=== PATIENT | female | born 1985 | race Caucasian/White ===

== ENCOUNTER → 2016-09-18 | Outpatient (CLI) | payer OTHER ==
[~2016-09-18] MED LIST: DOCU100C37 PO; FAMO20TA3 PO; FAMO20TA5; HYDR-3730 PO; HYDR-3812 PO; IBUP-1773 PO; LEVO13CA2 PO; PREN1TAB71 PO; ZOFRAN
--- OUTSIDE RECORDS SUMMARY | 2016-09-18 09:36 | XMS REPORT | Continuity of Care Document ---
Author Author [facility] Organization [facility] Address Unknown Phone Unavailable Care Team Providers Care Stage Hand Name Role Phone EVELINE MANZO MD PCP Insurance Providers Payer Name Policy Number Subscriber Name Relationship [employer] Benefits [id number] Reece Jauregui 16 Self / Same As Patient Advance Directives Directive Response Recorded Date/Time Advance Directives No 01/25/16 8:30am Health Care Power of School Speech Language Pathologist No 01/25/16 8:30am Organ Donor No 01/25/16 8:30am Resuscitation Status Full Code 01/25/16 8:30am Problems Active Problems Medical Problem Onset Date Status Abdominal pain Unknown Acute Acute cholecystitis Unknown Acute Biliary obstruction Unknown Acute Nausea and vomiting Unknown Acute Post-dates Unknown Acute Unknown Acute Urinary tract infection Unknown Acute Medications Current Home Medications Medication Dose Units Route Directions Days/Qty Instructions Start Date Levothyroxine Sodium 13 Mcg 13 Mcg Oral Daily 06/10/15 Hydrocodone/Acetaminophen 1 Each 1-2 Each Oral Every 6 Hours 35 Past Home Medications Medication Directions Ordered Status Famotidine 20 Mg Tablet, 06/10/15 Discontinued [Zofran] , 06/10/15 Discontinued Vit/Iron Fumarate/Fa 1 Each Tablet, 1 Each Oral Daily 08/29/15 Discontinued Famotidine Tablet, 20 Mg Oral Twice A Day as needed for Heartburn 08/29/15 Discontinued Hydrocodone/Acetaminophen 1 Each Tablet, 1-2 Tab Oral Every 4HRS as needed for Pain 08/30/15 Discontinued Ibuprofen 600 Mg Tablet, 600 Mg Oral Every 6 Hours as needed for Pain Discontinued Docusate Sodium 100 Mg Capsule, 100 Mg Oral Twice A Day 08/30/15 Discontinued Hydrocodone/Acetaminophen 1 Each Tablet, 1-2 Each Oral Every 6 Hours Discontinued Social History Social History Problem Response Recorded Date/Time Alcohol Use Denies Use 01/25/2016 8:30am Recreational Drug Use No 01/25/2016 8:30am Recent Foreign Travel No 01/25/2016 8:30am Recent Infectious Disease Exposure No 01/25/2016 8:30am Hospitalization with Isolation Denies 01/25/2016 1:57pm Sexually Transmitted Disease No 01/25/2016 8:30am HIV/AIDS No 01/25/2016 8:30am Smoking Status Never a Smoker 01/25/2016 8:30am Query Response Start Date Stop Date Smoking Status Never a Smoker Hospital Discharge Instructions Patient Instructions Physician Instructions New, Converted, or Re-Newed RX: RX on Chart Follow Up Appt in 2 weeks Activity as tolerated No driving for 24 hours No driving while on pain medications keep dressing on one week, abdominal binder on at all times except to shower. Incentive Spirometry use every 2 hours while awake Regular Diet Symptoms to Report: Fever over 101 degree F, Nausea/Vomiting Infection Signs and Symptoms to report: Increased redness, Foul odor of wound, Increased drainage Bathing instructions: May shower Operative Area Clean/Dry; Keep incision clean/dry If any problems/questions: Contact your physician or go to Emergency Room Plan of Care Discharge Date 01/25/16 1:32pm Instructions/Education Provided ANESTHESIA INSTRUCTIONS POSTOP Umbilical Hernia (DC) Prescriptions See Medication Section Functional Status No functional status results. Allergies, Adverse Reactions, Alerts No known allergies. Immunizations Name Given Type Date of Influenza Vaccine 07/31/15 Historical Tetanus Booster (TDap) Unknown Historical Vital Signs Acute Vital Signs Vital Response Date/Time Temperature (Fahrenheit) 99.2 degrees F (97.6 - 99.5) 01/25/2016 1:20pm Temperature (Calculated Celsius) 37.41871 degrees C (36.4 - 37.5) 01/25/2016 1:20pm Temperature Source Temporal 01/25/2016 1:20pm Pulse Rate (adult) 76 bpm (60 - 90) 01/25/2016 1:20pm Respiratory Rate 16 bpm (12 - 24) 01/25/2016 1:20pm O2 Sat by Pulse Oximetry 96 % (88 - 100) 01/25/2016 1:20pm Blood Pressure 116/76 mm Hg 01/25/2016 1:20pm Pain Pain Intensity 4 01/25/2016 1:20pm Height (Feet) 5 feet 01/25/2016 8:30am Height (Inches) 0.00 inches 01/25/2016 8:30am Height (Calculated Centimeters) 152.385588 cm 01/25/2016 8:30am Weight (Pounds) 192 pounds 01/25/2016 8:30am Weight (Ounces) 0.0 oz 01/25/2016 8:30am Weight (Calculated Grams) 75224.736 gm 01/25/2016 8:30am Weight (Calculated Kilograms) 87.169099 kilograms 01/25/2016 8:30am Calculated BMI 37.5 01/25/2016 8:30am Results Pending Laboratory Results Test Name Collection Date/Time Pending Microbiology Results Procedure Source Collection Date/Time Procedures Procedure Status Date Provider(s) Repair of umbilical hernia in adult Completed 01/25/16 MEL AIKEN MD Encounters Encounter Location Arrival/Admit Date Discharge/Depart Date Attending Provider Departed [facility] 01/25/16 7:27am 1:32pm MEL AIKEN MD Departed Clinic [facility] 01/19/16 8:54am 01/19/16 9: 44am MEL AIKEN MD
--- NOTE | 2016-09-18 10:10 | Diagnostic Imaging Report ---
Clinical indication: Patient fell in April landing on her bottom. Patient has had low back pain since then. Pain has been getting worse. Exams: 1: X-ray of the lumbar spine, 3 views. 2: X-ray of the sacrum and coccyx, 3 views. Comparison: X-ray of the lumbar spine dated 11/09/2010. Findings: X-ray of the sacrum and coccyx: X-ray of the sacrum and coccyx shows no evidence of interval acute fracture or dislocation. Is stable kyphotic configuration of the sacrococcygeal region with no evidence of cortical disruption or callus formation. The sacroiliac joints, sacrum and visualized portion of the pelvis and both hips are unremarkable. X-ray of the lumbar spine: Lumbar spine has normal alignment with no acute fracture or dislocation. There is slight progression of minimal anterior spurring at the L3-L4 level anteriorly. There is no significant loss of intervertebral disc height or vertebral body height. There is no other significant degenerative changes. Surgical clips are seen overlying the right upper quadrant which could be related to cholecystectomy changes. Impression: 1: X-ray of the sacrum, coccyx, and lumbar spine shows no evidence of acute fracture or dislocation. 2: There is slight progression of minimal degenerative spurring anteriorly at the L3-L4 level. Dictated by: Dictated on workstation # [id number]
--- NOTE | 2016-09-18 10:24 | Diagnostic Imaging Report ---
CLINICAL INDICATION: Patient fell in April landing on her bottom. Patient has had low back pain since then. Pain has been getting worse. EXAMS: 1. X-ray of the lumbar spine, 3 views. 2. X-ray of the sacrum and coccyx, 3 views. COMPARISON: X-ray of the lumbar spine dated 11/09/2010. FINDINGS: X-RAY OF THE SACRUM AND COCCYX: X-ray of the sacrum and coccyx shows no evidence of interval acute fracture or dislocation. There is stable kyphotic configuration of the sacrococcygeal region with no evidence of cortical disruption or callus formation. The sacroiliac joints, sacrum, and visualized portions of the pelvis and both hips are unremarkable. X-RAY OF THE LUMBAR SPINE: The lumbar spine has normal alignment with no acute fracture or dislocation. There is slight progression of minimal anterior spurring at the L3-L4 level anteriorly. There is no significant loss of intervertebral disc height or vertebral body height. There is no other significant degenerative change. Surgical clips are seen overlying the right upper quadrant which could be related to cholecystectomy changes. IMPRESSION: 1. X-ray of the sacrum, coccyx, and lumbar spine shows no evidence of acute fracture or dislocation. 2. There is slight progression of minimal degenerative spurring anteriorly at the L3-L4 level. Dictated by: Dictated on workstation # [id number]
== END ==
LOC: RAD 09:32
PROVIDERS: ATTEND Nurse Practitioner Family
DX: S39.92XA Unspecified injury of lower back, initial encounter (principal); M54.5 Low back pain; W19.XXXA Unspecified fall, initial encounter; Y99.8 Other external cause status
CPT/HCPCS: 72100; 72220

== ENCOUNTER 2017-05-17 17:42 | Day surgery (SDC) | payer OTHER ==
[~2017-05-17] VITALS: Ht 152.4 cm; Wt 101.6 kg
[2017-05-17] MEDS ORDERED: fentaNYL INJECTION 100 MCG/2 ML AMP IVP STA (17:45)
[2017-05-17] MEDS ORDERED: DIAZEPAM INJ 10 MG/2 ML (VALIUM) SYR IV ONE ×3 (17:45→19:00)
--- NOTE | 2017-05-17 17:56 | ED Fall/Injury ---
General Stated Complaint: FALL Source: patient Exam Limitations: other (PT IS COMPLETELY HYSTERIAL--YELLING, CRYING, HYPERVENTILATING) History of Present Illness Time seen by provider: 17:42 Initial Comments PT ARRIVES VIA POV FROM HOME FELL OFF 3RD STEP OF A LADDER, LANDING ON RIGHT SHOULDER /ARM C/O SEVERE PAIN IN RIGHT SHOULDER ALSO C/O PAIN IN LEFT FOOT AND ANKLE DID NOT HIT HEAD AND NO LOSS OF CONSCIOUSNESS NO NECK OR BACK PAIN NO CHEST PAIN NO HIP OR KNEE PAIN NO PARESTHESIAS OR MOTOR DEFICITS NO PRIOR INJURY TO THIS SHOULDER OR FOOT/ANKLE PT IS RIGHT HANDED PCP: DR MANZO RERECORDING MIXER: DR. PA Allergies and Home Medications Allergies Coded Allergies: No Known Drug Allergies (Unverified , 01/19/16) Home Medications Hydrocodone/Acetaminophen 1 Each Tablet, 1-2 EACH PO Q6H, #35 Prescribed by: MEL AIKEN on 01/25/16 1113 Levothyroxine Sodium 13 Mcg Capsule, 13 MCG PO DAILY, (Reported) Constitutional: no symptoms reported Eyes: No Symptoms Reported Ears, Nose, Mouth, Throat: no symptoms reported Respiratory: no symptoms reported Cardiovascular: no symptoms reported Gastrointestinal: no symptoms reported Genitourinary: no symptoms reported Musculoskeletal: see HPI Skin: no symptoms reported Psychiatric/Neurological: Anxiety Past Uidprkh-Cbuqmi-Ekpxyu Hx Patient Social History Alcohol Use: Denies Use Recreational Drug Use: No Smoking Status: Never a Smoker Immunizations Up To Date Tetanus Booster (TDap): Unknown Date of Influenza Vaccine: Jul 31, 2015 Surgeries History of Surgeries: Yes (BILATERAL CARPAL TUNNEL; BILATERAL TRIGGER FINGER SURGERY; REMOVAL OF CYST RIGHT THUMB; HERNIA REPAIR WITH REVISION; X 1 ) Surgeries: Section, Orthopedic Respiratory History of Respiratory Disorde: No Cardiovascular History of Cardiac Disorders: No Neurological History of Neurological Disord: No Reproductive System : No Hx Reproductive Disorders: No Sexually Transmitted Disease: No HIV/AIDS: No Female Reproductive Disorders: Denies Genitourinary History of Genitourinary Disor: No Gastrointestinal History of Gastrointestinal Di: Yes Gastrointestinal Disorders: Abdominal Hernia, Gastroesophageal Reflux, Gall Bladder Disease Musculoskeletal History of Musculoskeletal Dis: Yes (MULTIPLE ORTHO PROCEDURES) Endocrine History of Endocrine Disorders: Yes Endocrine Disorders: Hypothyroidsim HEENT History of HEENT Disorders: No Loss of Vision: Denies Hearing Impairment: Denies Cancer History of Cancer: No Psychosocial History of Psychiatric Problem: No Integumentary History of Skin or Integumenta: No Blood Transfusions Adverse Reaction to a Blood Tr: No (N/A) Family Medical History Significant Family History: No Pertinent Family Hx Family Medial History: Blood clots G8 SISTER Diabetes mellitus 19 FATHER 19 MOTHER Uncle Physical Exam Vital Signs Vital Sign - Last 12Hours 05/17/17 17:54 Pulse 100 Resp 22 B/P (MAP) 150/95 O2 Delivery Room Air Capillary Refill : General Appearance: obese, other (HYSTERICAL, YELLING/CRYING/HYPERVENTILATING/ WAILING LOUDLY) HEENT: PERRL/EOMI, normal ENT inspection Neck: non-tender, full range of motion, supple, normal inspection Cardiovascular: normal peripheral pulses, regular rate, rhythm, no murmur Respiratory: chest non-tender, normal breath sounds, no respiratory distress, no accessory muscle use Peripheral Pulses: 3+ Dorsalis Pedis (R), 3+ Left Dors-Pedis (L), 3+ Radial Pulses (R), 3+ Radial Pulses (L) Gastrointestinal: normal bowel sounds, non tender, soft Back: normal inspection, no CVA tenderness, no vertebral tenderness Extremities: no pedal edema, normal capillary refill, other (TENDERNESS TO RIGHT SHOULDER, HOLDING RIGHT UPPER ARM CLOSE TO BODY WITH LEFT HAND. DISTAL MOTOR/SENSORY/VASCULAR INTACT. NO TENDERNESS DISTAL TO MID HUMERUS. NO SCAPULAR TENDERNESS. ) Neurologic/Psychiatric: filler blender II-XII nml as tested, no motor/sensory deficits, alert, oriented x 3 Skin: normal color, warm/dry Loli Coma Score Best Eye Response: (4) Open Spontaneously Best Verbal Response: (5) Oriented Best Motor Response: (6) Obeys Commands Loli Total: 15 Progress/Results/Core Measures Results/Orders My Orders Orders - ABDULAZIZ ALFRED DO Saline Lock/Iv-Start (05/17/17 17:45) Chest 1 View, Ap/Pa Only (05/17/17 17:45) Shoulder, Right, 3 Views (05/17/17 17:45) Humerus, Right, 2 Views (05/17/17 17:45) Ankle, Left, 3 Views (05/17/17 17:45) Pelvis (05/17/17 17:45) Fentanyl Injection (Sublimaze Injection (05/17/17 17:45) Diazepam Injection (Valium Injection) (05/17/17 17:45) Diazepam Injection (Valium Injection) (05/17/17 18:15) Fentanyl Injection (Sublimaze Injection (05/17/17 18:15) Foot, Left, 3 Views (05/17/17 ) Morphine Injection (Morphine Injection (05/17/17 18:46) Morphine Injection (Morphine Injection (05/17/17 19:00) Diazepam Injection (Valium Injection) (05/17/17 19:00) Medications Given in ED Current Medications Medications Dose Ordered Sig/Maxx Route Start Time Stop Time Status Last Admin Dose Admin Diazepam 5 mg ONCE ONCE IV 05/17/17 17:45 05/17/17 17:47 DC 05/17/17 17:51 5 MG Diazepam 5 mg ONCE ONCE IV 05/17/17 18:15 05/17/17 18:16 DC 05/17/17 18:11 5 MG Diazepam 5 mg ONCE ONCE IV 05/17/17 19:00 05/17/17 19:01 DC 05/17/17 19:05 5 MG Fentanyl Citrate 50 mcg ONCE ONCE IVP 05/17/17 18:15 05/17/17 18:16 DC 05/17/17 18:12 50 MCG Morphine Sulfate 10 mg ONCE ONCE IVP 05/17/17 19:00 05/17/17 19:01 DC 05/17/17 19:05 10 MG Vital Signs/I&O Vital Sign - Last 12Hours 05/17/17 17:54 Pulse 100 Resp 22 B/P (MAP) 150/95 O2 Delivery Room Air Progress Note : Progress Note NO RELIEF OF PAIN WITH VALIUM 15 MG + MORPHINE 20 MG AND PT IS STILL COMPLETELY HYSTERICAL/YELLING/MOANING LOUDLY/HYPERVENTILATING. Diagnostic Imaging Comments XRAYS RIGHT SHOULDER AND HUMERUS--FRACTURE / DISLOCATION OF PROXIMAL HUMERUS CXR--NO ACUTE PROCESS IN CHEST XRAYS LEFT FOOT AND ANKLE--NO ACUTE PROCESS ALL PER RADIOLOGIST REPORTS AT 8 Reviewed: Reviewed by Me Departure Communication (Admissions) Progress Notes 1844--SPOKE WITH DR. TURNER, ORTHO SYSTEMS PROGRAMMER ANALYST. WILL BE IN TO SEE PT. 1854--DR. TURNER HERE, CARE TURNED OVER TO HIM. WILL BE TAKING PT TO OR TONIGHT Impression Impression: Primary Impression: Closed fracture dislocation of right shoulder Additional Impression: LEFT FOOT AND ANKLE SPRAIN Disposition: ADMITTED INPATIENT (TO SURGERY) Condition: Stable Admissions Decision to Admit Reason: Admit from ER (Trauma) (TO SURGERY) Decision to Admit/Date: May 17, 2017 Time/Decision to Admit Time: 18:45 Departure-Patient Inst. Referrals: EVELINE MANZO MD (PCP/Family) Primary Care Physician ABDULAZIZ ALFRED DO May 17, 2017 17:56
[2017-05-17] MEDS ORDERED: fentaNYL INJECTION 100 MCG/2 ML AMP IVP ONE (18:15)
[2017-05-17] MEDS ORDERED: morphine INJ 10 MG/ML 1ML (SYR OR VIAL) ONE ×2 (18:46→21:20)
--- NOTE | 2017-05-17 18:57 | Diagnostic Imaging Report ---
INDICATION: Fall. COMPARISON: None. EXAMINATION: Single view of the pelvis was obtained. FINDINGS: No fracture or dislocation. Articular surfaces are normal. IMPRESSION: Negative pelvis. Dictated by: Dictated on workstation # [id number]
--- NOTE | 2017-05-17 18:58 | Diagnostic Imaging Report ---
INDICATION: Fall, chest pain. COMPARISON: None. EXAMINATION: Single view of the chest was obtained. FINDINGS: Clear lungs, bilaterally. The heart size is normal. There is no pneumothorax. There is a fracture dislocation of the right shoulder. IMPRESSION: 1. No acute cardiopulmonary findings. 2. Fracture dislocation right shoulder. Dictated by: Dictated on workstation # [id number]
--- NOTE | 2017-05-17 18:59 | Diagnostic Imaging Report ---
INDICATION: Right arm pain, trauma. COMPARISON: None. EXAMINATION: Three views of the right humerus were obtained. FINDINGS: Displaced fracture of likely the bicipital tuberosity with dislocation of the humeral head, inferiorly and slightly anteriorly. The remainder of the humerus and visualized elbow are normal. IMPRESSION: Fracture dislocation right shoulder. Dictated by: Dictated on workstation # [id number]
[2017-05-17] MEDS ORDERED: morphine INJ 10 MG/ML 1ML (SYR OR VIAL) IVP ONE (19:00)
--- NOTE | 2017-05-17 19:00 | Diagnostic Imaging Report ---
INDICATION: Fall, right shoulder pain. COMPARISON: None. FINDINGS: 3 views of right shoulder demonstrate fracture of the bicipital tuberosity with dislocation of the humeral head inferiorly and slightly anteriorly. The visualized scapula and clavicle are intact. IMPRESSION: Fracture or dislocation right shoulder. Dictated by: Dictated on workstation # [id number]
--- NOTE | 2017-05-17 19:02 | Diagnostic Imaging Report ---
INDICATION: Fall, trauma. COMPARISON: None. EXAMINATION: Three views of the left foot were obtained. FINDINGS: No acute fracture or dislocation. There is a normal variant os cuboides. There is no foreign body. IMPRESSION: No fracture or dislocation. Dictated by: Dictated on workstation # [id number]
--- NOTE | 2017-05-17 19:03 | Diagnostic Imaging Report ---
INDICATION: Left ankle pain, trauma. COMPARISON: None. FINDINGS: 3 views of left ankle demonstrate no fracture or dislocation. Articular surfaces are normal. There is no foreign body. IMPRESSION: Negative left ankle. Dictated by: Dictated on workstation # [id number]
--- NOTE | 2017-05-17 19:34 | ED Upper Extremity ---
General Chief Complaint: Trauma-Non Activation Stated Complaint: FALL from third step of the latter ht shoulder injury. secondary complaint of left foot pain with reportedly a normal x-ray. Nursing Triage Note: SEE TRAUMA NOTE Nursing Sepsis Screen: No Definite Risk Source: patient, family History of Present Illness Time seen by provider: 19:32 Initial Comments patient has received about 20 mg of IV diazepam and 10 milligrams of morphine she is awake and alert and well-oriented to events talkative. She easily comes down once we discussed the care of her shoulder. Denies numbness or tingling in the hand. Denies neck or head injury. Injury occurred just prior to arrival. Onset: just prior to arrival Pain/Injury Location: right shoulder Method of Injury: fell Modifying Factors: Improves With Movement, Improves With Pain Medication Allergies and Home Medications Allergies Coded Allergies: No Known Drug Allergies (Unverified , 01/19/16) Home Medications Hydrocodone/Acetaminophen 1 Each Tablet, 1-2 EACH PO Q6H, #35 Prescribed by: MEL AIKEN on 01/25/16 1113 Levothyroxine Sodium 13 Mcg Capsule, 13 MCG PO DAILY, (Reported) Constitutional: no symptoms reported Respiratory: no symptoms reported Cardiovascular: no symptoms reported Past Pikozin-Gfgkng-Zhpzuk Hx Patient Social History Alcohol Use: Denies Use Recreational Drug Use: No Smoking Status: Never a Smoker Recent Foreign Travel: No Contact w/Someone Who Travel: No Recent Infectious Disease Expo: No Recent Hopitalizations: Yes (galbladder) Physical Abuse: No Sexual Abuse: No Immunizations Up To Date Tetanus Booster (TDap): Unknown Date of Influenza Vaccine: Jul 31, 2015 Surgeries History of Surgeries: Yes (BILATERAL CARPAL TUNNEL; BILATERAL TRIGGER FINGER SURGERY; REMOVAL OF CYST RIGHT THUMB; HERNIA REPAIR WITH REVISION; X 1 ) Surgeries: Section, Gallbladder, Orthopedic Respiratory History of Respiratory Disorde: No Cardiovascular History of Cardiac Disorders: No Neurological History of Neurological Disord: No Reproductive System : No Hx Reproductive Disorders: No Sexually Transmitted Disease: No HIV/AIDS: No Female Reproductive Disorders: Denies Genitourinary History of Genitourinary Disor: No Gastrointestinal History of Gastrointestinal Di: Yes Gastrointestinal Disorders: Abdominal Hernia, Gastroesophageal Reflux, Gall Bladder Disease Musculoskeletal History of Musculoskeletal Dis: Yes (MULTIPLE ORTHO PROCEDURES) Musculoskeletal Disorders: Gout (History of injury to this shoulder and history of broken left arm and right arm in childhood) Endocrine History of Endocrine Disorders: Yes Endocrine Disorders: Hypothyroidsim HEENT History of HEENT Disorders: No Loss of Vision: Denies Hearing Impairment: Denies Cancer History of Cancer: No Psychosocial History of Psychiatric Problem: No Suicide Risk Score: 0 Integumentary History of Skin or Integumenta: No Blood Transfusions History of Blood Disorders: No Adverse Reaction to a Blood Tr: No (N/A) Family Medical History Significant Family History: No Pertinent Family Hx Family Medial History: Blood clots G8 SISTER Diabetes mellitus 19 FATHER 19 MOTHER Uncle Physical Exam Vital Signs Vital Sign - Last 12Hours 05/17/17 17:54 Pulse 100 Resp 22 B/P (MAP) 150/95 O2 Delivery Room Air Capillary Refill : Less Than 3 Seconds General Appearance: WD/WN (J), moderate distress (a changes), obese HEENT: normal ENT inspection Neck: full range of motion, supple (this is concerned that this girl has a nasal fracture. He is to give Dr. Ant child going thank you) Cardiovascular: normal peripheral pulses, regular rate, rhythm Shoulder: asymmetry (1), deformity, limited ROM, pain, soft tissue tenderness, swelling Elbow/Forearm: normal inspection, non-tender Wrist: Yes normal inspection, Yes non-tender, Yes normal ROM Hand: normal inspection, non-tender, Right (this little girl is nothere is a nasal bones) Neurologic/Psychiatric: other (Radial ulnar and median sensory intact) Skin: normal color Progress/Results/Core Measures Results/Orders Medications Given in ED Current Medications Medications Dose Ordered Sig/Maxx Route Start Time Stop Time Status Last Admin Dose Admin Diazepam 5 mg ONCE ONCE IV 05/17/17 17:45 05/17/17 17:47 DC 05/17/17 17:51 5 MG Diazepam 5 mg ONCE ONCE IV 05/17/17 18:15 05/17/17 18:16 DC 05/17/17 18:11 5 MG Diazepam 5 mg ONCE ONCE IV 05/17/17 19:00 05/17/17 19:01 DC 05/17/17 19:05 5 MG Fentanyl Citrate 50 mcg ONCE ONCE IVP 05/17/17 18:15 05/17/17 18:16 DC 05/17/17 18:12 50 MCG Morphine Sulfate 10 mg ONCE ONCE IVP 05/17/17 19:00 05/17/17 19:01 DC 05/17/17 19:05 10 MG Vital Signs/I&O Vital Sign - Last 12Hours 05/17/17 17:54 Pulse 100 Resp 22 B/P (MAP) 150/95 O2 Delivery Room Air Blood Pressure Mean: 113 Diagnostic Imaging Comments right proximal humerus fracture dislocation, greater tuberosity Reviewed: Reviewed by Me Departure Impression Impression: Primary Impression: Closed fracture dislocation of right shoulder Additional Impression: LEFT FOOT AND ANKLE SPRAIN Disposition: ADMITTED INPATIENT (To OR) Condition: Stable Admissions Decision to Admit Reason: Admit from ER (Trauma) (TO SURGERY) Decision to Admit/Date: May 17, 2017 Time/Decision to Admit Time: 18:45 Transfer Transfer Progress Notes comprehensive discussion of risks benefits alternatives and treatment options was held with the patient, her , and her mother. Recommend closed reduction under anesthesia, possible open reduction if necessary. Discussed that if open reduction is necessary that internal fixation may be appropriatebut not necessarily Discussed that she may need staged intervention. The goal today is to reduce the proximal humerus and may need additional surgery at a later time. Because of the challenges of pain control with substantially high doses of benzodiazepines and plus morphine discussed with the emergency physician that she is not comfortable pursuing sedation in this circumstance and I agree with her assessment that the use of an anesthesiologist is appropriate. Departure-Patient Inst. Referrals: VEELINE MANZO MD (PCP/Family) Primary Care Physician ORTHO 4 STATES JEMIMA TURNER MD May 17, 2017 19:34
[2017-05-17 20:20] LABS: BASOPHILS % (AUTO) 0 % (0-10); EOSINOPHILS % (AUTO) 0 % (0-10); LYMPHOCYTES # (AUTO) 0.9 X 10^3 (1.0-4.0); LYMPHOCYTES % (AUTO) 7 % (12-44); MEAN CORPUSCULAR HEMOGLOBIN 28 PG (25-34); MEAN CORPUSCULAR HGB CONC 34 G/DL (32-36); MEAN CORPUSCULAR VOLUME 82 FL (80-99); MONOCYTES # (AUTO) 0.4 X 10^3 (0.0-1.0); MONOCYTES % (AUTO) 3 % (0-12); NEUTROPHILS # (AUTO) 11.2 X 10^3 (1.8-7.8); NEUTROPHILS % (AUTO) 90 % (42-75); PLATELET COUNT 267 10^3/uL (130-400); RED BLOOD COUNT 4.97 10^6/uL (4.35-5.85); RED CELL DISTRIBUTION WIDTH 13.4 % (10.0-14.5); WHITE BLOOD COUNT 12.5 10^3/uL (4.3-11.0)
[2017-05-17 20:39] LABS: ALANINE AMINOTRANSFERASE 40 U/L (0-55); ALBUMIN 3.9 GM/DL (3.2-4.5); ANION GAP 10 MMOL/L (5-14); ASPARTATE AMINO TRANSFERASE 70 U/L (5-34); BILIRUBIN,TOTAL 0.6 MG/DL (0.1-1.0); BLOOD UREA NITROGEN 21 MG/DL (7-18); BUN/CREATININE RATIO 26; CALCIUM 9.1 MG/DL (8.5-10.1); CARBON DIOXIDE 20 MMOL/L (21-32); CHLORIDE 107 MMOL/L (98-107); CREATININE SERUM 0.81 MG/DL (0.60-1.30); GFR ESTIMATED > 60; GLUCOSE 159 MG/DL (70-105); POTASSIUM 4.1 MMOL/L (3.6-5.0); SODIUM 137 MMOL/L (135-145)
[2017-05-17 21:00] VITALS: BP 130/86
[2017-05-17] MEDS ORDERED: NS IV 1000 ML 1,000 ML ONE (21:19)
[2017-05-17] MEDS ORDERED: ONDANSETRON 4 MG/2 ML (SDV) Z0FRAN ONE ×2 (21:20→22:35)
[2017-05-17] MEDS ORDERED: ONDANSETRON 4 MG/2 ML (SDV) Z0FRAN IVP PRN (22:00)
[2017-05-17] MEDS ORDERED: morphine INJ 10 MG/ML 1ML (SYR OR VIAL) IV PRN (22:00)
[2017-05-17] MEDS: NS IV 1000 ML 1,000 ML IV SCH (22:25)
[2017-05-17 22:34] VITALS: BP_SYST 130; BP_SYST 170; BP_DIAS 87
[2017-05-17] MEDS ORDERED: LACTATED RINGERS 1,000 ML IV ONE (22:35)
[2017-05-17] MEDS ORDERED: proPOfol 200 MG/20 ML (DIPRIVAN) VIAL IV ONE (22:35)
[2017-05-17] MEDS ORDERED: LIDOCAINE JELLY 2% (XYLOCAINE) 5 ML TUBE ONE (22:35)
[2017-05-17] MEDS ORDERED: fentaNYL INJECTION 100 MCG/2 ML AMP ONE (22:35)
[2017-05-17] MEDS ORDERED: ROCURONIUM 50 MG/5 ML (ZEMURON) VIAL IV ONE (22:35)
[2017-05-17] MEDS ORDERED: LIDOCAINE PF 2% 5 ML (XYLOCAINE) VIAL ONE ×2 (22:35→23:31)
[2017-05-17] MEDS ORDERED: MEPERIDINE (DEMEROL) INJ 50 MG/ML ONE (23:24)
[2017-05-17] MEDS ORDERED: SEVOFLURANE (ULTANE) 15 ML INHAL SOLN ONE ×2 (23:31→23:44)
--- NOTE | 2017-05-18 00:04 | Operative Report ---
Operative Report Date of Procedure/Surgery May 17, 2017 Surgeon (s) JEMIMA TURNER MD Edger Operator (s): Nery Post-Operative Diagnosis Right Proximal Humerus fracture dislocation Procedure Performed Closed reduction under general anesthesia Description of Procedure Anesthesia Type: Per Anesthesia Estimated blood loss (mL): 0 Specimen(s) collected/removed none Description of the Procedure timeout performed with patient awake, verified correct right side and I signed the site. Underwent General anesthesia after new IV started right shoulder was manipulated. elevated into full elevation and reduction performed and arm ry into neutral position. Flouro showed reduction but unable to obtain an axillary view. Placed into sling and awakened and taken to ICU for recovery. Will obtain post-op xrays before d/c Findings of the Procedure reduced Greater tuberosity and glenohumeral relation/alignment Allergies and Home Medications Allergies Coded Allergies: No Known Drug Allergies (Unverified , 01/19/16) Home Medications Hydrocodone/Acetaminophen 1 Each Tablet, 1-2 EACH PO Q6H, #35 Prescribed by: MEL AIKEN on 01/25/16 1113 Levothyroxine Sodium 13 Mcg Capsule, 13 MCG PO DAILY, (Reported) JEMIMA TURNER MD May 18, 2017 00:04
[2017-05-18] MEDS: MEPERIDINE (DEMEROL) INJ 50 MG/ML IVP PRN ×2 (00:10→00:20)
[2017-05-18] MEDS ORDERED: ONDANSETRON 4 MG/2 ML (SDV) Z0FRAN IVP PRN (00:15)
[2017-05-18] MEDS ORDERED: morphine INJ 10 MG/ML 1ML (SYR OR VIAL) IVP PRN (00:15)
[2017-05-18 00:55] VITALS: BP 114/75
[2017-05-18 01:00] VITALS: BP 114/75
[2017-05-18] MEDS: diphenhydrAMINE 25 MG TAB (BENADRYL) PO PRN ×3 (01:25→09:05)
[2017-05-18] MEDS: HYDROmorphone (DILAUDID) 2 MG/ML VIAL IVP PRN ×2 (01:26→04:11)
[2017-05-18 04:00] VITALS: BP 124/66
[2017-05-18 08:00] VITALS: BP 125/67
--- NOTE | 2017-05-18 08:29 | Diagnostic Imaging Report ---
INDICATION: Fluoroscopy utilized for closed reduction of the fracture dislocation of the humerus. FINDINGS: Intraoperative film show dislocation of the humeral head with respect to the glenoid with fracture of the humeral tuberosity. Post reduction film shows realignment of the humeral head with the glenoid fossa. The humeral tuberosity fracture is in good position as well. AC joint is in good alignment. IMPRESSION: Satisfactory appearing post reduction of dislocated fractured humerus as described. Dictated by: Dictated on workstation # [id number]
--- NOTE | 2017-05-18 08:36 | Anesthesia-General Post-Op ---
General Patient Condition Mental Status/LOC: Same as Preop Cardiovascular: Satisfactory Nausea/Vomiting: Absent Respiratory: Satisfactory Pain: Controlled Complications: Absent Post Op Complications Complications None Follow Up Care/Instructions Patient Instructions None needed. Anesthesia/Patient Condition Patient Condition Patient is doing well, no complaints, stable vital signs, no apparent adverse anesthesia problems. No complications reported per nursing. HERNANDEZ SPIVEY CRNA May 18, 2017 08:36
[2017-05-18] MEDS: NS IV 1000 ML 1,000 ML IV SCH (08:59)
--- NOTE | 2017-05-18 09:37 | Diagnostic Imaging Report ---
INDICATION: Post reduction. FINDINGS: The fracture dislocation of the humeral head is now in good alignment with the glenoid. The humeral tuberosity fracture is realigned with the humeral head. IMPRESSION: Satisfactory post reduction film right shoulder. Dictated by: Dictated on workstation # [id number]
--- NOTE | 2017-05-18 10:06 | Progress Note-Standard ---
Standard Progress Note Progress Notes/Assess & Plan Date Seen by Provider: May 18, 2017 Time Seen by Provider: 10:05 Progress/Assessment & Plan patient is status post a right proximal humerus fracture dislocation, closed reduction. She reports diffuse and resolving paresthesias in the right hand. Motor appears intact. She is comfortable. I reviewed radiographs and postop film. Plan discharge continue use of sling she can take her arm out of sling for dressing and should follow-up in 7-10 days with radiographs at or so for states. PEERJEMIMA MD May 18, 2017 10:06
--- NOTE | 2017-05-18 10:12 | Discharge Inst-Simple/Standard ---
Discharge Inst-Standard Discharge Medications New, Converted or Re-Newed RX: RX on Chart (left radial fracture is left distal radius fracture left superior which really weightbearing as tolerated her wrist is school is similar this years ago as is. All her is as next , our compartment is she is on dialysis as he is probably() Patient Instructions/Follow Up Plan of Care/Instructions/FU: may remove the sling once or twice a day for dressing Activity as Tolerated: No Discharge Diet: No Restrictions Return to The Hospital For: worsening or progressive pain or numbness or tingling in the hands fits not improving Other Inst to Patient call orthopedic for states on Friday to schedule follow-up in the next 7-10 days. JEMIMA TURNER MD May 18, 2017 10:11
[2017-05-18] MEDS ORDERED: HYDR-757 PO (10:20)
== END 2017-05-18 11:50 | disposition home or self-care (01) ==
LOC: ER 17:42 → EDUNIT# 17:42 → SDC 19:40 → 4TH 19:40 → UNDOADMOB 21:05 → 4TH 21:05 → SDC 05-18 11:50 → UNDODISOB 05-18 11:50
PROVIDERS: ATTEND Orthopaedic Surgery
DX: S42.291A Other displaced fracture of upper end of right humerus, initial encounter for closed fracture (principal); S93.692A Other sprain of left foot, initial encounter; S93.402A Sprain of unspecified ligament of left ankle, initial encounter; K21.9 Gastro-esophageal reflux disease without esophagitis; E03.9 Hypothyroidism, unspecified; W11.XXXA Fall on and from ladder, initial encounter
CPT/HCPCS: 36415; 71010; 72170; 73020; 73030; 73060; 73610; 73630; 80053; 84703; 85025; 87081; 94760; 96374; 96375; 96376

== ENCOUNTER → 2017-08-04 | Outpatient (CLI) | payer OTHER ==
[~2017-08-04] VITALS: Ht 152.4 cm; Wt 101.6 kg
[~2017-08-04] MED LIST changes: +HYDR-757 PO; +NS IV 1000 ML 1,000 ML IV SCH; +PROMETHAZINE INJ 25 MG/ML (PHENERGAN) AMP IV ONE; +PROMETHAZINE INJ 25 MG/ML (PHENERGAN) AMP ONE
[2017-08-04 10:00] VITALS: BP 120/89
[2017-08-04 10:40] LABS: MEAN PLATELET VOLUME 9.1 FL (7.4-10.4); RED BLOOD COUNT 5.49 10^6/uL (4.35-5.85); RED CELL DISTRIBUTION WIDTH 13.5 % (10.0-14.5); WHITE BLOOD COUNT 5.3 10^3/uL (4.3-11.0)
[2017-08-04 10:55] LABS: ALANINE AMINOTRANSFERASE 19 U/L (0-55); ALBUMIN 3.9 GM/DL (3.2-4.5); ANION GAP 8 MMOL/L (5-14); ASPARTATE AMINO TRANSFERASE 21 U/L (5-34); BILIRUBIN,TOTAL 0.6 MG/DL (0.1-1.0); BLOOD UREA NITROGEN 22 MG/DL (7-18); BUN/CREATININE RATIO 27; CALCIUM 8.5 MG/DL (8.5-10.1); CARBON DIOXIDE 19 MMOL/L (21-32); CHLORIDE 109 MMOL/L (98-107); CREATININE SERUM 0.81 MG/DL (0.60-1.30); GFR ESTIMATED > 60; GLUCOSE 99 MG/DL (70-105); POTASSIUM 3.6 MMOL/L (3.6-5.0); SODIUM 136 MMOL/L (135-145); TOTAL PROTEIN 7.4 GM/DL (6.4-8.2)
== END ==
LOC: SDC 09:47
PROVIDERS: ATTEND Nurse Practitioner Family
DX: E86.0 Dehydration (principal); R19.7 Diarrhea, unspecified; R11.2 Nausea with vomiting, unspecified
CPT/HCPCS: 36415; 80053; 84703; 85027; 96360; 96375

== ENCOUNTER → 2018-05-14 | Outpatient (CLI) | payer OTHER ==
[~2018-05-14] MED LIST changes: +ACHD5005 PO; -HYDR-3812 PO; +HYDR-4226 PO; -HYDR-757 PO; -NS IV 1000 ML 1,000 ML IV SCH; -PROMETHAZINE INJ 25 MG/ML (PHENERGAN) AMP IV ONE; -PROMETHAZINE INJ 25 MG/ML (PHENERGAN) AMP ONE
--- NOTE | 2018-05-14 17:24 | Diagnostic Imaging Report ---
INDICATION: Evaluation of . TECHNIQUE: Multiple real-time grayscale images were obtained over the gravid uterus. COMPARISON: None. FINDINGS: There is lawrence intrauterine fetus in variable presentation. Amniotic fluid level is within normal limits. The placenta is anterior without evidence of previa. cardiac activity is present with rate of 155 beats per minute. Cervical length is 5.8 cm. No definite anomalies identified, however images of the spinal cord, umbilical cord insertion, and four-chamber heart views are limited due to positioning. biometry indicates gestational age of 20 weeks and 5 days. IMPRESSION: Unremarkable obstetrical ultrasound with estimated gestational age of 20 weeks and 5 days. Sonographic EDC is 09/28/2018. Additional followup study later in the second trimester would be useful for completion of the anatomic survey. Biometrical measurements are as follows: Biparietal 5.07 cm, age 21 weeks 3 days. Head circumference 18.77 cm, age 21 weeks 1 days. Abdominal circumference 14.99 cm, age 20 weeks 2 days. Femur length 3.19 cm, age 20 weeks 0 days. Sonographic estimate age: 20 weeks 5 days. Sonographic estimated date of delivery: 07/27/2019. Estimated Weight: 341 gm (+/- 50 gm). LMP percentile: 34%. heart rate: 155 beats per minute. number: 1 of 1. Dictated by: Dictated on workstation # [id number]
== END ==
LOC: RAD 15:46
PROVIDERS: ATTEND Obstetrics & Gynecology
DX: Z34.02 Encounter for supervision of normal first pregnancy, second trimester (principal); Z3A.20 20 weeks gestation of pregnancy
CPT/HCPCS: 76805

== ENCOUNTER → 2018-07-01 | Outpatient (CLI) | payer OTHER ==
--- NOTE | 2018-07-01 10:52 | Diagnostic Imaging Report ---
PROCEDURE: US Abdomen, limited. TECHNIQUE: Multiple realtime grayscale images were obtained over the abdomen in various projections. INDICATION: Abdominal pain and hernia. Patient is also 27 weeks . Comparison is made with abdominal ultrasound from 05/05/2018. Midline abdominal wall defect measures slightly greater on today's study at 4.6 cm transverse compared with 3.6 cm on prior exam. The cine sequences do show heterogeneous tissue extending through the abdominal wall defect into the subcutaneous tissues. No definite peristalsing tissue is seen to suggest hollow viscus herniation. Contents most likely represents omental fat. The possibility of decompressed bowel extending through the defect cannot be entirely exclude however. IMPRESSION: Increase in size of midline ventral hernia defect when compared with exam from 05/05/2018. There is tissue extending through the abdominal wall defect during Valsalva, as described. Majority of tissues likely omental fat. The possibility of decompressed bowel cannot be entirely excluded. Dictated by: Dictated on workstation # [id number]
== END ==
LOC: RAD 09:43
PROVIDERS: ATTEND Nurse Practitioner Family
DX: O26.892 Other specified pregnancy related conditions, second trimester (principal); K43.9 Ventral hernia without obstruction or gangrene; Z3A.27 27 weeks gestation of pregnancy
CPT/HCPCS: 76705

== ENCOUNTER 2018-09-02 10:32 | Outpatient (CLI) | payer OTHER ==
[2018-09-02 12:01] VITALS: BP 127/85
[2018-09-02] MEDS ORDERED: MELA1TAB24 SL (12:18)
[2018-09-02] MEDS ORDERED: OMEP40CA36 PO (12:18)
[2018-09-02] MEDS ORDERED: PREN1TAB79 PO (12:18)
[2018-09-02] MEDS ORDERED: DOXY25TA56 PO (12:18)
[2018-09-02 12:30] VITALS: BP 127/85
--- NOTE | 2018-09-02 12:46 | Diagnostic Imaging Report ---
INDICATION: Decreased movement. There is a single live fetus in cephalic presentation. heart rate was recorded at 143 beats per minute. Placenta is anterior. Amniotic fluid index is 7.4 cm. Overall biophysical profile score is normal at 8 out 8. IMPRESSION: Biophysical profile score 8 out of 8. Dictated by: Dictated on workstation # [id number]
== END 2018-09-02 12:30 | disposition home or self-care (01) ==
LOC: WSo 10:32 → LDRP 10:45 → WSo 12:30
PROVIDERS: ATTEND Obstetrics & Gynecology
DX: O36.8130 Decreased fetal movements, third trimester, not applicable or unspecified (principal); Z3A.36 36 weeks gestation of pregnancy
CPT/HCPCS: 59025; 76819

== ENCOUNTER 2018-09-07 10:51 | Inpatient (IN) | payer OTHER ==
[~2018-09-07] VITALS: Ht 152.4 cm; Wt 105.7 kg
[2018-09-07] VITALS (10 sets, daily range): BP systolic 120–146; BP diastolic 61–84
--- NOTE | 2018-09-07 10:45 | NUR ---
REECE BAPTISTE presented to unit via AMBULATION from DR PA'S OFFICE, accompanied by STAFF, with c/o OLIGOHYDRAMNIOS; PREVIOUS SECTION. REECE BAPTISTE weighed, gowned, voided, and to bed. EFHM and TOCO applied, VS taken. REECE BAPTISTE oriented to bed controls, call light, TV, heat, and A/C controls.
[~2018-09-07 10:51] MED LIST changes: +DOXY25TA56 PO; +MELA1TAB24 SL; +OMEP40CA36 PO; +PREN1TAB79 PO
[2018-09-07] MEDS ORDERED: LACTATED RINGERS 1,000 ML IV PRN (12:56)
[2018-09-07] MEDS ORDERED: LIDOCAINE 1% INJ 20 ML 20 ML VIAL ONE (12:59)
[2018-09-07] MEDS ORDERED: METOCLOPRAMIDE INJ 10 MG/2 ML (REGLAN) IV ONE ×3 (13:00→15:30)
[2018-09-07] MEDS ORDERED: LIDOCAINE 1% INJ 20 ML 20 ML VIAL INJ ONE (13:00)
[2018-09-07] MEDS ORDERED: CATHETER FLUSH 10 ML SYR IV PRN (13:00)
[2018-09-07] MEDS ORDERED: CITRIC ACID/SOB CIT (BICITRA) 30 ML UDC PO ONE ×3 (13:00→15:30)
[2018-09-07] MEDS ORDERED: FAMOTIDINE 20MG/2ML IV (PEPCID) IV ONE ×2 (13:00→15:30)
[2018-09-07] MEDS ORDERED: ceFAZolin 2 GM IV Premixed 50 ML IV ONE (13:00)
--- NOTE | 2018-09-07 13:14 | History & Physical-OB ---
OB - Chief Complaint & HPI Date/Time Date of Admission: Date of Admission: Sep 07, 2018 at 10:51 am Date seen by a Provider: Sep 07, 2018 Time Seen by a Provider: 10:30 Chief Complaint/History OB-Reason for Admission/Chief: Section Hx : 3 Hx Para: 1 Expected Date of Delivery: Sep 28, 2018 Gestational Age in Weeks: 37 Indication for : desires repeat Admission Nurse Assessment Rev: Yes History of Labs A pos Antibody neg RI RPR NR HBsAg NR HIV NR GC neg GBS neg Allergies and Home Medications Allergies Coded Allergies: No Known Drug Allergies (Unverified , 01/19/16) Home Medications Doxylamine Succinate 25 Mg Tablet, 25 MG PO HS, (Reported) Levothyroxine Sodium 13 Mcg Capsule, 13 MCG PO DAILY, (Reported) Melatonin 1 Mg Tab.subl, 1 MG SL HS, (Reported) Omeprazole 40 Mg Capsule.dr, 40 MG PO DAILY, (Reported) Vit W-Ca,Fe,FA(<1 mg) 1 Each Tablet, 1 EACH PO DAILY, (Reported) Patient Home Medication List Home Medication List Reviewed: Yes OB - History Hx of Present Care: Yes Ultrasounds: Abnormal US findings (Decreased movement today prompted a biophysical profile, there was no fluid pocket measurable that was greater than 2 cm, also no tone.) Obstetrical Complications: None Medical Complications: Other (BMI of 45 with ventral hernia) Delivery History Hx Blood Disorders: No Adverse Rxn to Tranfusion: No (N/A) Patient Past Medical History Hypothyroidism Morbid obesity Social History/Family History HIV/AIDS: No Sexually Transmitted Disease: No Immunizations Tetanus Booster (TDap): Unknown Date of Influenza Vaccine: Jul 31, 2015 OB - Admission Exam Physical Exam HEENT: NCAT Heart: Rhythm Normal Lungs: Clear Extremities: Normal Reflexes: Normal Heart Rate: 140's Decelerations: No Decelerations Short Term Variability: Present Media Producer Variability: Minimal (3-5) Contractions on Admission: >10 Minutes Apart Intensity: Mild OB - Assessment/Plan/Diagnosis Assessment Assessment: section Admission Dx 33 yo @ 37 weeks Oligohydramnios BMI 45 Family Hx of Ovarian Ca GBS neg Admission Status: Inpatient Order (span 2 midnights) Reason for Inpatient Admission: Repeat C/S Plan Plan: Section (w/ RRS) DANNY PA DO Sep 07, 2018 1:14 pm
[2018-09-07] MEDS: LACTATED RINGERS 1,000 ML IV PRN ×2 (13:28→16:21)
[2018-09-07 13:42] LABS: BASOPHILS % (AUTO) 0 % (0-10); EOSINOPHILS # (AUTO) 0.2 10^3/uL (0.0-0.3); EOSINOPHILS % (AUTO) 2 % (0-10); HEMATOCRIT 34 % (35-52); HEMOGLOBIN 11.4 G/DL (11.5-16.0); LYMPHOCYTES % (AUTO) 13 % (12-44); MEAN CORPUSCULAR HEMOGLOBIN 28 PG (25-34); MEAN CORPUSCULAR HGB CONC 34 G/DL (32-36); MEAN CORPUSCULAR VOLUME 84 FL (80-99); MEAN PLATELET VOLUME 9.9 FL (7.4-10.4); MONOCYTES # (AUTO) 0.3 X 10^3 (0.0-1.0); MONOCYTES % (AUTO) 4 % (0-12); NEUTROPHILS # (AUTO) 5.9 X 10^3 (1.8-7.8); NEUTROPHILS % (AUTO) 81 % (42-75); PLATELET COUNT 215 10^3/uL (130-400); RED BLOOD COUNT 4.07 10^6/uL (4.35-5.85); RED CELL DISTRIBUTION WIDTH 14.1 % (10.0-14.5); WHITE BLOOD COUNT 7.4 10^3/uL (4.3-11.0)
[2018-09-07] MEDS ORDERED: OXYTOCIN/NORMAL SALINE 1,000 ML IV ONE (15:21)
[2018-09-07] MEDS ORDERED: fentaNYL INJECTION 100 MCG/2 ML AMP ONE (15:21)
[2018-09-07] MEDS ORDERED: DEXAMETHASONE 10 MG/ML (DECADRON) 1 ML VIAL ONE (15:22)
[2018-09-07] MEDS ORDERED: KETOROLAC 30 MG/ML VIAL ONE (15:22)
[2018-09-07] MEDS ORDERED: LACTATED RINGERS 1,000 ML IV SCH ×2 (15:22)
[2018-09-07] MEDS ORDERED: ONDANSETRON 4 MG/2 ML (SDV) Z0FRAN ONE (15:22)
[2018-09-07] MEDS ORDERED: OXYTOCIN/NORMAL SALINE 500 ML IV SCH (15:48)
[2018-09-07] MEDS ORDERED: OXYC1TAB87 PO (15:53)
[2018-09-07] MEDS ORDERED: DOCU100C37 PO (15:53)
[2018-09-07] MEDS ORDERED: IBUP-844 PO (15:53)
--- NOTE | 2018-09-07 15:54 | Discharge Inst-Women's Service ---
Discharge Inst-Women's Serv Depart Medication/Instructions New, Converted or Re-Newed RX: RX on Chart Consults/Follow Up Additional Follow Up: Yes Orders/Referrals Dr. Rojas/Mei Hameed in 7-[address] Rojas in 6 weeks Activity Activity: Activity as Tolerated Driving Instructions: No Driving for 1 Week NO SMOKING: NO SMOKING Nothing Inside Vagina: No Douching, No Mcpherson, No Tampons Diet Discharge Diet: No Restrictions Symptoms to Report to : Bleeding Excessive, Pain Increased, Fever Over 101 Degrees F, Vaginal Bleeding Increase, Questions/Concerns For Any Problems or Questions: Contact Your Physician Skin/Wound Care Infection Signs and Symptoms: Increased Redness, Foul Odor of Wound, Increased Drainage, Skin Itchy or Has a Rash, Increased Swelling, Temperature Above 101 F Operative Area Clean and Dry: Keep Incision Clean/Dry Stitches/[place]/Dermabond: Dermabond, Care of Stitches Bathing Instructions: DANNY Alvares DO Sep 07, 2018 3:54 pm
[2018-09-07] MEDS ORDERED: HYDROmorphone 2 MG/ML VIAL (DILAUDID) IV PRN (16:00)
[2018-09-07] MEDS ORDERED: ONDANSETRON 4 MG/2 ML (SDV) Z0FRAN IVP PRN (16:00)
[2018-09-07] MEDS ORDERED: MEASLES,MUMPS,RUBELLA 1 EA INJ SC SCH (16:00)
[2018-09-07] MEDS ORDERED: TETANUS,DIPTH,PERTUSS P/F (BOOSTRIX) 0.5 ML VIAL IM SCH (16:00)
[2018-09-07] MEDS ORDERED: LACTATED RINGERS 1,000 ML IV ONE (16:34)
[2018-09-07] MEDS ORDERED: PHENYLEPHRINE 100 MCG/ML 10 ML (ANESTHESIA) SYR ONE (16:34)
[2018-09-07] MEDS: KETOROLAC 30 MG/ML VIAL IVP SCH (17:00)
[2018-09-07] MEDS: DOCUSATE SODIUM 100 MG (COLACE) CAP PO SCH (20:23)
[2018-09-07] MEDS: oxyCODONE/APAP 5/325MG (PERCOCET 5) TABLET PO PRN (20:24)
--- NOTE | 2018-09-07 21:00 | NUR ---
Pt assisted to bathroom. positive void. pericare completed. pt assisted back to bed.
[2018-09-07] MEDS ORDERED: CATHETER FLUSH 10 ML SYR IV SCH (22:00)
[2018-09-08] MEDS: KETOROLAC 30 MG/ML VIAL IVP SCH ×3 (00:26→10:00)
[2018-09-08 02:00] VITALS: BP 125/80
[2018-09-08] MEDS: oxyCODONE/APAP 5/325MG (PERCOCET 5) TABLET PO PRN ×4 (03:00→21:17)
--- NOTE | 2018-09-08 05:00 | OPERATIVE REPORT ---
DATE OF SERVICE: PREOPERATIVE DIAGNOSES: 1. A 33-year-old G3, P1 at 37 weeks gestation. 2. Oligohydramnios. 3. Morbid obesity. 4. Family history of ovarian cancer. POSTOPERATIVE DIAGNOSES: 1. A 33-year-old G3, P1 at 37 weeks gestation. 2. Oligohydramnios. 3. Morbid obesity. 4. Family history of ovarian cancer. PROCEDURE: Repeat low transverse section with bilateral risk reducing salpingectomy. SURGEON: Deangelo Rojas DO. AIRCRAFT ORDNANCE TECHNICIAN: Dr. Madai Du ANESTHESIA: Spinal. ESTIMATED BLOOD LOSS: 600 mL. FLUIDS: 1300 mL lactated Ringer's solution. URINE: 25 mL clear at the end of the procedure. FINDINGS: A live female weighing 7 pounds 6 ounces, Apgars of 8 and 9. Grossly normal appearing uterus, bilateral fallopian tubes and ovaries. INDICATION FOR PROCEDURE: A 33-year-old female was the patient who came in to the office today for routine visit, was found to have decreased movement on biophysical exam, there was of note no pocket greater than 2 cm. Due to oligohydramnios and 37 weeks, discussed with the patient proceeding with delivery. Risks of the procedure were discussed with the patient in detail as well as risk of 37-week delivery. All of her questions were answered, consent was obtained in the preoperative area and the patient was taken to the operating room. OPERATIVE REPORT IN DETAIL: Once in the operating room, spinal anesthesia was found to be adequate. She was placed in the supine position with leftward tilt, prepped and draped in normal sterile fashion. A timeout was performed. Anesthesia was tested. A Pfannenstiel skin incision was made through the previously existing scar using a knife and carried down to underlying fascia using Bovie cautery. The fascial incision was extended laterally using Bovie cautery. The superior aspect of fascial incision was then grasped with Marck clamps, tented up and dissected off the underlying rectus muscles. The inferior aspect of the fascial incision was then grasped with Marck clamps, tented upward and dissected off the underlying rectus muscles. Rectus muscles were dissected down the midline using sharp dissection with Metzenbaum scissors, which exposed the peritoneum, which I entered bluntly and extended using blunt traction. An Ruben ring retractor was placed within the peritoneal incision, which offered excellent lateral sidewall retraction. I proceeded with making a low transverse incision through the vesicouterine peritoneum and bluntly dissected off the lower uterine segment, creating a bladder flap. I then proceeded with my myotomy until membranes were visualized, at which point I extended the uterine incision laterally and superiorly using bandage scissors. Amniotomy was performed using Allis clamp, clear fluid was noted. The uterine incision extended laterally and superiorly using bandage scissors. The was found in the vertex presentation. With gentle fundal pressure, the infant's head was delivered through the incision where the nares and oropharynx were bulb suctioned. Nuchal cord was reduced x1. Anterior and posterior shoulder was delivered. was then brought out to the operative field where the cord was doubly clamped and cut and infant was handed off to the awaiting Dr. Du who was there for delivery. Cord blood was collected. Three-vessel cord and placenta was delivered spontaneously thereafter. IV Pitocin was initiated to facilitate uterine contraction. Uterine fundus became firmer with bimanual massage. The uterus was then exteriorized and cleared of all endometrial clots and debris. I then closed the uterine incision using 0 Vicryl suture in running locked fashion. Second layer of imbricating 0 Monocryl was placed. Excellent hemostasis was noted after doing this. I then took my attention to the fallopian tubes where I performed the following dissection bilaterally using the LigaSure device. I saw her at the proximal isthmic portion of the fallopian tube, bipolar cauterized and transected this fallopian tube using the LigaSure. I then took this dissection down the mesosalpinx amputating the fallopian tube from its blood supply. I then placed the uterus back within the pelvis and once again I evaluate all my planes of dissection, which seemed to be hemostatic. I copiously irrigated the pelvis using normal saline. Once again, no active bleeding is noted from any of my dissection planes. I placed Interceed antiadhesive over my low transverse incision. I proceeded with closing the rectus muscles using 3-0 Vicryl suture in interrupted fashion. The fascia was reapproximated using 0 Vicryl suture in running fashion. The subcutaneous tissue was reapproximated using 3-0 plain in interrupted subcutaneous stitch and the skin was reapproximated using 4-0 Monocryl in a running subcuticular. Dermabond was applied to incision. Sterile dressings with adhesive white tape. The patient tolerated the procedure well and was taken to the recovery area in stable condition. Lap and sponge count was correct at the end of the procedure. Instrument count was correct as well. Two grams of Ancef were given preoperatively for infection prophylaxis. Job ID: [id number] DocumentID: [id number] Dictated Date: 09/07/2018 17:05:59 Marketing Editor Date: 09/08/2018 05:00:23 Dictated By: DO RICKEY MURPHY
[2018-09-08 05:35] LABS: BASOPHILS % (AUTO) 0 % (0-10); EOSINOPHILS % (AUTO) 0 % (0-10); HEMATOCRIT 34 % (35-52); HEMOGLOBIN 11.1 G/DL (11.5-16.0); LYMPHOCYTES # (AUTO) 0.9 X 10^3 (1.0-4.0); LYMPHOCYTES % (AUTO) 10 % (12-44); MEAN CORPUSCULAR HEMOGLOBIN 28 PG (25-34); MEAN CORPUSCULAR HGB CONC 33 G/DL (32-36); MEAN CORPUSCULAR VOLUME 85 FL (80-99); MEAN PLATELET VOLUME 9.8 FL (7.4-10.4); MONOCYTES # (AUTO) 0.5 X 10^3 (0.0-1.0); MONOCYTES % (AUTO) 5 % (0-12); NEUTROPHILS # (AUTO) 7.8 X 10^3 (1.8-7.8); NEUTROPHILS % (AUTO) 84 % (42-75); PLATELET COUNT 201 10^3/uL (130-400); RED BLOOD COUNT 3.95 10^6/uL (4.35-5.85); RED CELL DISTRIBUTION WIDTH 13.8 % (10.0-14.5); WHITE BLOOD COUNT 9.3 10^3/uL (4.3-11.0)
--- NOTE | 2018-09-08 05:44 | NUR ---
IV DC'D, ABD DSRG REMOVED. PT TOLERATED WELL.
[2018-09-08 06:00] VITALS: BP 116/73
[2018-09-08 08:40] VITALS: BP 114/63
[2018-09-08] MEDS: DOCUSATE SODIUM 100 MG (COLACE) CAP PO SCH ×2 (08:42→21:17)
--- NOTE | 2018-09-08 09:22 | Postpartum Progress Note ---
Note Note Day # 1 Subjective: Patient is without complaints. Ambulating, voiding. Tolerating a regular diet without nausea or vomiting. Normal lochia. Pain is well controlled with oral pain medications. Objective: Vital Sign - Last 24 Hours 09/07/18 09/07/18 09/07/18 09/07/18 11:11 11:50 12:20 13:15 Temp 97.8 Pulse 103 94 95 92 Resp 20 20 20 20 B/P (MAP) 134/84 (101) 120/71 (87) 125/65 (85) 129/69 (89) Pulse Ox 99 O2 Delivery Room Air Room Air Room Air Room Air 09/07/18 09/07/18 09/07/18 09/07/18 13:50 14:20 14:45 15:20 Pulse 92 93 94 99 Resp 20 20 20 20 B/P (MAP) 123/62 (82) 128/63 (84) 146/78 (100) 126/61 (82) O2 Delivery Room Air Room Air Room Air Room Air 09/07/18 09/07/18 09/07/18 09/08/18 18:14 21:40 22:15 02:00 Temp 98.2 98.8 97.9 Pulse 92 83 75 Resp 20 20 20 B/P (MAP) 121/76 (91) 127/80 (96) 125/80 (95) Pulse Ox 99 99 99 O2 Delivery Room Air Room Air Room Air Room Air 09/08/18 09/08/18 06:00 08:40 Temp 97.5 98.3 Pulse 116 81 Resp 20 20 B/P (MAP) 116/73 (87) 114/63 (80) Pulse Ox 99 O2 Delivery Room Air Room Air Intake and Output 09/07/18 09/07/18 09/08/18 15:00 23:00 07:00 Intake Total 1050 ml 300 ml Output Total 775 ml 600 ml Balance 275 ml -300 ml Physical Exam: General - Alert and oriented, no apparent distress Abdomen - Soft, appropriately tender to palpation, non-distended, fundus firm at umbilicus Extremities - no edema, negative Rosalva's bilaterally Incision- c/d/i Assessment: POD 1 RLTCS w/ RRS AMA BMI 45 Plan: Routine care. Encourage breast feeding. Encourage ambulation. Ferrous sulfate supplementation. Plan for discharge tomorrow Vitals - Labs Vital Signs - I&O Vital Signs Date Time Temp Pulse Resp B/P (MAP) Pulse Ox O2 Delivery O2 Flow Rate FiO2 09/08/18 08:40 98.3 81 20 114/63 (80) Room Air 09/08/18 06:00 97.5 116 20 116/73 (87) 99 Room Air 09/08/18 02:00 97.9 75 20 125/80 (95) 99 Room Air 09/07/18 22:15 98.8 83 20 127/80 (96) 99 Room Air 09/07/18 21:40 Room Air 09/07/18 18:14 98.2 92 20 121/76 (91) 99 Room Air 09/07/18 15:20 99 20 126/61 (82) Room Air 09/07/18 14:45 94 20 146/78 (100) Room Air 09/07/18 14:20 93 20 128/63 (84) Room Air 09/07/18 13:50 92 20 123/62 (82) Room Air 09/07/18 13:15 92 20 129/69 (89) Room Air 09/07/18 12:20 95 20 125/65 (85) Room Air 09/07/18 11:50 94 20 120/71 (87) Room Air 09/07/18 11:11 97.8 103 20 134/84 (101) 99 Room Air I & O 09/08/18 07:00 Intake Total 1350 ml Output Total 1375 ml Balance -25 ml Labs Laboratory Tests 09/07/18 13:30: White Blood Count 7.4, Red Blood Count 4.07L, Hemoglobin 11.4L, Hematocrit 34L, Mean Corpuscular Volume 84, Mean Corpuscular Hemoglobin 28, Mean Corpuscular Hemoglobin Concent 34, Red Cell Distribution Width 14.1, Platelet Count 215, Mean Platelet Volume 9.9, Neutrophils (%) (Auto) 81H, Lymphocytes (%) (Auto) 13 , Monocytes (%) (Auto) 4, Eosinophils (%) (Auto) 2, Basophils (%) (Auto) 0, Neutrophils # (Auto) 5.9, Lymphocytes # (Auto) 1.0, Monocytes # (Auto) 0.3, Eosinophils # (Auto) 0.2, Basophils # (Auto) 0.0 09/08/18 05:25: White Blood Count 9.3, Red Blood Count 3.95L, Hemoglobin 11.1L, Hematocrit 34L, Mean Corpuscular Volume 85, Mean Corpuscular Hemoglobin 28, Mean Corpuscular Hemoglobin Concent 33, Red Cell Distribution Width 13.8, Platelet Count 201, Mean Platelet Volume 9.8, Neutrophils (%) (Auto) 84H, Lymphocytes (%) (Auto) 10L , Monocytes (%) (Auto) 5, Eosinophils (%) (Auto) 0, Basophils (%) (Auto) 0, Neutrophils # (Auto) 7.8, Lymphocytes # (Auto) 0.9L, Monocytes # (Auto) 0.5, Eosinophils # (Auto) 0.0, Basophils # (Auto) 0.0 DANNY PA DO Sep 08, 2018 09:22
--- NOTE | 2018-09-08 10:15 | Anesthesia-Regional Post-Op ---
Regional Patient Condition Mental Status: Alert, Oriented x3 Circulation: Same as Pre-Op Headache: Absent Sensation: Full Recovery Motor Block: Absent Post Op Complications Complications None Follow Up Care/Instructions Patient Instructions None needed. Anesthesia/Patient Condition Patient is doing well, no complaints, stable vital signs, no apparent adverse anesthesia problems. No complications reported per nursing. HERNANDEZ SPIVEY CRNA Sep 08, 2018 10:15
[2018-09-08] MEDS ORDERED: IBUPROFEN 600 MG (MOTRIN) TAB PO ONE (11:55)
[2018-09-08 17:45] VITALS: BP 118/67
[2018-09-08] MEDS: IBUPROFEN 600 MG (MOTRIN) TAB PO SCH (17:45)
[2018-09-09 00:11] VITALS: BP 95/62
[2018-09-09] MEDS: IBUPROFEN 600 MG (MOTRIN) TAB PO SCH ×2 (00:11→05:45)
[2018-09-09 05:45] VITALS: BP 124/79
[2018-09-09 08:00] VITALS: BP 127/81
[2018-09-09] MEDS: DOCUSATE SODIUM 100 MG (COLACE) CAP PO SCH (08:00)
[2018-09-09] MEDS: oxyCODONE/APAP 5/325MG (PERCOCET 5) TABLET PO PRN (08:00)
--- NOTE | 2018-09-09 08:38 | Postpartum Progress Note ---
Note Note Day # 2 Subjective: Patient is without complaints. Ambulating, voiding. Tolerating a regular diet without nausea or vomiting. Normal lochia. Pain is well controlled with oral pain medications. Objective: Physical Exam: General - Alert and oriented, no apparent distress Abdomen - Soft, appropriately tender to palpation, non-distended, fundus firm at umbilicus Extremities - no edema, negative Rosalva's bilaterally Incision- c/d/i Assessment: POD 2 RLTCS w/ RRS AMA BMI 45 Plan: Routine care. Encourage breast feeding. Encourage ambulation. Ferrous sulfate supplementation. Plan for discharge today Vitals - Labs Vital Signs - I&O Vital Signs Date Time Temp Pulse Resp B/P (MAP) Pulse Ox O2 Delivery O2 Flow Rate FiO2 09/09/18 05:45 98.4 85 18 124/79 (94) 98 Room Air 09/09/18 00:11 98.4 78 18 95/62 (73) 98 Room Air 09/08/18 17:45 97.6 87 18 118/67 (84) 99 Room Air 09/08/18 08:40 98.3 81 20 114/63 (80) Room Air I & O 09/09/18 07:00 Intake Total 1500 ml Output Total 1650 ml Balance -150 ml Labs Microbiology 09/07/18 MRSA Screen - Final, Complete MRSA not isolated DANNY PA DO Sep 09, 2018 08:37
--- NOTE | 2018-09-09 10:25 | NUR ---
REECE BAPTISTE demonstrates understanding of discharge instructions and accurately returns instructions upon questioning. Copy of Post-Discharge Instructions and Medication Discharge Instructions given to patient. REECE BAPTISTE is/is not able to manage continuing needs after discharge. Patients belongings returned to patient. Skin dry and intact; no breakdown noted. Patient discharged from 3307-1 on 09-09-18 at 1025. REECE BAPTISTE left floor via ambulation, accompanied by staff.
--- NOTE | 2018-09-10 15:27 | Physician Query-Final Dx ---
JEM TAYLOR 09/10/18 1527: Final Diagnosis Give Final Diagnosis Please give Final Diagnosis DANNY PA DO 09/10/18 1529: Final Diagnosis Give Final Diagnosis POD 2 RLTCS JEM TAYLOR Sep 10, 2018 15:27 DANNY PA DO Sep 10, 2018 15:29
== END 2018-09-09 10:25 | disposition home or self-care (01) | DRG 785 ==
LOC: LDRP 10:51
PROVIDERS: ADMIT Obstetrics & Gynecology; ATTEND Obstetrics & Gynecology
PROC: 0UT70ZZ Resection of Bilateral Fallopian Tubes, Open Approach (ICD-10-PCS; 2018-09-07)
PROC: 10D00Z1 Extraction of Products of Conception, Low, Open Approach (ICD-10-PCS; principal; 2018-09-07 15:52)
DX: O41.03X0 Oligohydramnios, third trimester, not applicable or unspecified (principal); O69.81X0 Labor and delivery complicated by cord around neck, without compression, not applicable or unspecified; O34.211 Maternal care for low transverse scar from previous cesarean delivery; O99.283 Endocrine, nutritional and metabolic diseases complicating pregnancy, third trimester; E03.9 Hypothyroidism, unspecified; O99.213 Obesity complicating pregnancy, third trimester; E66.01 Morbid (severe) obesity due to excess calories; Z80.41 Family history of malignant neoplasm of ovary; Z3A.37 37 weeks gestation of pregnancy; Z37.0 Single live birth
CPT/HCPCS: 36415; 85025; 86850; 86900; 86901; 87081; 94664

== ENCOUNTER 2019-01-25 06:44 | Outpatient (CLI) | payer OTHER ==
[~2019-01-25] VITALS: Ht 152.4 cm; Wt 102.1 kg
[~2019-01-25 06:44] MED LIST changes: +IBUP-844 PO; +OXYC1TAB87 PO
[2019-01-25] MEDS ORDERED: AMIT10TA6 PO (09:48)
[2019-01-25] MEDS ORDERED: ALPR0.254 PO (09:48)
== END 2019-01-25 09:56 | disposition home or self-care (01) ==
LOC: PREOP 06:44
PROVIDERS: ATTEND Surgery
DX: Z01.818 Encounter for other preprocedural examination (principal)

== ENCOUNTER 2019-01-28 05:55 | Day surgery (SDC) | payer OTHER ==
[2019-01-28] VITALS (13 sets, daily range): BP systolic 110–134; BP diastolic 68–97
[~2019-01-28] VITALS: Ht 152.4 cm; Wt 102.1 kg
[~2019-01-28 05:55] MED LIST changes: +ALPR0.254 PO; +AMIT10TA6 PO
--- OUTSIDE RECORDS SUMMARY | 2019-01-28 06:01 | XMS REPORT | CCD ---
Author Author Em Ortiz MD, [facility] Address [facility] [place] [address] Phone Care Team Providers Care Fisher Eel Name Role Phone PP Unavailable CCM Unavailable Summary Purpose Interface Exchange Insurance Providers Payer name Policy type / Coverage type Covered democrat ID Effective Begin Date Effective End Date [email or web address] [id number] Unknown Family history Brother Diagnosis Age At Onset Denies: *Denies any medical problems Unknown Mother Diagnosis Age At Onset Diabetes mellitus Type 2 Unknown Father Diagnosis Age At Onset Denies: *Denies any medical problems Unknown Sister Diagnosis Age At Onset Denies: *Denies any medical problems Unknown Social History Social History Element Codes Description Effective Dates Number of children Unknown 2 01/19/2019 Employment Unknown Currently employed stay at [place] [employer] [place] 01/19/2019 Marital status Unknown 09/26/[address]: 899419830 Nonsmoker 09/26/[address]: 149434925 Never drinks alcohol 09/26/2011 Has the patient ever used illegal drugs? 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 ICD-10: G47.01 Active 01/19/2019 Unknown Other hemorrhoids ICD-9: 455.8 ICD-10: K64.8 Active 12/21/2018 Unknown Epigastric pain ICD-9: 789.06 ICD-10: R10.13 Active 07/01/2018 Unknown Ventral hernia without obstruction or gangrene ICD-9: 553.20 ICD-10: K43.9 Active 07/01/2018 Unknown Generalized abdominal pain ICD-9: 789.07 ICD-10: R10.84 Active 04/30/2018 Unknown Slow transit constipation ICD-9: 564.01 ICD-10: K59.01 Active 04/30/2018 Unknown Acute recurrent maxillary sinusitis ICD-9: 461.0 ICD-10: J01.01 Active 02/13/2018 Unknown Cough ICD-9: 786.2 ICD-10: R05 Active 02/13/2018 Unknown Amenorrhea, unspecified ICD-9: 626.0 ICD-10: N91.2 Active 09/11/2017 Unknown Dehydration ICD-9: 276.51 ICD-10: E86.0 Active 08/04/2017 Unknown Diarrhea, unspecified ICD- 9: 787.91 ICD-10: R19.7 Active 08/04/2017 Unknown Nausea ICD-9: 787.02 ICD-10: R11.0 Active 08/04/2017 Unknown Low back pain ICD-9: 724.2 ICD-10: M54.5 Active 09/17/2016 Unknown Other specified hypothyroidism ICD-9: 244.8 ICD-10: E03.8 Active 06/18/2016 Unknown VACCIN FOR INFLUENZA ICD- 9: V04.81 ICD-10: Z23 Active 06/18/2016 Unknown Hypothyroidism, unspecified ICD-9: 244.9 ICD-10: E03.9 Active 06/16/2016 Unknown Encounter for general adult medical examination without abnormal findings ICD-9: V70.0 ICD-10: Z00.00 Active 03/26/2016 Unknown Missed periods ICD-9: 626.4 Active 12/12/2014 Unknown ROUTINE GYNE EXAM ICD-9: V72.31 Active 10/26/2014 Unknown CONTRACEPTIVE MANGMT ICD- 9: V25.9 Active 01/18/2013 Unknown Contraceptive surveillance, unspecified ICD-9: V25.40 Active 10/19/2012 Unknown Varicose veins of both lower extremities with pain ICD-9: 454.8 Active 08/10/2012 Unknown Abdominal pain ICD-9: 789.00 Active 03/16/2012 Unknown Breast tenderness in female ICD-9: 611.71 Active 03/16/2012 Unknown Morbid obesity ICD-9: 278.01 Active 09/26/2011 Unknown HEADACHE ICD-9: 784.0 Active 08/22/2011 Unknown ACUTE SINUSITIS ICD-9: 461.9 Active 06/20/2011 Unknown Adult hypothyroidism ICD- 9: 244.9 Active 06/20/2011 Unknown Environmental allergies ICD-9: 477.9 Active 06/20/2011 Unknown Problems Condition Codes Effective Dates Condition Status Insomnia due to medical condition ICD-9: 327.01 ICD-10: G47.01 01/19/2019 Active Other hemorrhoids ICD-9: 455.8 ICD-10: K64.8 12/21/2018 Active Epigastric pain ICD-9: 789.06 ICD-10: R10.13 07/01/2018 Active Ventral hernia without obstruction or gangrene ICD-9: 553.20 ICD-10: K43.9 07/01/2018 Active Generalized abdominal pain ICD-9: 789.07 ICD-10: R10.84 04/30/2018 Active Slow transit constipation ICD-9: 564.01 ICD-10: K59.01 04/30/2018 Active Acute recurrent maxillary sinusitis ICD-9: 461.0 ICD-10: J01.01 02/13/2018 Active Cough ICD-9: 786.2 ICD-10: R05 02/13/2018 Active Amenorrhea, unspecified ICD-9: 626.0 ICD-10: N91.2 09/11/2017 Active Dehydration ICD-9: 276.51 ICD-10: E86.0 08/04/2017 Active Diarrhea, unspecified ICD- 9: 787.91 ICD-10: R19.7 08/04/2017 Active Nausea ICD-9: 787.02 ICD-10: R11.0 08/04/2017 Active Low back pain ICD-9: 724.2 ICD-10: M54.5 09/17/2016 Active Other specified hypothyroidism ICD-9: 244.8 ICD-10: E03.8 06/18/2016 Active VACCIN FOR INFLUENZA ICD- 9: V04.81 ICD-10: Z23 06/18/2016 Active Hypothyroidism, unspecified ICD-9: 244.9 ICD-10: E03.9 06/16/2016 Active Encounter for general adult medical examination without abnormal findings ICD-9: V70.0 ICD-10: Z00.00 03/26/2016 Active Missed periods ICD-9: 626.4 12/12/2014 Active ROUTINE GYNE EXAM ICD-9: V72.31 10/26/2014 Active CONTRACEPTIVE MANGMT ICD- 9: V25.9 01/18/2013 Active Contraceptive surveillance, unspecified ICD-9: V25.40 10/19/2012 Active Varicose veins of both lower extremities with pain ICD-9: 454.8 08/10/2012 Active Abdominal pain ICD-9: 789.00 03/16/2012 Active Breast tenderness in female ICD-9: 611.71 03/16/2012 Active Morbid obesity ICD-9: 278.01 09/26/2011 Active HEADACHE ICD-9: 784.0 08/22/2011 Active ACUTE SINUSITIS ICD-9: 461.9 06/20/2011 Active Adult hypothyroidism ICD- 9: 244.9 06/20/2011 Active Environmental allergies ICD-9: 477.9 06/20/2011 Active Medications Medication Codes Instructions Start Date Stop Date Status Fill Instructions amitriptyline 10 mg tablet RxNorm: 768205 2 Tablet(s) PO QHS 01/21/2019 No Stop Date Active amitriptyline 10 mg tablet RxNorm: 994013 1 Tablet(s) PO QHS 01/19/2019 01/20/2019 Inactive amoxicillin 500 mg tablet RxNorm: 019161 1 Tablet(s) PO TID 02/13/2018 02/22/2018 Inactive Alicia-D 24 Hour 180 mg-240 mg tablet,extended release RxNorm: 082571 1 Tablet(s) PO daily as needed 12/16/2017 01/18/2019 Inactive promethazine 25 mg tablet RxNorm: 998496 1 Tablet(s) PO Q6 PRN 08/04/2017 02/12/2018 Inactive promethazine 25 mg tablet RxNorm: 684409 1 Tablet(s) PO Q6 PRN 08/04/2017 08/03/2017 Inactive Valtrex 1 gram tablet RxNorm: 220406 1 Tablet(s) PO daily 05/21/2017 02/12/2018 Inactive Tirosint 13 mcg capsule RxNorm: 839830 TAKE 1 CAPSULE BY MOUTH DAILY 03/10/2017 01/18/2019 Inactive Valtrex 1 gram tablet RxNorm: 861473 1 TABLET(S) PO DAILY 03/05/2017 03/28/2017 Inactive Alicia-D 24 Hour 180 mg-240 mg tablet,extended release RxNorm: 530117 1 Tablet(s) PO daily as needed 07/09/2016 12/15/2017 Inactive Tirosint 13 mcg capsule RxNorm: 485572 Capsule(s) 1 CAPSULE(S) PO DAILY 07/08/2016 01/03/2017 Inactive Tirosint 13 mcg capsule RxNorm: 667317 Capsule(s) 1 CAPSULE(S) PO DAILY 06/26/2016 07/07/2016 Inactive daw1 scopolamine 1.5 mg transdermal patch (1 mg over 3 days) RxNorm: 970173 1 Patch TD Q72H 06/19/2016 02/12/2018 Inactive Tirosint 25 mcg capsule RxNorm: 407682 1 Capsule(s) PO daily 06/19/2016 06/18/2016 Inactive Tirosint 25 mcg capsule RxNorm: 001271 1 Capsule(s) PO daily 06/19/2016 06/25/2016 Inactive meclizine 25 mg tablet RxNorm: 314861 1 Tablet(s) PO TID as needed 06/19/2016 06/25/2016 Inactive Valtrex 1 gram tablet RxNorm: 062031 1 TABLET(S) PO DAILY 06/11/2016 07/04/2016 Inactive Tirosint 13 mcg capsule RxNorm: 873125 1 CAPSULE(S) PO DAILY 03/25/2016 06/19/2016 Inactive daw1 Valtrex 1 gram tablet RxNorm: 837504 1 TABLET(S) PO DAILY 02/23/2015 03/18/2015 Inactive Tirosint 13 mcg capsule RxNorm: 500530 1 Capsule(s) PO daily 02/06/2015 02/05/2015 Inactive Tirosint 13 mcg capsule RxNorm: 455055 1 Capsule(s) PO daily 02/06/2015 03/24/2016 Inactive daw1 Zithromax Z-Emmanuel 250 mg tablet RxNorm: 920123 Tablet(s) PO UD 04/05/2014 10/25/2014 Inactive [SAVINGS FOR UNINSURED PATIENTS -- BIN:[id number], PCN: [id number], Group: [id number], ID# [id number], Process claim through [employer], for questions: . THIS IS NOT INSURANCE.] Valtrex 1 g tablet RxNorm: 996493 Tablet(s) PO TAKE 1 TABLET BY MOUTH DAILY 12/30/2013 05/20/2017 Inactive Synthroid 75 mcg tablet RxNorm: 776892 Tablet(s) PO TAKE 1 TABLET BY MOUTH DAILY 12/30/2013 10/25/2014 Inactive Valtrex 1 gram tablet RxNorm: 795870 1 Tablet(s) PO daily 12/29/2013 01/09/2014 Inactive medroxyprogesterone 150 mg/mL intramuscular syringe RxNorm: 7508620 Milliliter(s) IM 10/22/2013 10/22/2013 Inactive Depo-Provera 150 mg/mL intramuscular suspension RxNorm: 0161283 Milliliter(s) IM bring to clinic for admin. 10/20/2013 10/25/2014 Inactive Valtrex 1 g tablet RxNorm: 093193 1 Tablet(s) PO daily 09/03/2013 09/14/2013 Inactive medroxyprogesterone 150 mg/mL intramuscular syringe RxNorm: 0070312 Milliliter(s) IM 07/21/2013 07/21/2013 Inactive Depo-Provera 150 mg/mL intramuscular suspension RxNorm: 8635684 Milliliter(s) IM bring to clinic for admin. 07/20/2013 10/19/2013 Inactive Synthroid 75 mcg tablet RxNorm: 316452 1 Tablet(s) PO daily 06/23/2013 12/19/2013 Inactive Synthroid 75 mcg tablet RxNorm: 405177 1 Tablet(s) PO daily 05/31/2013 06/22/2013 Inactive Synthroid 75 mcg tablet RxNorm: 831555 1 Tablet(s) PO daily 05/31/2013 05/30/2013 Inactive Depo-Provera 150 mg/mL IM Syringe RxNorm: 4493376 Milliliter(s) IM 04/21/2013 04/21/2013 Inactive Depo-Provera 150 mg/mL intramuscular suspension RxNorm: 2429392 Milliliter(s) IM bring to clinic for admin. 04/12/2013 07/19/2013 Inactive Depo-Provera 150 mg/mL IM Syringe RxNorm: 5053013 Milliliter(s) IM 01/18/2013 01/18/2013 Inactive phentermine 37.5 mg disintegrating tablet RxNorm: 1581419 1 Tablet(s) PO daily 01/08/2013 02/06/2013 Inactive medroxyprogesterone 150 mg/mL IM Susp RxNorm: 5065316 Milliliter(s) IM 10/19/2012 10/19/2012 Inactive Nasonex 50 mcg/actuation Independence RxNorm: 148644 1 Independence NASAL BID 1 spray each nare bid 10/19/2012 02/12/2018 Inactive phentermine 37.5 mg disintegrating tablet RxNorm: 6343106 1 Tablet(s) PO daily 10/19/2012 11/17/2012 Inactive Depo-Provera 150 mg/mL IM Susp RxNorm: 6945607 IM bring to clinic for admin. 10/16/2012 04/11/2013 Inactive Synthroid 50 mcg tablet RxNorm: 016829 1 Tablet(s) PO daily 09/07/2012 05/30/2013 Inactive Synthroid 50 mcg tablet RxNorm: 301309 1 Tablet(s) PO daily 09/07/2012 05/30/2013 Inactive Valtrex 1 g tablet RxNorm: 918267 1 Tablet(s) PO daily 2012 08/31/2012 Inactive Valtrex 1 g tablet RxNorm: 984290 1 Tablet(s) PO daily 2012 08/19/2012 Inactive phentermine 37.5 mg Tab RxNorm: 712649 1 Tablet(s) PO daily 03/02/2012 10/19/2012 Inactive phentermine 37.5 mg Tab RxNorm: 784130 1 Tablet(s) PO daily 01/24/2012 02/22/2012 Inactive phentermine 37.5 mg Tab RxNorm: 386129 1 Tablet(s) PO daily 12/23/2011 01/21/2012 Inactive Nasonex 50 mcg/actuation Independence RxNorm: 662093 1 Independence NASAL BID 1 spray each nare bid 12/19/2011 10/18/2012 Inactive Nasonex 50 mcg/actuation Independence RxNorm: 256576 1 Independence NASAL BID 1 spray each nare bid 12/19/2011 12/18/2011 Inactive Synthroid 50 mcg Tab RxNorm: 723186 Tablet(s) PO 12/10/2011 05/31/2013 Inactive TAKE ONE TABLET BY MOUTH DAILY;Patient requests 90 day supply Omnaris 50 mcg Nasal Independence RxNorm: 372204 2 Independence NASAL daily 2 sprays per nostril daily 12/09/2011 12/18/2011 Inactive Synthroid 50 mcg tablet RxNorm: 702359 1 Tablet(s) PO daily 12/09/2011 09/06/2012 Inactive Synthroid 50 mcg Tab RxNorm: 794150 1 Tablet(s) PO daily 12/09/2011 12/09/2011 Inactive phentermine 37.5 mg Tab RxNorm: 315602 1 Tablet(s) PO daily 11/21/2011 12/20/2011 Inactive Claritin-D 24 Hour 10 mg-240 mg Tab RxNorm: 6927942 1 Tablet(s) PO PRN 09/26/2011 02/12/2018 Inactive Valtrex 1 g Tab RxNorm: 957798 1 Tablet(s) PO daily 08/28/2011 08/30/2011 Inactive Valtrex 1 g Tab RxNorm: 734584 1 Tablet(s) PO daily one daily x 3 days, may continue x 2 more days if the cold sore is not resolved 08/28/2011 09/26/2011 Inactive Kenalog 40 mg/mL Susp for Injection RxNorm: 0233833 1.5 Milliliter(s) Inj 08/23/2011 08/23/2011 Inactive Levaquin 500 mg Tab RxNorm: 549272 1 Tablet(s) PO daily 08/22/2011 09/26/2011 Inactive Synthroid 50 mcg Tab RxNorm: 422470 1 Tablet(s) PO daily 08/07/2011 08/06/2011 Inactive Synthroid 50 mcg tablet RxNorm: 387005 1 Tablet(s) PO daily 08/07/2011 09/07/2012 Inactive Omnaris 50 mcg Nasal Independence RxNorm: 165654 2 Independence NASAL daily 2 sprays per nostril daily 06/20/2011 12/08/2011 Inactive Rocephin 500 mg Solution for Injection RxNorm: 2257158 1 Milliliter(s) Inj 06/20/2011 09/26/2011 Inactive Kenalog 40 mg/mL Susp for Injection RxNorm: 2271189 1 Milliliter(s) Inj 06/20/2011 09/26/2011 Inactive cefdinir 300 mg Cap RxNorm: 506190 1 Capsule(s) PO BID 06/20/2011 09/26/2011 Inactive melatonin 10 mg tablet RxNorm: 4977690 1 Tablet(s) PO daily No Start Date Active Xanax 0.25 mg tablet RxNorm: 807739 1 Tablet(s) PO QHS No Start Date Active Unisom Sleepgels 50 mg capsule RxNorm: 3575671 1 Capsule(s) PO QHS No Start Date Active Omnaris 50 mcg Nasal Independence RxNorm: 789940 2 Independence NASAL daily 2 sprays per nostril daily No Start Date 06/19/2011 Inactive + Iron oral RxNorm: oral No Start Date 01/18/2019 Inactive Fish Oil 1,000 mg Cap RxNorm: 1 Capsule(s) PO daily No Start Date 02/12/2018 Inactive Depo-Provera 150 mg/mL intramuscular syringe RxNorm: 0147433 1 Milliliter(s) IM q 3 month No Start Date 10/25/2014 Inactive Alicia-D 24 Hour 180 mg-240 mg tablet,extended release RxNorm: 458945 1 Tablet(s) PO daily as needed No Start Date 07/08/2016 Inactive Vitamin B-6 oral RxNorm: 344287 oral No Start Date 04/29/2018 Inactive Claritin-D 24 Hour 10 mg-240 mg Tab RxNorm: 2274008 1 Tablet(s) PO daily No Start Date 09/25/2011 Inactive Synthroid 25 mcg Tab RxNorm: 005532 1 Tablet(s) PO daily No Start Date 09/26/2011 Inactive Zithromax Z-Emmanuel 250 mg tablet RxNorm: 342595 Tablet(s) PO UD No Start Date 04/04/2014 Inactive Depo-Provera 150 mg/mL IM Susp RxNorm: 8000581 IM No Start Date 10/15/2012 Inactive Medication Administered Medication Codes Instructions Start Date Status medroxyprogesterone 150 mg/mL intramuscular syringe RxNorm: 9891023 Milliliter 10/22/2013 No longer Active medroxyprogesterone 150 mg/mL intramuscular syringe RxNorm: 5955758 Milliliter 07/21/2013 No longer Active Depo-Provera 150 mg/mL IM Syringe RxNorm: 4389470 Milliliter 04/21/2013 No longer Active Depo-Provera 150 mg/mL IM Syringe RxNorm: 2116165 Milliliter 01/18/2013 No longer Active medroxyprogesterone 150 mg/mL IM Susp RxNorm: 3422742 Milliliter 10/19/2012 No longer Active Kenalog 40 mg/mL Susp for Injection RxNorm: 2285147 1.5Milliliter 08/23/2011 No longer Active Immunizations Vaccine Codes Date Status Influenza CVX: 141 06/19/2016 completed Influenza CVX: 141 06/26/2011 completed Assessments Condition Codes Effective Dates Insomnia due to medical condition ICD-10: G47.01 ICD-9: 327.01 01/19/2019 Other hemorrhoids ICD-10: K64.8 ICD-9: 455.8 12/21/2018 Epigastric pain ICD-10: R10.13 ICD-9: 789.06 07/01/2018 Ventral hernia without obstruction or gangrene ICD-10: K43.9 ICD-9: 553.20 07/01/2018 Slow transit constipation ICD-10: K59.01 ICD-9: 564.01 04/30/2018 Generalized abdominal pain ICD-10: R10.84 ICD-9: 789.07 04/30/2018 Cough ICD-10: R05 ICD-9: 786.2 02/13/2018 Acute recurrent maxillary sinusitis ICD-10: J01.01 ICD-9: 461.0 02/13/2018 Amenorrhea, unspecified ICD-10: N91.2 ICD-9: 626.0 09/11/2017 Nausea ICD-10: R11.0 ICD-9: 787.02 08/04/2017 Diarrhea, unspecified ICD-10: R19.7 ICD-9: 787.91 08/04/2017 Dehydration ICD-10: E86.0 ICD-9: 276.51 08/04/2017 Low back pain ICD-10: M54.5 ICD-9: 724.2 09/18/2016 Other specified hypothyroidism ICD-10: E03.8 ICD-9: 244.8 06/19/2016 VACCIN FOR INFLUENZA ICD-10: Z23 ICD-9: V04.81 06/19/2016 Hypothyroidism, unspecified ICD-10: E03.9 ICD-9: 244.9 06/17/2016 Encounter for general adult medical examination without abnormal findings ICD-10: Z00.00 ICD-9: V70.0 03/27/2016 Missed periods ICD-9: 626.4 12/12/2014 ROUTINE GYNE EXAM ICD-9: V72.31 10/26/2014 CONTRACEPTIVE MANGMT ICD-9: V25.9 07/21/2013 MORBID OBESITY ICD-9: 278.01 01/07/2013 Contraceptive surveillance, unspecified ICD-9: V25.40 10/19/2012 Allergic rhinitis ICD-9: 477.9 10/19/2012 Varicose veins of both lower extremities with pain ICD-9: 454.8 08/10/2012 Abdominal pain ICD-9: 789.00 03/16/2012 Breast tenderness in female ICD-9: 611.71 03/16/2012 HEADACHE ICD-9: 784.0 08/22/2011 ACUTE SINUSITIS ICD-9: 461.9 08/22/2011 Reason For Visit Reason For Visit Effective Dates Notes insomnia 01/19/2019 hemorrhoids 12/21/2018 abdominal pain 07/01/2018 abdominal pain 04/30/2018 sinus pain 02/13/2018 diarrhea 08/04/2017 back pain 09/18/2016 vaccination against influenza 06/19/2016 hypothyroid 04/01/2016 fatigue 12/12/2014 well woman exam (18-39 years) 10/26/2014 well woman exam (18-39 years) 10/22/2013 medication follow up 10/19/2012 varicose veins 08/10/2012 pain 03/16/2012 pain and stabbing sensation in lt breast, pain and pressure in lower abd well woman exam (18-39 years) 09/26/2011 Would like to talk about phentermine headache 08/22/2011 sore throat 06/20/2011 Results Observation Observation Code Item Item Code [facility] Qual Positive 09/11/2017 Tsh Ord6 hTSH II 4.61 uIU/mL 06/17/2016 Free T4 Ptp178 FREE T4 0.77 ng/dL 06/17/2016 Comp Metabolic Eqb798 NA 135 mEq/L 03/28/2016 Comp Metabolic Zri665 K 3.9 mEq/L 03/28/2016 Comp Metabolic Wsx567 CL 107 mEq/L 03/28/2016 Comp Metabolic Zmm402 CO2 24.0 mEq/L 03/28/2016 Comp Metabolic Fef649 ANION GAP 8 03/28/2016 Comp Metabolic Tuy256 GLUCOSE 85 mg/dL 03/28/2016 Comp Metabolic Ivx435 Creat 0.7 mg/dL 03/28/2016 Comp Metabolic Rad207 eGFR 98 ml/min/1.73m2 03/28/2016 Comp Metabolic Cyr202 BUN 15 mg/dL 03/28/2016 Comp Metabolic Xud946 B/C Ratio 20.5 Ratio 03/28/2016 Comp Metabolic Jvv272 CALCIUM 8.7 mg/dL 03/28/2016 Comp Metabolic Rmv065 ALK PHOS 70 U/L 03/28/2016 Comp Metabolic Ezu181 AST(SGOT) 15 U/L 03/28/2016 Comp Metabolic Ypy649 ALT(SGPT) 15 U/L 03/28/2016 Comp Metabolic Yju132 BILI T 0.7 mg/dL 03/28/2016 Comp Metabolic Mqe843 ALBUMIN 3.9 g/dL 03/28/2016 Comp Metabolic Yxp240 TPRO 6.3 g/dL 03/28/2016 Comp Metabolic Bnn955 GLOB 2.4 g/dL 03/28/2016 Comp Metabolic Irq262 A/G Ratio 1.6 Ratio 03/28/2016 Comp Metabolic Wmc393 Osmo 270 mOsmo 03/28/2016 Lipid Ord30 CHOL 200 mg/dL 03/28/2016 Lipid Ord30 HDL 58.0 mg/dl 03/28/2016 Lipid Ord30 TRIG 108 mg/dL 03/28/2016 Lipid Ord30 LDL 120 mg/dL 03/28/2016 Lipid Ord30 C/HDL 3.4 Ratio 03/28/2016 Cbc With Differential Ord2 WBC 4.53 K/ul 03/28/2016 Cbc With Differential Ord2 RBC 4.74 M/ul 03/28/2016 Cbc With Differential Ord2 HGB 13.5 g/dl 03/28/2016 Cbc With Differential Ord2 HCT 39.7 % 03/28/2016 Cbc With Differential Ord2 Neut% 59.9 % 03/28/2016 Cbc With Differential Ord2 MCV 83.8 fl 03/28/2016 Cbc With Differential Ord2 Lymph% 30.9 % 03/28/2016 Cbc With Differential Ord2 MCH 28.5 pg 03/28/2016 Cbc With Differential Ord2 [place]% 6.6 % 03/28/2016 Cbc With Differential Ord2 MCHC 34.0 pg 03/28/2016 Cbc With Differential Ord2 Eos% 2.2 % 03/28/2016 Cbc With Differential Ord2 PLT 244 K/ul 03/28/2016 Cbc With Differential Ord2 Baso% 0.4 % 03/28/2016 Cbc With Differential Ord2 RDW 13.6 % 03/28/2016 Cbc With Differential Ord2 Neut ABS# 2.71 K/ul 03/28/2016 Cbc With Differential Ord2 Lymph ABS# 1.40 K/ul 03/28/2016 Cbc With Differential Ord2 [place] ABS# 0.3 K/ul 03/28/2016 Cbc With Differential Ord2 Eos ABS# 0.1 K/ul 03/28/2016 Cbc With Differential Ord2 Baso ABS# 0.0 K/ul 03/28/2016 Tsh Ord6 hTSH II 6.46 uIU/mL 03/28/2016 Free T4 Max934 FREE T4 0.74 ng/dL 03/28/2016 Review of Systems System Result Effective Dates Constitutional No recent illness 01/19/2019 Constitutional No chills 01/19/2019 Constitutional fatigue 01/19/2019 Constitutional No fever 01/19/2019 Constitutional insomnia 01/19/2019 Constitutional No malaise 01/19/2019 Eyes No vision change 01/19/2019 Ears/Nose/Throat/Neck No dental pain 01/19/2019 Ears/Nose/Throat/Neck No dizziness 01/19/2019 Ears/Nose/Throat/Neck No dysphagia 01/19/2019 Ears/Nose/Throat/Neck No headache 01/19/2019 Ears/Nose/Throat/Neck No hearing loss 01/19/2019 Ears/Nose/Throat/Neck No nasal allergies 01/19/2019 Ears/Nose/Throat/Neck No sore throat 01/19/2019 Ears/Nose/Throat/Neck No postnasal drip 01/19/2019 Ears/Nose/Throat/Neck No sinus congestion 01/19/2019 Cardiovascular No chest pain/pressure 01/19/2019 Cardiovascular No dyspnea 01/19/2019 Cardiovascular No edema 01/19/2019 Cardiovascular No exercise intolerance 01/19/2019 Cardiovascular No fatigue 01/19/2019 Cardiovascular No near-syncope/dizziness 01/19/2019 Respiratory No chest tightness 01/19/2019 Respiratory No cough 01/19/2019 Respiratory No dyspnea 01/19/2019 Respiratory No pedal edema 01/19/2019 Gastrointestinal No abdominal pain 01/19/2019 Gastrointestinal No constipation 01/19/2019 Gastrointestinal No diarrhea 01/19/2019 Gastrointestinal No gastroesophageal reflux 01/19/2019 Gastrointestinal No nausea 01/19/2019 Gastrointestinal No vomiting 01/19/2019 Genitourinary/Nephrology No dysuria 01/19/2019 Genitourinary/Nephrology No nocturia 01/19/2019 Genitourinary/Nephrology No urinary incontinence 01/19/2019 Musculoskeletal No stiffness 01/19/2019 Musculoskeletal No swelling 01/19/2019 Musculoskeletal No muscle weakness 01/19/2019 Musculoskeletal No myalgias 01/19/2019 Dermatologic No rash 01/19/2019 Dermatologic No sores 01/19/2019 Neurologic No dizziness 01/19/2019 Neurologic No headache 01/19/2019 Neurologic No neck pain 01/19/2019 Neurologic No syncope 01/19/2019 Psychiatric No anxiety 01/19/2019 Psychiatric No depression 01/19/2019 Constitutional No recent illness 12/21/2018 Constitutional No chills 12/21/2018 Constitutional No diaphoresis 12/21/2018 Constitutional No fever 12/21/2018 Eyes No eye erythema 12/21/2018 Ears/Nose/Throat/Neck No nasal discharge 12/21/2018 Cardiovascular No chest pain/pressure 12/21/2018 Respiratory No cough 12/21/2018 Gastrointestinal No abdominal pain 12/21/2018 Gastrointestinal No constipation 12/21/2018 Gastrointestinal No diarrhea 12/21/2018 Gastrointestinal No vomiting 12/21/2018 Gastrointestinal No nausea 12/21/2018 Gastrointestinal No melena 12/21/2018 Gastrointestinal No hematochezia 12/21/2018 Neurologic No alteration of consciousness 12/21/2018 Neurologic No mental status change 12/21/2018 Constitutional No recent illness 07/01/2018 Constitutional No chills 07/01/2018 Constitutional No diaphoresis 07/01/2018 Constitutional No fever 07/01/2018 Eyes No eye erythema 07/01/2018 Ears/Nose/Throat/Neck No nasal discharge 07/01/2018 Ears/Nose/Throat/Neck No nasal allergies 07/01/2018 Cardiovascular No chest pain/pressure 07/01/2018 Cardiovascular No dyspnea 07/01/2018 Respiratory No cough 07/01/2018 Gastrointestinal abdominal pain 07/01/2018 Gastrointestinal No constipation 07/01/2018 Gastrointestinal No diarrhea 07/01/2018 Gastrointestinal No vomiting 07/01/2018 Gastrointestinal No nausea 07/01/2018 Musculoskeletal No joint complaint 07/01/2018 Dermatologic No rash 07/01/2018 Neurologic No alteration of consciousness 07/01/2018 Neurologic No mental status change 07/01/2018 Constitutional No recent illness 04/30/2018 Constitutional No chills 04/30/2018 Constitutional No diaphoresis 04/30/2018 Constitutional No fever 04/30/2018 Eyes No eye discharge 04/30/2018 Eyes No eye erythema 04/30/2018 Ears/Nose/Throat/Neck No nasal allergies 04/30/2018 Ears/Nose/Throat/Neck No nasal discharge 04/30/2018 Cardiovascular No chest pain/pressure 04/30/2018 Cardiovascular No dyspnea 04/30/2018 Respiratory No chest congestion 04/30/2018 Respiratory No cough 04/30/2018 Respiratory No dyspnea 04/30/2018 Gastrointestinal abdominal pain 04/30/2018 Gastrointestinal constipation 04/30/2018 Gastrointestinal No diarrhea 04/30/2018 Gastrointestinal No nausea 04/30/2018 Gastrointestinal No vomiting 04/30/2018 Musculoskeletal No joint complaint 04/30/2018 Dermatologic No rash 04/30/2018 Neurologic No alteration of consciousness 04/30/2018 Neurologic No mental status change 04/30/2018 Genitourinary/Nephrology No dysuria 04/30/2018 Gastrointestinal gastroesophageal reflux 04/30/2018 Gastrointestinal gas and bloating 04/30/2018 Constitutional recent illness 02/13/2018 Constitutional No anorexia 02/13/2018 Constitutional No night sweats 02/13/2018 Constitutional No chills 02/13/2018 Constitutional No diaphoresis 02/13/2018 Constitutional fatigue 02/13/2018 Constitutional No fever 02/13/2018 Constitutional No insomnia 02/13/2018 Constitutional No malaise 02/13/2018 Constitutional No weight loss 02/13/2018 Constitutional No weight gain 02/13/2018 Eyes No eye discharge 02/13/2018 Eyes No eye erythema 02/13/2018 Ears/Nose/Throat/Neck headache 02/13/2018 Ears/Nose/Throat/Neck nasal allergies 02/13/2018 Ears/Nose/Throat/Neck nasal discharge 02/13/2018 Ears/Nose/Throat/Neck otalgia 02/13/2018 Ears/Nose/Throat/Neck sinus congestion 02/13/2018 Ears/Nose/Throat/Neck sore throat 02/13/2018 Cardiovascular No chest pain/pressure 02/13/2018 Respiratory productive sputum 02/13/2018 Respiratory cough 02/13/2018 Gastrointestinal No abdominal pain 02/13/2018 Genitourinary/Nephrology No dysuria 02/13/2018 Musculoskeletal No joint complaint 02/13/2018 Dermatologic No rash 02/13/2018 Dermatologic No sores 02/13/2018 Neurologic No alteration of consciousness 02/13/2018 Constitutional recent illness 08/04/2017 Constitutional anorexia 08/04/2017 Constitutional night sweats 08/04/2017 Constitutional chills 08/04/2017 Constitutional diaphoresis 08/04/2017 Constitutional fatigue 08/04/2017 Constitutional No fever 08/04/2017 Constitutional No insomnia 08/04/2017 Constitutional No malaise 08/04/2017 Constitutional No weight loss 08/04/2017 Constitutional No weight gain 08/04/2017 Eyes No eye discharge 08/04/2017 Eyes No eye erythema 08/04/2017 Ears/Nose/Throat/Neck No dizziness 08/04/2017 Ears/Nose/Throat/Neck No headache 08/04/2017 Cardiovascular No chest pain/pressure 08/04/2017 Cardiovascular No dyspnea 08/04/2017 Cardiovascular No edema 08/04/2017 Respiratory No cough 08/04/2017 Gastrointestinal abdominal pain 08/04/2017 Gastrointestinal No constipation 08/04/2017 Gastrointestinal diarrhea 08/04/2017 Gastrointestinal nausea 08/04/2017 Gastrointestinal vomiting 08/04/2017 Genitourinary/Nephrology No dysuria 08/04/2017 Musculoskeletal No joint complaint 08/04/2017 Neurologic No aphasia 08/04/2017 Dermatologic No rash 08/04/2017 Constitutional No recent illness 09/18/2016 Constitutional No chills 09/18/2016 Constitutional No fever 09/18/2016 Eyes No eye erythema 09/18/2016 Ears/Nose/Throat/Neck No nasal discharge 09/18/2016 Cardiovascular No chest pain/pressure 09/18/2016 Cardiovascular No dyspnea 09/18/2016 Respiratory No cough 09/18/2016 Respiratory No dyspnea 09/18/2016 Musculoskeletal joint complaint 09/18/2016 Neurologic No alteration of consciousness 09/18/2016 Neurologic No mental status change 09/18/2016 Constitutional No recent illness 06/19/2016 Constitutional No chills 06/19/2016 Constitutional No diaphoresis 06/19/2016 Constitutional No fever 06/19/2016 Eyes No eye discharge 06/19/2016 Eyes No eye erythema 06/19/2016 Ears/Nose/Throat/Neck No nasal allergies 06/19/2016 Ears/Nose/Throat/Neck No nasal discharge 06/19/2016 Cardiovascular No chest pain/pressure 06/19/2016 Cardiovascular No dyspnea 06/19/2016 Respiratory No chest congestion 06/19/2016 Respiratory No cough 06/19/2016 Gastrointestinal No abdominal pain 06/19/2016 Gastrointestinal No constipation 06/19/2016 Gastrointestinal No diarrhea 06/19/2016 Gastrointestinal No nausea 06/19/2016 Gastrointestinal No vomiting 06/19/2016 Musculoskeletal No joint complaint 06/19/2016 Dermatologic No rash 06/19/2016 Neurologic No alteration of consciousness 06/19/2016 Respiratory No dyspnea 06/19/2016 Neurologic No mental status change 06/19/2016 Constitutional No recent illness 04/01/2016 Constitutional No anorexia 04/01/2016 Constitutional No night sweats 04/01/2016 Constitutional No chills 04/01/2016 Constitutional No diaphoresis 04/01/2016 Constitutional fatigue 04/01/2016 Constitutional No fever 04/01/2016 Constitutional No insomnia 04/01/2016 Constitutional No malaise 04/01/2016 Eyes No eye discharge 04/01/2016 Eyes No eye erythema 04/01/2016 Ears/Nose/Throat/Neck No dizziness 04/01/2016 Ears/Nose/Throat/Neck No facial weakness 04/01/2016 Ears/Nose/Throat/Neck No nasal allergies 04/01/2016 Ears/Nose/Throat/Neck No nasal discharge 04/01/2016 Cardiovascular No chest pain/pressure 04/01/2016 Cardiovascular No dyspnea 04/01/2016 Cardiovascular No edema 04/01/2016 Respiratory No productive sputum 04/01/2016 Respiratory No chest congestion 04/01/2016 Respiratory No cough 04/01/2016 Gastrointestinal No abdominal pain 04/01/2016 Gastrointestinal No constipation 04/01/2016 Gastrointestinal No diarrhea 04/01/2016 Gastrointestinal No nausea 04/01/2016 Gastrointestinal No vomiting 04/01/2016 Genitourinary/Nephrology No dysuria 04/01/2016 Musculoskeletal No joint complaint 04/01/2016 Dermatologic No rash 04/01/2016 Dermatologic No sores 04/01/2016 Neurologic No alteration of consciousness 04/01/2016 Psychiatric No anxiety 04/01/2016 Psychiatric No depression 04/01/2016 Constitutional No recent illness 12/12/2014 Constitutional No chills 12/12/2014 Constitutional fatigue 12/12/2014 Constitutional No fever 12/12/2014 Constitutional No insomnia 12/12/2014 Constitutional No malaise 12/12/2014 Cardiovascular No chest pain/pressure 12/12/2014 Cardiovascular No edema 12/12/2014 Cardiovascular fatigue 12/12/2014 Respiratory No cough 12/12/2014 Respiratory No chest congestion 12/12/2014 Gastrointestinal No abdominal pain 12/12/2014 Gastrointestinal No nausea 12/12/2014 Genitourinary/Nephrology menstrual irregularity 12/12/2014 Constitutional No recent illness 10/26/2014 Constitutional No anorexia 10/26/2014 Constitutional No night sweats 10/26/2014 Constitutional No chills 10/26/2014 Constitutional No diaphoresis 10/26/2014 Constitutional No fatigue 10/26/2014 Constitutional No fever 10/26/2014 Constitutional No insomnia 10/26/2014 Constitutional No malaise 10/26/2014 Eyes No eye discharge 10/26/2014 Eyes No eye erythema 10/26/2014 Ears/Nose/Throat/Neck No dizziness 10/26/2014 Ears/Nose/Throat/Neck No facial weakness 10/26/2014 Ears/Nose/Throat/Neck No nasal allergies 10/26/2014 Ears/Nose/Throat/Neck No nasal discharge 10/26/2014 Cardiovascular No chest pain/pressure 10/26/2014 Cardiovascular No dyspnea 10/26/2014 Cardiovascular No edema 10/26/2014 Respiratory No productive sputum 10/26/2014 Respiratory No chest congestion 10/26/2014 Respiratory No cough 10/26/2014 Gastrointestinal No abdominal pain 10/26/2014 Gastrointestinal No constipation 10/26/2014 Gastrointestinal No diarrhea 10/26/2014 Gastrointestinal No nausea 10/26/2014 Gastrointestinal No vomiting 10/26/2014 Genitourinary/Nephrology No dysuria 10/26/2014 Musculoskeletal No joint complaint 10/26/2014 Dermatologic No rash 10/26/2014 Dermatologic No sores 10/26/2014 Neurologic No alteration of consciousness 10/26/2014 Psychiatric No anxiety 10/26/2014 Psychiatric No depression 10/26/2014 Constitutional No recent illness 10/22/2013 Constitutional No anorexia 10/22/2013 Constitutional No night sweats 10/22/2013 Constitutional No chills 10/22/2013 Constitutional No diaphoresis 10/22/2013 Constitutional No fatigue 10/22/2013 Constitutional No fever 10/22/2013 Constitutional No insomnia 10/22/2013 Constitutional No malaise 10/22/2013 Eyes No eye erythema 10/22/2013 Eyes No eye discharge 10/22/2013 Ears/Nose/Throat/Neck No dizziness 10/22/2013 Ears/Nose/Throat/Neck No facial weakness 10/22/2013 Ears/Nose/Throat/Neck No nasal allergies 10/22/2013 Ears/Nose/Throat/Neck No nasal discharge 10/22/2013 Cardiovascular No chest pain/pressure 10/22/2013 Cardiovascular No edema 10/22/2013 Cardiovascular No dyspnea 10/22/2013 Respiratory No productive sputum 10/22/2013 Respiratory No chest congestion 10/22/2013 Respiratory No cough 10/22/2013 Gastrointestinal No abdominal pain 10/22/2013 Gastrointestinal No constipation 10/22/2013 Gastrointestinal No diarrhea 10/22/2013 Gastrointestinal No vomiting 10/22/2013 Gastrointestinal No nausea 10/22/2013 Genitourinary/Nephrology No dysuria 10/22/2013 Musculoskeletal No joint complaint 10/22/2013 Dermatologic No rash 10/22/2013 Dermatologic No sores 10/22/2013 Neurologic No alteration of consciousness 10/22/2013 Constitutional No recent illness 10/19/2012 Constitutional No chills 10/19/2012 Constitutional No fatigue 10/19/2012 Constitutional No fever 10/19/2012 Constitutional No insomnia 10/19/2012 Constitutional No malaise 10/19/2012 Cardiovascular No chest pain/pressure 10/19/2012 Cardiovascular No dyspnea 10/19/2012 Cardiovascular No edema 10/19/2012 Cardiovascular No exercise intolerance 10/19/2012 Cardiovascular No fatigue 10/19/2012 Cardiovascular No near-syncope/dizziness 10/19/2012 Respiratory No chest tightness 10/19/2012 Respiratory No cigarette smoking 10/19/2012 Respiratory No cough 10/19/2012 Respiratory No dyspnea 10/19/2012 Respiratory No pedal edema 10/19/2012 Respiratory No snoring 10/19/2012 Respiratory No wheezing 10/19/2012 Gastrointestinal No hemorrhoids 10/19/2012 Gastrointestinal No abdominal pain 10/19/2012 Gastrointestinal No constipation 10/19/2012 Gastrointestinal No diarrhea 10/19/2012 Gastrointestinal No gastroesophageal reflux 10/19/2012 Gastrointestinal No melena 10/19/2012 Gastrointestinal No nausea 10/19/2012 Gastrointestinal No vomiting 10/19/2012 Neurologic No dizziness 10/19/2012 Neurologic No headache 10/19/2012 Neurologic No neck pain 10/19/2012 Neurologic No syncope 10/19/2012 Psychiatric No anxiety 10/19/2012 Psychiatric No depression 10/19/2012 Constitutional No recent illness 08/10/2012 Constitutional No chills 08/10/2012 Constitutional No fatigue 08/10/2012 Constitutional No fever 08/10/2012 Constitutional No insomnia 08/10/2012 Constitutional No malaise 08/10/2012 Cardiovascular No chest pain/pressure 08/10/2012 Cardiovascular No dyspnea 08/10/2012 Cardiovascular No edema 08/10/2012 Cardiovascular No exercise intolerance 08/10/2012 Cardiovascular No fatigue 08/10/2012 Cardiovascular No near-syncope/dizziness 08/10/2012 Respiratory No chest tightness 08/10/2012 Respiratory No cigarette smoking 08/10/2012 Respiratory No cough 08/10/2012 Respiratory No dyspnea 08/10/2012 Respiratory No pedal edema 08/10/2012 Respiratory No snoring 08/10/2012 Respiratory No wheezing 08/10/2012 Gastrointestinal No hemorrhoids 08/10/2012 Gastrointestinal No abdominal pain 08/10/2012 Gastrointestinal No constipation 08/10/2012 Gastrointestinal No diarrhea 08/10/2012 Gastrointestinal No gastroesophageal reflux 08/10/2012 Gastrointestinal No melena 08/10/2012 Gastrointestinal No nausea 08/10/2012 Gastrointestinal No vomiting 08/10/2012 Psychiatric No anxiety 08/10/2012 Psychiatric No depression 08/10/2012 Neurologic No dizziness 08/10/2012 Neurologic No headache 08/10/2012 Neurologic No neck pain 08/10/2012 Neurologic No syncope 08/10/2012 Constitutional No recent illness 03/16/2012 Constitutional No chills 03/16/2012 Constitutional No fatigue 03/16/2012 Constitutional No fever 03/16/2012 Constitutional No insomnia 03/16/2012 Cardiovascular No chest pain/pressure 03/16/2012 Cardiovascular No dyspnea 03/16/2012 Cardiovascular No edema 03/16/2012 Cardiovascular No exercise intolerance 03/16/2012 Cardiovascular No fatigue 03/16/2012 Respiratory No cough 03/16/2012 Respiratory No chest tightness 03/16/2012 Respiratory No chest congestion 03/16/2012 Gastrointestinal abdominal pain 03/16/2012 Gastrointestinal No constipation 03/16/2012 Gastrointestinal No diarrhea 03/16/2012 Gastrointestinal No dyspepsia 03/16/2012 Gastrointestinal gas and bloating 03/16/2012 Gastrointestinal No gastroesophageal reflux 03/16/2012 Gastrointestinal No melena 03/16/2012 Gastrointestinal nausea 03/16/2012 Genitourinary/Nephrology breast complaint 03/16/2012 Genitourinary/Nephrology No impotence 03/16/2012 Dermatologic No rash 03/16/2012 Dermatologic No sores 03/16/2012 Musculoskeletal No stiffness 03/16/2012 Musculoskeletal No arthralgia(s) 03/16/2012 Musculoskeletal No joint complaint 03/16/2012 Neurologic No dizziness 03/16/2012 Psychiatric No anxiety 03/16/2012 Psychiatric No depression 03/16/2012 Genitourinary/Nephrology No dysuria 03/16/2012 Genitourinary/Nephrology flank pain 03/16/2012 Genitourinary/Nephrology No genital lesion 03/16/2012 Genitourinary/Nephrology No hematuria 03/16/2012 Genitourinary/Nephrology menstrual irregularity 03/16/2012 Genitourinary/Nephrology No genital lesion 09/26/2011 Genitourinary/Nephrology No hematuria 09/26/2011 Genitourinary/Nephrology No menopausal symptoms 09/26/2011 Genitourinary/Nephrology No menstrual irregularity 09/26/2011 Genitourinary/Nephrology No Pap smear abnormality 09/26/2011 Genitourinary/Nephrology No pelvic pain 09/26/2011 Genitourinary/Nephrology No urinary incontinence 09/26/2011 Genitourinary/Nephrology No vaginal discharge 09/26/2011 Dermatologic No rash 09/26/2011 Constitutional No chills 09/26/2011 Constitutional No fever 09/26/2011 Constitutional No recent illness 09/26/2011 Eyes No eye discharge 09/26/2011 Eyes No eye erythema 09/26/2011 Ears/Nose/Throat/Neck No headache 09/26/2011 Ears/Nose/Throat/Neck No nasal discharge 09/26/2011 Ears/Nose/Throat/Neck No sore throat 09/26/2011 Psychiatric No anxiety 09/26/2011 Psychiatric No depression 09/26/2011 Cardiovascular No chest pain/pressure 09/26/2011 Cardiovascular No dyspnea 09/26/2011 Cardiovascular No fatigue 09/26/2011 Cardiovascular No syncope 09/26/2011 Respiratory No chest congestion 09/26/2011 Respiratory No chest tightness 09/26/2011 Respiratory No cough 09/26/2011 Respiratory No dyspnea 09/26/2011 Respiratory No dyspnea on exertion 09/26/2011 Gastrointestinal No abdominal pain 09/26/2011 Gastrointestinal No constipation 09/26/2011 Gastrointestinal No diarrhea 09/26/2011 Genitourinary/Nephrology No breast complaint 09/26/2011 Genitourinary/Nephrology No dysuria 09/26/2011 Constitutional No recent illness 08/22/2011 Constitutional No chills 08/22/2011 Constitutional No fatigue 08/22/2011 Constitutional No fever 08/22/2011 Eyes No eye discharge 08/22/2011 Eyes No eye erythema 08/22/2011 Ears/Nose/Throat/Neck No dizziness 08/22/2011 Ears/Nose/Throat/Neck headache 08/22/2011 Ears/Nose/Throat/Neck nasal discharge 08/22/2011 Ears/Nose/Throat/Neck No sore throat 08/22/2011 Ears/Nose/Throat/Neck sinus congestion 08/22/2011 Ears/Nose/Throat/Neck No otitis media 08/22/2011 Cardiovascular No chest pain/pressure 08/22/2011 Respiratory No productive sputum 08/22/2011 Respiratory No chest congestion 08/22/2011 Respiratory No chest tightness 08/22/2011 Respiratory No cough 08/22/2011 Respiratory No dyspnea 08/22/2011 Gastrointestinal No nausea 08/22/2011 Gastrointestinal No vomiting 08/22/2011 Gastrointestinal No abdominal pain 08/22/2011 Gastrointestinal No constipation 08/22/2011 Gastrointestinal No diarrhea 08/22/2011 Genitourinary/Nephrology No dysuria 08/22/2011 Dermatologic No rash 08/22/2011 Constitutional No recent illness 06/20/2011 Respiratory productive sputum 06/20/2011 Respiratory chest congestion 06/20/2011 Respiratory cough 06/20/2011 Respiratory No wheezing 06/20/2011 Respiratory No dyspnea 06/20/2011 Constitutional fever 06/20/2011 Constitutional No insomnia 06/20/2011 Ears/Nose/Throat/Neck facial pain 06/20/2011 Ears/Nose/Throat/Neck nasal discharge 06/20/2011 Ears/Nose/Throat/Neck sore throat 06/20/2011 Ears/Nose/Throat/Neck headache 06/20/2011 Gastrointestinal No nausea 06/20/2011 Gastrointestinal No vomiting 06/20/2011 Gastrointestinal No abdominal pain 06/20/2011 Gastrointestinal No constipation 06/20/2011 Gastrointestinal No diarrhea 06/20/2011 Physical Exam Exam Name System Name Item Name Status Result Effective Dates Notes Full Exam - General 1994 Constitutional general appearance Development: well developed 01/19/2019 None Full Exam - General 1994 Constitutional general appearance Development: appears stated age 0501/19/2019 None Full Exam - General 1994 Constitutional general appearance Hygiene/Attention to Grooming: good hygiene 01/19/2019 None Full Exam - General 1994 Eyes conjunctiva/eyelids Overall: conjunctiva clear 01/19/2019 None Full Exam - General 1994 Eyes conjunctiva/eyelids Overall: cornea clear 01/19/2019 None Full Exam - General 1994 Eyes conjunctiva/eyelids Overall: eyelids normal 01/19/2019 None Full Exam - General 1994 Eyes pupils and irises Overall: pupils equal, round, reactive to light and accomodation 01/19/2019 None Full Exam - General 1994 Ears/Nose/Throat otoscopic exam Overall: external auditory canals clear 01/19/2019 None Full Exam - General 1994 Ears/Nose/Throat otoscopic exam Overall: tympanic membranes clear 01/19/2019 None Full Exam - General 1994 Ears/Nose/Throat lips/teeth/gingiva Overall: benign lips 01/19/2019 None Full Exam - General 1994 Ears/Nose/Throat lips/teeth/gingiva Overall: normal dentition 01/19/2019 None Full Exam - General 1994 Ears/Nose/Throat oral cavity/pharynx/larynx Overall: oral mucosa clear 01/19/2019 None Full Exam - General 1994 Ears/Nose/Throat oral cavity/pharynx/larynx Overall: oropharyngeal mucosa clear 01/19/2019 None Full Exam - General 1994 Ears/Nose/Throat oral cavity/pharynx/larynx Overall: hypopharynx benign 01/19/2019 None Full Exam - General 1994 Ears/Nose/Throat oral cavity/pharynx/larynx Overall: no masses 01/19/2019 None Full Exam - General 1994 Respiratory auscultation Overall: breath sounds clear bilaterally 01/19/2019 None Full Exam - General 1994 Respiratory respiratory effort/rhythm Overall: no retractions 01/19/2019 None Full Exam - General 1994 Respiratory respiratory effort/rhythm Overall: normal rate 01/19/2019 None Full Exam - General 1994 Cardiovascular extremities Overall: no clubbing 01/19/2019 None Full Exam - General 1994 Cardiovascular auscultation of heart Overall: regular rate 01/19/2019 None Full Exam - General 1994 Cardiovascular auscultation of heart Overall: normal heart sounds 01/19/2019 None Full Exam - General 1994 Abdomen abdominal exam Overall: no tenderness 01/19/2019 None Full Exam - General 1994 Abdomen abdominal exam Overall: normal bowel sounds 01/19/2019 None Full Exam - General 1994 Lymphatic neck nodes Overall: anterior cervical chain benign 01/19/2019 None Full Exam - General 1994 Lymphatic neck nodes Overall: posterior cervical chain benign 01/19/2019 None Full Exam - General 1994 Musculoskeletal spine, ribs and pelvis Overall: spine benign 01/19/2019 None Full Exam - General 1994 Musculoskeletal spine, ribs and pelvis Overall: sacroiliac joint benign 01/19/2019 None Full Exam - General 1994 Musculoskeletal spine, ribs and pelvis Overall: good posture 01/19/2019 None Full Exam - General 1994 Musculoskeletal head and neck Overall: head atraumatic 01/19/2019 None Full Exam - General 1994 Musculoskeletal head and neck Overall: cervical spine benign 01/19/2019 None Full Exam - General 1994 Neurologic cranial nerves Overall: crainial nerves 2 - 12 grossly intact 01/19/2019 None Full Exam - General 1994 Psychiatric orientation/consciousness Overall: oriented to person, place and time 01/19/2019 None Full Exam - General 1994 Psychiatric mood and affect Overall: normal mood and affect 01/19/2019 None Full Exam - General 1994 Constitutional general appearance Overall: well developed 12/21/2018 None Full Exam - General 1994 Constitutional general appearance Overall: in no acute distress 12/21/2018 None Full Exam - General 1994 Constitutional general appearance Overall: well nourished 12/21/2018 None Full Exam - General 1994 Eyes conjunctiva/eyelids Overall: eyelids normal 12/21/2018 None Full Exam - General 1994 Eyes conjunctiva/eyelids Overall: cornea clear 12/21/2018 None Full Exam - General 1994 Eyes conjunctiva/eyelids Overall: conjunctiva clear 12/21/2018 None Full Exam - General 1994 Ears/Nose/Throat lips/teeth/gingiva Overall: benign lips 12/21/2018 None Full Exam - General 1994 Ears/Nose/Throat oral cavity/pharynx/larynx Overall: oral mucosa clear 12/21/2018 None Full Exam - General 1994 Respiratory respiratory effort/rhythm Overall: normal rate 12/21/2018 None Full Exam - General 1994 Respiratory respiratory effort/rhythm Overall: no retractions 12/21/2018 None Full Exam - General 1994 Abdomen rectal exam Inspection: hemorrhoid 12/21/2018 None Full Exam - General 1994 Musculoskeletal head and neck Overall: head atraumatic 12/21/2018 None Full Exam - General 1994 Musculoskeletal gait and station Overall: normal station 12/21/2018 None Full Exam - General 1994 Musculoskeletal gait and station Overall: normal gait 12/21/2018 None Full Exam - General 1994 Neurologic cranial nerves Overall: crainial nerves 2 - 12 grossly intact 12/21/2018 None Full Exam - General 1994 Psychiatric orientation/consciousness Overall: oriented to person, place and time 12/21/2018 None Full Exam - General 1994 Psychiatric mood and affect Overall: normal mood and affect 12/21/2018 None Full Exam - General 1994 Constitutional general appearance Overall: well developed 07/01/2018 None Full Exam - General 1994 Constitutional general appearance Overall: in no acute distress 07/01/2018 None Full Exam - General 1994 Constitutional general appearance Overall: well nourished 07/01/2018 None Full Exam - General 1994 Eyes conjunctiva/eyelids Overall: conjunctiva clear 07/01/2018 None Full Exam - General 1994 Eyes conjunctiva/eyelids Overall: cornea clear 07/01/2018 None Full Exam - General 1994 Eyes conjunctiva/eyelids Overall: eyelids normal 07/01/2018 None Full Exam - General 1994 Ears/Nose/Throat oral cavity/pharynx/larynx Overall: oral mucosa clear 07/01/2018 None Full Exam - General 1994 Ears/Nose/Throat lips/teeth/gingiva Overall: benign lips 07/01/2018 None Full Exam - General 1994 Respiratory respiratory effort/rhythm Overall: normal rate 07/01/2018 None Full Exam - General 1994 Respiratory respiratory effort/rhythm Overall: no retractions 07/01/2018 None Full Exam - General 1994 Respiratory auscultation Overall: breath sounds clear bilaterally 07/01/2018 None Full Exam - General 1994 Cardiovascular auscultation of heart Overall: regular rate 07/01/2018 None Full Exam - General 1994 Cardiovascular auscultation of heart Overall: normal heart sounds 07/01/2018 None Full Exam - General 1994 Abdomen abdominal exam Overall: normal bowel sounds 07/01/2018 None Full Exam - General 1994 Abdomen abdominal exam Epigastric: tender to palpation 07/01/2018 None Full Exam - General 1994 Abdomen abdominal exam Epigastric: dull pain 07/01/2018 None Full Exam - General 1994 Abdomen abdominal exam Epigastric: no guarding 07/01/2018 None Full Exam - General 1994 Abdomen abdominal exam Epigastric: no rebound tenderness 07/01/2018 None Full Exam - General 1994 Abdomen abdominal exam Epigastric: soft 07/01/2018 None Full Exam - General 1994 Musculoskeletal head and neck Overall: head atraumatic 07/01/2018 None Full Exam - General 1994 Musculoskeletal gait and station Overall: normal station 07/01/2018 None Full Exam - General 1994 Musculoskeletal gait and station Overall: normal gait 07/01/2018 None Full Exam - General 1994 Neurologic cranial nerves Overall: crainial nerves 2 - 12 grossly intact 07/01/2018 None Full Exam - General 1994 Psychiatric orientation/consciousness Overall: oriented to person, place and time 07/01/2018 None Full Exam - General 1994 Psychiatric mood and affect Overall: normal mood and affect 07/01/2018 None Full Exam - General 1994 Constitutional general appearance Overall: well developed 04/30/2018 None Full Exam - General 1994 Constitutional general appearance Overall: in no acute distress 04/30/2018 None Full Exam - General 1994 Constitutional general appearance Overall: well nourished 04/30/2018 None Full Exam - General 1994 Eyes conjunctiva/eyelids Overall: conjunctiva clear 04/30/2018 None Full Exam - General 1994 Eyes pupils and irises Overall: pupils equal, round, reactive to light and accomodation 04/30/2018 None Full Exam - General 1994 Ears/Nose/Throat lips/teeth/gingiva Overall: benign lips 04/30/2018 None Full Exam - General 1994 Ears/Nose/Throat oral cavity/pharynx/larynx Overall: oral mucosa clear 04/30/2018 None Full Exam - General 1994 Respiratory auscultation Overall: breath sounds clear bilaterally 04/30/2018 None Full Exam - General 1994 Respiratory respiratory effort/rhythm Overall: no retractions 04/30/2018 None Full Exam - General 1994 Respiratory respiratory effort/rhythm Overall: normal rate 04/30/2018 None Full Exam - General 1994 Cardiovascular extremities Overall: no clubbing 04/30/2018 None Full Exam - General 1994 Cardiovascular auscultation of heart Overall: regular rate 04/30/2018 None Full Exam - General 1994 Cardiovascular auscultation of heart Overall: normal heart sounds 04/30/2018 None Full Exam - General 1994 Musculoskeletal head and neck Overall: head atraumatic 04/30/2018 None Full Exam - General 1994 Neurologic cranial nerves Overall: crainial nerves 2 - 12 grossly intact 04/30/2018 None Full Exam - General 1994 Psychiatric orientation/consciousness Overall: oriented to person, place and time 04/30/2018 None Full Exam - General 1994 Psychiatric mood and affect Overall: normal mood and affect 04/30/2018 None Full Exam - General 1994 Psychiatric mood and affect Mood: happy 04/30/2018 None Full Exam - General 1994 Abdomen abdominal exam Contour: rounded 04/30/2018 uterus palpated at the level of the umbilicus -ttp at epigastric region Full Exam - General 1994 Abdomen abdominal exam Overall: normal bowel sounds 04/30/2018 None Full Exam - ENT Constitutional general appearance Overall: well nourished 02/13/2018 None Full Exam - ENT Constitutional general appearance Overall: well developed 02/13/2018 None Full Exam - ENT Constitutional general appearance Overall: in no acute distress 02/13/2018 None Full Exam - ENT Neurologic orientation Overall: oriented to person, place and time 02/13/2018 None Full Exam - ENT Integument inspection of skin Overall: no rash, lesions 02/13/2018 None Full Exam - ENT Lymphatic palpation of lymph nodes Overall: posterior cervical chain benign 02/13/2018 None Full Exam - ENT Lymphatic palpation of lymph nodes Overall: anterior cervical chain benign 02/13/2018 None Full Exam - ENT Cardiovascular auscultation of heart Overall: regular rate 02/13/2018 None Full Exam - ENT Cardiovascular auscultation of heart Overall: normal heart sounds 02/13/2018 None Full Exam - ENT Respiratory inspection Overall: no retractions 02/13/2018 None Full Exam - ENT Respiratory inspection Overall: normal rate 02/13/2018 None Full Exam - ENT Respiratory auscultation Overall: breath sounds clear bilaterally 02/13/2018 None Full Exam - ENT Face and Head palpation Right maxillary sinus: tender 02/13/2018 None Full Exam - ENT Face and Head palpation Left maxillary sinus: tender 02/13/2018 None Full Exam - ENT Ears/Nose/Throat otoscopic exam Overall: external auditory canals normal 02/13/2018 None Full Exam - ENT Ears/Nose/Throat otoscopic exam Overall: tympanic membranes normal 02/13/2018 None Full Exam - ENT Ears/Nose/Throat otoscopic exam Right tympanic membrane: erythematous 02/13/2018 mild Full Exam - ENT Ears/Nose/Throat oropharynx Overall: oral mucosa clear 02/13/2018 None Full Exam - General 1994 Constitutional general appearance Overall: well developed 08/04/2017 None Full Exam - General 1994 Constitutional general appearance Overall: well nourished 08/04/2017 None Full Exam - General 1994 Eyes pupils and irises Overall: pupils equal, round, reactive to light and accomodation 08/04/2017 None Full Exam - General 1994 Ears/Nose/Throat otoscopic exam Overall: external auditory canals clear 08/04/2017 None Full Exam - General 1994 Ears/Nose/Throat otoscopic exam Overall: tympanic membranes clear 08/04/2017 None Full Exam - General 1994 Respiratory auscultation Overall: breath sounds clear bilaterally 08/04/2017 None Full Exam - General 1994 Respiratory respiratory effort/rhythm Overall: no retractions 08/04/2017 None Full Exam - General 1994 Respiratory respiratory effort/rhythm Overall: normal rate 08/04/2017 None Full Exam - General 1994 Cardiovascular extremities Overall: no clubbing 08/04/2017 None Full Exam - General 1994 Cardiovascular auscultation of heart Overall: normal heart sounds 08/04/2017 None Full Exam - General 1994 Cardiovascular auscultation of heart Overall: no murmurs 08/04/2017 None Full Exam - General 1994 Musculoskeletal head and neck Overall: head atraumatic 08/04/2017 None Full Exam - General 1994 Musculoskeletal head and neck Overall: cervical spine benign 08/04/2017 None Full Exam - General 1994 Neurologic cranial nerves Overall: crainial nerves 2 - 12 grossly intact 08/04/2017 None Full Exam - General 1994 Psychiatric orientation/consciousness Overall: oriented to person, place and time 08/04/2017 None Full Exam - General 1994 Psychiatric mood and affect Overall: normal mood and affect 08/04/2017 None Full Exam - General 1994 Psychiatric mood and affect Mood: happy 08/04/2017 None Full Exam - General 1994 Constitutional general appearance Overall: in no acute distress 08/04/2017 None Full Exam - General 1994 Ears/Nose/Throat oral cavity/pharynx/larynx Oral mucosa: dry 08/04/2017 None Full Exam - General 1994 Cardiovascular auscultation of heart Rate: tachycardia 08/04/2017 None Full Exam - General 1994 Abdomen abdominal exam Contour: rounded 08/04/2017 None Full Exam - General 1994 Abdomen abdominal exam Bowel sounds: hyperactive 08/04/2017 None Full Exam - General 1994 Abdomen abdominal exam Overall: no tenderness 08/04/2017 None Full Exam - General 1994 Integument inspection of skin Overall: few scattered moles, no gross abnormalities 08/04/2017 None Full Exam - Orthopedics Constitutional general appearance Overall: well nourished 09/18/2016 None Full Exam - Orthopedics Constitutional general appearance Overall: well developed 09/18/2016 None Full Exam - Orthopedics Constitutional general appearance Overall: in no acute distress 09/18/2016 None Full Exam - Orthopedics Eyes conjunctiva/eyelids Overall: conjunctiva clear 09/18/2016 None Full Exam - Orthopedics Eyes conjunctiva/eyelids Overall: eyelids normal 09/18/2016 None Full Exam - Orthopedics Ears/Nose/Throat lips/teeth/gingiva Overall: benign lips 09/18/2016 None Full Exam - Orthopedics Ears/Nose/Throat oral cavity/pharynx/larynx Overall: oral mucosa clear 09/18/2016 None Full Exam - Orthopedics Respiratory respiratory effort/rhythm Overall: no retractions 09/18/2016 None Full Exam - Orthopedics Respiratory respiratory effort/rhythm Overall: normal rate 09/18/2016 None Full Exam - Orthopedics Psychiatric orientation/consciousness Overall: oriented to person, place and time 09/18/2016 None Full Exam - Orthopedics Psychiatric mood and affect Overall: normal mood and affect 09/18/2016 None Full Exam - Orthopedics Psychiatric appearance Overall: well-groomed, good eye contact 09/18/2016 None Full Exam - Orthopedics MS: spine/rib/pelvis insp & palp - S/R/P Lumbar spine palpation: tender facet joints 09/18/2016 None Full Exam - Orthopedics MS: spine/rib/pelvis insp & palp - S/R/P Sacroiliac palpation: right sacroiliac joint tenderness 09/18/2016 None Full Exam - General 1994 Constitutional general appearance Overall: well developed 06/19/2016 None Full Exam - General 1994 Constitutional general appearance Overall: in no acute distress 06/19/2016 None Full Exam - General 1994 Constitutional general appearance Overall: well nourished 06/19/2016 None Full Exam - General 1994 Eyes pupils and irises Overall: pupils equal, round, reactive to light and accomodation 06/19/2016 None Full Exam - General 1994 Respiratory auscultation Overall: breath sounds clear bilaterally 06/19/2016 None Full Exam - General 1994 Respiratory respiratory effort/rhythm Overall: no retractions 06/19/2016 None Full Exam - General 1994 Respiratory respiratory effort/rhythm Overall: normal rate 06/19/2016 None Full Exam - General 1994 Cardiovascular extremities Overall: no clubbing 06/19/2016 None Full Exam - General 1994 Cardiovascular auscultation of heart Overall: regular rate 06/19/2016 None Full Exam - General 1994 Cardiovascular auscultation of heart Overall: normal heart sounds 06/19/2016 None Full Exam - General 1994 Musculoskeletal head and neck Overall: head atraumatic 06/19/2016 None Full Exam - General 1994 Neurologic cranial nerves Overall: crainial nerves 2 - 12 grossly intact 06/19/2016 None Full Exam - General 1994 Psychiatric orientation/consciousness Overall: oriented to person, place and time 06/19/2016 None Full Exam - General 1994 Psychiatric mood and affect Overall: normal mood and affect 06/19/2016 None Full Exam - General 1994 Eyes conjunctiva/eyelids Overall: conjunctiva clear 06/19/2016 None Full Exam - General 1994 Ears/Nose/Throat oral cavity/pharynx/larynx Overall: oral mucosa clear 06/19/2016 None Full Exam - General 1994 Ears/Nose/Throat lips/teeth/gingiva Overall: benign lips 06/19/2016 None Full Exam - General 1994 Psychiatric mood and affect Mood: happy 06/19/2016 None Full Exam - General 1994 Constitutional general appearance Overall: well developed 04/01/2016 None Full Exam - General 1994 Constitutional general appearance Overall: in no acute distress 04/01/2016 None Full Exam - General 1994 Constitutional general appearance Overall: well nourished 04/01/2016 None Full Exam - General 1994 Eyes pupils and irises Overall: pupils equal, round, reactive to light and accomodation 04/01/2016 None Full Exam - General 1994 Ears/Nose/Throat otoscopic exam Overall: external auditory canals clear 04/01/2016 None Full Exam - General 1994 Ears/Nose/Throat otoscopic exam Overall: tympanic membranes clear 04/01/2016 None Full Exam - General 1994 Respiratory auscultation Overall: breath sounds clear bilaterally 04/01/2016 None Full Exam - General 1994 Respiratory respiratory effort/rhythm Overall: no retractions 04/01/2016 None Full Exam - General 1994 Respiratory respiratory effort/rhythm Overall: normal rate 04/01/2016 None Full Exam - General 1994 Cardiovascular extremities Overall: no clubbing 04/01/2016 None Full Exam - General 1994 Cardiovascular auscultation of heart Overall: regular rate 04/01/2016 None Full Exam - General 1994 Cardiovascular auscultation of heart Overall: normal heart sounds 04/01/2016 None Full Exam - General 1994 Cardiovascular auscultation of heart Overall: no murmurs 04/01/2016 None Full Exam - General 1994 Musculoskeletal head and neck Overall: head atraumatic 04/01/2016 None Full Exam - General 1994 Musculoskeletal head and neck Overall: cervical spine benign 04/01/2016 None Full Exam - General 1994 Neurologic cranial nerves Overall: crainial nerves 2 - 12 grossly intact 04/01/2016 None Full Exam - General 1994 Psychiatric orientation/consciousness Overall: oriented to person, place and time 04/01/2016 None Full Exam - General 1994 Psychiatric mood and affect Overall: normal mood and affect 04/01/2016 None Full Exam - General 1994 Psychiatric mood and affect Mood: happy 04/01/2016 None Full Exam - General 1994 Constitutional general appearance Overall: well nourished 12/12/2014 None Full Exam - General 1994 Constitutional general appearance Overall: well developed 12/12/2014 None Full Exam - General 1994 Constitutional general appearance Overall: in no acute distress 12/12/2014 None Full Exam - General 1994 Psychiatric orientation/consciousness Overall: oriented to person, place and time 12/12/2014 None Full Exam - General 1994 Respiratory respiratory effort/rhythm Overall: normal rate 12/12/2014 None Full Exam - General 1994 Respiratory respiratory effort/rhythm Overall: no retractions 12/12/2014 None Full Exam - General 1994 Respiratory auscultation Overall: breath sounds clear bilaterally 12/12/2014 None Full Exam - General 1994 Cardiovascular auscultation of heart Overall: regular rate 12/12/2014 None Full Exam - General 1994 Cardiovascular auscultation of heart Overall: normal heart sounds 12/12/2014 None Full Exam - General 1994 Cardiovascular auscultation of heart Overall: no murmurs 12/12/2014 None Full Exam - General 1994 Cardiovascular extremities Overall: no clubbing 12/12/2014 None Full Exam - Genitourinary/Female Constitutional general appearance Overall: well nourished 10/26/2014 None Full Exam - Genitourinary/Female Constitutional general appearance Overall: well developed 10/26/2014 None Full Exam - Genitourinary/Female Constitutional general appearance Overall: in no acute distress 10/26/2014 None Full Exam - Genitourinary/Female Constitutional general appearance Stature/Body Habitus: short stature 10/26/2014 None Full Exam - Genitourinary/Female Constitutional general appearance Nourishment: obese 10/26/2014 None Full Exam - Genitourinary/Female Eyes conjunctiva/eyelids Overall: conjunctiva clear 10/26/2014 None Full Exam - Genitourinary/Female Eyes pupils and irises Overall: pupils equal, round, reactive to light and accomodation 10/26/2014 None Full Exam - Genitourinary/Female Ears/Nose/Throat otoscopic exam Overall: external auditory canals clear 10/26/2014 None Full Exam - Genitourinary/Female Ears/Nose/Throat otoscopic exam Overall: tympanic membranes clear 10/26/2014 None Full Exam - Genitourinary/Female Ears/Nose/Throat oral cavity/pharynx/larynx Overall: oral mucosa clear 10/26/2014 None Full Exam - Genitourinary/Female Neck thyroid Overall: normal size 10/26/2014 None Full Exam - Genitourinary/Female Neck thyroid Overall: normal consistency 10/26/2014 None Full Exam - Genitourinary/Female Neck inspection of neck Overall: normal size 10/26/2014 None Full Exam - Genitourinary/Female Respiratory auscultation Overall: breath sounds clear bilaterally 10/26/2014 None Full Exam - Genitourinary/Female Respiratory respiratory effort/rhythm Overall: no retractions 10/26/2014 None Full Exam - Genitourinary/Female Respiratory respiratory effort/rhythm Overall: normal rate 10/26/2014 None Full Exam - Genitourinary/Female Cardiovascular auscultation of heart Overall: regular rate 10/26/2014 None Full Exam - Genitourinary/Female Cardiovascular auscultation of heart Overall: normal heart sounds 10/26/2014 None Full Exam - Genitourinary/Female Cardiovascular auscultation of heart Overall: no murmurs 10/26/2014 None Full Exam - Genitourinary/Female Chest/Breast breast inspection and palpation Overall: normal chest shape 10/26/2014 None Full Exam - Genitourinary/Female Abdomen abdominal exam Overall: non tender, non distended 10/26/2014 None Full Exam - Genitourinary/Female Abdomen abdominal exam Overall: normal bowel sounds 10/26/2014 None Full Exam - Genitourinary/Female Abdomen abdominal exam Overall: no mass lesions 10/26/2014 None Full Exam - Genitourinary/Female Genitourinary breast inspection & palpation Overall: breasts symmetric and without lesions 10/26/2014 None Full Exam - Genitourinary/Female Genitourinary breast inspection & palpation Overall: breasts non-tender, no mass lesions 10/26/2014 None Full Exam - Genitourinary/Female Genitourinary breast inspection & palpation Overall: no nipple discharge 10/26/2014 None Full Exam - Genitourinary/Female Genitourinary external genitalia Overall: normal hair distribution 10/26/2014 None Full Exam - Genitourinary/Female Genitourinary external genitalia Overall: no discharge 10/26/2014 None Full Exam - Genitourinary/Female Genitourinary external genitalia Overall: no lesions 10/26/2014 None Full Exam - Genitourinary/Female Genitourinary bladder Overall: no tenderness 10/26/2014 None Full Exam - Genitourinary/Female Genitourinary bladder Overall: no mass lesions 10/26/2014 None Full Exam - Genitourinary/Female Genitourinary vagina Overall: no discharge 10/26/2014 None Full Exam - Genitourinary/Female Genitourinary vagina Overall: no lesions 10/26/2014 None Full Exam - Genitourinary/Female Genitourinary vagina Overall: normal tone 10/26/2014 None Full Exam - Genitourinary/Female Genitourinary vagina Overall: normal pelvic support 10/26/2014 None Full Exam - Genitourinary/Female Genitourinary vagina Introitus: normal appearance 10/26/2014 None Full Exam - Genitourinary/Female Genitourinary cervix Inspection: normal os 10/26/2014 None Full Exam - Genitourinary/Female Genitourinary uterus Overall: normal size 10/26/2014 None Full Exam - Genitourinary/Female Genitourinary uterus Overall: normal mobility 10/26/2014 None Full Exam - Genitourinary/Female Genitourinary uterus Overall: non tender 10/26/2014 None Full Exam - Genitourinary/Female Genitourinary uterus Overall: no mass 10/26/2014 None Full Exam - Genitourinary/Female Lymphatic inspection and palpation of nodes Overall: anterior cervical chain benign 10/26/2014 None Full Exam - Genitourinary/Female Lymphatic inspection and palpation of nodes Overall: posterior cervical chain benign 10/26/2014 None Full Exam - Genitourinary/Female Musculoskeletal head and neck Overall: head atraumatic 10/26/2014 None Full Exam - Genitourinary/Female Integument inspection and palpation of skin Overall: no rash, lesions 10/26/2014 None Full Exam - Genitourinary/Female Integument inspection and palpation of skin Overall: no induration, no tenderness 10/26/2014 None Full Exam - Genitourinary/Female Neurologic mood and affect Overall: normal mood 10/26/2014 None Full Exam - Genitourinary/Female Neurologic mood and affect Overall: normal affect 10/26/2014 None Full Exam - Genitourinary/Female Psychiatric orientation/consciousness Overall: oriented to person, place and time 10/26/2014 None Full Exam - Genitourinary/Female Genitourinary urethra Overall: no masses 10/26/2014 None Full Exam - Genitourinary/Female Genitourinary urethra Overall: no tenderness 10/26/2014 None Full Exam - Genitourinary/Female Genitourinary adnexa/parametria Overall: no tenderness 10/26/2014 None Full Exam - Genitourinary/Female Genitourinary anus and perineum Overall: good sphincter tone, no masses, no lesions 10/26/2014 None Full Exam - Genitourinary/Female Constitutional general appearance Overall: well nourished 10/22/2013 None Full Exam - Genitourinary/Female Constitutional general appearance Overall: well developed 10/22/2013 None Full Exam - Genitourinary/Female Constitutional general appearance Overall: in no acute distress 10/22/2013 None Full Exam - Genitourinary/Female Constitutional general appearance Stature/Body Habitus: short stature 10/22/2013 None Full Exam - Genitourinary/Female Constitutional general appearance Nourishment: obese 10/22/2013 None Full Exam - Genitourinary/Female Eyes conjunctiva/eyelids Overall: conjunctiva clear 10/22/2013 None Full Exam - Genitourinary/Female Eyes pupils and irises Overall: pupils equal, round, reactive to light and accomodation 10/22/2013 None Full Exam - Genitourinary/Female Ears/Nose/Throat otoscopic exam Overall: external auditory canals clear 10/22/2013 None Full Exam - Genitourinary/Female Ears/Nose/Throat otoscopic exam Overall: tympanic membranes clear 10/22/2013 None Full Exam - Genitourinary/Female Ears/Nose/Throat oral cavity/pharynx/larynx Overall: oral mucosa clear 10/22/2013 None Full Exam - Genitourinary/Female Neck thyroid Overall: normal size 10/22/2013 None Full Exam - Genitourinary/Female Neck thyroid Overall: normal consistency 10/22/2013 None Full Exam - Genitourinary/Female Neck inspection of neck Overall: normal size 10/22/2013 None Full Exam - Genitourinary/Female Respiratory auscultation Overall: breath sounds clear bilaterally 10/22/2013 None Full Exam - Genitourinary/Female Respiratory respiratory effort/rhythm Overall: no retractions 10/22/2013 None Full Exam - Genitourinary/Female Respiratory respiratory effort/rhythm Overall: normal rate 10/22/2013 None Full Exam - Genitourinary/Female Cardiovascular auscultation of heart Overall: regular rate 10/22/2013 None Full Exam - Genitourinary/Female Cardiovascular auscultation of heart Overall: normal heart sounds 10/22/2013 None Full Exam - Genitourinary/Female Cardiovascular auscultation of heart Overall: no murmurs 10/22/2013 None Full Exam - Genitourinary/Female Chest/Breast breast inspection and palpation Overall: normal chest shape 10/22/2013 None Full Exam - Genitourinary/Female Abdomen abdominal exam Overall: non tender, non distended 10/22/2013 None Full Exam - Genitourinary/Female Abdomen abdominal exam Overall: normal bowel sounds 10/22/2013 None Full Exam - Genitourinary/Female Abdomen abdominal exam Overall: no mass lesions 10/22/2013 None Full Exam - Genitourinary/Female Genitourinary breast inspection & palpation Overall: breasts symmetric and without lesions 10/22/2013 None Full Exam - Genitourinary/Female Genitourinary breast inspection & palpation Overall: breasts non-tender, no mass lesions 10/22/2013 None Full Exam - Genitourinary/Female Genitourinary breast inspection & palpation Overall: no nipple discharge 10/22/2013 None Full Exam - Genitourinary/Female Genitourinary external genitalia Overall: normal hair distribution 10/22/2013 None Full Exam - Genitourinary/Female Genitourinary external genitalia Overall: no discharge 10/22/2013 None Full Exam - Genitourinary/Female Genitourinary external genitalia Overall: no lesions 10/22/2013 None Full Exam - Genitourinary/Female Genitourinary bladder Overall: no tenderness 10/22/2013 None Full Exam - Genitourinary/Female Genitourinary bladder Overall: no mass lesions 10/22/2013 None Full Exam - Genitourinary/Female Genitourinary vagina Overall: no discharge 10/22/2013 None Full Exam - Genitourinary/Female Genitourinary vagina Overall: no lesions 10/22/2013 None Full Exam - Genitourinary/Female Genitourinary vagina Overall: normal tone 10/22/2013 None Full Exam - Genitourinary/Female Genitourinary vagina Overall: normal pelvic support 10/22/2013 None Full Exam - Genitourinary/Female Genitourinary vagina Introitus: normal appearance 10/22/2013 None Full Exam - Genitourinary/Female Genitourinary cervix Inspection: normal os 10/22/2013 None Full Exam - Genitourinary/Female Genitourinary uterus Overall: normal size 10/22/2013 None Full Exam - Genitourinary/Female Genitourinary uterus Overall: normal mobility 10/22/2013 None Full Exam - Genitourinary/Female Genitourinary uterus Overall: non tender 10/22/2013 None Full Exam - Genitourinary/Female Genitourinary uterus Overall: no mass 10/22/2013 None Full Exam - Genitourinary/Female Lymphatic inspection and palpation of nodes Overall: anterior cervical chain benign 10/22/2013 None Full Exam - Genitourinary/Female Lymphatic inspection and palpation of nodes Overall: posterior cervical chain benign 10/22/2013 None Full Exam - Genitourinary/Female Musculoskeletal head and neck Overall: head atraumatic 10/22/2013 None Full Exam - Genitourinary/Female Integument inspection and palpation of skin Overall: no rash, lesions 10/22/2013 None Full Exam - Genitourinary/Female Integument inspection and palpation of skin Overall: no induration, no tenderness 10/22/2013 None Full Exam - Genitourinary/Female Neurologic mood and affect Overall: normal mood 10/22/2013 None Full Exam - Genitourinary/Female Neurologic mood and affect Overall: normal affect 10/22/2013 None Full Exam - Genitourinary/Female Psychiatric orientation/consciousness Overall: oriented to person, place and time 10/22/2013 None Full Exam - General 1995 Constitutional general appearance Overall: well developed 10/19/2012 None Full Exam - General 1995 Constitutional general appearance Overall: in no acute distress 10/19/2012 None Full Exam - General 1994 Constitutional general appearance Overall: well nourished 10/19/2012 None Full Exam - General 1994 Eyes pupils and irises Overall: pupils equal, round, reactive to light and accomodation 10/19/2012 None Full Exam - General 1994 Respiratory auscultation Overall: breath sounds clear bilaterally 10/19/2012 None Full Exam - General 1994 Respiratory respiratory effort/rhythm Overall: no retractions 10/19/2012 None Full Exam - General 1994 Respiratory respiratory effort/rhythm Overall: normal rate 10/19/2012 None Full Exam - General 1994 Cardiovascular extremities Overall: no clubbing 10/19/2012 None Full Exam - General 1994 Cardiovascular auscultation of heart Overall: regular rate 10/19/2012 None Full Exam - General 1994 Cardiovascular auscultation of heart Overall: normal heart sounds 10/19/2012 None Full Exam - General 1994 Cardiovascular auscultation of heart Overall: no murmurs 10/19/2012 None Full Exam - General 1994 Musculoskeletal head and neck Overall: head atraumatic 10/19/2012 None Full Exam - General 1994 Musculoskeletal head and neck Overall: cervical spine benign 10/19/2012 None Full Exam - General 1994 Integument inspection of skin Overall: no rash, lesions 10/19/2012 but large vericose veins f bilateral lower extremities at the poterior calves and around knees. Full Exam - General 1994 Neurologic cranial nerves Overall: crainial nerves 2 - 12 grossly intact 10/19/2012 None Full Exam - General 1994 Psychiatric orientation/consciousness Overall: oriented to person, place and time 10/19/2012 None Full Exam - General 1994 Psychiatric mood and affect Overall: normal mood and affect 10/19/2012 None Full Exam - General 1994 Psychiatric mood and affect Mood: happy 10/19/2012 None Full Exam - General 1994 Ears/Nose/Throat otoscopic exam Overall: external auditory canals clear 10/19/2012 None Full Exam - General 1995 Ears/Nose/Throat otoscopic exam Overall: tympanic membranes clear 10/19/2012 None Full Exam - General 1994 Ears/Nose/Throat internal nose Turbinates: erythema 10/19/2012 None Full Exam - General 1994 Ears/Nose/Throat internal nose Drainage: thick 10/19/2012 None Full Exam - General 1994 Constitutional general appearance Overall: well developed 08/10/2012 None Full Exam - General 1994 Constitutional general appearance Overall: in no acute distress 08/10/2012 None Full Exam - General 1994 Constitutional general appearance Overall: well nourished 08/10/2012 None Full Exam - General 1994 Eyes pupils and irises Overall: pupils equal, round, reactive to light and accomodation 08/10/2012 None Full Exam - General 1994 Respiratory auscultation Overall: breath sounds clear bilaterally 08/10/2012 None Full Exam - General 1994 Respiratory respiratory effort/rhythm Overall: no retractions 08/10/2012 None Full Exam - General 1994 Respiratory respiratory effort/rhythm Overall: normal rate 08/10/2012 None Full Exam - General 1994 Cardiovascular extremities Overall: no clubbing 08/10/2012 None Full Exam - General 1994 Cardiovascular auscultation of heart Overall: regular rate 08/10/2012 None Full Exam - General 1994 Cardiovascular auscultation of heart Overall: normal heart sounds 08/10/2012 None Full Exam - General 1994 Cardiovascular auscultation of heart Overall: no murmurs 08/10/2012 None Full Exam - General 1994 Musculoskeletal head and neck Overall: head atraumatic 08/10/2012 None Full Exam - General 1994 Musculoskeletal head and neck Overall: cervical spine benign 08/10/2012 None Full Exam - General 1994 Neurologic cranial nerves Overall: crainial nerves 2 - 12 grossly intact 08/10/2012 None Full Exam - General 1994 Psychiatric orientation/consciousness Overall: oriented to person, place and time 08/10/2012 None Full Exam - General 1994 Psychiatric mood and affect Overall: normal mood and affect 08/10/2012 None Full Exam - General 1994 Psychiatric mood and affect Mood: happy 08/10/2012 None Full Exam - General 1994 Integument inspection of skin Overall: no rash, lesions 08/10/2012 but large vericose veins f bilateral lower extremities at the poterior calves and around knees. Full Exam - General 1994 Eyes pupils and irises Overall: pupils equal, round, reactive to light and accomodation 03/16/2012 None Full Exam - General 1995 Constitutional general appearance Overall: well nourished 03/16/2012 None Full Exam - General 1995 Constitutional general appearance Overall: well developed 03/16/2012 None Full Exam - General 1994 Constitutional general appearance Overall: in no acute distress 03/16/2012 None Full Exam - General 1994 Respiratory auscultation Overall: breath sounds clear bilaterally 03/16/2012 None Full Exam - General 1994 Respiratory respiratory effort/rhythm Overall: normal rate 03/16/2012 None Full Exam - General 1994 Respiratory respiratory effort/rhythm Overall: no retractions 03/16/2012 None Full Exam - General 1994 Cardiovascular extremities Overall: no clubbing 03/16/2012 None Full Exam - General 1994 Cardiovascular auscultation of heart Overall: regular rate 03/16/2012 None Full Exam - General 1994 Cardiovascular auscultation of heart Overall: normal heart sounds 03/16/2012 None Full Exam - General 1994 Cardiovascular auscultation of heart Overall: no murmurs 03/16/2012 None Full Exam - General 1994 Abdomen abdominal exam Overall: normal bowel sounds 03/16/2012 None Full Exam - General 1994 Abdomen abdominal exam Lower quadrant: tender to palpation 03/16/2012 None Full Exam - General 1994 Chest/Breast breast and axillae palpation Overall: axillae non- tender 03/16/2012 None Full Exam - General 1994 Chest/Breast breast and axillae palpation Overall: no nipple discharge 03/16/2012 None Full Exam - General 1994 Chest/Breast breast and axillae palpation Upper inner quadrant: no mass 03/16/2012 None Full Exam - General 1994 Chest/Breast breast and axillae palpation Upper outer quadrant: no mass 03/16/2012 None Full Exam - General 1994 Chest/Breast breast and axillae palpation Lower inner quadrant: no mass 03/16/2012 None Full Exam - General 1994 Chest/Breast breast and axillae palpation Lower outer quadrant: mass present 03/16/2012 multiple scattered cysts Full Exam - General 1994 Musculoskeletal head and neck Overall: cervical spine benign 03/16/2012 None Full Exam - General 1994 Musculoskeletal head and neck Overall: head atraumatic 03/16/2012 None Full Exam - General 1994 Integument inspection of skin Overall: no rash, lesions 03/16/2012 None Full Exam - General 1994 Psychiatric orientation/consciousness Overall: oriented to person, place and time 03/16/2012 None Full Exam - General 1994 Psychiatric mood and affect Mood: happy 03/16/2012 None Full Exam - General 1994 Psychiatric mood and affect Overall: normal mood and affect 03/16/2012 None Full Exam - General 1994 Neurologic cranial nerves Overall: crainial nerves 2 - 12 grossly intact 03/16/2012 None Full Exam - Genitourinary/Female Integument inspection and palpation of skin Overall: no induration, no tenderness 09/26/2011 None Full Exam - Genitourinary/Female Neurologic mood and affect Overall: normal mood 09/26/2011 None Full Exam - Genitourinary/Female Neurologic mood and affect Overall: normal affect 09/26/2011 None Full Exam - Genitourinary/Female Psychiatric orientation/consciousness Overall: oriented to person, place and time 09/26/2011 None Full Exam - Genitourinary/Female Constitutional general appearance Stature/Body Habitus: short stature 09/26/2011 None Full Exam - Genitourinary/Female Constitutional general appearance Nourishment: obese 09/26/2011 None Full Exam - Genitourinary/Female Ears/Nose/Throat oral cavity/pharynx/larynx Overall: oral mucosa clear 09/26/2011 None Full Exam - Genitourinary/Female Neck thyroid Overall: normal size 09/26/2011 None Full Exam - Genitourinary/Female Neck thyroid Overall: normal consistency 09/26/2011 None Full Exam - Genitourinary/Female Neck inspection of neck Overall: normal size 09/26/2011 None Full Exam - Genitourinary/Female Respiratory auscultation Overall: breath sounds clear bilaterally 09/26/2011 None Full Exam - Genitourinary/Female Respiratory respiratory effort/rhythm Overall: no retractions 09/26/2011 None Full Exam - Genitourinary/Female Respiratory respiratory effort/rhythm Overall: normal rate 09/26/2011 None Full Exam - Genitourinary/Female Cardiovascular auscultation of heart Overall: regular rate 09/26/2011 None Full Exam - Genitourinary/Female Cardiovascular auscultation of heart Overall: normal heart sounds 09/26/2011 None Full Exam - Genitourinary/Female Cardiovascular auscultation of heart Overall: no murmurs 09/26/2011 None Full Exam - Genitourinary/Female Chest/Breast breast inspection and palpation Overall: normal chest shape 09/26/2011 None Full Exam - Genitourinary/Female Abdomen abdominal exam Overall: non tender, non distended 09/26/2011 None Full Exam - Genitourinary/Female Abdomen abdominal exam Overall: normal bowel sounds 09/26/2011 None Full Exam - Genitourinary/Female Constitutional general appearance Overall: well nourished 09/26/2011 None Full Exam - Genitourinary/Female Constitutional general appearance Overall: well developed 09/26/2011 None Full Exam - Genitourinary/Female Constitutional general appearance Overall: in no acute distress 09/26/2011 None Full Exam - Genitourinary/Female Eyes conjunctiva/eyelids Overall: conjunctiva clear 09/26/2011 None Full Exam - Genitourinary/Female Eyes pupils and irises Overall: pupils equal, round, reactive to light and accomodation 09/26/2011 None Full Exam - Genitourinary/Female Ears/Nose/Throat otoscopic exam Overall: external auditory canals clear 09/26/2011 None Full Exam - Genitourinary/Female Ears/Nose/Throat otoscopic exam Overall: tympanic membranes clear 09/26/2011 None Full Exam - Genitourinary/Female Genitourinary vagina Overall: no discharge 09/26/2011 None Full Exam - Genitourinary/Female Genitourinary vagina Overall: no lesions 09/26/2011 None Full Exam - Genitourinary/Female Genitourinary vagina Overall: normal tone 09/26/2011 None Full Exam - Genitourinary/Female Genitourinary vagina Overall: normal pelvic support 09/26/2011 None Full Exam - Genitourinary/Female Genitourinary vagina Introitus: normal appearance 09/26/2011 None Full Exam - Genitourinary/Female Genitourinary cervix Inspection: normal os 09/26/2011 None Full Exam - Genitourinary/Female Genitourinary uterus Overall: normal size 09/26/2011 None Full Exam - Genitourinary/Female Genitourinary uterus Overall: normal mobility 09/26/2011 None Full Exam - Genitourinary/Female Genitourinary uterus Overall: non tender 09/26/2011 None Full Exam - Genitourinary/Female Genitourinary uterus Overall: no mass 09/26/2011 None Full Exam - Genitourinary/Female Lymphatic inspection and palpation of nodes Overall: anterior cervical chain benign 09/26/2011 None Full Exam - Genitourinary/Female Lymphatic inspection and palpation of nodes Overall: posterior cervical chain benign 09/26/2011 None Full Exam - Genitourinary/Female Musculoskeletal head and neck Overall: head atraumatic 09/26/2011 None Full Exam - Genitourinary/Female Integument inspection and palpation of skin Overall: no rash, lesions 09/26/2011 None Full Exam - Genitourinary/Female Abdomen abdominal exam Overall: no mass lesions 09/26/2011 None Full Exam - Genitourinary/Female Genitourinary breast inspection & palpation Overall: breasts symmetric and without lesions 09/26/2011 None Full Exam - Genitourinary/Female Genitourinary breast inspection & palpation Overall: breasts non-tender, no mass lesions 09/26/2011 None Full Exam - Genitourinary/Female Genitourinary breast inspection & palpation Overall: no nipple discharge 09/26/2011 None Full Exam - Genitourinary/Female Genitourinary external genitalia Overall: normal hair distribution 09/26/2011 None Full Exam - Genitourinary/Female Genitourinary external genitalia Overall: no discharge 09/26/2011 None Full Exam - Genitourinary/Female Genitourinary external genitalia Overall: no lesions 09/26/2011 None Full Exam - Genitourinary/Female Genitourinary bladder Overall: no tenderness 09/26/2011 None Full Exam - Genitourinary/Female Genitourinary bladder Overall: no mass lesions 09/26/2011 None Full Exam - ENT Neurologic orientation Overall: oriented to person, place and time 08/22/2011 None Full Exam - ENT Ears/Nose/Throat oropharynx Oropharynx: a normal exam 08/22/2011 None Full Exam - ENT Ears/Nose/Throat otoscopic exam Overall: tympanic membranes normal 08/22/2011 None Full Exam - ENT Ears/Nose/Throat oropharynx Oral mucosa: a normal exam 08/22/2011 None Full Exam - ENT Face and Head inspection of face/head Overall: no scars, lesions, masses 08/22/2011 None Full Exam - ENT Face and Head palpation Left maxillary sinus: tender 08/22/2011 None Full Exam - ENT Face and Head palpation Right maxillary sinus: tender 08/22/2011 None Full Exam - ENT Face and Head palpation Left frontal sinus: tender 08/22/2011 None Full Exam - ENT Face and Head palpation Right frontal sinus: tender 08/22/2011 None Full Exam - ENT Respiratory auscultation Overall: breath sounds clear bilaterally 08/22/2011 None Full Exam - ENT Cardiovascular auscultation of heart Overall: regular rate 08/22/2011 None Full Exam - ENT Cardiovascular auscultation of heart Overall: normal heart sounds 08/22/2011 None Full Exam - ENT Cardiovascular auscultation of heart Overall: no murmurs 08/22/2011 None Full Exam - ENT Constitutional general appearance Overall: well nourished 08/22/2011 None Full Exam - ENT Constitutional general appearance Overall: well developed 08/22/2011 None Full Exam - ENT Ears/Nose/Throat otoscopic exam Overall: external auditory canals normal 08/22/2011 None Full Exam - ENT Lymphatic palpation of lymph nodes Overall: shotty lymphadenopathy 08/22/2011 None Full Exam - ENT Constitutional general appearance Overall: well nourished 06/20/2011 None Full Exam - ENT Constitutional general appearance Overall: well developed 06/20/2011 None Full Exam - ENT Ears/Nose/Throat otoscopic exam Overall: external auditory canals normal 06/20/2011 None Full Exam - ENT Ears/Nose/Throat otoscopic exam Overall: tympanic membranes normal 06/20/2011 None Full Exam - ENT Ears/Nose/Throat oropharynx Oral mucosa: a normal exam 06/20/2011 None Full Exam - ENT Ears/Nose/Throat oropharynx Oropharynx: erythema 06/20/2011 None Full Exam - ENT Face and Head inspection of face/head Overall: no scars, lesions, masses 06/20/2011 None Full Exam - ENT Face and Head palpation Left maxillary sinus: tender 06/20/2011 None Full Exam - ENT Face and Head palpation Right maxillary sinus: tender 06/20/2011 None Full Exam - ENT Face and Head palpation Left frontal sinus: tender 06/20/2011 None Full Exam - ENT Face and Head palpation Right frontal sinus: tender 06/20/2011 None Full Exam - ENT Respiratory auscultation Overall: breath sounds clear bilaterally 06/20/2011 None Full Exam - ENT Cardiovascular auscultation of heart Overall: regular rate 06/20/2011 None Full Exam - ENT Cardiovascular auscultation of heart Overall: normal heart sounds 06/20/2011 None Full Exam - ENT Cardiovascular auscultation of heart Overall: no murmurs 06/20/2011 None Full Exam - ENT Lymphatic palpation of lymph nodes Overall: shotty lymphadenopathy 06/20/2011 None Full Exam - ENT Neurologic orientation Overall: oriented to person, place and time 06/20/2011 None Procedures Procedure Codes Date IMMUNIZATION ADMIN CPT- 4: 03917 06/19/2016 IIV4 FLU VACC NO PRESERV ID Formatting Model/CDA Sections, Assigned to/Tawny Torres CT: [id number] CPT-4: 61264Blxgeen 06/19/2016 THER/PROPH/DIAG INJ SC/IM CPT-4: 78566 10/22/2013 THER/PROPH/DIAG INJ SC/IM CPT-4: 94716 07/21/2013 THER/PROPH/DIAG INJ SC/IM CPT-4: 01369 04/21/2013 THER/PROPH/DIAG INJ SC/IM CPT-4: 50690 01/18/2013 THER/PROPH/DIAG INJ SC/IM CPT-4: 90728 10/19/2012 PREV VISIT EST AGE 18-39 CPT-4: 31194 09/26/2011 THER/PROPH/DIAG INJ SC/IM CPT-4: 45601 08/22/2011 TRIAMCINOLONE ACET INJ NOS CPT-4: J3301 08/22/2011 TRIAMCINOLONE ACET INJ NOS CPT-4: J3301 06/20/2011 THER/PROPH/DIAG INJ SC/IM CPT-4: 72136 06/20/2011 ROCEPHIN, PER 250 MG CPT- 4: J0696 06/20/2011 Vital Signs Date Vital 01/19/2019 Blood Pressure 1: 128/82 Code: 8480-6 BMI: 43.9 Code: 03315-1 Heart Rate 1: 102 bpm Height: 5' SpO2: 96% Weight: 225 lbs 12/21/2018 Blood Pressure 1: 132/74 Code: 8480-6 BMI: 43.9 Code: 85128-2 Heart Rate 1: 85 bpm Height: 5' SpO2: 97% Weight: 225 lbs 07/01/2018 Blood Pressure 1: 134/68 Code: 8480-6 BMI: 44.5 Code: 51855-4 Heart Rate 1: 97 bpm Height: 5' SpO2: 98% Weight: 228 lbs 04/30/2018 Blood Pressure 1: 110/80 Code: 8480-6 BMI: 44.5 Code: 65849-3 Heart Rate 1: 91 bpm Height: 5' SpO2: 99% Weight: 228 lbs 02/13/2018 Blood Pressure 1: 118/84 Code: 8480-6 BMI: 43.9 Code: 60832-0 Heart Rate 1: 101 bpm Height: 5' SpO2: 98% Temperature: 36.8 (C) / 98.2 (F) Weight: 225 lbs 08/04/2017 Blood Pressure 1: 12276 Code: 8480-6 BMI: 41.8 Code: 16880-7 Heart Rate 1: 117 bpm Height: 5' SpO2: 96% Temperature: 36.6 (C) / 97.9 (F) Weight: 214 lbs 09/18/2016 Blood Pressure 1: 132/78 Code: 8480-6 BMI: 41.2 Code: 17093-0 Heart Rate 1: 94 bpm Height: 5' SpO2: 98% Weight: 211 lbs 06/19/2016 Blood Pressure 1: 132/86 Code: 8480-6 BMI: 39.1 Code: 78974-2 Heart Rate 1: 78 bpm Height: 5' SpO2: 99% Weight: 200 lbs 04/01/2016 Blood Pressure 1: 120/80 Code: 8480-6 BMI: 38.5 Code: 48417-6 Heart Rate 1: 86 bpm Height: 5' SpO2: 96% Weight: 197 lbs 12/12/2014 Blood Pressure 1: 110/82 Code: 8480-6 BMI: 47.8 Code: 09175-9 Heart Rate 1: 90 bpm Height: 5' Weight: 245 lbs 10/26/2014 Blood Pressure 1: 122/76 Code: 8480-6 BMI: 47.1 Code: 43787-3 Heart Rate 1: 96 bpm Height: 5' Weight: 241 lbs 10/22/2013 Blood Pressure 1: 152/88 Code: 8480-6 Heart Rate 1: 88 bpm Weight: 240 lbs 01/07/2013 Blood Pressure 1: 114/80 Code: 8480-6 Weight: 224 lbs 10/19/2012 Blood Pressure 1: 126/94 Code: 8480-6 BMI: 43.5 Code: 67412-0 Heart Rate 1: 104 bpm Height: 5' Respiratory Rate: 16 bpm Weight: 222 lbs 8 oz 08/10/2012 Blood Pressure 1: 112/84 Code: 8480-6 Heart Rate 1: 84 bpm Weight: 233 lbs 03/16/2012 Blood Pressure 1: 110/72 Code: 8480-6 BMI: 43.0 Code: 49014-4 Heart Rate 1: 88 bpm Height: 5' Respiratory Rate: 18 bpm Weight: 220 lbs 01/24/2012 Blood Pressure 1: 104/80 Code: 8480-6 BMI: 43.2 Code: 91380-4 Height: 5' Weight: 221 lbs 11/21/2011 BMI: 45.7 Code: 83015-7 Height: 5' Weight: 234 lbs 09/26/2011 Blood Pressure 1: 110/68 Code: 8480-6 BMI: 46.8 Code: 81295-3 Heart Rate 1: 90 bpm Height: 5' Respiratory Rate: 16 bpm Weight: 239 lbs 8 oz 08/22/2011 Blood Pressure 1: 128/89 Code: 8480-6 BMI: 46.1 Code: 80574-4 Heart Rate 1: 83 bpm Height: 5' Weight: 236 lbs 06/20/2011 Blood Pressure 1: 120/80 Code: 8480-6 BMI: 46.6 Code: 49846-7 Heart Rate 1: 88 bpm Height: 5' Respiratory Rate: 16 bpm Weight: 238 lbs 8 oz Functional Status No Functional Status data History of Present Illness Symptom Name Status Result Effective Date Notes Quality difficulty falling asleep 01/19/2019 None Onset and Resolution ongoing 01/19/2019 None Pertinent Findings Denies dizziness 01/19/2019 None Pertinent Findings Denies dyspnea 01/19/2019 None Quality chronic 01/19/2019 None Triggers no known associated factors 01/19/2019 None Quality bleeding 12/21/2018 None Quality intermittent 12/21/2018 None Quality itching 12/21/2018 None Quality pressure 12/21/2018 None Quality worsening 12/21/2018 None Onset and Resolution ongoing 12/21/2018 None Onset of Symptom 1 years ago 12/21/2018 None Pertinent Findings pain 12/21/2018 None abdominal pain Location in the periumbilical area 07/01/2018 None abdominal pain Quality aching 07/01/2018 None abdominal pain Quality constant 07/01/2018 None abdominal pain Quality worsening 07/01/2018 None abdominal pain Location diffusely 04/30/2018 None abdominal pain Quality acute 04/30/2018 None abdominal pain Quality intermittent 04/30/2018 None abdominal pain Onset and Resolution sudden in onset 04/30/2018 None abdominal pain Onset of Symptom 5 weeks ago 04/30/2018 None abdominal pain Limitation on Activities moderately limits activities 04/30/2018 None abdominal pain Frequency of Episodes increasing 04/30/2018 None abdominal pain Timing of Episodes in the afternoon 04/30/2018 None abdominal pain Triggers no known associated factors 04/30/2018 None sinus pain Location in the bilateral frontal sinuses 02/13/2018 None sinus pain Location in the bilateral maxillary sinuses 02/13/2018 None sinus pain Quality acute 02/13/2018 None sinus pain Quality pressure 02/13/2018 None sinus pain Quality pain 02/13/2018 None sinus pain Quality green 02/13/2018 None sinus pain Quality yellow 02/13/2018 None sinus pain Onset and Resolution sudden in onset 02/13/2018 None sinus pain Frequency of Episodes daily 02/13/2018 None sinus pain Onset of Symptom 5 days ago 02/13/2018 None sinus pain Triggers no known associated factors 02/13/2018 None sinus pain Pertinent Findings cough 02/13/2018 None sinus pain Pertinent Findings facial pain 02/13/2018 None sinus pain Pertinent Findings fever 02/13/2018 -99.1 the other day diarrhea Quality acute 08/04/2017 None diarrhea Onset and Resolution sudden in onset 08/04/2017 None diarrhea Onset of Symptom 3 days ago 08/04/2017 None diarrhea Pertinent Findings Denies dyspepsia 08/04/2017 None diarrhea Pertinent Findings fecal urgency 08/04/2017 None diarrhea Triggers no known associated factors 08/04/2017 None diarrhea Triggers stress 08/04/2017 None diarrhea Triggers meals 08/04/2017 None diarrhea Timing of Episodes no specific time 08/04/2017 None diarrhea Pertinent Findings Denies heartburn 08/04/2017 None diarrhea Pertinent Findings flatulence 08/04/2017 None diarrhea Pertinent Findings lightheadedness 08/04/2017 None diarrhea Pertinent Findings nausea 08/04/2017 None diarrhea Pertinent Findings bloating 08/04/2017 None diarrhea Pertinent Findings emesis 08/04/2017 None diarrhea Pertinent Findings cramping 08/04/2017 None diarrhea Pertinent Findings unable to tolerate liquids orally 08/04/2017 None diarrhea Pertinent Findings Denies irritability 08/04/2017 None diarrhea Limitation on Activities moderately limits activities 08/04/2017 None back pain Location lumbar-sacral spine 09/18/2016 None back pain Quality aching 09/18/2016 None back pain Quality sharp 09/18/2016 None back pain Quality constant 09/18/2016 None back pain Quality worsening 09/18/2016 None back pain Quality radiating 09/18/2016 None back pain Onset and Resolution sudden in onset 09/18/2016 None back pain Onset of Symptom 5 months ago 09/18/2016 None back pain Frequency of Episodes daily 09/18/2016 None back pain Radiating down the right leg 09/18/2016 None hypothyroid Quality improving 06/19/2016 None hypothyroid Onset and Resolution ongoing 06/19/2016 None hypothyroid Onset of Symptom during adulthood 06/19/2016 None hypothyroid Frequency of Episodes daily 06/19/2016 None hypothyroid Triggers no known associated factors 06/19/2016 None hypothyroid Alleviating Factors medication 06/19/2016 None hypothyroid Pertinent Findings Denies brittle nails 06/19/2016 None hypothyroid Pertinent Findings Denies coarse hair 06/19/2016 None hypothyroid Quality improving 04/01/2016 None hypothyroid Onset and Resolution ongoing 04/01/2016 None hypothyroid Frequency of Episodes daily 04/01/2016 None hypothyroid Pertinent Findings Denies brittle nails 04/01/2016 None hypothyroid Pertinent Findings Denies coarse hair 04/01/2016 None hypothyroid Onset of Symptom during adulthood 04/01/2016 None hypothyroid Triggers no known associated factors 04/01/2016 None hypothyroid Alleviating Factors medication 04/01/2016 None breast complaint Location diffusely 12/12/2014 possibly breast complaint Onset of Symptom 2 weeks ago 12/12/2014 None fatigue Onset and Resolution ongoing 12/12/2014 None fatigue Limitation on Activities does not limit activities 12/12/2014 None fatigue Triggers stress 12/12/2014 - pt also thinks that she may be and has been "freaking out" because she wants to be , but is concerned about "everything that can go wrong" with the . well woman exam (18-39 years) Sexual Activity experiences sexual satisfaction 10/26/2014 None well woman exam (18-39 years) Nutrition and Exercise overweight 10/26/2014 None well woman exam (18-39 years) Cardiovascular Risk Factors obesity 10/26/2014 None well woman exam (18-39 years) Health Guidance self-breast exam 10/26/2014 None well woman exam (18-39 years) Control none 10/26/2014 None well woman exam (18-39 years) Obstetrical History 0 total pregnancies 10/26/2014 None well woman exam (18-39 years) Menstrual History regular menses 10/26/2014 None well woman exam (18-39 years) Lifestyle no history of physical abuse 10/26/2014 None well woman exam (18-39 years) Lifestyle family supportive of relationship 10/26/2014 None well woman exam (18-39 years) Lifestyle satisfactory work experience 10/26/2014 None well woman exam (18-39 years) Lifestyle normal sleep patterns 10/26/2014 None well woman exam (18-39 years) Lifestyle normal amount of stress 10/26/2014 None well woman exam (18-39 years) Lifestyle satisfactory marriage/partner relationship 10/26/2014 None well woman exam (18-39 years) Control Depo-Provera 10/22/2013 None well woman exam (18-39 years) Pap Smear normal results 10/22/2013 well woman exam (18-39 years) Menstrual History irregular menses 10/22/2013 no periods- on depo provera well woman exam (18-39 years) Sexual Activity experiences sexual satisfaction 10/22/2013 None well woman exam (18-39 years) Cardiovascular Risk Factors obesity 10/22/2013 None well woman exam (18-39 years) Nutrition and Exercise overweight 10/22/2013 None well woman exam (18-39 years) Health Guidance self-breast exam 10/22/2013 None well woman exam (18-39 years) Reproductive System Development late thelarche 10/22/2013 None medication follow up Location oral intake 10/19/2012 None medication follow up Additional Comments medication use 10/19/2012 None medication follow up Additional Comments medication: phentermine 10/19/2012 None medication follow up Quality chronic 10/19/2012 None medication follow up Significant Past Medical History Other: morbid obesity, allergic rhinitis, hypothyroid 10/19/2012 None varicose veins Quality aching 08/10/2012 None varicose veins Quality intermittent 08/10/2012 None varicose veins Location on the right upper leg 08/10/2012 None varicose veins Location on the left upper leg 08/10/2012 None varicose veins Onset and Resolution ongoing 08/10/2012 None pain Onset and Resolution ongoing 03/16/2012 None pain Location-Major on the abdomen 03/16/2012 None pain Location-Trunk on the right upper chest 03/16/2012 on the breast, started about 1- 2 weeks ago pain Location-Trunk on the left upper chest 03/16/2012 on the breast, started about 1- 2 weeks ago pain Quality acute 03/16/2012 None pain Quality intermittent 03/16/2012 None pain Timing of Episodes no specific time 03/16/2012 None pain Frequency of Episodes daily 03/16/2012 None pain Limitation on Activities moderately limits activities 03/16/2012 lower abdominal discomfort is more persistent pain Severity moderate 03/16/2012 None pain Severity worsening 03/16/2012 None pain Prior Treatments previously untreated 03/16/2012 None pain Triggers no known triggers 03/16/2012 pressure, touch, intercourse pain Alleviating Factors avoidance of triggering factors 03/16/2012 None pain Pertinent Findings Denies dizziness 03/16/2012 None pain Pertinent Findings Denies muscle pain 03/16/2012 None pain Pertinent Findings nausea 03/16/2012 when lying on stomach or sides pain Pertinent Findings pain 03/16/2012 None pain Pertinent Findings tenderness 03/16/2012 None well woman exam (18-39 years) Cardiovascular Risk Factors family history of cardiovascular disease 09/26/2011 None well woman exam (18-39 years) Cardiovascular Risk Factors obesity 09/26/2011 None well woman exam (18-39 years) Health Guidance baseline mammogram 09/26/2011 None well woman exam (18-39 years) Health Guidance control options 09/26/2011 None well woman exam (18-39 years) Health Guidance depression symptoms 09/26/2011 None well woman exam (18-39 years) Health Guidance prevention 09/26/2011 None well woman exam (18-39 years) Health Guidance self-breast exam 09/26/2011 None well woman exam (18-39 years) Health Guidance STD precautions 09/26/2011 None well woman exam (18-39 years) Health Guidance tobacco, drugs and alcohol avoidance 09/26/2011 None well woman exam (18-39 years) Lifestyle dissatisfactory marriage/partner relationship 09/26/2011 None well woman exam (18-39 years) Lifestyle satisfactory marriage/partner relationship 09/26/2011 None well woman exam (18-39 years) Nutrition and Exercise minimal exercise 09/26/2011 None well woman exam (18-39 years) Nutrition and Exercise overweight 09/26/2011 None well woman exam (18-39 years) Sexual Activity is monogamous 09/26/2011 None well woman exam (18-39 years) Menstrual History amenorrhea 09/26/2011 since started on Mirena well woman exam (18-39 years) Sexual Activity experiences sexual satisfaction 09/26/2011 None weight gain/obesity Onset and Resolution ongoing 09/26/2011 None well woman exam (18-39 years) Control IUD 09/26/2011 Mirena, placed [id number] weight gain/obesity Location globally 09/26/2011 pt states that 8 years ago she weighed 135#. weight gain/obesity Weight Status is morbidly obese 09/26/2011 pt states the weight seems to add each year by 10-30 pounds despite exercisingnat the [facility] headache Location diffusely 08/22/2011 None headache Quality acute 08/22/2011 None headache Quality aching 08/22/2011 None headache Onset and Resolution ongoing 08/22/2011 None headache Onset of Symptom 2 weeks ago 08/22/2011 None headache Limitation on Activities does not limit activities 08/22/2011 None headache Frequency of Episodes unchanged 08/22/2011 None headache Significant Medical Conditions allergic rhinitis 08/22/2011 None headache Triggers exertion 08/22/2011 None sinus congestion Quality acute 08/22/2011 None sinus congestion Onset and Resolution ongoing 08/22/2011 None sinus congestion Onset of Symptom 2 weeks ago 08/22/2011 None sinus congestion Severity moderate 08/22/2011 None sinus congestion Frequency of Episodes increasing 08/22/2011 None sinus congestion Triggers allergens 08/22/2011 None sinus congestion Alleviating Factors medication 08/22/2011 None sore throat Onset of Symptom 3 weeks ago 06/20/2011 None cough Location in the lung 06/20/2011 None cough Quality productive 06/20/2011 None cough Quality hacking 06/20/2011 None cough Quality interrupts sleep 06/20/2011 None sore throat Quality burning 06/20/2011 None sore throat Quality scratchy 06/20/2011 None sore throat Quality throbbing 06/20/2011 None sore throat Limitation on Activities does not limit oral intake 06/20/2011 None cough Onset of Symptom 3 weeks ago 06/20/2011 None facial pain Location on both cheeks 06/20/2011 None facial pain Location on both brows 06/20/2011 None facial pain Quality throbbing 06/20/2011 None Advance Directives No Advance Directive data Encounters Encounter Performer Location Codes Date ([id number]) 10663 EST. PATIENT, LEVEL III Diagnosis: Insomnia due to medical condition[ICD10: G47.01] Mandy Novoa MD, [facility] CPT-4: 75584 01/19/2019 03004 EST. PATIENT, LEVEL III Diagnosis: Other hemorrhoids[ICD10: K64.8] Mirian Novoa MD, [facility] CPT-4: 00794 12/21/2018 47354 EST. PATIENT, LEVEL III Diagnosis: Ventral hernia without obstruction or gangrene[ICD10: K43.9] Diagnosis: Epigastric pain[ICD10: R10.13] Mirian Novoa MD, [facility] CPT-4: 10349 07/01/2018 ([id number]) 75800 EST. PATIENT, LEVEL III Diagnosis: Slow transit constipation[ICD10: K59.01] Diagnosis: Generalized abdominal pain[ICD10: R10.84] Em Novoa MD, [facility] CPT-4: 00509 04/30/2018 [id number]) 97568 EST. PATIENT, LEVEL III Diagnosis: Cough[ICD10: R05] Diagnosis: Acute recurrent maxillary sinusitis[ICD10: J01.01] Em Novoa MD, [facility] CPT-4: 10849 02/13/2018 01400) 30549 EST. PATIENT, LEVEL III Diagnosis: Dehydration[ICD10: E86.0] Diagnosis: Nausea[ICD10: R11.0] Diagnosis: Diarrhea, unspecified[ICD10: R19.7] Em Novoa MD, [facility] CPT-4: 78569 08/04/2017 00707 EST. PATIENT, LEVEL III Diagnosis: Low back pain[ICD10: M54.5] Mirian Novoa MD, [facility] CPT-4: 66067 09/18/2016 89688 EST. PATIENT, LEVEL IV Diagnosis: VACCIN FOR INFLUENZA[ICD10: Z23] Diagnosis: Other specified hypothyroidism[ICD10: E03.8] Mirian Novoa MD, [facility] CPT-4: 37745 06/19/2016 ([id number]) 61115 EST. PATIENT, LEVEL III Diagnosis: Hypothyroidism, unspecified[ICD10: E03.9] [facility] CPT-4: 77145 04/01/2016 ([id number]) 98911 EST. PATIENT, LEVEL III Diagnosis: Missed periods[ICD9: 626.4] [facility] CPT-4: 75025 12/12/2014 ([id number]) PREV VISIT EST AGE 18-39 Diagnosis: ROUTINE GYNE EXAM[ICD9: V72.31] [facility] CPT-4: 77180 10/26/2014 ([id number]) PREV VISIT EST AGE 18-39 Diagnosis: ROUTINE GYNE EXAM[ICD9: V72.31] Em Novoa MD, [facility] CPT-4: 03690 10/22/2013 ([id number]) Miscellaneous no charge Diagnosis: MORBID OBESITY[ICD9: 278.01] Em Novoa MD, [facility] CPT-4: 44579 01/07/2013 ([id number]) 44607 EST. PATIENT, LEVEL III Diagnosis: Allergic rhinitis[ICD9: 477.9] Diagnosis: Contraceptive surveillance, unspecified[ICD9: V25.40] Diagnosis: MORBID OBESITY[ICD9: 278.01] Mandy Novoa MD, [facility] CPT-4: 56955 10/19/2012 ([id number]) 78793 EST. PATIENT, LEVEL III Diagnosis: Varicose veins of both lower extremities with pain[ICD9: 454.8] Diagnosis: Obesities, morbid[ICD9: 278.01] Mandy Novoa MD, [facility] CPT-4: 73687 08/10/2012 ([id number]) 80170 EST. PATIENT, LEVEL IV Diagnosis: Abdominal pain[ICD9: 789.00] Diagnosis: Breast tenderness in female[ICD9: 611.71] [facility] CPT-4: 35024 03/16/2012 Miscellaneous no charge Diagnosis: MORBID OBESITY[ICD9: 278.01] Em Novoa MD, [facility] CPT-4: 50142 01/24/2012 Miscellaneous no charge Diagnosis: MORBID OBESITY[ICD9: 278.01] [facility] CPT-4: 74870 11/21/2011 53386 EST. PATIENT, LEVEL III Diagnosis: ACUTE SINUSITIS[ICD9: 461.9] Diagnosis: HEADACHE[ICD9: 784.0] Em Novoa MD, [facility] CPT-4: 44035 08/22/2011 18212 EST. PATIENT, LEVEL III Diagnosis: ACUTE SINUSITIS[ICD9: 461.9] Diagnosis: Environmental allergies[ICD9: 477.9] Em Novoa MD, [facility] CPT-4: 86860 06/20/2011 Plan of Care Planned Activity Notes Codes Status Date Visit Plan: Insomnia - Pt has been advised to increase the light in the house during the day, and start dimming the lights during the evening hours. Pt has been advised to cut out caffeine after 5pm. Daytime napping worsens night time insomnia. RX for amitriptyline rx sent to pharmacy 01/19/2019 Appointment: Mandy [facility]el[facility] (15 min) Moderate 01/19/2019 Patient Education: Patient Medication Summary Completed 01/19/2019 Visit Plan: Hemorrhoids - pt is to use suppositories as directed - pt is to increase fiber and fluid intake and notify clinic if symptoms do not improve, if they worsen, or with any changes, questions, or concerns. 12/21/2018 Appointment: Mirian Osei WPtel: [facility] (30 min) Complex 12/21/2018 Patient Education: Patient Medication Summary Completed 12/21/2018 Visit Plan: Abdominal hernia - will repeat US - pt is to consider referral to surgeon - pt is to go to the ER or notify clinic with any changes, questions, or concerns. 07/01/2018 Appointment: Mirian Osei WPtel: [phone] [phone] (15 min) Moderate 07/01/2018 Patient Education: Patient Medication Summary Completed 07/01/2018 Visit Plan: Constipation - uncontrolled - I have discussed with the patient the need for adequate fiber and water intake to facilitate soft, easily passed stools. The pt noted understanding of our conversation. I have given the patient a recipe for "power pudding" - equal parts, bran flakes, prune juice, and apple sauce. The pt is to call if symptoms not improved on this regimen. Abdominal pain-history of abdominal hernia with mesh placement -will evaluate with ultrasound 04/30/2018 Appointment: Em Ortiz WPtel: [phone] [phone] (15 min) Moderate 04/30/2018 Patient Education: Patient Medication Summary Completed 04/30/2018 Visit Plan: Sinusitis - Pt has acute infection - pain in face, maxillary region, Pt informed to use decongestant, RX given to patient, sinus rinses also recommended. Call if symptoms do not show improvement. 02/13/2018 Appointment: Em Ortiz WPtel: [phone] [phone] (15 min) Moderate 02/13/2018 Patient Education: Patient Medication Summary Completed 02/13/2018 Patient Education: Patient Medication Summary Completed 09/11/2017 Visit Plan: Yemxkdhfonajdav-ydvedypvyuf-rhuugoc sent for outpatient IVF and anti nausea medication-will also check labs - discussed need to stay away from milk products while acutely ill with diarrhea and nausea and emesis as it may worsen the symptoms. Liquids initially until the nausea improves, then recommend to advance to bland diet for 1 day, then advance as tolerated. Call if symptoms not improved. 08/04/2017 Appointment: Em Ortiz WPtel: [phone] [phone] (15 min) Moderate 08/04/2017 Patient Education: Patient Medication Summary Completed 08/04/2017 Patient Education: Obesity Completed 08/04/2017 Appointment: Mandy [facility]el[facility] [phone] [facility] [place] (15 min) Moderate 12/31/2016 Visit Plan: Low back pain- the patient was instructed in appropriate posture, need for weight loss to alleviate abdominal obesity that is worsening the patient's back pain.. The pt is to use prn antiinflammatories to manage acute pain. The patient is to call the office if the pain is worsening or does not improve. 09/18/2016 Appointment: Mirian Ose[facility]el[facility] [phone] [facility] [place] (30 min) Complex 09/18/2016 Patient Education: Patient Medication Summary Completed 09/18/2016 Patient Education: Obesity Completed 09/18/2016 Visit Plan: Hypothyroidism - pt with chronic hypothyroidism, continue with current medication, will monitor pt to signs or symptoms of lack of adequate supplementation. Pt is to continue with current dose of medication unless directed otherwise. Check labs at regular intervals wither q 3 months or q 6 months based on previous levels of control. Pt going on a cruise and is worried about sea sickness - will send RX. 06/19/2016 Appointment: Em Ortiz WPtel: [phone] [phone] [place] (30 min) Complex 06/19/2016 Patient Education: Patient Medication Summary Completed 06/19/2016 Patient Education: Obesity Completed 06/19/2016 Patient Education: Patient Medication Summary Completed 06/17/2016 Visit Plan: Hypothyroidism - pt with chronic hypothyroidism, continue with current medication, will monitor pt to signs or symptoms of lack of adequate supplementation. Pt is to continue with current dose of medication unless directed otherwise. Check labs at regular intervals wither q 3 months or q 6 months based on previous levels of control. 04/01/2016 Appointment: Em Ortiz WPtel: [phone] [phone] [place] (30 min) Complex 04/01/2016 Patient Education: Patient Medication Summary Completed 04/01/2016 Patient Education: Obesity Completed 04/01/2016 Patient Education: Patient Medication Summary Completed 03/27/2016 Visit Plan: Missed period - pt sent to lab for beta hcg - will call pt with report. She has decided that her OB of choice would be Dr. Matos. Pt is to restart thyroid medication - pt given samples of triosant 13mcg. 12/12/2014 Appointment: Mandy Novoa WPtel: [address] [place] [id number] [place] Other 12/12/2014 Patient Education: Patient Medication Summary Completed 12/12/2014 Visit Plan: Well Adult Female - exam completed. Pap and breast exam completed. Pt will be called with results of her testing. She was advised to continue with yearly annual exams. Safe sex practices discussed during office visit today. Call if any abnormal gynecologic issues during the next year, otherwise, RTC yearly or prn. 10/26/2014 Appointment: Mandy Novoa WPtel: [address] [place], [place] [phone] Well Woman 10/26/2014 Patient Education: Patient Medication Summary Completed 10/26/2014 Care Plan: PAP Pending 10/26/2014 Visit Plan: Well Adult Female - exam completed. Pap and gc/chlamydia and breast exam completed. Pt will be called with results of her testing. She was advised to continue with yearly annual exams. Safe sex practices discussed during office visit today. Call if any abnormal gynecologic issues during the next year, otherwise, RTC yearly or prn. 10/22/2013 Appointment: Em Ortiz WPtel: [address] [place], [place] [phone] Well Woman 10/22/2013 Patient Education: Patient Medication Summary Completed 10/22/2013 Appointment: Mandy Novoa WPtel: [address] [place] [phone] [place] Injection 07/21/2013 Patient Education: Patient Medication Summary Completed 07/21/2013 Appointment: Em Ortiz WPtel: [address] [place] [phone] [place] Injection 07/20/2013 Visit Plan: depo injection today 04/21/2013 Patient Education: Patient Medication Summary Completed 04/21/2013 Appointment: Em Ortiz WPtel: [address] [place], [place] [phone] [place] Injection 01/18/2013 Patient Education: Patient Medication Summary Completed 01/18/2013 Visit Plan: Ok to refill phentermine 01/07/2013 Patient Education: Patient Medication Summary Completed 01/07/2013 Visit Plan: Allergies - chronic - recommended pt to use allergy medication as prescribed. Pt has been counseled as the the appropriate use of the medication. Pt to call if allergy symptoms are not controlled with the medication. If using nasal spray, instructions as follows: Nasal spray- use twice daily, one spray per nostril twice daily, after 30 minutes, rinse out nose with saline spray.. Use opposite hand per nostril to spray in the nasal steroid allergy spray. Obesity - chronic issue with this patient. The pt has been counseled about diet changes, calorie restriction, and need to exercise. Pt will RTC in one month for weight check. 10/19/2012 Appointment: Mandy Nov[facility]Ptel[facility] [phone] [facility] Follow up 10/19/2012 Patient Education: Patient Medication Summary Completed 10/19/2012 Visit Plan: Varicose Veins - recommended OTC compression tights/leggings - if this does nothelp decrease the aching in her legs - along with her active pursual of weight loss, the pt is to call and we will get her an appt with specialist for venous laser therapy. Obesity - chronic issue with this patient. The pt has been counseled about diet changes, calorie restriction, and need to exercise. Pt will RTC in one month for weight check. 08/10/2012 Appointment: Mandy Novoa [facility]Ptel[facility] [phone] [facility] [place] Follow up 08/10/2012 Patient Education: Patient Medication Summary Completed 08/10/2012 Visit Plan: Pt with abdominal pain- has been scheduled for a pelvic and abdominal ultrasound.. Pt is to stop her phentermine, will check a serum test, and also have the patient eat a bland diet for the next 48 hours. I have also had labs drawn for a chem panel and CBC, depending on the ultrasound results, will further direct the pt in the course of care that is being recommended. My major concern would be for , especially if she has a mirena in place, that would be a very difficult situation, the other concern is for bilateral ovarian cysts. 03/16/2012 Appointment: Mandy Novoa WPtel: [address] [place], [place] [phone] Other 03/16/2012 Patient Education: Patient Medication Summary Completed 03/16/2012 Appointment: Em Ortiz WPtel: [address] [place], [place] [phone] Lab Draw 03/02/2012 Visit Plan: Weight and blood pressure check 01/24/2012 Appointment: Em Ortiz WPtel: [phone] Other 01/24/2012 Patient Education: Patient Medication Summary Completed 01/24/2012 Visit Plan: Weight check only 11/21/2011 Appointment: Em Ortiz WPtel: [phone] Other 11/21/2011 Patient Education: Patient Medication Summary Completed 11/21/2011 Visit Plan: Well Adult Female - exam completed. Pap and gc/chlamydia and breast exam completed. Pt will be called with results of her testing. She was advised to continue with yearly annual exams. Safe sex practices discussed during office visit today. Call if any abnormal gynecologic issues during the next year, otherwise, RTC yearly or prn. Obesity - chronic issue with this patient. The pt has been counseled about diet changes, calorie restriction, and need to exercise. Pt will RTC in one month for weight check. RX for Phentermine given to pt with instructions to stop the medication and call the office or go to the ER if symptoms of tachycardia that does not resolve or severe headache or uncontrolled blood pressure occur. 09/26/2011 Appointment: Mandy Novoa WPtel: [facility] Well Woman 09/26/2011 Patient Education: Patient Medication Summary Completed 09/26/2011 Visit Plan: URI - Pt advised to increase fluids, vitamin C. Discussed natural and expected course of this diagnosis and need to alert me if symtpoms do not follow expected course, or if any worse. RX sent to patient's pharmacy. Headache-kenalog injection given today in the office. Call if symptoms do not improve. Recommend claritin daily. Continue with nasal saline rinses as well. 08/22/2011 Appointment: Em Ortiz WPtel: [phone] Other 08/22/2011 Patient Education: Patient Medication Summary Completed 08/22/2011 Visit Plan: Sinusitis - Pt has acute infection - pain in face, maxillary region, Pt informed to use decongestant, RX given to patient, sinus rinses also recommended. Call if symptoms do not show improvement. Allergies- kenalog injection in the office today. Continue claritin 10mg daily. Call if symptoms do not improve. 06/20/2011 Visit Plan: Sinusitis - Pt has acute infection - pain in face, maxillary region, Pt informed to use decongestant, RX given to patient, sinus rinses also recommended. Call if symptoms do not show improvement. 06/20/2011 Appointment: Em Ortiz WPtel: [phone] Other 06/20/2011 Patient Education: Patient Medication Summary Completed 06/20/2011 Instructions Comment . Well Adult Female - exam completed. Pap and breast exam completed. Pt will be called with results of her testing. She was advised to continue with yearly annual exams. Safe sex practices discussed during office visit today. Call if any abnormal gynecologic issues during the next year, otherwise, RTC yearly or prn. CALL DR PA AND SEE WHAT YOU CAN TAKE FOR CONSTIPATION INCREASE GAS X AND TAKE BEFORE EACH MEAL CONTINUE FAMOTIDINE TWICE DAILY ABDOMINAL ULTRASOUND . Constipation - uncontrolled - I have discussed with the patient the need for adequate fiber and water intake to facilitate soft, easily passed stools. The pt noted understanding of our conversation. I have given the patient a recipe for "power pudding" - equal parts, bran flakes, prune juice, and apple sauce. The pt is to call if symptoms not improved on this regimen. Abdominal pain-history of abdominal hernia with mesh placement -will evaluate with ultrasound . Sinusitis - Pt has acute infection - pain in face, maxillary region, Pt informed to use decongestant, RX given to patient, sinus rinses also recommended. Call if symptoms do not show improvement. Allergies-kenalog injection in the office today. Continue claritin 10mg daily. Call if symptoms do not improve. RX for labs provided for fasting lab work. We will call you when we get the results. Call if your symptoms do not improve, or any worse.. Sinusitis - Pt has acute infection - pain in face, maxillary region, Pt informed to use decongestant, RX given to patient, sinus rinses also recommended. Call if symptoms do not show improvement. . Ok to refill phentermine NO CHANGE IN THYROID DOSE-TRY TAKING IT AT BEDTIME TO SEE IF YOU FORGET IT LESS OFTEN RECHECK LABS IN 3 MONTHS . Hypothyroidism - pt with chronic hypothyroidism, continue with current medication, will monitor pt to signs or symptoms of lack of adequate supplementation. Pt is to continue with current dose of medication unless directed otherwise. Check labs at regular intervals wither q 3 months or q 6 months based on previous levels of control. . Well Adult Female - exam completed. Pap and gc/chlamydia and breast exam completed. Pt will be called with results of her testing. She was advised to continue with yearly annual exams. Safe sex practices discussed during office visit today. Call if any abnormal gynecologic issues during the next year, otherwise, RTC yearly or prn. Obesity - chronic issue with this patient. The pt has been counseled about diet changes, calorie restriction, and need to exercise. Pt will RTC in one month for weight check. RX for Phentermine given to pt with instructions to stop the medication and call the office or go to the ER if symptoms of tachycardia that does not resolve or severe headache or uncontrolled blood pressure occur. . Weight check only . Pt with abdominal pain- has been scheduled for a pelvic and abdominal ultrasound.. Pt is to stop her phentermine, will check a serum test, and also have the patient eat a bland diet for the next 48 hours. I have also had labs drawn for a chem panel and CBC, depending on the ultrasound results, will further direct the pt in the course of care that is being recommended. My major concern would be for , especially if she has a mirena in place, that would be a very difficult situation, the other concern is for bilateral ovarian cysts. . Insomnia - Pt has been advised to increase the light in the house during the day, and start dimming the lights during the evening hours. Pt has been advised to cut out caffeine after 5pm. Daytime napping worsens night time insomnia. RX for amitriptyline rx sent to pharmacy Dr. Chris Sage. Abdominal hernia - will repeat US - pt is to consider referral to surgeon - pt is to go to the ER or notify clinic with any changes, questions, or concerns. . Sinusitis - Pt has acute infection - pain in face, maxillary region, Pt informed to use decongestant, RX given to patient, sinus rinses also recommended. Call if symptoms do not show improvement. preparation H suppository 3 times a day x 2 days, then 2 times a day x 2 days, then daily x 3 days preparation H cream every time you go to the bathroom sits baths with epson salts push fluids stool softener avoid straining. Hemorrhoids - pt is to use suppositories as directed - pt is to increase fiber and fluid intake and notify clinic if symptoms do not improve, if they worsen, or with any changes, questions, or concerns. Ibuprofen - 400mg-800mg three times a day for the next few days. . Low back pain- the patient was instructed in appropriate posture, need for weight loss to alleviate abdominal obesity that is worsening the patient's back pain.. The pt is to use prn antiinflammatories to manage acute pain. The patient is to call the office if the pain is worsening or does not improve. . Hypothyroidism - pt with chronic hypothyroidism, continue with current medication, will monitor pt to signs or symptoms of lack of adequate supplementation. Pt is to continue with current dose of medication unless directed otherwise. Check labs at regular intervals wither q 3 months or q 6 months based on previous levels of control. Pt going on a cruise and is worried about sea sickness - will send RX. . Missed period - pt sent to lab for beta hcg - will call pt with report. She has decided that her OB of choice would be Dr. Matos. Pt is to restart thyroid medication - pt given samples of triosant 13mcg. Varicose Veins - recommended OTC compression tights/leggings. Varicose Veins - recommended OTC compression tights/leggings - if this does nothelp decrease the aching in her legs - along with her active pursual of weight loss, the pt is to call and we will get her an appt with specialist for venous laser therapy. Obesity - chronic issue with this patient. The pt has been counseled about diet changes, calorie restriction, and need to exercise. Pt will RTC in one month for weight check. continue claritin 10mg po daily Vimovo 1 tab twice daily. . URI - Pt advised to increase fluids, vitamin C. Discussed natural and expected course of this diagnosis and need to alert me if symtpoms do not follow expected course, or if any worse. RX sent to patient's pharmacy. Headache-kenalog injection given today in the office. Call if symptoms do not improve. Recommend claritin daily. Continue with nasal saline rinses as well. . Well Adult Female - exam completed. Pap and gc/chlamydia and breast exam completed. Pt will be called with results of her testing. She was advised to continue with yearly annual exams. Safe sex practices discussed during office visit today. Call if any abnormal gynecologic issues during the next year, otherwise, RTC yearly or prn. outpatient IVF check labs start probiotic twice daily . [id number] sent for outpatient IVF and anti nausea medication- will also check labs - discussed need to stay away from milk products while acutely ill with diarrhea and nausea and emesis as it may worsen the symptoms. Liquids initially until the nausea improves, then recommend to advance to bland diet for 1 day, then advance as tolerated. Call if symptoms not improved. . Allergies - chronic - recommended pt to use allergy medication as prescribed. Pt has been counseled as the the appropriate use of the medication. Pt to call if allergy symptoms are not controlled with the medication. If using nasal spray, instructions as follows: Nasal spray- use twice daily, one spray per nostril twice daily, after 30 minutes, rinse out nose with saline spray.. Use opposite hand per nostril to spray in the nasal steroid allergy spray. Obesity - chronic issue with this patient. The pt has been counseled about diet changes, calorie restriction, and need to exercise. Pt will RTC in one month for weight check. . Weight and blood pressure check . depo injection today
--- OUTSIDE RECORDS SUMMARY | 2019-01-28 06:02 | XMS REPORT | CCD ---
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 Name Role Phone PP Unavailable CCM Unavailable Summary Purpose Interface Exchange Insurance Providers Payer name Policy type / Coverage type Covered alliance party ID Effective Begin Date Effective End Date Karma [employer] Commercial Insurance [id number] Unknown Family history Brother Diagnosis Age At [...] Employment Unknown Currently employed stay at home [facility] 01/19/2019 Marital status Unknown 09/26/[address]: 278122226 Nonsmoker 09/26/[address]: 678206677 Never drinks alcohol 09/26/2011 Has the patient [...] Fill Instructions amitriptyline 10 mg tablet RxNorm: 626750 1 Tablet(s) PO QHS 01/19/2019 08/16/2019 Active amoxicillin 500 mg tablet RxNorm: 964289 1 Tablet(s) PO TID 02/13/2018 02/22/2018 Inactive Alicia-D 24 Hour 180 mg-240 mg tablet,extended release RxNorm: 515153 1 Tablet(s) PO daily as needed 12/16/2017 01/18/2019 Inactive promethazine 25 mg tablet RxNorm: 103611 1 Tablet(s) PO Q6 PRN 08/04/2017 02/12/2018 Inactive promethazine 25 mg tablet RxNorm: 520270 1 Tablet(s) PO Q6 PRN 08/04/2017 08/03/2017 Inactive Valtrex 1 gram tablet RxNorm: 254914 1 Tablet(s) PO daily 05/21/2017 02/12/2018 Inactive Tirosint 13 mcg capsule RxNorm: 128399 TAKE 1 CAPSULE BY MOUTH DAILY 03/10/2017 01/18/2019 Inactive Valtrex 1 gram tablet RxNorm: 840410 1 TABLET(S) PO DAILY 03/05/2017 03/28/2017 Inactive Alicia-D 24 Hour 180 mg-240 mg tablet,extended release RxNorm: 134760 1 Tablet(s) PO daily as needed 07/09/2016 12/15/2017 Inactive Tirosint 13 mcg capsule RxNorm: 288308 Capsule(s) 1 CAPSULE(S) PO DAILY 07/08/2016 01/03/2017 Inactive Tirosint 13 mcg capsule RxNorm: 254163 Capsule(s) 1 CAPSULE(S) PO DAILY 06/26/2016 07/07/2016 Inactive daw1 scopolamine 1.5 mg transdermal patch (1 mg over 3 days) RxNorm: 111413 1 Patch TD Q72H 06/19/2016 02/12/2018 Inactive Tirosint 25 mcg capsule RxNorm: 651355 1 Capsule(s) PO daily 06/19/2016 06/18/2016 Inactive Tirosint 25 mcg capsule RxNorm: 599839 1 Capsule(s) PO daily 06/19/2016 06/25/2016 Inactive meclizine 25 mg tablet RxNorm: 582740 1 Tablet(s) PO TID as needed 06/19/2016 06/25/2016 Inactive Valtrex 1 gram tablet RxNorm: 684642 1 TABLET(S) PO DAILY 06/11/2016 07/04/2016 Inactive Tirosint 13 mcg capsule RxNorm: 873497 1 CAPSULE(S) PO DAILY 03/25/2016 06/19/2016 Inactive daw1 Valtrex 1 gram tablet RxNorm: 963594 1 TABLET(S) PO DAILY 02/23/2015 03/18/2015 Inactive Tirosint 13 mcg capsule RxNorm: 114198 1 Capsule(s) PO daily 02/06/2015 02/05/2015 Inactive Tirosint 13 mcg capsule RxNorm: 331906 1 Capsule(s) PO daily 02/06/2015 03/24/2016 Inactive daw1 Zithromax Z-Emmanuel 250 mg tablet RxNorm: 659009 Tablet(s) PO UD 04/05/2014 10/25/2014 Inactive [SAVINGS FOR UNINSURED PATIENTS -- BIN:[id number], PCN: [id number], Group: [id number], ID# [id number], Process claim through [employer], for questions: . THIS IS NOT INSURANCE.] Valtrex 1 g tablet RxNorm: 181235 Tablet(s) PO TAKE 1 TABLET BY MOUTH DAILY 12/30/2013 05/20/2017 Inactive Synthroid 75 mcg tablet RxNorm: 896494 Tablet(s) PO TAKE 1 TABLET BY MOUTH DAILY 12/30/2013 10/25/2014 Inactive Valtrex 1 gram tablet RxNorm: 876958 1 Tablet(s) PO daily 12/29/2013 01/09/2014 Inactive medroxyprogesterone 150 mg/mL intramuscular syringe RxNorm: 0475638 Milliliter(s) IM 10/22/2013 10/22/2013 Inactive Depo-Provera 150 mg/mL intramuscular suspension RxNorm: 6273967 Milliliter(s) IM bring to clinic for admin. 10/20/2013 10/25/2014 Inactive Valtrex 1 g tablet RxNorm: 559420 1 Tablet(s) PO daily 09/03/2013 09/14/2013 Inactive medroxyprogesterone 150 mg/mL intramuscular syringe RxNorm: 4165192 Milliliter(s) IM 07/21/2013 07/21/2013 Inactive Depo-Provera 150 mg/mL intramuscular suspension RxNorm: 3208670 Milliliter(s) IM bring to clinic for admin. 07/20/2013 10/19/2013 Inactive Synthroid 75 mcg tablet RxNorm: 972710 1 Tablet(s) PO daily 06/23/2013 12/19/2013 Inactive Synthroid 75 mcg tablet RxNorm: 889858 1 Tablet(s) PO daily 05/31/2013 06/22/2013 Inactive Synthroid 75 mcg tablet RxNorm: 739100 1 Tablet(s) PO daily 05/31/2013 05/30/2013 Inactive Depo-Provera 150 mg/mL IM Syringe RxNorm: 3619423 Milliliter(s) IM 04/21/2013 04/21/2013 Inactive Depo-Provera 150 mg/mL intramuscular suspension RxNorm: 4742520 Milliliter(s) IM bring to clinic for admin. 04/12/2013 07/19/2013 Inactive Depo-Provera 150 mg/mL IM Syringe RxNorm: 2111830 Milliliter(s) IM 01/18/2013 01/18/2013 Inactive phentermine 37.5 mg disintegrating tablet RxNorm: 2059407 1 Tablet(s) PO daily 01/08/2013 02/06/2013 Inactive medroxyprogesterone 150 mg/mL IM Susp RxNorm: 3863377 Milliliter(s) IM 10/19/2012 10/19/2012 Inactive Nasonex 50 mcg/actuation Vaughn RxNorm: 118806 1 Vaughn NASAL BID 1 spray each nare bid 10/19/2012 02/12/2018 Inactive phentermine 37.5 mg disintegrating tablet RxNorm: 4525886 1 Tablet(s) PO daily 10/19/2012 11/17/2012 Inactive Depo-Provera 150 mg/mL IM Susp RxNorm: 6037856 IM bring to clinic for admin. 10/16/2012 04/11/2013 Inactive Synthroid 50 mcg tablet RxNorm: 222163 1 Tablet(s) PO daily 09/07/2012 05/30/2013 Inactive Synthroid 50 mcg tablet RxNorm: 925611 1 Tablet(s) PO daily 09/07/2012 05/30/2013 Inactive Valtrex 1 g tablet RxNorm: 708299 1 Tablet(s) PO daily 2012 08/31/2012 Inactive Valtrex 1 g tablet RxNorm: 564031 1 Tablet(s) PO daily 2012 08/19/2012 Inactive phentermine 37.5 mg Tab RxNorm: 159877 1 Tablet(s) PO daily 03/02/2012 10/19/2012 Inactive phentermine 37.5 mg Tab RxNorm: 461654 1 Tablet(s) PO daily 01/24/2012 02/22/2012 Inactive phentermine 37.5 mg Tab RxNorm: 596141 1 Tablet(s) PO daily 12/23/2011 01/21/2012 Inactive Nasonex 50 mcg/actuation Vaughn RxNorm: 427584 1 Vaughn NASAL BID 1 spray each nare bid 12/19/2011 10/18/2012 Inactive Nasonex 50 mcg/actuation Vaughn RxNorm: 937509 1 Vaughn NASAL BID 1 spray each nare bid 12/19/2011 12/18/2011 Inactive Synthroid 50 mcg Tab RxNorm: 788700 Tablet(s) PO 12/10/2011 05/31/2013 Inactive TAKE ONE TABLET BY MOUTH DAILY;Patient requests 90 day supply Omnaris 50 mcg Nasal Vaughn RxNorm: 086367 2 Vaughn NASAL daily 2 sprays per nostril daily 12/09/2011 12/18/2011 Inactive Synthroid 50 mcg tablet RxNorm: 329837 1 Tablet(s) PO daily 12/09/2011 09/06/2012 Inactive Synthroid 50 mcg Tab RxNorm: 029854 1 Tablet(s) PO daily 12/09/2011 12/09/2011 Inactive phentermine 37.5 mg Tab RxNorm: 962695 1 Tablet(s) PO daily 11/21/2011 12/20/2011 Inactive Claritin-D 24 Hour 10 mg-240 mg Tab RxNorm: 0897177 1 Tablet(s) PO PRN 09/26/2011 02/12/2018 Inactive Valtrex 1 g Tab RxNorm: 610534 1 Tablet(s) PO daily 08/28/2011 08/30/2011 Inactive Valtrex 1 g Tab RxNorm: 859778 1 Tablet(s) PO daily one daily x 3 days, may continue x 2 more days if the cold sore is not resolved 08/28/2011 09/26/2011 Inactive Kenalog 40 mg/mL Susp for Injection RxNorm: 0449180 1.5 Milliliter(s) Inj 08/23/2011 08/23/2011 Inactive Levaquin 500 mg Tab RxNorm: 489689 1 Tablet(s) PO daily 08/22/2011 09/26/2011 Inactive Synthroid 50 mcg Tab RxNorm: 017578 1 Tablet(s) PO daily 08/07/2011 08/06/2011 Inactive Synthroid 50 mcg tablet RxNorm: 018128 1 Tablet(s) PO daily 08/07/2011 09/07/2012 Inactive Omnaris 50 mcg Nasal Vaughn RxNorm: 348069 2 Vaughn NASAL daily 2 sprays per nostril daily 06/20/2011 12/08/2011 Inactive Rocephin 500 mg Solution for Injection RxNorm: 6604581 1 Milliliter(s) Inj 06/20/2011 09/26/2011 Inactive Kenalog 40 mg/mL Susp for Injection RxNorm: 4259664 1 Milliliter(s) Inj 06/20/2011 09/26/2011 Inactive cefdinir 300 mg Cap RxNorm: 040534 1 Capsule(s) PO BID 06/20/2011 09/26/2011 Inactive melatonin 10 mg tablet RxNorm: 1097726 1 Tablet(s) PO daily No Start Date Active Xanax 0.25 mg tablet RxNorm: 556681 1 Tablet(s) PO QHS No Start Date Active Unisom Sleepgels 50 mg capsule RxNorm: 9860300 1 Capsule(s) PO QHS No Start Date Active Omnaris 50 mcg Nasal Vaughn RxNorm: 197224 2 Vaughn NASAL daily 2 sprays per nostril daily No Start Date 06/19/2011 Inactive + Iron oral RxNorm: oral No Start Date 01/18/2019 Inactive Fish Oil 1,000 mg Cap RxNorm: 1 Capsule(s) PO daily No Start Date 02/12/2018 Inactive Depo-Provera 150 mg/mL intramuscular syringe RxNorm: 7468914 1 Milliliter(s) IM q 3 month No Start Date 10/25/2014 Inactive Alicia-D 24 Hour 180 mg-240 mg tablet,extended release RxNorm: 663502 1 Tablet(s) PO daily as needed No Start Date 07/08/2016 Inactive Vitamin B-6 oral RxNorm: 166467 oral No Start Date 04/29/2018 Inactive Claritin-D 24 Hour 10 mg-240 mg Tab RxNorm: 5477648 1 Tablet(s) PO daily No Start Date 09/25/2011 Inactive Synthroid 25 mcg Tab RxNorm: 217170 1 Tablet(s) PO daily No Start Date 09/26/2011 Inactive Zithromax Z-Emmanuel 250 mg tablet RxNorm: 550596 Tablet(s) PO UD No Start Date 04/04/2014 Inactive Depo-Provera 150 mg/mL IM Susp RxNorm: 7339919 IM No Start Date 10/15/2012 Inactive Medication Administered Medication Codes Instructions Start Date Status medroxyprogesterone 150 mg/mL intramuscular syringe RxNorm: 2522953 Milliliter 10/22/2013 No longer Active medroxyprogesterone 150 mg/mL intramuscular syringe RxNorm: 6424145 Milliliter 07/21/2013 No longer Active Depo-Provera 150 mg/mL IM Syringe RxNorm: 6525123 Milliliter 04/21/2013 No longer Active Depo-Provera 150 mg/mL IM Syringe RxNorm: 8483789 Milliliter 01/18/2013 No longer Active medroxyprogesterone 150 mg/mL IM Susp RxNorm: 6253119 Milliliter 10/19/2012 No longer Active Kenalog 40 mg/mL Susp for Injection RxNorm: 9338656 1.5Milliliter 08/23/2011 No longer Active Immunizations Vaccine [...] Observation Code Item Item Code Result Date cg Qual Ord68 BHCG Qual Positive 09/11/2017 Tsh Ord6 hTSH II 4.61 uIU/mL 06/17/2016 Free T4 Itd680 FREE T4 0.77 ng/dL 06/17/2016 Comp Metabolic Zkh288 NA 135 mEq/L 03/28/2016 Comp Metabolic Ksg557 K 3.9 mEq/L 03/28/2016 Comp Metabolic Ces089 CL 107 mEq/L 03/28/2016 Comp Metabolic Xag783 CO2 24.0 mEq/L 03/28/2016 Comp Metabolic Bho928 ANION GAP 8 03/28/2016 Comp Metabolic Rvu940 GLUCOSE 85 mg/dL 03/28/2016 Comp Metabolic Orj197 Creat 0.7 mg/dL 03/28/2016 Comp Metabolic Ttq708 eGFR 98 ml/min/1.73m2 03/28/2016 Comp Metabolic Hlp980 BUN 15 mg/dL 03/28/2016 Comp Metabolic Kgj147 B/C Ratio 20.5 Ratio 03/28/2016 Comp Metabolic Uge981 CALCIUM 8.7 mg/dL 03/28/2016 Comp Metabolic Xrx435 ALK PHOS 70 U/L 03/28/2016 Comp Metabolic Mql670 AST(SGOT) 15 U/L 03/28/2016 Comp Metabolic Rna173 ALT(SGPT) 15 U/L 03/28/2016 Comp Metabolic Pjz709 BILI T 0.7 mg/dL 03/28/2016 Comp Metabolic Ekp133 ALBUMIN 3.9 g/dL 03/28/2016 Comp Metabolic Anp444 TPRO 6.3 g/dL 03/28/2016 Comp Metabolic Fuy909 GLOB 2.4 g/dL 03/28/2016 Comp Metabolic Kru499 A/G Ratio 1.6 Ratio 03/28/2016 Comp Metabolic Fkw438 Osmo 270 mOsmo 03/28/2016 Lipid Ord30 CHOL [...] 28.5 pg 03/28/2016 Cbc With Differential Ord2 Swift% 6.6 % 03/28/2016 Cbc With Differential Ord2 [...] 1.40 K/ul 03/28/2016 Cbc With Differential Ord2 Swift ABS# 0.3 K/ul 03/28/2016 Cbc With Differential Ord2 Eos ABS# 0.1 K/ul 03/28/2016 Cbc With Differential Ord2 Baso ABS# 0.0 K/ul 03/28/2016 Tsh Ord6 hTSH II 6.46 uIU/mL 03/28/2016 Free T4 Vdv023 FREE T4 0.74 ng/dL 03/28/2016 Review of [...] distress 10/19/2012 None Full Exam - General 1995 Constitutional general appearance Overall: well nourished 10/19/2012 None Full Exam - General 1995 Eyes pupils and irises Overall: pupils equal, round, reactive to light and accomodation 10/19/2012 None Full Exam - General 1995 Respiratory auscultation Overall: breath sounds clear bilaterally [...] accomodation 03/16/2012 None Full Exam - General 1994 Constitutional general appearance Overall: well nourished 03/16/2012 None Full Exam - General 1994 Constitutional general appearance Overall: well developed 03/16/2012 [...] Procedure Codes Date IMMUNIZATION ADMIN CPT- 4: 28228 06/19/2016 IIV4 FLU VACC NO PRESERV ID Formatting Model/CDA Sections, Assigned to/Tawny Torres [facility] CT: [id number] CPT-4: 40552Gytggzr 06/19/2016 THER/PROPH/DIAG INJ SC/IM CPT-4: 98534 10/22/2013 THER/PROPH/DIAG INJ SC/IM CPT-4: 82483 07/21/2013 THER/PROPH/DIAG INJ SC/IM CPT-4: 55487 04/21/2013 THER/PROPH/DIAG INJ SC/IM CPT-4: 85988 01/18/2013 THER/PROPH/DIAG INJ SC/IM CPT-4: 94160 10/19/2012 PREV VISIT EST AGE 18-39 CPT-4: 03919 09/26/2011 THER/PROPH/DIAG INJ SC/IM CPT-4: 02783 08/22/2011 TRIAMCINOLONE ACET INJ NOS CPT-4: J3301 08/22/2011 TRIAMCINOLONE ACET INJ NOS CPT-4: J3301 06/20/2011 THER/PROPH/DIAG INJ SC/IM CPT-4: 87055 06/20/2011 ROCEPHIN, PER 250 MG CPT- 4: J0696 06/20/2011 Vital Signs Date Vital 01/19/2019 Blood Pressure 1: 128/82 Code: 8480-6 BMI: 43.9 Code: 49000-3 Heart Rate 1: 102 bpm Height: 5' SpO2: 96% Weight: 225 lbs 12/21/2018 Blood Pressure 1: 132/74 Code: 8480-6 BMI: 43.9 Code: 59947-9 Heart Rate 1: 85 bpm Height: 5' SpO2: 97% Weight: 225 lbs 07/01/2018 Blood Pressure 1: 134/68 Code: 8480-6 BMI: 44.5 Code: 26321-5 Heart Rate 1: 97 bpm Height: 5' SpO2: 98% Weight: 228 lbs 04/30/2018 Blood Pressure 1: 110/80 Code: 8480-6 BMI: 44.5 Code: 67211-6 Heart Rate 1: 91 bpm Height: 5' SpO2: 99% Weight: 228 lbs 02/13/2018 Blood Pressure 1: 118/84 Code: 8480-6 BMI: 43.9 Code: 84728-9 Heart Rate 1: 101 bpm Height: 5' SpO2: 98% Temperature: 36.8 (C) / 98.2 (F) Weight: 225 lbs 08/04/2017 Blood Pressure 1: 122/76 Code: 8480-6 BMI: 41.8 Code: 39169-3 Heart Rate 1: 117 bpm Height: 5' SpO2: 96% Temperature: 36.6 (C) / 97.9 (F) Weight: 214 lbs 09/18/2016 Blood Pressure 1: 132/78 Code: 8480-6 BMI: 41.2 Code: 81938-8 Heart Rate 1: 94 bpm Height: 5' SpO2: 98% Weight: 211 lbs 06/19/2016 Blood Pressure 1: 132/86 Code: 8480-6 BMI: 39.1 Code: 90652-0 Heart Rate 1: 78 bpm Height: 5' SpO2: 99% Weight: 200 lbs 04/01/2016 Blood Pressure 1: 120/80 Code: 8480-6 BMI: 38.5 Code: 90591-8 Heart Rate 1: 86 bpm Height: 5' SpO2: 96% Weight: 197 lbs 12/12/2014 Blood Pressure 1: 110/82 Code: 8480-6 BMI: 47.8 Code: 60619-0 Heart Rate 1: 90 bpm Height: 5' Weight: 245 lbs 10/26/2014 Blood Pressure 1: 122/76 Code: 8480-6 BMI: 47.1 Code: 58899-8 Heart Rate 1: 96 bpm Height: 5' Weight: 241 lbs 10/22/2013 Blood Pressure 1: 152/88 Code: 8480-6 Heart Rate 1: 88 bpm Weight: 240 lbs 01/07/2013 Blood Pressure 1: 114/80 Code: 8480-6 Weight: 224 lbs 10/19/2012 Blood Pressure 1: 126/94 Code: 8480-6 BMI: 43.5 Code: 36610-2 Heart Rate 1: 104 bpm Height: 5' Respiratory Rate: 16 bpm Weight: 222 lbs 8 oz 08/10/2012 Blood Pressure 1: 112/84 Code: 8480-6 Heart Rate 1: 84 bpm Weight: 233 lbs 03/16/2012 Blood Pressure 1: 110/72 Code: 8480-6 BMI: 43.0 Code: 53953-1 Heart Rate 1: 88 bpm Height: 5' Respiratory Rate: 18 bpm Weight: 220 lbs 01/24/2012 Blood Pressure 1: 104/80 Code: 8480-6 BMI: 43.2 Code: 81139-7 Height: 5' Weight: 221 lbs 11/21/2011 BMI: 45.7 Code: 21785-9 Height: 5' Weight: 234 lbs 09/26/2011 Blood Pressure 1: 110/68 Code: 8480-6 BMI: 46.8 Code: 94948-8 Heart Rate 1: 90 bpm Height: 5' Respiratory Rate: 16 bpm Weight: 239 lbs 8 oz 08/22/2011 Blood Pressure 1: 128/89 Code: 8480-6 BMI: 46.1 Code: 33225-8 Heart Rate 1: 83 bpm Height: 5' Weight: 236 lbs 06/20/2011 Blood Pressure 1: 120/80 Code: 8480-6 BMI: 46.6 Code: 54372-0 Heart Rate 1: 88 bpm Height: 5' [...] (18-39 years) Control IUD 09/26/2011 Mirena, placed ni7503 weight gain/obesity Location globally 09/26/2011 pt states that 8 years ago she weighed 135#. weight gain/obesity Weight Status is morbidly obese 09/26/2011 pt states the weight seems to add each year by 10-30 pounds despite exercisingnat the [facility] headache Location diffusely 08/22/2011 None headache Quality [...] data Encounters Encounter Performer Location Codes Date () 69469 EST. PATIENT, LEVEL III Diagnosis: Insomnia due to medical condition[ICD10: G47.01] Mandy Novoa MD, [facility] CPT-4: 40653 01/19/2019 09361 EST. PATIENT, LEVEL III Diagnosis: Other hemorrhoids[ICD10: K64.8] Mirian Novoa MD, [facility] CPT-4: 89015 12/21/2018 39410 EST. PATIENT, LEVEL III Diagnosis: Ventral hernia without obstruction or gangrene[ICD10: K43.9] Diagnosis: Epigastric pain[ICD10: R10.13] Mirian Novoa MD, [facility] CPT-4: 62725 07/01/2018 ([id number]) 87375 EST. PATIENT, LEVEL III Diagnosis: Slow transit constipation[ICD10: K59.01] Diagnosis: Generalized abdominal pain[ICD10: R10.84] Em Novoa MD, [facility] CPT-4: 66537 04/30/2018 ([id number]) 84998 EST. PATIENT, LEVEL III Diagnosis: Cough[ICD10: R05] Diagnosis: Acute recurrent maxillary sinusitis[ICD10: J01.01] Em Novoa MD, [facility] CPT-4: 78328 02/13/2018 ([id number]) 65570 EST. PATIENT, LEVEL III Diagnosis: Dehydration[ICD10: E86.0] Diagnosis: Nausea[ICD10: R11.0] Diagnosis: Diarrhea, unspecified[ICD10: R19.7] Em Novoa MD, [facility] CPT-4: 00431 08/04/2017 39761 EST. PATIENT, LEVEL III Diagnosis: Low back pain[ICD10: M54.5] Mirian Novoa MD, [facility] CPT-4: 79328 09/18/2016 31089 EST. PATIENT, LEVEL IV Diagnosis: VACCIN FOR INFLUENZA[ICD10: Z23] Diagnosis: Other specified hypothyroidism[ICD10: E03.8] Mirian Novoa MD, [facility] CPT-4: 78072 06/19/2016 ([id number]) 18386 EST. PATIENT, LEVEL III Diagnosis: Hypothyroidism, unspecified[ICD10: E03.9] [facility] CPT-4: 47580 04/01/2016 ([id number]) 33219 EST. PATIENT, LEVEL III Diagnosis: Missed periods[ICD9: 626.4] [facility] CPT-4: 87486 12/12/2014 ([id number]) PREV VISIT EST AGE 18-39 Diagnosis: ROUTINE GYNE EXAM[ICD9: V72.31] [facility] CPT-4: 25888 10/26/2014 ([id number]) PREV VISIT EST AGE 18-39 Diagnosis: ROUTINE GYNE EXAM[ICD9: V72.31] [facility] CPT-4: 94137 10/22/2013 ([id number]) Miscellaneous no charge Diagnosis: MORBID OBESITY[ICD9: 278.01] Em Novoa MD, [facility] CPT-4: 04341 01/07/2013 ([id number]) 55019 EST. PATIENT, LEVEL III Diagnosis: Allergic rhinitis[ICD9: 477.9] Diagnosis: Contraceptive surveillance, unspecified[ICD9: V25.40] Diagnosis: MORBID OBESITY[ICD9: 278.01] [facility] CPT-4: 94689 10/19/2012 ([id number]) 30382 EST. PATIENT, LEVEL III Diagnosis: Varicose veins of both lower extremities with pain[ICD9: 454.8] Diagnosis: Obesities, morbid[ICD9: 278.01] [facility] CPT-4: 25960 08/10/2012 ([id number]) 52147 EST. PATIENT, LEVEL IV Diagnosis: Abdominal pain[ICD9: 789.00] Diagnosis: Breast tenderness in female[ICD9: 611.71] [facility] CPT-4: 00790 03/16/2012 Miscellaneous no charge Diagnosis: MORBID OBESITY[ICD9: 278.01] [facility] CPT-4: 77986 01/24/2012 Miscellaneous no charge Diagnosis: MORBID OBESITY[ICD9: 278.01] [facility] CPT-4: 34342 11/21/2011 61686 EST. PATIENT, LEVEL III Diagnosis: ACUTE SINUSITIS[ICD9: 461.9] Diagnosis: HEADACHE[ICD9: 784.0] [facility] CPT-4: 61479 08/22/2011 47099 EST. PATIENT, LEVEL III Diagnosis: ACUTE SINUSITIS[ICD9: 461.9] Diagnosis: Environmental allergies[ICD9: 477.9] [facility] CPT-4: 85314 06/20/2011 Plan of Care Planned Activity Notes Codes Status Date Visit Plan: Insomnia - Pt has been advised to increase the light in the house during the day, and start dimming the lights during the evening hours. Pt has been advised to cut out caffeine after 5pm. Daytime napping worsens night time insomnia. RX for amitriptyline rx sent to pharmacy 01/19/2019 Patient Education: Patient Medication Summary Completed 01/19/2019 Visit Plan: Hemorrhoids - pt is to use suppositories as directed - pt is to increase fiber and fluid intake and notify clinic if symptoms do not improve, if they worsen, or with any changes, questions, or concerns. 12/21/2018 Appointment: Mirian [facility]sei [facility]Ptel[facility] (30 min) Complex 12/21/2018 Patient Education: Patient Medication Summary Completed 12/21/2018 Visit Plan: Abdominal hernia - will repeat US - pt is to consider referral to surgeon - pt is to go to the ER or notify clinic with any changes, questions, or concerns. 07/01/2018 Appointment: Mirian Osei WPtel: [facility] [place] (15 min) Moderate 07/01/2018 Patient Education: Patient [...] ultrasound 04/30/2018 Appointment: Em Ortiz WPtel: [phone] [phone] [place] (15 min) Moderate 04/30/2018 Patient Education: Patient Medication Summary Completed 04/30/2018 Visit Plan: Sinusitis - Pt has acute infection - pain in face, maxillary region, Pt informed to use decongestant, RX given to patient, sinus rinses also recommended. Call if symptoms do not show improvement. 02/13/2018 Appointment: Em Ortiz WPtel: [phone] [phone] [place] (15 min) Moderate 02/13/2018 Patient Education: Patient Medication Summary Completed 02/13/2018 Patient Education: Patient Medication Summary Completed 09/11/2017 Visit Plan: Xmbudiksntdfuqr-[id number] sent for outpatient IVF and anti nausea [...] improved. 08/04/2017 Appointment: Em Ortiz WPtel: [phone] [phone] [place] (15 min) Moderate 08/04/2017 Patient Education: Patient Medication Summary Completed 08/04/2017 Patient Education: Obesity Completed 08/04/2017 Appointment: Mandy Novoa WPtel: [phone] [facility] [place] (15 min) Moderate 12/31/2016 Visit Plan: [...] not improve. 09/18/2016 Appointment: Mirian Osei WPtel: [facility] (30 min) Complex 09/18/2016 Patient Education: Patient [...] send RX. 06/19/2016 Appointment: Em Ortiz WPtel: [phone] (30 min) Complex 06/19/2016 Patient Education: Patient [...] of control. 04/01/2016 Appointment: Em Ortiz WPtel: [phone] (30 min) Complex 04/01/2016 Patient Education: Patient [...] triosant 13mcg. 12/12/2014 Appointment: Mandy Novoa WPtel: [facility] Other 12/12/2014 Patient Education: Patient Medication Summary [...] or prn. 10/26/2014 Appointment: Mandy Novoa WPtel: [phone] [facility] [facility] 10/26/2014 Patient Education: Patient Medication [...] or prn. 10/22/2013 Appointment: Em Ortiz WPtel: [phone] [facility] 10/22/2013 Patient Education: Patient Medication Summary Completed 10/22/2013 Appointment: [facility]Ptel[facility] [place] Injection 07/21/2013 Patient Education: Patient Medication Summary Completed 07/21/2013 Appointment: Em Ortiz WPtel: [phone] [place] Injection 07/20/2013 Visit Plan: depo injection today 04/21/2013 Patient Education: Patient Medication Summary Completed 04/21/2013 Appointment: Em Ortiz WPtel: [phone] [place] Injection 01/18/2013 Patient Education: Patient Medication [...] weight check. 10/19/2012 Appointment: Mandy Novoa WPtel: [facility] [address] Follow up 10/19/2012 Patient Education: Patient Medication [...] weight check. 08/10/2012 Appointment: Mandy Novoa WPtel: [address] [place] [address] [place] Follow up 08/10/2012 Patient Education: Patient [...] is for bilateral ovarian cysts. 03/16/2012 Appointment: Mnady Novoa WPtel: [facility] [place] Other 03/16/2012 Patient Education: Patient Medication Summary Completed 03/16/2012 Appointment: Em Ortiz WPtel: [facility] [place] [address] Lab Draw 03/02/2012 Visit Plan: Weight and blood pressure check 01/24/2012 Appointment: Em Ortiz WPtel: [phone] Other 01/24/2012 Patient Education: Patient Medication Summary Completed 01/24/2012 Visit Plan: Weight check only 11/21/2011 Appointment: Em Ortiz WPtel: [phone] Other 11/21/2011 Patient Education: Patient Medication Summary [...] pressure occur. 09/26/2011 Appointment: Mandy Novoa WPtel: [facility] [address] [facility] 09/26/2011 Patient Education: Patient Medication [...] as well. 08/22/2011 Appointment: Em Ortiz WPtel: [facility] [id number] Other 08/22/2011 Patient Education: Patient Medication Summary [...] show improvement. 06/20/2011 Appointment: Em Ortiz WPtel: [facility] [id number] Other 06/20/2011 Patient Education: Patient Medication Summary [...] check labs start probiotic twice daily . Nypafefsyvaavlp-uvainpzqcyu-orkeadk sent for outpatient IVF and anti nausea [...]
--- OUTSIDE RECORDS SUMMARY | 2019-01-28 06:05 | XMS REPORT | CCD ---
Author Author Em Ortiz MD, [facility] Address [facility] [place] [address] Phone Care Team Providers Care Import Coordinator Name Role Phone PP Unavailable CCM Unavailable Summary Purpose Interface Exchange Insurance Providers Payer name Policy type / Coverage type Covered green party ID Effective Begin Date Effective End Date [employer] [id number] Unknown Family history Brother Diagnosis Age At Onset Denies: *Denies any medical problems Unknown Mother Diagnosis Age At Onset Diabetes mellitus Type 2 Unknown Father Diagnosis Age At Onset Denies: *Denies any medical problems Unknown Sister Diagnosis Age At Onset Denies: *Denies any medical problems Unknown Social History Social History Element Codes Description Effective Dates Marital status Unknown 09/26/[address]: 237426505 Nonsmoker 09/26/[address]: 779722285 Never drinks alcohol 09/26/2011 Has the patient ever used illegal drugs? 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/2011 Allergies, Adverse Reactions, Alerts Allergies, Adverse Reactions, Alerts data not found Past Medical History Illness Codes Condition Status Onset Date Resolved Date Low back pain ICD-9: 724.2 ICD-10: M54.5 [...] Problems Condition Codes Effective Dates Condition Status Low back pain ICD-9: 724.2 ICD-10: M54.5 [...] Start Date Stop Date Status Fill Instructions Tirosint 13 mcg capsule RxNorm: 304954 TAKE 1 CAPSULE BY MOUTH DAILY 03/10/2017 11/16/2017 Active Valtrex 1 gram tablet RxNorm: 661291 1 TABLET(S) PO DAILY 03/05/2017 03/28/2017 Active Alicia-D 24 Hour 180 mg-240 mg tablet,extended release RxNorm: 968423 1 Tablet(s) PO daily as needed 07/09/2016 No Stop Date Active Tirosint 13 mcg capsule RxNorm: 377657 Capsule(s) 1 CAPSULE(S) PO DAILY 07/08/2016 01/03/2017 Inactive Tirosint 13 mcg capsule RxNorm: 850874 Capsule(s) 1 CAPSULE(S) PO DAILY 06/26/2016 07/07/2016 Inactive daw1 scopolamine 1.5 mg transdermal patch (1 mg over 3 days) RxNorm: 844740 1 Patch TD Q72H 06/19/2016 No Stop Date Active Tirosint 25 mcg capsule RxNorm: 822554 1 Capsule(s) PO daily 06/19/2016 06/18/2016 Inactive Tirosint 25 mcg capsule RxNorm: 190673 1 Capsule(s) PO daily 06/19/2016 06/25/2016 Inactive meclizine 25 mg tablet RxNorm: 810565 1 Tablet(s) PO TID as needed 06/19/2016 06/25/2016 Inactive Valtrex 1 gram tablet RxNorm: 135216 1 TABLET(S) PO DAILY 06/11/2016 07/04/2016 Inactive Tirosint 13 mcg capsule RxNorm: 310687 1 CAPSULE(S) PO DAILY 03/25/2016 06/19/2016 Inactive daw1 Valtrex 1 gram tablet RxNorm: 875133 1 TABLET(S) PO DAILY 02/23/2015 03/18/2015 Inactive Tirosint 13 mcg capsule RxNorm: 797636 1 Capsule(s) PO daily 02/06/2015 02/05/2015 Inactive Tirosint 13 mcg capsule RxNorm: 197494 1 Capsule(s) PO daily 02/06/2015 03/24/2016 Inactive daw1 Zithromax Z-Emmanuel 250 mg tablet RxNorm: 587996 Tablet(s) PO UD 04/05/2014 10/25/2014 Inactive [SAVINGS FOR UNINSURED PATIENTS -- BIN:[id number], PCN: [id number], Group: MARISA, ID# [id number], Process claim through [employer], for questions: . THIS IS NOT INSURANCE.] Valtrex 1 g tablet RxNorm: 556952 Tablet(s) PO TAKE 1 TABLET BY MOUTH DAILY 12/30/2013 No Stop Date Active Synthroid 75 mcg tablet RxNorm: 377782 Tablet(s) PO TAKE 1 TABLET BY MOUTH DAILY 12/30/2013 10/25/2014 Inactive Valtrex 1 gram tablet RxNorm: 448727 1 Tablet(s) PO daily 12/29/2013 01/09/2014 Inactive medroxyprogesterone 150 mg/mL intramuscular syringe RxNorm: 7233294 Milliliter(s) IM 10/22/2013 10/22/2013 Inactive Depo-Provera 150 mg/mL intramuscular suspension RxNorm: 1929325 Milliliter(s) IM bring to clinic for admin. 10/20/2013 10/25/2014 Inactive Valtrex 1 g tablet RxNorm: 388974 1 Tablet(s) PO daily 09/03/2013 09/14/2013 Inactive medroxyprogesterone 150 mg/mL intramuscular syringe RxNorm: 6477415 Milliliter(s) IM 07/21/2013 07/21/2013 Inactive Depo-Provera 150 mg/mL intramuscular suspension RxNorm: 4643674 Milliliter(s) IM bring to clinic for admin. 07/20/2013 10/19/2013 Inactive Synthroid 75 mcg tablet RxNorm: 536534 1 Tablet(s) PO daily 06/23/2013 12/19/2013 Inactive Synthroid 75 mcg tablet RxNorm: 377705 1 Tablet(s) PO daily 05/31/2013 06/22/2013 Inactive Synthroid 75 mcg tablet RxNorm: 592189 1 Tablet(s) PO daily 05/31/2013 05/30/2013 Inactive Depo-Provera 150 mg/mL IM Syringe RxNorm: 0590571 Milliliter(s) IM 04/21/2013 04/21/2013 Inactive Depo-Provera 150 mg/mL intramuscular suspension RxNorm: 0671779 Milliliter(s) IM bring to clinic for admin. 04/12/2013 07/19/2013 Inactive Depo-Provera 150 mg/mL IM Syringe RxNorm: 3173674 Milliliter(s) IM 01/18/2013 01/18/2013 Inactive phentermine 37.5 mg disintegrating tablet RxNorm: 8301436 1 Tablet(s) PO daily 01/08/2013 02/06/2013 Inactive Nasonex 50 mcg/actuation [place] RxNorm: 247915 1 [place] NASAL BID 1 spray each nare bid 10/19/2012 02/15/2013 Inactive medroxyprogesterone 150 mg/mL IM Susp RxNorm: 7901096 Milliliter(s) IM 10/19/2012 10/19/2012 Inactive phentermine 37.5 mg disintegrating tablet RxNorm: 2145334 1 Tablet(s) PO daily 10/19/2012 11/17/2012 Inactive Depo-Provera 150 mg/mL IM Susp RxNorm: 1139972 IM bring to clinic for admin. 10/16/2012 04/11/2013 Inactive Synthroid 50 mcg tablet RxNorm: 783845 1 Tablet(s) PO daily 09/07/2012 05/30/2013 Inactive Synthroid 50 mcg tablet RxNorm: 333234 1 Tablet(s) PO daily 09/07/2012 05/30/2013 Inactive Valtrex 1 g tablet RxNorm: 801721 1 Tablet(s) PO daily 2012 08/31/2012 Inactive Valtrex 1 g tablet RxNorm: 413698 1 Tablet(s) PO daily 2012 08/19/2012 Inactive phentermine 37.5 mg Tab RxNorm: 264459 1 Tablet(s) PO daily 03/02/2012 10/19/2012 Inactive phentermine 37.5 mg Tab RxNorm: 082970 1 Tablet(s) PO daily 01/24/2012 02/22/2012 Inactive phentermine 37.5 mg Tab RxNorm: 626883 1 Tablet(s) PO daily 12/23/2011 01/21/2012 Inactive Nasonex 50 mcg/actuation [place] RxNorm: 511961 1 [place] NASAL BID 1 spray each nare bid 12/19/2011 10/18/2012 Inactive Nasonex 50 mcg/actuation [place] RxNorm: 473060 1 [place] NASAL BID 1 spray each nare bid 12/19/2011 12/18/2011 Inactive Synthroid 50 mcg Tab RxNorm: 587831 Tablet(s) PO 12/10/2011 05/31/2013 Inactive TAKE ONE TABLET BY MOUTH DAILY;Patient requests 90 day supply Omnaris 50 mcg Nasal [place] RxNorm: 646119 2 [place] NASAL daily 2 sprays per nostril daily 12/09/2011 12/18/2011 Inactive Synthroid 50 mcg tablet RxNorm: 483426 1 Tablet(s) PO daily 12/09/2011 09/06/2012 Inactive Synthroid 50 mcg Tab RxNorm: 886009 1 Tablet(s) PO daily 12/09/2011 12/09/2011 Inactive phentermine 37.5 mg Tab RxNorm: 775903 1 Tablet(s) PO daily 11/21/2011 12/20/2011 Inactive Claritin-D 24 Hour 10 mg-240 mg Tab RxNorm: 6705562 1 Tablet(s) PO PRN 09/26/2011 No Stop Date Active Valtrex 1 g Tab RxNorm: 991040 1 Tablet(s) PO daily 08/28/2011 08/30/2011 Inactive Valtrex 1 g Tab RxNorm: 669579 1 Tablet(s) PO daily one daily x 3 days, may continue x 2 more days if the cold sore is not resolved 08/28/2011 09/26/2011 Inactive Kenalog 40 mg/mL Susp for Injection RxNorm: 7363381 1.5 Milliliter(s) Inj 08/23/2011 08/23/2011 Inactive Levaquin 500 mg Tab RxNorm: 674304 1 Tablet(s) PO daily 08/22/2011 09/26/2011 Inactive Synthroid 50 mcg Tab RxNorm: 793455 1 Tablet(s) PO daily 08/07/2011 08/06/2011 Inactive Synthroid 50 mcg tablet RxNorm: 694148 1 Tablet(s) PO daily 08/07/2011 09/07/2012 Inactive Omnaris 50 mcg Nasal [place] RxNorm: 650090 2 [place] NASAL daily 2 sprays per nostril daily 06/20/2011 12/08/2011 Inactive Rocephin 500 mg Solution for Injection RxNorm: 016794 1 Milliliter(s) Inj 06/20/2011 09/26/2011 Inactive Kenalog 40 mg/mL Susp for Injection RxNorm: 5602579 1 Milliliter(s) Inj 06/20/2011 09/26/2011 Inactive cefdinir 300 mg Cap RxNorm: 499521 1 Capsule(s) PO BID 06/20/2011 09/26/2011 Inactive Fish Oil 1,000 mg Cap RxNorm: 1 Capsule(s) PO daily No Start Date Active Omnaris 50 mcg Nasal [place] RxNorm: 227207 2 [place] NASAL daily 2 sprays per nostril daily No Start Date 06/19/2011 Inactive Depo-Provera 150 mg/mL intramuscular syringe RxNorm: 8425784 1 Milliliter(s) IM q 3 month No Start Date 10/25/2014 Inactive Alicia-D 24 Hour 180 mg-240 mg tablet,extended release RxNorm: 991918 1 Tablet(s) PO daily as needed No Start Date 07/08/2016 Inactive Claritin-D 24 Hour 10 mg-240 mg Tab RxNorm: 8297626 1 Tablet(s) PO daily No Start Date 09/25/2011 Inactive Synthroid 25 mcg Tab RxNorm: 872236 1 Tablet(s) PO daily No Start Date 09/26/2011 Inactive Zithromax Z-Emmanuel 250 mg tablet RxNorm: 361789 Tablet(s) PO UD No Start Date 04/04/2014 Inactive Depo-Provera 150 mg/mL IM Susp RxNorm: 5940698 IM No Start Date 10/15/2012 Inactive Medication Administered Medication Codes Instructions Start Date Status medroxyprogesterone 150 mg/mL intramuscular syringe RxNorm: 8790933 Milliliter 10/22/2013 No longer Active medroxyprogesterone 150 mg/mL intramuscular syringe RxNorm: 1956322 Milliliter 07/21/2013 No longer Active Depo-Provera 150 mg/mL IM Syringe RxNorm: 6335452 Milliliter 04/21/2013 No longer Active Depo-Provera 150 mg/mL IM Syringe RxNorm: 8644910 Milliliter 01/18/2013 No longer Active medroxyprogesterone 150 mg/mL IM Susp RxNorm: 0790734 Milliliter 10/19/2012 No longer Active Kenalog 40 mg/mL Susp for Injection RxNorm: 0745189 1.5Milliliter 08/23/2011 No longer Active Immunizations Vaccine Codes Date Status Influenza CVX: 141 06/19/2016 completed Influenza CVX: 141 06/26/2011 completed Assessments Condition Codes Effective Dates Low back pain ICD-10: M54.5 ICD-9: 724.2 [...] Visit Reason For Visit Effective Dates Notes back pain 09/18/2016 vaccination against influenza 06/19/2016 [...] Observation Code Item Item Code Result Date Tsh Ord6 hTSH II 4.61 uIU/mL 06/17/2016 Free T4 Vlh550 FREE T4 0.77 ng/dL 06/17/2016 Comp Metabolic Jhp923 NA 135 mEq/L 03/28/2016 Comp Metabolic Awb260 K 3.9 mEq/L 03/28/2016 Comp Metabolic Hoh591 CL 107 mEq/L 03/28/2016 Comp Metabolic Szd259 CO2 24.0 mEq/L 03/28/2016 Comp Metabolic Oot000 ANION GAP 8 03/28/2016 Comp Metabolic Jso982 GLUCOSE 85 mg/dL 03/28/2016 Comp Metabolic Nsk722 Creat 0.7 mg/dL 03/28/2016 Comp Metabolic Zne588 eGFR 98 ml/min/1.73m2 03/28/2016 Comp Metabolic Glj841 BUN 15 mg/dL 03/28/2016 Comp Metabolic Viq355 B/C Ratio 20.5 Ratio 03/28/2016 Comp Metabolic Sgz053 CALCIUM 8.7 mg/dL 03/28/2016 Comp Metabolic Qrz543 ALK PHOS 70 U/L 03/28/2016 Comp Metabolic Epn532 AST(SGOT) 15 U/L 03/28/2016 Comp Metabolic Ujq971 ALT(SGPT) 15 U/L 03/28/2016 Comp Metabolic Niu495 BILI T 0.7 mg/dL 03/28/2016 Comp Metabolic Jpx392 ALBUMIN 3.9 g/dL 03/28/2016 Comp Metabolic Vsd602 TPRO 6.3 g/dL 03/28/2016 Comp Metabolic Uxr632 GLOB 2.4 g/dL 03/28/2016 Comp Metabolic Zps153 A/G Ratio 1.6 Ratio 03/28/2016 Comp Metabolic Dvi950 Osmo 270 mOsmo 03/28/2016 Lipid Ord30 CHOL 200 mg/dL 03/28/2016 Lipid Ord30 HDL 58.0 mg/dl 03/28/2016 Lipid Ord30 TRIG 108 mg/dL 03/28/2016 Lipid Ord30 LDL 120 mg/dL 03/28/2016 Lipid Ord30 C/HDL 3.4 Ratio 03/28/2016 Cbc With Differential Ord2 WBC 4.53 K/ul 03/28/2016 Cbc With Differential Ord2 RBC 4.74 M/ul 03/28/2016 Cbc With Differential Ord2 HGB 13.5 g/dl 03/28/2016 Cbc With Differential Ord2 Neut% 59.9 % 03/28/2016 Cbc With Differential Ord2 HCT 39.7 % 03/28/2016 Cbc With Differential Ord2 MCV 83.8 fl 03/28/2016 Cbc With Differential Ord2 Lymph% 30.9 % 03/28/2016 Cbc With Differential Ord2 MCH 28.5 pg 03/28/2016 Cbc With Differential Ord2 [place]% 6.6 % 03/28/2016 Cbc With Differential Ord2 [...] 1.40 K/ul 03/28/2016 Cbc With Differential Ord2 [place] ABS# 0.3 K/ul 03/28/2016 Cbc With Differential Ord2 Eos ABS# 0.1 K/ul 03/28/2016 Cbc With Differential Ord2 Baso ABS# 0.0 K/ul 03/28/2016 Tsh Ord6 hTSH II 6.46 uIU/mL 03/28/2016 Free T4 Neg642 FREE T4 0.74 ng/dL 03/28/2016 Review of Systems System Result Effective Dates Constitutional No recent illness 09/18/2016 Constitutional No [...] Result Effective Dates Notes Full Exam - Orthopedics Constitutional general appearance [...] None Full Exam - General 1995 Ears/Nose/Throat internal nose Turbinates: erythema 10/19/2012 None Full Exam - General 1995 Ears/Nose/Throat internal nose Drainage: thick 10/19/2012 None Full Exam - General 1995 Constitutional general appearance Overall: well developed 08/10/2012 None Full Exam - General 1994 Constitutional general appearance Overall: in no acute distress 08/10/2012 None Full Exam - General 1995 Constitutional general appearance Overall: well nourished 08/10/2012 [...] None Procedures Procedure Codes Date IMMUNIZATION ADMIN CPT-4: 88396Eawrkkw 06/19/2016 IIV4 FLU VACC NO PRESERV ID Formatting Model/CDA Sections, Assigned to/Tawny Torres [facility] CT: [id number] CPT-4: 60854Yrwuzdm 06/19/2016 THER/PROPH/DIAG INJ SC/IM CPT-4: 09668Gbepjha 10/22/2013 THER/PROPH/DIAG INJ SC/IM CPT-4: 77357Abhtrzx 07/21/2013 THER/PROPH/DIAG INJ SC/IM CPT-4: 21272Adbjkrr 04/21/2013 THER/PROPH/DIAG INJ SC/IM CPT-4: 57648Rlsdfuk 01/18/2013 THER/PROPH/DIAG INJ SC/IM CPT-4: 37076Mcdstsc 10/19/2012 PREV VISIT EST AGE 18-39 CPT-4: 24476Ozyiryw 09/26/2011 THER/PROPH/DIAG INJ SC/IM CPT-4: 72688Ccawmll 08/22/2011 TRIAMCINOLONE ACET INJ NOS CPT-4: Z3683Fqnksws 08/22/2011 TRIAMCINOLONE ACET INJ NOS CPT-4: E5969Lkiaktk 06/20/2011 THER/PROPH/DIAG INJ SC/IM CPT-4: 12755Loyqmpr 06/20/2011 ROCEPHIN, PER 250 MG CPT-4: D7851Nknrrjj 06/20/2011 Vital Signs Date Vital 09/18/2016 Blood Pressure 1: 132/78 Code: 8480-6 BMI: 41.2 Code: 19744-5 Heart Rate 1: 94 bpm Height: 5' SpO2: 98% Weight: 211 lbs 06/19/2016 Blood Pressure 1: 132/86 Code: 8480-6 BMI: 39.1 Code: 04328-4 Heart Rate 1: 78 bpm Height: 5' SpO2: 99% Weight: 200 lbs 04/01/2016 Blood Pressure 1: 120/80 Code: 8480-6 BMI: 38.5 Code: 04619-2 Heart Rate 1: 86 bpm Height: 5' SpO2: 96% Weight: 197 lbs 12/12/2014 Blood Pressure 1: 110/82 Code: 8480-6 BMI: 47.8 Code: 91994-5 Heart Rate 1: 90 bpm Height: 5' Weight: 245 lbs 10/26/2014 Blood Pressure 1: 122/76 Code: 8480-6 BMI: 47.1 Code: 88325-8 Heart Rate 1: 96 bpm Height: 5' Weight: 241 lbs 10/22/2013 Blood Pressure 1: 152/88 Code: 8480-6 Heart Rate 1: 88 bpm Weight: 240 lbs 01/07/2013 Blood Pressure 1: 114/80 Code: 8480-6 Weight: 224 lbs 10/19/2012 Blood Pressure 1: 126/94 Code: 8480-6 BMI: 43.5 Code: 82237-0 Heart Rate 1: 104 bpm Height: 5' Respiratory Rate: 16 bpm Weight: 222 lbs 8 oz 08/10/2012 Blood Pressure 1: 112/84 Code: 8480-6 Heart Rate 1: 84 bpm Weight: 233 lbs 03/16/2012 Blood Pressure 1: 110/72 Code: 8480-6 BMI: 43.0 Code: 20025-7 Heart Rate 1: 88 bpm Height: 5' Respiratory Rate: 18 bpm Weight: 220 lbs 01/24/2012 Blood Pressure 1: 104/80 Code: 8480-6 BMI: 43.2 Code: 65005-8 Height: 5' Weight: 221 lbs 11/21/2011 BMI: 45.7 Code: 39404-8 Height: 5' Weight: 234 lbs 09/26/2011 Blood Pressure 1: 110/68 Code: 8480-6 BMI: 46.8 Code: 12457-8 Heart Rate 1: 90 bpm Height: 5' Respiratory Rate: 16 bpm Weight: 239 lbs 8 oz 08/22/2011 Blood Pressure 1: 128/89 Code: 8480-6 BMI: 46.1 Code: 65023-7 Heart Rate 1: 83 bpm Height: 5' Weight: 236 lbs 06/20/2011 Blood Pressure 1: 120/80 Code: 8480-6 BMI: 46.6 Code: 96769-9 Heart Rate 1: 88 bpm Height: 5' Respiratory Rate: 16 bpm Weight: 238 lbs 8 oz Functional Status No Functional Status data History of Present Illness Symptom Name Status Result Effective Date Notes back pain Location lumbar-sacral spine 09/18/2016 None [...] (18-39 years) Control IUD 09/26/2011 Mirena, placed na7029 weight gain/obesity Location globally 09/26/2011 pt states that 8 years ago she weighed 135#. weight gain/obesity Weight Status is morbidly obese 09/26/2011 pt states the weight seems to add each year by 10-30 pounds despite exercisingnat the [facility] headache Location diffusely 08/22/2011 None headache [...] data Encounters Encounter Performer Location Codes Date EST. PATIENT, LEVEL III Diagnosis: Low back pain[ICD10: M54.5] Mirian Novoa MD, [facility] CPT-4: 21295 09/18/2016 [id number] EST. PATIENT, LEVEL IV Diagnosis: VACCIN FOR INFLUENZA[ICD10: Z23] Diagnosis: Other specified hypothyroidism[ICD10: E03.8] Mirian Novoa MD, [facility] CPT-4: 18396 06/19/2016 ([id number]) 09554 EST. PATIENT, LEVEL III Diagnosis: Hypothyroidism, unspecified[ICD10: E03.9] Em Novoa MD, [facility] CPT-4: 67935 04/01/2016 ([id number]) 25544 EST. PATIENT, LEVEL III Diagnosis: Missed periods[ICD9: 626.4] [facility] CPT-4: 25608 12/12/2014 ([id number]) PREV VISIT EST AGE 18-39 Diagnosis: ROUTINE GYNE EXAM[ICD9: V72.31] [facility] CPT-4: 17231 10/26/2014 ([id number]) PREV VISIT EST AGE 18-39 Diagnosis: ROUTINE GYNE EXAM[ICD9: V72.31] [facility] CPT-4: 03399 10/22/2013 ([id number]) Miscellaneous no charge Diagnosis: MORBID OBESITY[ICD9: 278.01] [facility] CPT-4: 93678 01/07/2013 ([id number]) 99864 EST. PATIENT, LEVEL III Diagnosis: Allergic rhinitis[ICD9: 477.9] Diagnosis: Contraceptive surveillance, unspecified[ICD9: V25.40] Diagnosis: MORBID OBESITY[ICD9: 278.01] Mandy Novoa MD, [facility] CPT-4: 07508 10/19/2012 ([id number]) 41878 EST. PATIENT, LEVEL III Diagnosis: Varicose veins of both lower extremities with pain[ICD9: 454.8] Diagnosis: Obesities, morbid[ICD9: 278.01] Mandy Novoa MD, [facility] CPT-4: 14456 08/10/2012 ([id number]) 84275 EST. PATIENT, LEVEL IV Diagnosis: Abdominal pain[ICD9: 789.00] Diagnosis: Breast tenderness in female[ICD9: 611.71] Mandy Novoa MD, [facility] CPT-4: 25917 03/16/2012 Miscellaneous no charge Diagnosis: MORBID OBESITY[ICD9: 278.01] Em Novoa MD, [facility] CPT-4: 95284 01/24/2012 Miscellaneous no charge Diagnosis: MORBID OBESITY[ICD9: 278.01] Em Novoa MD, [facility] CPT-4: 72466 11/21/2011 40216 EST. PATIENT, LEVEL III Diagnosis: ACUTE SINUSITIS[ICD9: 461.9] Diagnosis: HEADACHE[ICD9: 784.0] Em Novoa MD, [facility] CPT-4: 04968 08/22/2011 46761 EST. PATIENT, LEVEL III Diagnosis: ACUTE SINUSITIS[ICD9: 461.9] Diagnosis: Environmental allergies[ICD9: 477.9] Em Novoa MD, [facility] CPT-4: 32259 06/20/2011 Plan of Care Planned Activity Notes Codes Status Date Appointment: [phone] [facility] (15 min) Moderate 12/31/2016 Visit Plan: Low back pain- the patient was instructed in appropriate posture, need for weight loss to alleviate abdominal obesity that is worsening the patient's back pain.. The pt is to use prn antiinflammatories to manage acute pain. The patient is to call the office if the pain is worsening or does not improve. 09/18/2016 Appointment: [facility] (30 min[facility] Complex 09/18/2016 Patient Education: Patient [...] 6 months based on previous levels of control.Pt going on a cruise and is worried about sea sickness - will send RX. 06/19/2016 Appointment: Em Ortiz WPtel: [phone] (30 min) Complex 06/19/2016 Patient Education: Patient [...] of control. 04/01/2016 Appointment: Em Ortiz WPtel: [phone] (30 min) Complex 04/01/2016 Patient Education: Patient Medication Summary Completed 04/01/2016 Patient Education: Obesity Completed 04/01/2016 Patient Education: Patient Medication Summary Completed 03/27/2016 Visit Plan: Missed period - pt sent to lab for beta hcg - will call pt with report. She has decided that her OB of choice would be Dr. Matos.Pt is to restart thyroid medication - pt given samples of triosant 13mcg. 12/12/2014 Appointment: Mandy Novoa WPtel: [facility] Other 12/12/2014 Patient Education: Patient Medication Summary [...] or prn. 10/26/2014 Appointment: Mandy Novoa WPtel: [facility] [facility] 10/26/2014 Patient Education: Patient Medication [...] or prn. 10/22/2013 Appointment: Em Ortiz WPtel: [phone] [facility] 10/22/2013 Patient Education: Patient Medication Summary Completed 10/22/2013 Appointment: Mandy Novoa WPtel: [address] [place], [place] [id number] [place] Injection 07/21/2013 Patient Education: Patient Medication Summary Completed 07/21/2013 Appointment: Em Ortiz WPtel: [address] [place], [place] [phone] [place] Injection 07/20/2013 Visit Plan: depo injection today 04/21/2013 Patient Education: Patient Medication Summary Completed 04/21/2013 Appointment: Em Ortiz WPtel: [address] [place], [place] [phone] [place] Injection 01/18/2013 Patient Education: Patient Medication Summary Completed 01/18/2013 Visit Plan: Ok to refill phentermine 01/07/2013 Patient Education: Patient Medication Summary Completed 01/07/2013 Visit Plan: Allergies - chronic - recommended pt to use allergy medication as prescribed. Pt has been counseled as the the appropriate use of the medication. Pt to call if allergy symptoms are not controlled with the medication.If using nasal spray, instructions as follows: Nasal [...] weight check. 10/19/2012 Appointment: Mandy Novoa WPtel: [facility] Follow up 10/19/2012 Patient Education: Patient Medication Summary Completed 10/19/2012 Visit Plan: Varicose Veins - recommended OTC compression tights/leggings - if this does nothelp decrease the aching in her legs - along with her active pursual of weight loss, the pt is to call and we will get her an appt with specialist for venous laser therapy.Obesity - chronic issue with this patient. The pt has been counseled about diet changes, calorie restriction, and need to exercise. Pt w ill RTC in one month for weight check. 08/10/2012 Appointment: Mandy Novoa WPtel: [facility] [place] Follow up 08/10/2012 Patient Education: Patient Medication Summary Completed 08/10/2012 Visit Plan: Pt with abdominal pain- has been scheduled for a pelvic and abdominal ultrasound.. Pt is to stop her phentermine, will check a serum test, and also have the patient eat a bland diet for the next 48 hours.I have also had labs drawn for a chem panel and CBC, depending on the ultrasound results, will further direct the pt in the course of care that is being recommended.My major concern would be for , especially if she has a mirena in place, that would be a very difficult situation, the other concern is for bilateral ovarian cysts. 03/16/2012 Appointment: Mandy Novoa WPtel: [facility] [place] Other 03/16/2012 Patient Education: Patient Medication Summary Completed 03/16/2012 Appointment: Em Ortiz WPtel: [phone] Lab Draw 03/02/2012 Visit Plan: Weight and blood pressure check 01/24/2012 Appointment: Em Ortiz WPtel: [address] [place], [place] [phone] [place] [address] Other 01/24/2012 Patient Education: Patient Medication Summary Completed 01/24/2012 Visit Plan: Weight check only 11/21/2011 Appointment: Em Ortiz WPtel: [address] [place], [place] [phone] [place] [address] Other 11/21/2011 Patient Education: Patient Medication Summary [...] will RTC in one month for weight check.RX for Phentermine given to pt with instructions to stop the medication and call the office or go to the ER if symptoms of tachycardia that does not resolve or severe headache or uncontrolled blood pressure occur. 09/26/2011 Appointment: Mandy Novoa WPtel: [address] [place] [address] [facility] 09/26/2011 Patient Education: Patient Medication Summary Completed 09/26/2011 Visit Plan: URI - Pt advised to increase fluids, vitamin C. Discussed natural and expected course of this diagnosis and need to alert me if symtpoms do not follow expected course, or if any worse. RX sent to patient's pharmacy.Headache- kenalog injection given today in the office. Call if symptoms do not improve. Recommend claritin daily. Continue with nasal saline rinses as well. 08/22/2011 Appointment: Em Ortiz WPtel: [address] [place], [place] [phone] [place] [address] Other 08/22/2011 Patient Education: Patient Medication Summary [...] show improvement. 06/20/2011 Appointment: Em Ortiz [facility]el[facility] [facility] 06/20/2011 Patient Education: Patient Medication Summary Completed 06/20/2011 Instructions Comment . Well Adult Female - exam completed. Pap and breast exam completed. Pt will be called with results of her testing. She was advised to continue with yearly annual exams. Safe sex practices discussed during office visit today. Call if any abnormal gynecologic issues during the next year, otherwise, RTC yearly or prn. . Sinusitis - Pt has acute infection [...] other concern is for bilateral ovarian cysts. Ibuprofen - 400mg-800mg three times a day [...] next year, otherwise, RTC yearly or prn. . Allergies - chronic - recommended pt [...]
--- OUTSIDE RECORDS SUMMARY | 2019-01-28 06:07 | XMS REPORT | CCD ---
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 Operator Name Role Phone PP Unavailable CCM Unavailable Summary Purpose Interface Exchange Insurance Providers Payer name Policy type / Coverage type Covered democrat ID Effective Begin Date Effective End Date [email or web address] Commercial Insurance [id number] Unknown Family history Brother Diagnosis Age At Onset Denies: *Denies any medical problems Unknown Mother Diagnosis Age At Onset Diabetes mellitus Type 2 Unknown Father Diagnosis Age At Onset Denies: *Denies any medical problems Unknown Sister Diagnosis Age At Onset Denies: *Denies any medical problems Unknown Social History Social History Element Codes Description Effective Dates Marital status Unknown 09/26/[address]: 631806857 Nonsmoker 09/26/[address]: 866894662 Never drinks alcohol 09/26/2011 Has the patient ever used illegal drugs? 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 [employer] 06/20/2011 Allergies, Adverse Reactions, Alerts Allergies, Adverse [...] Start Date Stop Date Status Fill Instructions Valtrex 1 gram tablet RxNorm: 285659 1 TABLET(S) PO DAILY 03/05/2017 03/28/2017 Active Alicia-D 24 Hour 180 mg-240 mg tablet,extended release RxNorm: 121583 1 Tablet(s) PO daily as needed 07/09/2016 No Stop Date Active Tirosint 13 mcg capsule RxNorm: 552339 Capsule(s) 1 CAPSULE(S) PO DAILY 07/08/2016 01/03/2017 Inactive Tirosint 13 mcg capsule RxNorm: 167183 Capsule(s) 1 CAPSULE(S) PO DAILY 06/26/2016 07/07/2016 Inactive daw1 scopolamine 1.5 mg transdermal patch (1 mg over 3 days) RxNorm: 874888 1 Patch TD Q72H 06/19/2016 No Stop Date Active Tirosint 25 mcg capsule RxNorm: 042569 1 Capsule(s) PO daily 06/19/2016 06/18/2016 Inactive Tirosint 25 mcg capsule RxNorm: 429088 1 Capsule(s) PO daily 06/19/2016 06/25/2016 Inactive meclizine 25 mg tablet RxNorm: 223565 1 Tablet(s) PO TID as needed 06/19/2016 06/25/2016 Inactive Valtrex 1 gram tablet RxNorm: 599387 1 TABLET(S) PO DAILY 06/11/2016 07/04/2016 Inactive Tirosint 13 mcg capsule RxNorm: 996995 1 CAPSULE(S) PO DAILY 03/25/2016 06/19/2016 Inactive daw1 Valtrex 1 gram tablet RxNorm: 464315 1 TABLET(S) PO DAILY 02/23/2015 03/18/2015 Inactive Tirosint 13 mcg capsule RxNorm: 174160 1 Capsule(s) PO daily 02/06/2015 02/05/2015 Inactive Tirosint 13 mcg capsule RxNorm: 408469 1 Capsule(s) PO daily 02/06/2015 03/24/2016 Inactive daw1 Zithromax Z-Emmanuel 250 mg tablet RxNorm: 887781 Tablet(s) PO UD 04/05/2014 10/25/2014 Inactive [SAVINGS FOR UNINSURED PATIENTS -- BIN:[id number], PCN: [id number], Group: [id number], ID# [id number], Process claim through Voice Assist, for questions: . THIS IS NOT INSURANCE.] Valtrex 1 g tablet RxNorm: 371128 Tablet(s) PO TAKE 1 TABLET BY MOUTH DAILY 12/30/2013 No Stop Date Active Synthroid 75 mcg tablet RxNorm: 284527 Tablet(s) PO TAKE 1 TABLET BY MOUTH DAILY 12/30/2013 10/25/2014 Inactive Valtrex 1 gram tablet RxNorm: 641975 1 Tablet(s) PO daily 12/29/2013 01/09/2014 Inactive medroxyprogesterone 150 mg/mL intramuscular syringe RxNorm: 6502053 Milliliter(s) IM 10/22/2013 10/22/2013 Inactive Depo-Provera 150 mg/mL intramuscular suspension RxNorm: 5374119 Milliliter(s) IM bring to clinic for admin. 10/20/2013 10/25/2014 Inactive Valtrex 1 g tablet RxNorm: 885688 1 Tablet(s) PO daily 09/03/2013 09/14/2013 Inactive medroxyprogesterone 150 mg/mL intramuscular syringe RxNorm: 2900207 Milliliter(s) IM 07/21/2013 07/21/2013 Inactive Depo-Provera 150 mg/mL intramuscular suspension RxNorm: 6800757 Milliliter(s) IM bring to clinic for admin. 07/20/2013 10/19/2013 Inactive Synthroid 75 mcg tablet RxNorm: 247984 1 Tablet(s) PO daily 06/23/2013 12/19/2013 Inactive Synthroid 75 mcg tablet RxNorm: 095722 1 Tablet(s) PO daily 05/31/2013 06/22/2013 Inactive Synthroid 75 mcg tablet RxNorm: 940662 1 Tablet(s) PO daily 05/31/2013 05/30/2013 Inactive Depo-Provera 150 mg/mL IM Syringe RxNorm: 6898764 Milliliter(s) IM 04/21/2013 04/21/2013 Inactive Depo-Provera 150 mg/mL intramuscular suspension RxNorm: 7829674 Milliliter(s) IM bring to clinic for admin. 04/12/2013 07/19/2013 Inactive Depo-Provera 150 mg/mL IM Syringe RxNorm: 8408361 Milliliter(s) IM 01/18/2013 01/18/2013 Inactive phentermine 37.5 mg disintegrating tablet RxNorm: 3926512 1 Tablet(s) PO daily 01/08/2013 02/06/2013 Inactive Nasonex 50 mcg/actuation [place] RxNorm: 251965 1 [place] NASAL BID 1 spray each nare bid 10/19/2012 02/15/2013 Inactive medroxyprogesterone 150 mg/mL IM Susp RxNorm: 9831237 Milliliter(s) IM 10/19/2012 10/19/2012 Inactive phentermine 37.5 mg disintegrating tablet RxNorm: 0416884 1 Tablet(s) PO daily 10/19/2012 11/17/2012 Inactive Depo-Provera 150 mg/mL IM Susp RxNorm: 9912562 IM bring to clinic for admin. 10/16/2012 04/11/2013 Inactive Synthroid 50 mcg tablet RxNorm: 465229 1 Tablet(s) PO daily 09/07/2012 05/30/2013 Inactive Synthroid 50 mcg tablet RxNorm: 672100 1 Tablet(s) PO daily 09/07/2012 05/30/2013 Inactive Valtrex 1 g tablet RxNorm: 629726 1 Tablet(s) PO daily 2012 08/31/2012 Inactive Valtrex 1 g tablet RxNorm: 075464 1 Tablet(s) PO daily 2012 08/19/2012 Inactive phentermine 37.5 mg Tab RxNorm: 855008 1 Tablet(s) PO daily 03/02/2012 10/19/2012 Inactive phentermine 37.5 mg Tab RxNorm: 781648 1 Tablet(s) PO daily 01/24/2012 02/22/2012 Inactive phentermine 37.5 mg Tab RxNorm: 250971 1 Tablet(s) PO daily 12/23/2011 01/21/2012 Inactive Nasonex 50 mcg/actuation [place] RxNorm: 849220 1 [place] NASAL BID 1 spray each nare bid 12/19/2011 10/18/2012 Inactive Nasonex 50 mcg/actuation [place] RxNorm: 790409 1 [place] NASAL BID 1 spray each nare bid 12/19/2011 12/18/2011 Inactive Synthroid 50 mcg Tab RxNorm: 303556 Tablet(s) PO 12/10/2011 05/31/2013 Inactive TAKE ONE TABLET BY MOUTH DAILY;Patient requests 90 day supply Omnaris 50 mcg Nasal [place] RxNorm: 633789 2 [place] NASAL daily 2 sprays per nostril daily 12/09/2011 12/18/2011 Inactive Synthroid 50 mcg tablet RxNorm: 105119 1 Tablet(s) PO daily 12/09/2011 09/06/2012 Inactive Synthroid 50 mcg Tab RxNorm: 514591 1 Tablet(s) PO daily 12/09/2011 12/09/2011 Inactive phentermine 37.5 mg Tab RxNorm: 732136 1 Tablet(s) PO daily 11/21/2011 12/20/2011 Inactive Claritin-D 24 Hour 10 mg-240 mg Tab RxNorm: 5600131 1 Tablet(s) PO PRN 09/26/2011 No Stop Date Active Valtrex 1 g Tab RxNorm: 483077 1 Tablet(s) PO daily 08/28/2011 08/30/2011 Inactive Valtrex 1 g Tab RxNorm: 952249 1 Tablet(s) PO daily one daily x 3 days, may continue x 2 more days if the cold sore is not resolved 08/28/2011 09/26/2011 Inactive Kenalog 40 mg/mL Susp for Injection RxNorm: 9853225 1.5 Milliliter(s) Inj 08/23/2011 08/23/2011 Inactive Levaquin 500 mg Tab RxNorm: 725564 1 Tablet(s) PO daily 08/22/2011 09/26/2011 Inactive Synthroid 50 mcg Tab RxNorm: 850741 1 Tablet(s) PO daily 08/07/2011 08/06/2011 Inactive Synthroid 50 mcg tablet RxNorm: 284014 1 Tablet(s) PO daily 08/07/2011 09/07/2012 Inactive Omnaris 50 mcg Nasal [place] RxNorm: 314875 2 [place] NASAL daily 2 sprays per nostril daily 06/20/2011 12/08/2011 Inactive Rocephin 500 mg Solution for Injection RxNorm: 586956 1 Milliliter(s) Inj 06/20/2011 09/26/2011 Inactive Kenalog 40 mg/mL Susp for Injection RxNorm: 0776640 1 Milliliter(s) Inj 06/20/2011 09/26/2011 Inactive cefdinir 300 mg Cap RxNorm: 791169 1 Capsule(s) PO BID 06/20/2011 09/26/2011 Inactive Fish Oil 1,000 mg Cap RxNorm: 1 Capsule(s) PO daily No Start Date Active Omnaris 50 mcg Nasal [place] RxNorm: 877952 2 [place] NASAL daily 2 sprays per nostril daily No Start Date 06/19/2011 Inactive Depo-Provera 150 mg/mL intramuscular syringe RxNorm: 3989829 1 Milliliter(s) IM q 3 month No Start Date 10/25/2014 Inactive Alicia-D 24 Hour 180 mg-240 mg tablet,extended release RxNorm: 286021 1 Tablet(s) PO daily as needed No Start Date 07/08/2016 Inactive Claritin-D 24 Hour 10 mg-240 mg Tab RxNorm: 5069191 1 Tablet(s) PO daily No Start Date 09/25/2011 Inactive Synthroid 25 mcg Tab RxNorm: 598564 1 Tablet(s) PO daily No Start Date 09/26/2011 Inactive Zithromax Z-Emmanuel 250 mg tablet RxNorm: 299271 Tablet(s) PO UD No Start Date 04/04/2014 Inactive Depo-Provera 150 mg/mL IM Susp RxNorm: 5605132 IM No Start Date 10/15/2012 Inactive Medication Administered Medication Codes Instructions Start Date Status medroxyprogesterone 150 mg/mL intramuscular syringe RxNorm: 3378860 Milliliter 10/22/2013 No longer Active medroxyprogesterone 150 mg/mL intramuscular syringe RxNorm: 5087100 Milliliter 07/21/2013 No longer Active Depo-Provera 150 mg/mL IM Syringe RxNorm: 0683796 Milliliter 04/21/2013 No longer Active Depo-Provera 150 mg/mL IM Syringe RxNorm: 4225504 Milliliter 01/18/2013 No longer Active medroxyprogesterone 150 mg/mL IM Susp RxNorm: 4699532 Milliliter 10/19/2012 No longer Active Kenalog 40 mg/mL Susp for Injection RxNorm: 3705326 1.5Milliliter 08/23/2011 No longer Active Immunizations Vaccine [...] hTSH II 4.61 uIU/mL 06/17/2016 Free T4 Qfw796 FREE T4 0.77 ng/dL 06/17/2016 Comp Metabolic Wnr535 NA 135 mEq/L 03/28/2016 Comp Metabolic Lrs687 K 3.9 mEq/L 03/28/2016 Comp Metabolic Wyu654 CL 107 mEq/L 03/28/2016 Comp Metabolic Ily755 CO2 24.0 mEq/L 03/28/2016 Comp Metabolic Pvf747 ANION GAP 8 03/28/2016 Comp Metabolic Fbf927 GLUCOSE 85 mg/dL 03/28/2016 Comp Metabolic Doq830 Creat 0.7 mg/dL 03/28/2016 Comp Metabolic Eww906 eGFR 98 ml/min/1.73m2 03/28/2016 Comp Metabolic Mdf605 BUN 15 mg/dL 03/28/2016 Comp Metabolic Oeb210 B/C Ratio 20.5 Ratio 03/28/2016 Comp Metabolic Oji970 CALCIUM 8.7 mg/dL 03/28/2016 Comp Metabolic Oul708 ALK PHOS 70 U/L 03/28/2016 Comp Metabolic Pwy256 AST(SGOT) 15 U/L 03/28/2016 Comp Metabolic Acl053 ALT(SGPT) 15 U/L 03/28/2016 Comp Metabolic Dpm052 BILI T 0.7 mg/dL 03/28/2016 Comp Metabolic Aaj135 ALBUMIN 3.9 g/dL 03/28/2016 Comp Metabolic Rir632 TPRO 6.3 g/dL 03/28/2016 Comp Metabolic Ijn046 GLOB 2.4 g/dL 03/28/2016 Comp Metabolic Biq145 A/G Ratio 1.6 Ratio 03/28/2016 Comp Metabolic Hmj379 Osmo 270 mOsmo 03/28/2016 Lipid Ord30 CHOL [...] 39.7 % 03/28/2016 Cbc With Differential Ord2 Lymph% 30.9 % 03/28/2016 Cbc With Differential Ord2 MCV 83.8 fl 03/28/2016 Cbc With Differential Ord2 MCH 28.5 pg 03/28/2016 Cbc With Differential Ord2 [place]% 6.6 % 03/28/2016 Cbc With Differential Ord2 MCHC 34.0 pg 03/28/2016 Cbc With Differential Ord2 Eos% 2.2 % 03/28/2016 Cbc With Differential Ord2 Baso% 0.4 % 03/28/2016 Cbc With Differential Ord2 PLT 244 K/ul 03/28/2016 Cbc With Differential Ord2 RDW 13.6 % 03/28/2016 Cbc With Differential Ord2 Neut ABS# 2.71 K/ul 03/28/2016 Cbc With Differential Ord2 Lymph ABS# 1.40 K/ul 03/28/2016 Cbc With Differential Ord2 [place] ABS# 0.3 K/ul 03/28/2016 Cbc With Differential Ord2 Eos ABS# 0.1 K/ul 03/28/2016 Cbc With Differential Ord2 Baso ABS# 0.0 K/ul 03/28/2016 Tsh Ord6 hTSH II 6.46 uIU/mL 03/28/2016 Free T4 Emb765 FREE T4 0.74 ng/dL 03/28/2016 Review of [...] developed 08/10/2012 None Full Exam - General 1995 [...] Procedures Procedure Codes Date IMMUNIZATION ADMIN CPT-4: 88953Obluspx 06/19/2016 IIV4 FLU VACC NO PRESERV ID Formatting Model/CDA Sections, Assigned to/Tawny Torres CT: [id number] CPT-4: 79872Drxvsap 06/19/2016 THER/PROPH/DIAG INJ SC/IM CPT-4: 49620Ypzvafv 10/22/2013 THER/PROPH/DIAG INJ SC/IM CPT-4: 80328Fgzrjue 07/21/2013 THER/PROPH/DIAG INJ SC/IM CPT-4: 74614Nnpamwo 04/21/2013 THER/PROPH/DIAG INJ SC/IM CPT-4: 03165Lebahxn 01/18/2013 THER/PROPH/DIAG INJ SC/IM CPT-4: 89497Xqknkob 10/19/2012 PREV VISIT EST AGE 18-39 CPT-4: 49298Ybqqqpf 09/26/2011 THER/PROPH/DIAG INJ SC/IM CPT-4: 94024Kvihrku 08/22/2011 TRIAMCINOLONE ACET INJ NOS CPT-4: C8833Rhvounc 08/22/2011 TRIAMCINOLONE ACET INJ NOS CPT-4: C2522Bnsjgsl 06/20/2011 THER/PROPH/DIAG INJ SC/IM CPT-4: 79594Wszitkz 06/20/2011 ROCEPHIN, PER 250 MG CPT-4: N7823Fiqgiij 06/20/2011 Vital Signs Date Vital 09/18/2016 Blood Pressure 1: 132/78 Code: 8480-6 BMI: 41.2 Code: 49646-3 Heart Rate 1: 94 bpm Height: 5' SpO2: 98% Weight: 211 lbs 06/19/2016 Blood Pressure 1: 132/86 Code: 8480-6 BMI: 39.1 Code: 34167-6 Heart Rate 1: 78 bpm Height: 5' SpO2: 99% Weight: 200 lbs 04/01/2016 Blood Pressure 1: 120/80 Code: 8480-6 BMI: 38.5 Code: 59029-3 Heart Rate 1: 86 bpm Height: 5' SpO2: 96% Weight: 197 lbs 12/12/2014 Blood Pressure 1: 110/82 Code: 8480-6 BMI: 47.8 Code: 48652-3 Heart Rate 1: 90 bpm Height: 5' Weight: 245 lbs 10/26/2014 Blood Pressure 1: 122/76 Code: 8480-6 BMI: 47.1 Code: 92049-7 Heart Rate 1: 96 bpm Height: 5' Weight: 241 lbs 10/22/2013 Blood Pressure 1: 152/88 Code: 8480-6 Heart Rate 1: 88 bpm Weight: 240 lbs 01/07/2013 Blood Pressure 1: 114/80 Code: 8480-6 Weight: 224 lbs 10/19/2012 Blood Pressure 1: 126/94 Code: 8480-6 BMI: 43.5 Code: 74431-9 Heart Rate 1: 104 bpm Height: 5' Respiratory Rate: 16 bpm Weight: 222 lbs 8 oz 08/10/2012 Blood Pressure 1: 112/84 Code: 8480-6 Heart Rate 1: 84 bpm Weight: 233 lbs 03/16/2012 Blood Pressure 1: 110/72 Code: 8480-6 BMI: 43.0 Code: 74120-1 Heart Rate 1: 88 bpm Height: 5' Respiratory Rate: 18 bpm Weight: 220 lbs 01/24/2012 Blood Pressure 1: 104/80 Code: 8480-6 BMI: 43.2 Code: 07339-1 Height: 5' Weight: 221 lbs 11/21/2011 BMI: 45.7 Code: 84089-1 Height: 5' Weight: 234 lbs 09/26/2011 Blood Pressure 1: 110/68 Code: 8480-6 BMI: 46.8 Code: 93906-1 Heart Rate 1: 90 bpm Height: 5' Respiratory Rate: 16 bpm Weight: 239 lbs 8 oz 08/22/2011 Blood Pressure 1: 128/89 Code: 8480-6 BMI: 46.1 Code: 67522-1 Heart Rate 1: 83 bpm Height: 5' Weight: 236 lbs 06/20/2011 Blood Pressure 1: 120/80 Code: 8480-6 BMI: 46.6 Code: 00233-3 Heart Rate 1: 88 bpm Height: 5' [...] (18-39 years) Control IUD 09/26/2011 Mirena, placed rb6872 weight gain/obesity Location globally 09/26/2011 pt states that 8 years ago she weighed 135#. weight gain/obesity Weight Status is morbidly obese 09/26/2011 pt states the weight seems to add each year by 10-30 pounds despite exercisingnat the [facility] headache Location diffusely 08/22/2011 None headache Quality [...] LEVEL III Diagnosis: Low back pain[ICD10: M54.5] Miiran Novoa MD, [facility] CPT-4: 01427 09/18/2016 [id number] EST. PATIENT, LEVEL IV Diagnosis: VACCIN FOR INFLUENZA[ICD10: Z23] Diagnosis: Other specified hypothyroidism[ICD10: E03.8] [facility] CPT-4: 16709 06/19/2016 ([id number]) 80734 EST. PATIENT, LEVEL III Diagnosis: Hypothyroidism, unspecified[ICD10: E03.9] [facility] CPT-4: 44352 04/01/2016 ([id number]) 06009 EST. PATIENT, LEVEL III Diagnosis: Missed periods[ICD9: 626.4] [facility] CPT-4: 22916 12/12/2014 ([id number]) PREV VISIT EST AGE 18-39 Diagnosis: ROUTINE GYNE EXAM[ICD9: V72.31] [facility] CPT-4: 79865 10/26/2014 ([id number]) PREV VISIT EST AGE 18-39 Diagnosis: ROUTINE GYNE EXAM[ICD9: V72.31] [facility] CPT-4: 38822 10/22/2013 ([id number]) Miscellaneous no charge Diagnosis: MORBID OBESITY[ICD9: 278.01] [facility] CPT-4: 26692 01/07/2013 ([id number]) 67175 EST. PATIENT, LEVEL III Diagnosis: Allergic rhinitis[ICD9: 477.9] Diagnosis: Contraceptive surveillance, unspecified[ICD9: V25.40] Diagnosis: MORBID OBESITY[ICD9: 278.01] [facility] CPT-4: 15837 10/19/2012 ([id number]) 43349 EST. PATIENT, LEVEL III Diagnosis: Varicose veins of both lower extremities with pain[ICD9: 454.8] Diagnosis: Obesities, morbid[ICD9: 278.01] Mandy Novoa MD, [facility] CPT-4: 21600 08/10/2012 ([id number]) 30099 EST. PATIENT, LEVEL IV Diagnosis: Abdominal pain[ICD9: 789.00] Diagnosis: Breast tenderness in female[ICD9: 611.71] Mandy Novoa MD, [facility] CPT-4: 31618 03/16/2012 Miscellaneous no charge Diagnosis: MORBID OBESITY[ICD9: 278.01] Em Novoa MD, [facility] CPT-4: 10649 01/24/2012 Miscellaneous no charge Diagnosis: MORBID OBESITY[ICD9: 278.01] Em Novoa MD, [facility] CPT-4: 07780 11/21/2011 52106 EST. PATIENT, LEVEL III Diagnosis: ACUTE SINUSITIS[ICD9: 461.9] Diagnosis: HEADACHE[ICD9: 784.0] Em Novoa MD, [facility] CPT-4: 29009 08/22/2011 63325 EST. PATIENT, LEVEL III Diagnosis: ACUTE SINUSITIS[ICD9: 461.9] Diagnosis: Environmental allergies[ICD9: 477.9] Em Novoa MD, [facility] CPT-4: 38696 06/20/2011 Plan of Care Planned Activity Notes Codes Status Date Appointment: Mandy Novoa WPtel: [address] [place], [place] [address] (15 min) Moderate 12/31/2016 Visit Plan: Low back pain- the patient was instructed in appropriate posture, need for weight loss to alleviate abdominal obesity that is worsening the patient's back pain.. The pt is to use prn antiinflammatories to manage acute pain. The patient is to call the office if the pain is worsening or does not improve. 09/18/2016 Appointment: Mirian Osei WPtel: [facility] [place] (30 min) Complex 09/18/2016 Patient Education: [...] send RX. 06/19/2016 Appointment: Em Ortiz WPtel: [phone] (30 min) Complex 06/19/2016 Patient Education: Patient [...] of control. 04/01/2016 Appointment: Em Ortiz WPtel: [phone] (30 min) Complex 04/01/2016 Patient Education: Patient [...] triosant 13mcg. 12/12/2014 Appointment: Mandy Novoa WPtel: [facility] Other 12/12/2014 Patient Education: Patient Medication Summary [...] prn. 10/26/2014 Appointment: [phone] [facility] 10/26/2014 Patient Education: Patient Medication [...] or prn. 10/22/2013 Appointment: Em Ortiz WPtel: [phone] [phone] [facility] 10/22/2013 Patient Education: Patient Medication Summary Completed 10/22/2013 Appointment: Mandy [facility]oa [phone] [place] Injection 07/21/2013 Patient Education: Patient Medication Summary Completed 07/21/2013 Appointment: [phone] [place] Injection 07/20/2013 Visit Plan: depo injection today 04/21/2013 Patient Education: Patient Medication Summary Completed 04/21/2013 Appointment: Em Ortiz WPtel: [phone] [phone] [place] Injection 01/18/2013 Patient Education: Patient Medication [...] weight check. 10/19/2012 Appointment: Mandy Novoa WPtel: [facility] Follow up 10/19/2012 Patient Education: Patient Medication [...] weight check. 08/10/2012 Appointment: Mandy Novoa WPtel: [facility] Follow up 08/10/2012 Patient Education: Patient Medication [...] ovarian cysts. 03/16/2012 Appointment: Mandy Novoa WPtel: [facility] [place] Other 03/16/2012 Patient Education: Patient Medication Summary Completed 03/16/2012 Appointment: Em Ortiz WPtel: [phone] Lab Draw 03/02/2012 Visit Plan: Weight and blood pressure check 01/24/2012 Appointment: Em Ortiz WPtel: [facility] [place] [address] Other 01/24/2012 Patient Education: Patient Medication Summary Completed 01/24/2012 Visit Plan: Weight check only 11/21/2011 Appointment: Em Ortiz WPtel: [facility] [address] Other 11/21/2011 Patient Education: Patient Medication Summary [...] pressure occur. 09/26/2011 Appointment: Mandy Novoa WPtel: [facility] [address] [facility] 09/26/2011 Patient Education: Patient [...] as well. 08/22/2011 Appointment: Em Ortiz WPtel: [phone] Other 08/22/2011 Patient Education: Patient Medication Summary [...] symptoms do not show improvement. 06/20/2011 Appointment: Angel Em WPtel: [phone] [facility] 06/20/2011 Patient Education: Patient Medication Summary Completed [...]
--- OUTSIDE RECORDS SUMMARY | 2019-01-28 06:10 | XMS REPORT | CCD ---
Author Author Em Ortiz MD, [facility] Address [facility] [place] [address] Phone Care Team Providers Care Scrap Shear Operator Name Role Phone PP Unavailable CCM Unavailable Summary Purpose Interface Exchange Insurance Providers Payer name Policy type / Coverage type Covered green party ID Effective Begin Date Effective End Date [employer] [id number] Unknown Family history Brother Diagnosis Age At Onset Denies: *Denies any medical problems Unknown Mother Diagnosis Age At Onset Diabetes mellitus Type 2 Unknown Father Diagnosis Age At Onset Denies: *Denies any medical problems Unknown Sister Diagnosis Age At Onset Denies: *Denies any medical problems Unknown Social History Social History Element Codes Description Effective Dates Marital status Unknown 09/26/[address]: 860767925 Nonsmoker 09/26/[address]: 919657948 Never drinks alcohol 09/26/2011 Has the patient ever used illegal drugs? 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/2011 Allergies, Adverse Reactions, Alerts Substance Reaction Codes Entered Date Inactivated Date Status * NO KNOWN DRUG ALLERGIES Unknown 06/20/2011 No Inactive Date Active * NO KNOWN FOOD ALLERGIES Unknown 09/26/2011 No Inactive Date Active * NO KNOWN ENVIRONMENTAL ALLERGIES Unknown 06/20/2011 No Inactive Date Active Past Medical History Illness Codes Condition Status Onset Date Resolved Date Other hemorrhoids ICD-9: 455.8 ICD-10: K64.8 Active [...] Problems Condition Codes Effective Dates Condition Status Other hemorrhoids ICD-9: 455.8 ICD-10: K64.8 12/21/2018 [...] Start Date Stop Date Status Fill Instructions amoxicillin 500 mg tablet RxNorm: 950940 1 Tablet(s) PO TID 02/13/2018 02/22/2018 Inactive Alicia-D 24 Hour 180 mg-240 mg tablet,extended release RxNorm: 095956 1 Tablet(s) PO daily as needed 12/16/2017 02/13/2018 Inactive promethazine 25 mg tablet RxNorm: 764816 1 Tablet(s) PO Q6 PRN 08/04/2017 02/12/2018 Inactive promethazine 25 mg tablet RxNorm: 009357 1 Tablet(s) PO Q6 PRN 08/04/2017 08/03/2017 Inactive Valtrex 1 gram tablet RxNorm: 018446 1 Tablet(s) PO daily 05/21/2017 02/12/2018 Inactive Tirosint 13 mcg capsule RxNorm: 622818 TAKE 1 CAPSULE BY MOUTH DAILY 03/10/2017 11/16/2017 Inactive Valtrex 1 gram tablet RxNorm: 462160 1 TABLET(S) PO DAILY 03/05/2017 03/28/2017 Inactive Alicia-D 24 Hour 180 mg-240 mg tablet,extended release RxNorm: 480467 1 Tablet(s) PO daily as needed 07/09/2016 12/15/2017 Inactive Tirosint 13 mcg capsule RxNorm: 852355 Capsule(s) 1 CAPSULE(S) PO DAILY 07/08/2016 01/03/2017 Inactive Tirosint 13 mcg capsule RxNorm: 508786 Capsule(s) 1 CAPSULE(S) PO DAILY 06/26/2016 07/07/2016 Inactive daw1 scopolamine 1.5 mg transdermal patch (1 mg over 3 days) RxNorm: 563489 1 Patch TD Q72H 06/19/2016 02/12/2018 Inactive Tirosint 25 mcg capsule RxNorm: 920322 1 Capsule(s) PO daily 06/19/2016 06/18/2016 Inactive Tirosint 25 mcg capsule RxNorm: 469247 1 Capsule(s) PO daily 06/19/2016 06/25/2016 Inactive meclizine 25 mg tablet RxNorm: 825249 1 Tablet(s) PO TID as needed 06/19/2016 06/25/2016 Inactive Valtrex 1 gram tablet RxNorm: 702145 1 TABLET(S) PO DAILY 06/11/2016 07/04/2016 Inactive Tirosint 13 mcg capsule RxNorm: 938369 1 CAPSULE(S) PO DAILY 03/25/2016 06/19/2016 Inactive daw1 Valtrex 1 gram tablet RxNorm: 700207 1 TABLET(S) PO DAILY 02/23/2015 03/18/2015 Inactive Tirosint 13 mcg capsule RxNorm: 469548 1 Capsule(s) PO daily 02/06/2015 02/05/2015 Inactive Tirosint 13 mcg capsule RxNorm: 098679 1 Capsule(s) PO daily 02/06/2015 03/24/2016 Inactive daw1 Zithromax Z-Emmanuel 250 mg tablet RxNorm: 481669 Tablet(s) PO UD 04/05/2014 10/25/2014 Inactive [SAVINGS FOR UNINSURED PATIENTS -- BIN:[id number], PCN: [id number], Group: [id number], ID# [id number], Process claim through aCon, for questions: . THIS IS NOT INSURANCE.] Valtrex 1 g tablet RxNorm: 922241 Tablet(s) PO TAKE 1 TABLET BY MOUTH DAILY 12/30/2013 05/20/2017 Inactive Synthroid 75 mcg tablet RxNorm: 967416 Tablet(s) PO TAKE 1 TABLET BY MOUTH DAILY 12/30/2013 10/25/2014 Inactive Valtrex 1 gram tablet RxNorm: 078856 1 Tablet(s) PO daily 12/29/2013 01/09/2014 Inactive medroxyprogesterone 150 mg/mL intramuscular syringe RxNorm: 8774405 Milliliter(s) IM 10/22/2013 10/22/2013 Inactive Depo-Provera 150 mg/mL intramuscular suspension RxNorm: 2375086 Milliliter(s) IM bring to clinic for admin. 10/20/2013 10/25/2014 Inactive Valtrex 1 g tablet RxNorm: 994269 1 Tablet(s) PO daily 09/03/2013 09/14/2013 Inactive medroxyprogesterone 150 mg/mL intramuscular syringe RxNorm: 7852702 Milliliter(s) IM 07/21/2013 07/21/2013 Inactive Depo-Provera 150 mg/mL intramuscular suspension RxNorm: 8861564 Milliliter(s) IM bring to clinic for admin. 07/20/2013 10/19/2013 Inactive Synthroid 75 mcg tablet RxNorm: 744431 1 Tablet(s) PO daily 06/23/2013 12/19/2013 Inactive Synthroid 75 mcg tablet RxNorm: 490170 1 Tablet(s) PO daily 05/31/2013 06/22/2013 Inactive Synthroid 75 mcg tablet RxNorm: 202112 1 Tablet(s) PO daily 05/31/2013 05/30/2013 Inactive Depo-Provera 150 mg/mL IM Syringe RxNorm: 8888266 Milliliter(s) IM 04/21/2013 04/21/2013 Inactive Depo-Provera 150 mg/mL intramuscular suspension RxNorm: 2012138 Milliliter(s) IM bring to clinic for admin. 04/12/2013 07/19/2013 Inactive Depo-Provera 150 mg/mL IM Syringe RxNorm: 7791610 Milliliter(s) IM 01/18/2013 01/18/2013 Inactive phentermine 37.5 mg disintegrating tablet RxNorm: 2292077 1 Tablet(s) PO daily 01/08/2013 02/06/2013 Inactive medroxyprogesterone 150 mg/mL IM Susp RxNorm: 1676052 Milliliter(s) IM 10/19/2012 10/19/2012 Inactive Nasonex 50 mcg/actuation Laurens RxNorm: 705082 1 Laurens NASAL BID 1 spray each nare bid 10/19/2012 02/12/2018 Inactive phentermine 37.5 mg disintegrating tablet RxNorm: 3778016 1 Tablet(s) PO daily 10/19/2012 11/17/2012 Inactive Depo-Provera 150 mg/mL IM Susp RxNorm: 2908905 IM bring to clinic for admin. 10/16/2012 04/11/2013 Inactive Synthroid 50 mcg tablet RxNorm: 009361 1 Tablet(s) PO daily 09/07/2012 05/30/2013 Inactive Synthroid 50 mcg tablet RxNorm: 419858 1 Tablet(s) PO daily 09/07/2012 05/30/2013 Inactive Valtrex 1 g tablet RxNorm: 660410 1 Tablet(s) PO daily 2012 08/31/2012 Inactive Valtrex 1 g tablet RxNorm: 252999 1 Tablet(s) PO daily 2012 08/19/2012 Inactive phentermine 37.5 mg Tab RxNorm: 332796 1 Tablet(s) PO daily 03/02/2012 10/19/2012 Inactive phentermine 37.5 mg Tab RxNorm: 827514 1 Tablet(s) PO daily 01/24/2012 02/22/2012 Inactive phentermine 37.5 mg Tab RxNorm: 930095 1 Tablet(s) PO daily 12/23/2011 01/21/2012 Inactive Nasonex 50 mcg/actuation Laurens RxNorm: 432672 1 Laurens NASAL BID 1 spray each nare bid 12/19/2011 10/18/2012 Inactive Nasonex 50 mcg/actuation [place] RxNorm: 755470 1 [place]rens NASAL BID 1 spray each nare bid 12/19/2011 12/18/2011 Inactive Synthroid 50 mcg Tab RxNorm: 801532 Tablet(s) PO 12/10/2011 05/31/2013 Inactive TAKE ONE TABLET BY MOUTH DAILY;Patient requests 90 day supply Omnaris 50 mcg Nasal [place] RxNorm: 803657 2 [place]rens NASAL daily 2 sprays per nostril daily 12/09/2011 12/18/2011 Inactive Synthroid 50 mcg tablet RxNorm: 264021 1 Tablet(s) PO daily 12/09/2011 09/06/2012 Inactive Synthroid 50 mcg Tab RxNorm: 905051 1 Tablet(s) PO daily 12/09/2011 12/09/2011 Inactive phentermine 37.5 mg Tab RxNorm: 309380 1 Tablet(s) PO daily 11/21/2011 12/20/2011 Inactive Claritin-D 24 Hour 10 mg-240 mg Tab RxNorm: 1706158 1 Tablet(s) PO PRN 09/26/2011 02/12/2018 Inactive Valtrex 1 g Tab RxNorm: 188749 1 Tablet(s) PO daily 08/28/2011 08/30/2011 Inactive Valtrex 1 g Tab RxNorm: 608031 1 Tablet(s) PO daily one daily x 3 days, may continue x 2 more days if the cold sore is not resolved 08/28/2011 09/26/2011 Inactive Kenalog 40 mg/mL Susp for Injection RxNorm: 5628218 1.5 Milliliter(s) Inj 08/23/2011 08/23/2011 Inactive Levaquin 500 mg Tab RxNorm: 292925 1 Tablet(s) PO daily 08/22/2011 09/26/2011 Inactive Synthroid 50 mcg Tab RxNorm: 553812 1 Tablet(s) PO daily 08/07/2011 08/06/2011 Inactive Synthroid 50 mcg tablet RxNorm: 851064 1 Tablet(s) PO daily 08/07/2011 09/07/2012 Inactive Omnaris 50 mcg Nasal [place] RxNorm: 671499 2 Laurens NASAL daily 2 sprays per nostril daily 06/20/2011 12/08/2011 Inactive Rocephin 500 mg Solution for Injection RxNorm: 8274938 1 Milliliter(s) Inj 06/20/2011 09/26/2011 Inactive Kenalog 40 mg/mL Susp for Injection RxNorm: 4969386 1 Milliliter(s) Inj 06/20/2011 09/26/2011 Inactive cefdinir 300 mg Cap RxNorm: 647224 1 Capsule(s) PO BID 06/20/2011 09/26/2011 Inactive + Iron oral RxNorm: oral No Start Date Active Omnaris 50 mcg Nasal [place] RxNorm: 570087 2 [place]rens NASAL daily 2 sprays per nostril daily No Start Date 06/19/2011 Inactive Fish Oil 1,000 mg Cap RxNorm: 1 Capsule(s) PO daily No Start Date 02/12/2018 Inactive Depo-Provera 150 mg/mL intramuscular syringe RxNorm: 7131212 1 Milliliter(s) IM q 3 month No Start Date 10/25/2014 Inactive Alicia-D 24 Hour 180 mg-240 mg tablet,extended release RxNorm: 118043 1 Tablet(s) PO daily as needed No Start Date 07/08/2016 Inactive Vitamin B-6 oral RxNorm: 636965 oral No Start Date 04/29/2018 Inactive Claritin-D 24 Hour 10 mg-240 mg Tab RxNorm: 0180298 1 Tablet(s) PO daily No Start Date 09/25/2011 Inactive Synthroid 25 mcg Tab RxNorm: 503331 1 Tablet(s) PO daily No Start Date 09/26/2011 Inactive Zithromax Z-Emmanuel 250 mg tablet RxNorm: 976010 Tablet(s) PO UD No Start Date 04/04/2014 Inactive Depo-Provera 150 mg/mL IM Susp RxNorm: 7024810 IM No Start Date 10/15/2012 Inactive Medication Administered Medication Codes Instructions Start Date Status medroxyprogesterone 150 mg/mL intramuscular syringe RxNorm: 1903204 Milliliter 10/22/2013 No longer Active medroxyprogesterone 150 mg/mL intramuscular syringe RxNorm: 3581735 Milliliter 07/21/2013 No longer Active Depo-Provera 150 mg/mL IM Syringe RxNorm: 2221152 Milliliter 04/21/2013 No longer Active Depo-Provera 150 mg/mL IM Syringe RxNorm: 0813897 Milliliter 01/18/2013 No longer Active medroxyprogesterone 150 mg/mL IM Susp RxNorm: 7712425 Milliliter 10/19/2012 No longer Active Kenalog 40 mg/mL Susp for Injection RxNorm: 7238849 1.5Milliliter 08/23/2011 No longer Active Immunizations Vaccine Codes Date Status Influenza CVX: 141 06/19/2016 completed Influenza CVX: 141 06/26/2011 completed Assessments Condition Codes Effective Dates Other hemorrhoids ICD-10: K64.8 ICD-9: 455.8 12/21/2018 [...] Visit Reason For Visit Effective Dates Notes hemorrhoids 12/21/2018 abdominal pain 07/01/2018 abdominal pain [...] Observation Code Item Item Code Result Date Bhcg Qual Ord68 BHCG Qual Positive 09/11/2017 Tsh Ord6 hTSH II 4.61 uIU/mL 06/17/2016 Free T4 Txo963 FREE T4 0.77 ng/dL 06/17/2016 Comp Metabolic Guj550 NA 135 mEq/L 03/28/2016 Comp Metabolic Wpb091 K 3.9 mEq/L 03/28/2016 Comp Metabolic Rbt828 CL 107 mEq/L 03/28/2016 Comp Metabolic Sos958 CO2 24.0 mEq/L 03/28/2016 Comp Metabolic Lgr962 ANION GAP 8 03/28/2016 Comp Metabolic Krr895 GLUCOSE 85 mg/dL 03/28/2016 Comp Metabolic Pcn228 Creat 0.7 mg/dL 03/28/2016 Comp Metabolic Mgk917 eGFR 98 ml/min/1.73m2 03/28/2016 Comp Metabolic Ozu800 BUN 15 mg/dL 03/28/2016 Comp Metabolic Qcx665 B/C Ratio 20.5 Ratio 03/28/2016 Comp Metabolic Pna276 CALCIUM 8.7 mg/dL 03/28/2016 Comp Metabolic Bol510 ALK PHOS 70 U/L 03/28/2016 Comp Metabolic Trh378 AST(SGOT) 15 U/L 03/28/2016 Comp Metabolic Lgg526 ALT(SGPT) 15 U/L 03/28/2016 Comp Metabolic Oag451 BILI T 0.7 mg/dL 03/28/2016 Comp Metabolic Rlk681 ALBUMIN 3.9 g/dL 03/28/2016 Comp Metabolic Tps802 TPRO 6.3 g/dL 03/28/2016 Comp Metabolic Lyv981 GLOB 2.4 g/dL 03/28/2016 Comp Metabolic Rli987 A/G Ratio 1.6 Ratio 03/28/2016 Comp Metabolic Mbh281 Osmo 270 mOsmo 03/28/2016 Lipid Ord30 CHOL [...] 28.5 pg 03/28/2016 Cbc With Differential Ord2 Jefferson% 6.6 % 03/28/2016 Cbc With Differential Ord2 [...] 1.40 K/ul 03/28/2016 Cbc With Differential Ord2 Jefferson ABS# 0.3 K/ul 03/28/2016 Cbc With Differential Ord2 Eos ABS# 0.1 K/ul 03/28/2016 Cbc With Differential Ord2 Baso ABS# 0.0 K/ul 03/28/2016 Tsh Ord6 hTSH II 6.46 uIU/mL 03/28/2016 Free T4 Sky415 FREE T4 0.74 ng/dL 03/28/2016 Review of Systems System Result Effective Dates Constitutional No recent illness 12/21/2018 Constitutional No [...] developed 10/19/2012 None Full Exam - General 1994 [...] affect 10/19/2012 None Full Exam - General 1995 Psychiatric mood and affect Mood: happy 10/19/2012 None Full Exam - General 1995 Ears/Nose/Throat otoscopic exam Overall: external auditory canals [...] Procedure Codes Date IMMUNIZATION ADMIN CPT- 4: 86969 06/19/2016 IIV4 FLU VACC NO PRESERV ID Formatting Model/CDA Sections, Assigned to/Tawny Torres CT: [id number] CPT-4: 36654Fgufzko 06/19/2016 THER/PROPH/DIAG INJ SC/IM CPT-4: 95089 10/22/2013 THER/PROPH/DIAG INJ SC/IM CPT-4: 25595 07/21/2013 THER/PROPH/DIAG INJ SC/IM CPT-4: 42039 04/21/2013 THER/PROPH/DIAG INJ SC/IM CPT-4: 88517 01/18/2013 THER/PROPH/DIAG INJ SC/IM CPT-4: 39584 10/19/2012 PREV VISIT EST AGE 18-39 CPT-4: 90658 09/26/2011 THER/PROPH/DIAG INJ SC/IM CPT-4: 47042 08/22/2011 TRIAMCINOLONE ACET INJ NOS CPT-4: J3301 08/22/2011 TRIAMCINOLONE ACET INJ NOS CPT-4: J3301 06/20/2011 THER/PROPH/DIAG INJ SC/IM CPT-4: 16865 06/20/2011 ROCEPHIN, PER 250 MG CPT- 4: J0696 06/20/2011 Vital Signs Date Vital 12/21/2018 Blood Pressure 1: 132/74 Code: 8480-6 BMI: 43.9 Code: 02306-9 Heart Rate 1: 85 bpm Height: 5' SpO2: 97% Weight: 225 lbs 07/01/2018 Blood Pressure 1: 134/68 Code: 8480-6 BMI: 44.5 Code: 50464-6 Heart Rate 1: 97 bpm Height: 5' SpO2: 98% Weight: 228 lbs 04/30/2018 Blood Pressure 1: 110/80 Code: 8480-6 BMI: 44.5 Code: 85769-7 Heart Rate 1: 91 bpm Height: 5' SpO2: 99% Weight: 228 lbs 02/13/2018 Blood Pressure 1: 118/84 Code: 8480-6 BMI: 43.9 Code: 42042-9 Heart Rate 1: 101 bpm Height: 5' SpO2: 98% Temperature: 36.8 (C) / 98.2 (F) Weight: 225 lbs 08/04/2017 Blood Pressure 1: 122/76 Code: 8480-6 BMI: 41.8 Code: 33757-0 Heart Rate 1: 117 bpm Height: 5' SpO2: 96% Temperature: 36.6 (C) / 97.9 (F) Weight: 214 lbs 09/18/2016 Blood Pressure 1: 132/78 Code: 8480-6 BMI: 41.2 Code: 16965-6 Heart Rate 1: 94 bpm Height: 5' SpO2: 98% Weight: 211 lbs 06/19/2016 Blood Pressure 1: 132/86 Code: 8480-6 BMI: 39.1 Code: 72462-0 Heart Rate 1: 78 bpm Height: 5' SpO2: 99% Weight: 200 lbs 04/01/2016 Blood Pressure 1: 120/80 Code: 8480-6 BMI: 38.5 Code: 56665-4 Heart Rate 1: 86 bpm Height: 5' SpO2: 96% Weight: 197 lbs 12/12/2014 Blood Pressure 1: 110/82 Code: 8480-6 BMI: 47.8 Code: 51935-7 Heart Rate 1: 90 bpm Height: 5' Weight: 245 lbs 10/26/2014 Blood Pressure 1: 122/76 Code: 8480-6 BMI: 47.1 Code: 53593-7 Heart Rate 1: 96 bpm Height: 5' Weight: 241 lbs 10/22/2013 Blood Pressure 1: 152/88 Code: 8480-6 Heart Rate 1: 88 bpm Weight: 240 lbs 01/07/2013 Blood Pressure 1: 114/80 Code: 8480-6 Weight: 224 lbs 10/19/2012 Blood Pressure 1: 126/94 Code: 8480-6 BMI: 43.5 Code: 57853-7 Heart Rate 1: 104 bpm Height: 5' Respiratory Rate: 16 bpm Weight: 222 lbs 8 oz 08/10/2012 Blood Pressure 1: 112/84 Code: 8480-6 Heart Rate 1: 84 bpm Weight: 233 lbs 03/16/2012 Blood Pressure 1: 110/72 Code: 8480-6 BMI: 43.0 Code: 28207-8 Heart Rate 1: 88 bpm Height: 5' Respiratory Rate: 18 bpm Weight: 220 lbs 01/24/2012 Blood Pressure 1: 104/80 Code: 8480-6 BMI: 43.2 Code: 10972-6 Height: 5' Weight: 221 lbs 11/21/2011 BMI: 45.7 Code: 89285-1 Height: 5' Weight: 234 lbs 09/26/2011 Blood Pressure 1: 110/68 Code: 8480-6 BMI: 46.8 Code: 93418-7 Heart Rate 1: 90 bpm Height: 5' Respiratory Rate: 16 bpm Weight: 239 lbs 8 oz 08/22/2011 Blood Pressure 1: 128/89 Code: 8480-6 BMI: 46.1 Code: 53786-7 Heart Rate 1: 83 bpm Height: 5' Weight: 236 lbs 06/20/2011 Blood Pressure 1: 120/80 Code: 8480-6 BMI: 46.6 Code: 30677-1 Heart Rate 1: 88 bpm Height: 5' Respiratory Rate: 16 bpm Weight: 238 lbs 8 oz Functional Status No Functional Status data History of Present Illness Symptom Name Status Result Effective Date Notes Quality bleeding 12/21/2018 None Quality intermittent 12/21/2018 [...] (18-39 years) Control IUD 09/26/2011 Mirena, placed wx5953 weight gain/obesity Location globally 09/26/2011 pt states that 8 years ago she weighed 135#. weight gain/obesity Weight Status is morbidly obese 09/26/2011 pt states the weight seems to add each year by 10-30 pounds despite exercisingnat the [facility] headache Location diffusely 08/22/2011 None headache [...] data Encounters Encounter Performer Location Codes Date 91151 EST. PATIENT, LEVEL III Diagnosis: Other hemorrhoids[ICD10: K64.8] Mirian Novoa MD, [facility] CPT-4: 65987 12/21/2018 [id number] EST. PATIENT, LEVEL III Diagnosis: Ventral hernia without obstruction or gangrene[ICD10: K43.9] Diagnosis: Epigastric pain[ICD10: R10.13] Mirian Novoa MD, [facility] CPT-4: 33195 07/01/2018 ([id number]) 49730 EST. PATIENT, LEVEL III Diagnosis: Slow transit constipation[ICD10: K59.01] Diagnosis: Generalized abdominal pain[ICD10: R10.84] Em Novoa MD, [facility] CPT-4: 85349 04/30/2018 ([id number]) 96551 EST. PATIENT, LEVEL III Diagnosis: Cough[ICD10: R05] Diagnosis: Acute recurrent maxillary sinusitis[ICD10: J01.01] Em Novoa MD, [facility] CPT-4: 64981 02/13/2018 ([id number]) 16868 EST. PATIENT, LEVEL III Diagnosis: Dehydration[ICD10: E86.0] Diagnosis: Nausea[ICD10: R11.0] Diagnosis: Diarrhea, unspecified[ICD10: R19.7] Em Novoa MD, [facility] CPT-4: 95622 08/04/2017 00027 EST. PATIENT, LEVEL III Diagnosis: Low back pain[ICD10: M54.5] Mirian Novoa MD, [facility] CPT-4: 89760 09/18/2016 29531 EST. PATIENT, LEVEL IV Diagnosis: VACCIN FOR INFLUENZA[ICD10: Z23] Diagnosis: Other specified hypothyroidism[ICD10: E03.8] Mirian Novoa MD, [facility] CPT-4: 60883 06/19/2016 ([id number]) 86862 EST. PATIENT, LEVEL III Diagnosis: Hypothyroidism, unspecified[ICD10: E03.9] Em Novoa MD, [facility] CPT-4: 44058 04/01/2016 ([id number]) 28728 EST. PATIENT, LEVEL III Diagnosis: Missed periods[ICD9: 626.4] Mandy Novoa MD, [facility] CPT-4: 39235 12/12/2014 ([id number]) PREV VISIT EST AGE 18-39 Diagnosis: ROUTINE GYNE EXAM[ICD9: V72.31] Mandy Novoa MD, [facility] CPT-4: 87048 10/26/2014 ([id number]) PREV VISIT EST AGE 18-39 Diagnosis: ROUTINE GYNE EXAM[ICD9: V72.31] [facility] CPT-4: 74176 10/22/2013 ([id number]) Miscellaneous no charge Diagnosis: MORBID OBESITY[ICD9: 278.01] [facility] CPT-4: 82315 01/07/2013 ([id number]) 75458 EST. PATIENT, LEVEL III Diagnosis: Allergic rhinitis[ICD9: 477.9] Diagnosis: Contraceptive surveillance, unspecified[ICD9: V25.40] Diagnosis: MORBID OBESITY[ICD9: 278.01] Mandy Novoa MD, [facility] CPT-4: 27425 10/19/2012 ([id number]) 60763 EST. PATIENT, LEVEL III Diagnosis: Varicose veins of both lower extremities with pain[ICD9: 454.8] Diagnosis: Obesities, morbid[ICD9: 278.01] Mandy Novoa MD, [facility] CPT-4: 73041 08/10/2012 ([id number]) 53525 EST. PATIENT, LEVEL IV Diagnosis: Abdominal pain[ICD9: 789.00] Diagnosis: Breast tenderness in female[ICD9: 611.71] Mandy Novoa MD, [facility] CPT-4: 53814 03/16/2012 Miscellaneous no charge Diagnosis: MORBID OBESITY[ICD9: 278.01] [facility] CPT-4: 51010 01/24/2012 Miscellaneous no charge Diagnosis: MORBID OBESITY[ICD9: 278.01] [facility] CPT-4: 05591 11/21/2011 15605 EST. PATIENT, LEVEL III Diagnosis: ACUTE SINUSITIS[ICD9: 461.9] Diagnosis: HEADACHE[ICD9: 784.0] [facility] CPT-4: 29980 08/22/2011 15218 EST. PATIENT, LEVEL III Diagnosis: ACUTE SINUSITIS[ICD9: 461.9] Diagnosis: Environmental allergies[ICD9: 477.9] [facility] CPT-4: 72428 06/20/2011 Plan of Care Planned Activity Notes Codes Status Date Visit Plan: Hemorrhoids - pt is to use suppositories as directed - pt is to increase fiber and fluid intake and notify clinic if symptoms do not improve, if they worsen, or with any changes, questions, or concerns. 12/21/2018 Appointment: Mirian Osei WPtel: [phone] [facility] [place] (30 min) Complex 12/21/2018 Patient Education: Patient Medication Summary Completed 12/21/2018 Visit Plan: Abdominal hernia - will repeat US - pt is to consider referral to surgeon - pt is to go to the ER or notify clinic with any changes, questions, or concerns. 07/01/2018 Appointment: Mirian Osei WPtel: [phone] [facility] [place] (15 min) Moderate 07/01/2018 Patient Education: [...] ultrasound 04/30/2018 Appointment: Em Ortiz WPtel: [phone] [phone] [place] (15 min) Moderate 04/30/2018 Patient Education: Patient Medication Summary Completed 04/30/2018 Visit Plan: Sinusitis - Pt has acute infection - pain in face, maxillary region, Pt informed to use decongestant, RX given to patient, sinus rinses also recommended. Call if symptoms do not show improvement. 02/13/2018 Appointment: Em Ortiz WPtel: [phone] [phone] (15 min) Moderate 02/13/2018 Patient Education: Patient Medication Summary Completed 02/13/2018 Patient Education: Patient Medication Summary Completed 09/11/2017 Visit Plan: Isujuoxwhsszqar-krgcijxzfsy-dbffsdd sent for outpatient IVF and anti nausea [...] improved. 08/04/2017 Appointment: Em Ortiz WPtel: [phone] [phone] (15 min) Moderate 08/04/2017 Patient Education: Patient Medication Summary Completed 08/04/2017 Patient Education: Obesity Completed 08/04/2017 Appointment: Mandy Novoa WPtel: [phone] [phone] (15 min) Moderate 12/31/2016 Visit Plan: Low [...] improve. 09/18/2016 [phone] [facility] Complex 09/18/2016 Patient Education: Patient [...] RX. 06/19/2016 Appointment: Em Ortiz WPtel: [phone] [phone] (30 min) Complex 06/19/2016 Patient Education: Patient [...] of control. 04/01/2016 [facility]ment: [phone] (30 min) Complex 04/01/2016 Patient Education: Patient [...] triosant 13mcg. 12/12/2014 Appointment: Mandy Novoa WPtel: [facility] Other 12/12/2014 Patient Education: Patient Medication Summary [...] or prn. 10/26/2014 Appointment: Mandy Novoa WPtel: [facility]8 [facility] [facility] 10/26/2014 Patient Education: Patient Medication [...] or prn. 10/22/2013 Appointment: Em Ortiz WPtel[phone] [facility] 10/22/2013 Patient Education: Patient Medication Summary Completed 10/22/2013 Appointment: M[facility]oa [facility]Ptel[facility] [facility] 07/21/2013 Patient Education: Patient Medication Summary Completed 07/21/2013 [facility]ment: [phone] [phone] [place] Injection 07/20/2013 Visit Plan: depo injection today 04/21/2013 Patient Education: Patient Medication Summary Completed 04/21/2013 [facility]ment[phone] [phone] [place] Injection 01/18/2013 Patient Education: Patient Medication [...] weight check. 10/19/2012 Appointment: Mandy Novoa WPtel: [facility] Follow up 10/19/2012 Patient Education: Patient [...] weight check. 08/10/2012 Appointment: Mandy Novoa WPtel: [facility]5 [facility] Follow up 08/10/2012 Patient Education: Patient Medication [...] ovarian cysts. 03/16/2012 Appointment: Mandy Novoa WPtel: [facility]5 [facility] Other 03/16/2012 Patient Education: Patient Medication Summary Completed 03/16/2012 Appointment: Em Ortiz WPtel: [facility] [phone] Lab Draw 03/02/2012 Visit Plan: Weight and blood pressure check 01/24/2012 Appointment: Em Ortiz WPtel: [facility] [phone] Other 01/24/2012 Patient Education: Patient Medication Summary Completed 01/24/2012 Visit Plan: Weight check only 11/21/2011 Appointment: Em Ortiz WPtel: [facility] [id number] Other 11/21/2011 Patient Education: Patient Medication Summary [...] pressure occur. 09/26/2011 Appointment: Mandy Novoa WPtel: [id number] [facility] 09/26/2011 Patient Education: Patient [...] as well. 08/22/2011 Appointment: Em Ortiz WPtel: [facility] Other 08/22/2011 Patient Education: Patient Medication Summary Completed 08/22/2011 Visit Plan: Sinusitis - Pt has acute infection - pain in face, maxillary region, Pt informed to use decongestant, RX given to patient, sinus rinses also recommended. Call if symptoms do not show improvement. 06/20/2011 Visit Plan: Sinusitis - Pt has acute infection - pain in face, maxillary region, Pt informed to use decongestant, RX given to patient, sinus rinses also recommended. Call if symptoms do not show improvement. Allergies- kenalog injection in the office today. Continue claritin 10mg daily. Call if symptoms do not improve. 06/20/2011 Appointment: Em Ortiz WPtel: [facility] [place] [id number] Other 06/20/2011 Patient Education: Patient Medication Summary Completed 06/20/2011 Instructions Comment preparation H suppository 3 times a day [...] or with any changes, questions, or concerns. RX for labs provided for fasting lab work. We will call you when we get the results. Call if your symptoms do not improve, or any worse.. Sinusitis - Pt has acute infection - pain in face, maxillary region, Pt informed to use decongestant, RX given to patient, sinus rinses also recommended. Call if symptoms do not show improvement. . Sinusitis - Pt has acute infection - pain in face, maxillary region, Pt informed to use decongestant, RX given to patient, sinus rinses also recommended. Call if symptoms do not show improvement. Allergies-kenalog injection in the office today. Continue claritin 10mg daily. Call if symptoms do not improve. CALL DR PA AND SEE WHAT YOU [...] mesh placement -will evaluate with ultrasound . depo injection today . Well Adult Female - exam completed. [...] RTC in one month for weight check. outpatient IVF check labs start probiotic twice daily . [id number] sent for outpatient IVF and anti nausea medication- will also check labs - discussed need to stay away from milk products while acutely ill with diarrhea and nausea and emesis as it may worsen the symptoms. Liquids initially until the nausea improves, then recommend to advance to bland diet for 1 day, then advance as tolerated. Call if symptoms not improved. . Well Adult Female - exam completed. Pap and gc/chlamydia and breast exam completed. Pt will be called with results of her testing. She was advised to continue with yearly annual exams. Safe sex practices discussed during office visit today. Call if any abnormal gynecologic issues during the next year, otherwise, RTC yearly or prn. continue claritin 10mg po daily Vimovo 1 [...] Continue with nasal saline rinses as well. Varicose Veins - recommended OTC compression tights/leggings. [...] in one month for weight check. . Missed period - pt sent to lab for beta hcg - will call pt with report. She has decided that her OB of choice would be Dr. Matos. Pt is to restart thyroid medication - pt given samples of triosant 13mcg. . Hypothyroidism - pt with chronic hypothyroidism, [...] about sea sickness - will send RX. Ibuprofen - 400mg-800mg three times a day [...] is worsening or does not improve. . Sinusitis - Pt has acute infection - pain in face, maxillary region, Pt informed to use decongestant, RX given to patient, sinus rinses also recommended. Call if symptoms do not show improvement. Dr. Chris Sage. Abdominal hernia - will repeat US - pt is to consider referral to surgeon - pt is to go to the ER or notify clinic with any changes, questions, or concerns. . Pt with abdominal pain- has been [...] concern is for bilateral ovarian cysts. . Weight check only . Well Adult Female - exam completed. [...] severe headache or uncontrolled blood pressure occur. NO CHANGE IN THYROID DOSE-TRY TAKING IT [...] based on previous levels of control. . Ok to refill phentermine . Weight and blood pressure check
--- OUTSIDE RECORDS SUMMARY | 2019-01-28 06:12 | XMS REPORT | CCD ---
Author Author Em Ortiz MD, 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 Name Role Phone PP Unavailable CCM Unavailable Summary Purpose Interface Exchange Insurance Providers Payer name Policy type / Coverage type Covered democrat ID Effective Begin Date Effective End Date [employer] [id number] Unknown Family history Brother Diagnosis Age At Onset Denies: *Denies any medical problems Unknown Mother Diagnosis Age At Onset Diabetes mellitus Type 2 Unknown Father Diagnosis Age At Onset Denies: *Denies any medical problems Unknown Sister Diagnosis Age At Onset Denies: *Denies any medical problems Unknown Social History Social History Element Codes Description Effective Dates Marital status Unknown 09/26/[address]: 918919332 Nonsmoker 09/26/[address]: 484883696 Never drinks alcohol 09/26/2011 Has the patient ever used illegal drugs? 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/2011 Allergies, Adverse Reactions, Alerts Substance Reaction [...] Fill Instructions amoxicillin 500 mg tablet RxNorm: 008724 1 Tablet(s) PO TID 02/13/2018 02/22/2018 Inactive Alicia-D 24 Hour 180 mg-240 mg tablet,extended release RxNorm: 189359 1 Tablet(s) PO daily as needed 12/16/2017 02/13/2018 Inactive promethazine 25 mg tablet RxNorm: 704224 1 Tablet(s) PO Q6 PRN 08/04/2017 02/12/2018 Inactive promethazine 25 mg tablet RxNorm: 188639 1 Tablet(s) PO Q6 PRN 08/04/2017 08/03/2017 Inactive Valtrex 1 gram tablet RxNorm: 676622 1 Tablet(s) PO daily 05/21/2017 02/12/2018 Inactive Tirosint 13 mcg capsule RxNorm: 256096 TAKE 1 CAPSULE BY MOUTH DAILY 03/10/2017 11/16/2017 Inactive Valtrex 1 gram tablet RxNorm: 191186 1 TABLET(S) PO DAILY 03/05/2017 03/28/2017 Inactive Alicia-D 24 Hour 180 mg-240 mg tablet,extended release RxNorm: 302511 1 Tablet(s) PO daily as needed 07/09/2016 12/15/2017 Inactive Tirosint 13 mcg capsule RxNorm: 118629 Capsule(s) 1 CAPSULE(S) PO DAILY 07/08/2016 01/03/2017 Inactive Tirosint 13 mcg capsule RxNorm: 818523 Capsule(s) 1 CAPSULE(S) PO DAILY 06/26/2016 07/07/2016 Inactive daw1 scopolamine 1.5 mg transdermal patch (1 mg over 3 days) RxNorm: 004230 1 Patch TD Q72H 06/19/2016 02/12/2018 Inactive Tirosint 25 mcg capsule RxNorm: 303146 1 Capsule(s) PO daily 06/19/2016 06/18/2016 Inactive Tirosint 25 mcg capsule RxNorm: 290863 1 Capsule(s) PO daily 06/19/2016 06/25/2016 Inactive meclizine 25 mg tablet RxNorm: 482951 1 Tablet(s) PO TID as needed 06/19/2016 06/25/2016 Inactive Valtrex 1 gram tablet RxNorm: 871509 1 TABLET(S) PO DAILY 06/11/2016 07/04/2016 Inactive Tirosint 13 mcg capsule RxNorm: 856572 1 CAPSULE(S) PO DAILY 03/25/2016 06/19/2016 Inactive daw1 Valtrex 1 gram tablet RxNorm: 242015 1 TABLET(S) PO DAILY 02/23/2015 03/18/2015 Inactive Tirosint 13 mcg capsule RxNorm: 833794 1 Capsule(s) PO daily 02/06/2015 02/05/2015 Inactive Tirosint 13 mcg capsule RxNorm: 679594 1 Capsule(s) PO daily 02/06/2015 03/24/2016 Inactive daw1 Zithromax Z-Emmanuel 250 mg tablet RxNorm: 288076 Tablet(s) PO UD 04/05/2014 10/25/2014 Inactive [SAVINGS FOR UNINSURED PATIENTS -- BIN:[id number], PCN: [id number], Group: [id number], ID# [id number], Process claim through [employer], for questions: . THIS IS NOT INSURANCE.] Valtrex 1 g tablet RxNorm: 129732 Tablet(s) PO TAKE 1 TABLET BY MOUTH DAILY 12/30/2013 05/20/2017 Inactive Synthroid 75 mcg tablet RxNorm: 554800 Tablet(s) PO TAKE 1 TABLET BY MOUTH DAILY 12/30/2013 10/25/2014 Inactive Valtrex 1 gram tablet RxNorm: 726079 1 Tablet(s) PO daily 12/29/2013 01/09/2014 Inactive medroxyprogesterone 150 mg/mL intramuscular syringe RxNorm: 7579855 Milliliter(s) IM 10/22/2013 10/22/2013 Inactive Depo-Provera 150 mg/mL intramuscular suspension RxNorm: 6246803 Milliliter(s) IM bring to clinic for admin. 10/20/2013 10/25/2014 Inactive Valtrex 1 g tablet RxNorm: 113925 1 Tablet(s) PO daily 09/03/2013 09/14/2013 Inactive medroxyprogesterone 150 mg/mL intramuscular syringe RxNorm: 4187111 Milliliter(s) IM 07/21/2013 07/21/2013 Inactive Depo-Provera 150 mg/mL intramuscular suspension RxNorm: 1836466 Milliliter(s) IM bring to clinic for admin. 07/20/2013 10/19/2013 Inactive Synthroid 75 mcg tablet RxNorm: 348427 1 Tablet(s) PO daily 06/23/2013 12/19/2013 Inactive Synthroid 75 mcg tablet RxNorm: 426718 1 Tablet(s) PO daily 05/31/2013 06/22/2013 Inactive Synthroid 75 mcg tablet RxNorm: 475607 1 Tablet(s) PO daily 05/31/2013 05/30/2013 Inactive Depo-Provera 150 mg/mL IM Syringe RxNorm: 1889062 Milliliter(s) IM 04/21/2013 04/21/2013 Inactive Depo-Provera 150 mg/mL intramuscular suspension RxNorm: 2312395 Milliliter(s) IM bring to clinic for admin. 04/12/2013 07/19/2013 Inactive Depo-Provera 150 mg/mL IM Syringe RxNorm: 1260276 Milliliter(s) IM 01/18/2013 01/18/2013 Inactive phentermine 37.5 mg disintegrating tablet RxNorm: 8347775 1 Tablet(s) PO daily 01/08/2013 02/06/2013 Inactive medroxyprogesterone 150 mg/mL IM Susp RxNorm: 6708001 Milliliter(s) IM 10/19/2012 10/19/2012 Inactive Nasonex 50 mcg/actuation Butterfield RxNorm: 530627 1 Butterfield NASAL BID 1 spray each nare bid 10/19/2012 02/12/2018 Inactive phentermine 37.5 mg disintegrating tablet RxNorm: 5422825 1 Tablet(s) PO daily 10/19/2012 11/17/2012 Inactive Depo-Provera 150 mg/mL IM Susp RxNorm: 9131462 IM bring to clinic for admin. 10/16/2012 04/11/2013 Inactive Synthroid 50 mcg tablet RxNorm: 719761 1 Tablet(s) PO daily 09/07/2012 05/30/2013 Inactive Synthroid 50 mcg tablet RxNorm: 879478 1 Tablet(s) PO daily 09/07/2012 05/30/2013 Inactive Valtrex 1 g tablet RxNorm: 691589 1 Tablet(s) PO daily 2012 08/31/2012 Inactive Valtrex 1 g tablet RxNorm: 852337 1 Tablet(s) PO daily 2012 08/19/2012 Inactive phentermine 37.5 mg Tab RxNorm: 129299 1 Tablet(s) PO daily 03/02/2012 10/19/2012 Inactive phentermine 37.5 mg Tab RxNorm: 647445 1 Tablet(s) PO daily 01/24/2012 02/22/2012 Inactive phentermine 37.5 mg Tab RxNorm: 147263 1 Tablet(s) PO daily 12/23/2011 01/21/2012 Inactive Nasonex 50 mcg/actuation Butterfield RxNorm: 724286 1 Butterfield NASAL BID 1 spray each nare bid 12/19/2011 10/18/2012 Inactive Nasonex 50 mcg/actuation [place] RxNorm: 330430 1 [place] NASAL BID 1 spray each nare bid 12/19/2011 12/18/2011 Inactive Synthroid 50 mcg Tab RxNorm: 421494 Tablet(s) PO 12/10/2011 05/31/2013 Inactive TAKE ONE TABLET BY MOUTH DAILY;Patient requests 90 day supply Omnaris 50 mcg Nasal [place] RxNorm: 339758 2 [place]field NASAL daily 2 sprays per nostril daily 12/09/2011 12/18/2011 Inactive Synthroid 50 mcg tablet RxNorm: 582518 1 Tablet(s) PO daily 12/09/2011 09/06/2012 Inactive Synthroid 50 mcg Tab RxNorm: 129721 1 Tablet(s) PO daily 12/09/2011 12/09/2011 Inactive phentermine 37.5 mg Tab RxNorm: 776044 1 Tablet(s) PO daily 11/21/2011 12/20/2011 Inactive Claritin-D 24 Hour 10 mg-240 mg Tab RxNorm: 6126542 1 Tablet(s) PO PRN 09/26/2011 02/12/2018 Inactive Valtrex 1 g Tab RxNorm: 406403 1 Tablet(s) PO daily 08/28/2011 08/30/2011 Inactive Valtrex 1 g Tab RxNorm: 408875 1 Tablet(s) PO daily one daily x 3 days, may continue x 2 more days if the cold sore is not resolved 08/28/2011 09/26/2011 Inactive Kenalog 40 mg/mL Susp for Injection RxNorm: 4012284 1.5 Milliliter(s) Inj 08/23/2011 08/23/2011 Inactive Levaquin 500 mg Tab RxNorm: 870894 1 Tablet(s) PO daily 08/22/2011 09/26/2011 Inactive Synthroid 50 mcg Tab RxNorm: 790385 1 Tablet(s) PO daily 08/07/2011 08/06/2011 Inactive Synthroid 50 mcg tablet RxNorm: 497000 1 Tablet(s) PO daily 08/07/2011 09/07/2012 Inactive Omnaris 50 mcg Nasal [place] RxNorm: 584430 2 [place]field NASAL daily 2 sprays per nostril daily 06/20/2011 12/08/2011 Inactive Rocephin 500 mg Solution for Injection RxNorm: 4810102 1 Milliliter(s) Inj 06/20/2011 09/26/2011 Inactive Kenalog 40 mg/mL Susp for Injection RxNorm: 1551799 1 Milliliter(s) Inj 06/20/2011 09/26/2011 Inactive cefdinir 300 mg Cap RxNorm: 457269 1 Capsule(s) PO BID 06/20/2011 09/26/2011 Inactive + Iron oral RxNorm: oral No Start Date Active Omnaris 50 mcg Nasal [place] RxNorm: 091391 2 [place]field NASAL daily 2 sprays per nostril daily No Start Date 06/19/2011 Inactive Fish Oil 1,000 mg Cap RxNorm: 1 Capsule(s) PO daily No Start Date 02/12/2018 Inactive Depo-Provera 150 mg/mL intramuscular syringe RxNorm: 1612119 1 Milliliter(s) IM q 3 month No Start Date 10/25/2014 Inactive Alicia-D 24 Hour 180 mg-240 mg tablet,extended release RxNorm: 306751 1 Tablet(s) PO daily as needed No Start Date 07/08/2016 Inactive Vitamin B-6 oral RxNorm: 358430 oral No Start Date 04/29/2018 Inactive Claritin-D 24 Hour 10 mg-240 mg Tab RxNorm: 1807701 1 Tablet(s) PO daily No Start Date 09/25/2011 Inactive Synthroid 25 mcg Tab RxNorm: 526275 1 Tablet(s) PO daily No Start Date 09/26/2011 Inactive Zithromax Z-Emmanuel 250 mg tablet RxNorm: 921856 Tablet(s) PO UD No Start Date 04/04/2014 Inactive Depo-Provera 150 mg/mL IM Susp RxNorm: 8188691 IM No Start Date 10/15/2012 Inactive Medication Administered Medication Codes Instructions Start Date Status medroxyprogesterone 150 mg/mL intramuscular syringe RxNorm: 1788832 Milliliter 10/22/2013 No longer Active medroxyprogesterone 150 mg/mL intramuscular syringe RxNorm: 8541771 Milliliter 07/21/2013 No longer Active Depo-Provera 150 mg/mL IM Syringe RxNorm: 2321522 Milliliter 04/21/2013 No longer Active Depo-Provera 150 mg/mL IM Syringe RxNorm: 6053519 Milliliter 01/18/2013 No longer Active medroxyprogesterone 150 mg/mL IM Susp RxNorm: 3631311 Milliliter 10/19/2012 No longer Active Kenalog 40 mg/mL Susp for Injection RxNorm: 0106919 1.5Milliliter 08/23/2011 No longer Active Immunizations Vaccine [...] hTSH II 4.61 uIU/mL 06/17/2016 Free T4 Fak901 FREE T4 0.77 ng/dL 06/17/2016 Comp Metabolic Mnt426 NA 135 mEq/L 03/28/2016 Comp Metabolic Csu075 K 3.9 mEq/L 03/28/2016 Comp Metabolic Ndm147 CL 107 mEq/L 03/28/2016 Comp Metabolic Fgv972 CO2 24.0 mEq/L 03/28/2016 Comp Metabolic Gpi387 ANION GAP 8 03/28/2016 Comp Metabolic Yyb753 GLUCOSE 85 mg/dL 03/28/2016 Comp Metabolic Ziy355 Creat 0.7 mg/dL 03/28/2016 Comp Metabolic Qvu256 eGFR 98 ml/min/1.73m2 03/28/2016 Comp Metabolic Oup416 BUN 15 mg/dL 03/28/2016 Comp Metabolic Hsr658 B/C Ratio 20.5 Ratio 03/28/2016 Comp Metabolic Vpp022 CALCIUM 8.7 mg/dL 03/28/2016 Comp Metabolic Ved443 ALK PHOS 70 U/L 03/28/2016 Comp Metabolic Blj245 AST(SGOT) 15 U/L 03/28/2016 Comp Metabolic Kbb752 ALT(SGPT) 15 U/L 03/28/2016 Comp Metabolic Uzd103 BILI T 0.7 mg/dL 03/28/2016 Comp Metabolic Tbp702 ALBUMIN 3.9 g/dL 03/28/2016 Comp Metabolic Qxc038 TPRO 6.3 g/dL 03/28/2016 Comp Metabolic Zzq617 GLOB 2.4 g/dL 03/28/2016 Comp Metabolic Fbk391 A/G Ratio 1.6 Ratio 03/28/2016 Comp Metabolic Ozx070 Osmo 270 mOsmo 03/28/2016 Lipid Ord30 CHOL [...] 28.5 pg 03/28/2016 Cbc With Differential Ord2 Edwards% 6.6 % 03/28/2016 Cbc With Differential Ord2 [...] 1.40 K/ul 03/28/2016 Cbc With Differential Ord2 Edwards ABS# 0.3 K/ul 03/28/2016 Cbc With Differential Ord2 Eos ABS# 0.1 K/ul 03/28/2016 Cbc With Differential Ord2 Baso ABS# 0.0 K/ul 03/28/2016 Tsh Ord6 hTSH II 6.46 uIU/mL 03/28/2016 Free T4 Pfz866 FREE T4 0.74 ng/dL 03/28/2016 Review of [...] Procedure Codes Date IMMUNIZATION ADMIN CPT- 4: 23410 06/19/2016 IIV4 FLU VACC NO PRESERV ID Formatting Model/CDA Sections, Assigned to/Tawny Torres CT: [id number] CPT-4: 60376Vkppwiy 06/19/2016 THER/PROPH/DIAG INJ SC/IM CPT-4: 65829 10/22/2013 THER/PROPH/DIAG INJ SC/IM CPT-4: 76404 07/21/2013 THER/PROPH/DIAG INJ SC/IM CPT-4: 39302 04/21/2013 THER/PROPH/DIAG INJ SC/IM CPT-4: 39846 01/18/2013 THER/PROPH/DIAG INJ SC/IM CPT-4: 51170 10/19/2012 PREV VISIT EST AGE 18-39 CPT-4: 29633 09/26/2011 THER/PROPH/DIAG INJ SC/IM CPT-4: 59482 08/22/2011 TRIAMCINOLONE ACET INJ NOS CPT-4: J3301 08/22/2011 TRIAMCINOLONE ACET INJ NOS CPT-4: J3301 06/20/2011 THER/PROPH/DIAG INJ SC/IM CPT-4: 63045 06/20/2011 ROCEPHIN, PER 250 MG CPT- 4: J0696 06/20/2011 Vital Signs Date Vital 12/21/2018 Blood Pressure 1: 132/74 Code: 8480-6 BMI: 43.9 Code: 88832-0 Heart Rate 1: 85 bpm Height: 5' SpO2: 97% Weight: 225 lbs 07/01/2018 Blood Pressure 1: 134/68 Code: 8480-6 BMI: 44.5 Code: 65748-0 Heart Rate 1: 97 bpm Height: 5' SpO2: 98% Weight: 228 lbs 04/30/2018 Blood Pressure 1: 110/80 Code: 8480-6 BMI: 44.5 Code: 46168-0 Heart Rate 1: 91 bpm Height: 5' SpO2: 99% Weight: 228 lbs 02/13/2018 Blood Pressure 1: 118/84 Code: 8480-6 BMI: 43.9 Code: 01599-3 Heart Rate 1: 101 bpm Height: 5' SpO2: 98% Temperature: 36.8 (C) / 98.2 (F) Weight: 225 lbs 08/04/2017 Blood Pressure 1: 122/76 Code: 8480-6 BMI: 41.8 Code: 44441-3 Heart Rate 1: 117 bpm Height: 5' SpO2: 96% Temperature: 36.6 (C) / 97.9 (F) Weight: 214 lbs 09/18/2016 Blood Pressure 1: 132/78 Code: 8480-6 BMI: 41.2 Code: 66376-2 Heart Rate 1: 94 bpm Height: 5' SpO2: 98% Weight: 211 lbs 06/19/2016 Blood Pressure 1: 132/86 Code: 8480-6 BMI: 39.1 Code: 43545-2 Heart Rate 1: 78 bpm Height: 5' SpO2: 99% Weight: 200 lbs 04/01/2016 Blood Pressure 1: 120/80 Code: 8480-6 BMI: 38.5 Code: 46950-3 Heart Rate 1: 86 bpm Height: 5' SpO2: 96% Weight: 197 lbs 12/12/2014 Blood Pressure 1: 110/82 Code: 8480-6 BMI: 47.8 Code: 50394-4 Heart Rate 1: 90 bpm Height: 5' Weight: 245 lbs 10/26/2014 Blood Pressure 1: 122/76 Code: 8480-6 BMI: 47.1 Code: 67982-1 Heart Rate 1: 96 bpm Height: 5' Weight: 241 lbs 10/22/2013 Blood Pressure 1: 152/88 Code: 8480-6 Heart Rate 1: 88 bpm Weight: 240 lbs 01/07/2013 Blood Pressure 1: 114/80 Code: 8480-6 Weight: 224 lbs 10/19/2012 Blood Pressure 1: 126/94 Code: 8480-6 BMI: 43.5 Code: 32851-3 Heart Rate 1: 104 bpm Height: 5' Respiratory Rate: 16 bpm Weight: 222 lbs 8 oz 08/10/2012 Blood Pressure 1: 112/84 Code: 8480-6 Heart Rate 1: 84 bpm Weight: 233 lbs 03/16/2012 Blood Pressure 1: 110/72 Code: 8480-6 BMI: 43.0 Code: 53068-0 Heart Rate 1: 88 bpm Height: 5' Respiratory Rate: 18 bpm Weight: 220 lbs 01/24/2012 Blood Pressure 1: 104/80 Code: 8480-6 BMI: 43.2 Code: 03019-6 Height: 5' Weight: 221 lbs 11/21/2011 BMI: 45.7 Code: 41423-4 Height: 5' Weight: 234 lbs 09/26/2011 Blood Pressure 1: 110/68 Code: 8480-6 BMI: 46.8 Code: 64376-7 Heart Rate 1: 90 bpm Height: 5' Respiratory Rate: 16 bpm Weight: 239 lbs 8 oz 08/22/2011 Blood Pressure 1: 128/89 Code: 8480-6 BMI: 46.1 Code: 04506-7 Heart Rate 1: 83 bpm Height: 5' Weight: 236 lbs 06/20/2011 Blood Pressure 1: 120/80 Code: 8480-6 BMI: 46.6 Code: 14531-8 Heart Rate 1: 88 bpm Height: 5' [...] (18-39 years) Control IUD 09/26/2011 Mirena, placed ga5647 weight gain/obesity Location globally 09/26/2011 pt states that 8 years ago she weighed 135#. weight gain/obesity Weight Status is morbidly obese 09/26/2011 pt states the weight seems to add each year by 10-30 pounds despite exercisingnat the [facility] headache Location diffusely 08/22/2011 None headache [...] data Encounters Encounter Performer Location Codes Date 22590 EST. PATIENT, LEVEL III Diagnosis: Other hemorrhoids[ICD10: K64.8] Mirian Novoa MD, [facility] CPT-4: 17015 12/21/2018 [id number] EST. PATIENT, LEVEL III Diagnosis: Ventral hernia without obstruction or gangrene[ICD10: K43.9] Diagnosis: Epigastric pain[ICD10: R10.13] Mirian Novoa MD, [facility] CPT-4: 47378 07/01/2018 ([id number]) 41799 EST. PATIENT, LEVEL III Diagnosis: Slow transit constipation[ICD10: K59.01] Diagnosis: Generalized abdominal pain[ICD10: R10.84] Em Novoa MD, [facility] CPT-4: 02409 04/30/2018 ([id number]) 45784 EST. PATIENT, LEVEL III Diagnosis: Cough[ICD10: R05] Diagnosis: Acute recurrent maxillary sinusitis[ICD10: J01.01] Em Novoa MD, [facility] CPT-4: 30094 02/13/2018 ([id number]) 23125 EST. PATIENT, LEVEL III Diagnosis: Dehydration[ICD10: E86.0] Diagnosis: Nausea[ICD10: R11.0] Diagnosis: Diarrhea, unspecified[ICD10: R19.7] Em Novoa MD, [facility] CPT-4: 06871 08/04/2017 11634 EST. PATIENT, LEVEL III Diagnosis: Low back pain[ICD10: M54.5] Mirian Novoa MD, [facility] CPT-4: 79087 09/18/2016 73857 EST. PATIENT, LEVEL IV Diagnosis: VACCIN FOR INFLUENZA[ICD10: Z23] Diagnosis: Other specified hypothyroidism[ICD10: E03.8] Mirian Novoa MD, [facility] CPT-4: 47509 06/19/2016 ([id number]) 53430 EST. PATIENT, LEVEL III Diagnosis: Hypothyroidism, unspecified[ICD10: E03.9] Em Novoa MD, [facility] CPT-4: 88823 04/01/2016 ([id number]) 20266 EST. PATIENT, LEVEL III Diagnosis: Missed periods[ICD9: 626.4] Mandy Novoa MD, [facility] CPT-4: 31191 12/12/2014 ([id number]) PREV VISIT EST AGE 18-39 Diagnosis: ROUTINE GYNE EXAM[ICD9: V72.31] Mandy Novoa MD, [facility] CPT-4: 42093 10/26/2014 ([id number]) PREV VISIT EST AGE 18-39 Diagnosis: ROUTINE GYNE EXAM[ICD9: V72.31] [facility] CPT-4: 08228 10/22/2013 ([id number]) Miscellaneous no charge Diagnosis: MORBID OBESITY[ICD9: 278.01] [facility] CPT-4: 53572 01/07/2013 ([id number]) 10177 EST. PATIENT, LEVEL III Diagnosis: Allergic rhinitis[ICD9: 477.9] Diagnosis: Contraceptive surveillance, unspecified[ICD9: V25.40] Diagnosis: MORBID OBESITY[ICD9: 278.01] Mandy Novoa MD, [facility] CPT-4: 14520 10/19/2012 ([id number]) 96167 EST. PATIENT, LEVEL III Diagnosis: Varicose veins of both lower extremities with pain[ICD9: 454.8] Diagnosis: Obesities, morbid[ICD9: 278.01] Mandy Novoa MD, [facility] CPT-4: 33642 08/10/2012 ([id number]) 40897 EST. PATIENT, LEVEL IV Diagnosis: Abdominal pain[ICD9: 789.00] Diagnosis: Breast tenderness in female[ICD9: 611.71] Mandy Novoa MD, [facility] CPT-4: 02392 03/16/2012 Miscellaneous no charge Diagnosis: MORBID OBESITY[ICD9: 278.01] [facility] CPT-4: 28637 01/24/2012 Miscellaneous no charge Diagnosis: MORBID OBESITY[ICD9: 278.01] [facility] CPT-4: 26469 11/21/2011 71990 EST. PATIENT, LEVEL III Diagnosis: ACUTE SINUSITIS[ICD9: 461.9] Diagnosis: HEADACHE[ICD9: 784.0] [facility] CPT-4: 46895 08/22/2011 21828 EST. PATIENT, LEVEL III Diagnosis: ACUTE SINUSITIS[ICD9: 461.9] Diagnosis: Environmental allergies[ICD9: 477.9] [facility] CPT-4: 01452 06/20/2011 Plan of Care Planned Activity Notes Codes Status Date Visit Plan: Hemorrhoids - pt is to use suppositories as directed - pt is to increase fiber and fluid intake and notify clinic if symptoms do not improve, if they worsen, or with any changes, questions, or concerns. 12/21/2018 Appointment: Mirian Osei WPtel: [phone] [facility] [place] (30 min) Complex 12/21/2018 Patient Education: Patient Medication Summary Completed 12/21/2018 Visit Plan: Abdominal hernia - will repeat US - pt is to consider referral to surgeon - pt is to go to the ER or notify clinic with any changes, questions, or concerns. 07/01/2018 Appointment: Mirian Osei WPtel: [phone] [place] (15 min) Moderate 07/01/2018 Patient Education: [...] ultrasound 04/30/2018 Appointment: Em Ortiz WPtel: [phone] [place] (15 min) Moderate 04/30/2018 Patient Education: Patient Medication Summary Completed 04/30/2018 Visit Plan: Sinusitis - Pt has acute infection - pain in face, maxillary region, Pt informed to use decongestant, RX given to patient, sinus rinses also recommended. Call if symptoms do not show improvement. 02/13/2018 Appointment: Em Ortiz WPtel: [phone] (15 min) Moderate 02/13/2018 Patient Education: Patient Medication Summary Completed 02/13/2018 Patient Education: Patient Medication Summary Completed 09/11/2017 Visit Plan: Czwtttblzsxcofi-fcvifokdnus-ewhurse sent for outpatient IVF and anti nausea [...] improved. 08/04/2017 Appointment: Em Ortiz WPtel: [phone] (15 min) Moderate 08/04/2017 Patient Education: Patient Medication Summary Completed 08/04/2017 Patient Education: Obesity Completed 08/04/2017 Appointment: Mandy Novoa WPtel: [phone] [phone] (15 min) Moderate 12/31/2016 Visit Plan: Low [...] improve. 09/18/2016 [phone] [facility] 09/18/2016 Patient Education: Patient [...] RX. 06/19/2016 Appointment: Em Ortiz WPtel: [phone] (30 min) Complex 06/19/2016 Patient Education: Patient [...] of control. 04/01/2016 [facility]ment[phone] (30 min) Complex 04/01/2016 Patient Education: Patient [...] triosant 13mcg. 12/12/2014 Appointment: Mandy Novoa WPtel: [facility] Other 12/12/2014 Patient Education: [...] or prn. 10/26/2014 Appointment: Mandy Novoa WPtel: [facility] [facility] 10/26/2014 Patient Education: Patient Medication [...] or prn. 10/22/2013 Appointment: Em Ortiz WPtel: [phone] [facility] 10/22/2013 Patient Education: Patient Medication Summary Completed 10/22/2013 Appointment: Mandy Novoa WPtel[facility] Injection 07/21/2013 Patient Education: Patient Medication Summary Completed 07/21/2013 [facility]ment: [phone] [place] Injection 07/20/2013 Visit Plan: depo injection today 04/21/2013 Patient Education: Patient Medication Summary Completed 04/21/2013 App[facility]ment: [phone] [place] Injection 01/18/2013 Patient Education: Patient Medication [...] month for weight check. 10/19/2012 Appointment: Mandy Noova WPtel: [facility] Follow up 10/19/2012 Patient Education: Patient [...] weight check. 08/10/2012 Appointment: Mandy Novoa WPtel: [facility] Follow up 08/10/2012 Patient Education: Patient Medication [...] ovarian cysts. 03/16/2012 Appointment: Mandy Novoa WPtel: [facility] Other 03/16/2012 Patient Education: Patient Medication Summary Completed 03/16/2012 Appointment: Em Ortiz WPtel: [phone] Lab Draw 03/02/2012 Visit Plan: Weight and blood pressure check 01/24/2012 Appointment: Em Ortiz WPtel: [phone] Other 01/24/2012 Patient Education: Patient Medication Summary Completed 01/24/2012 Visit Plan: Weight check only 11/21/2011 Appointment: Em Ortiz WPtel: [phone] Other 11/21/2011 Patient Education: Patient Medication Summary [...] pressure occur. 09/26/2011 Appointment: Mandy Novoa WPtel: [phone] [facility] 09/26/2011 Patient Education: Patient [...] as well. 08/22/2011 Appointment: Em Ortiz WPtel: [facility] Other 08/22/2011 Patient Education: Patient Medication [...] not improve. 06/20/2011 Appointment: Em Ortiz WPtel: [facility] [place] [phone] Other 06/20/2011 Patient Education: Patient Medication Summary [...] or with any changes, questions, or concerns. . Allergies - chronic - recommended pt [...] check labs start probiotic twice daily . Agrhiuqqwxkdoqx-smwbifgdksc-rwddfqv sent for outpatient IVF and anti nausea [...] year, otherwise, RTC yearly or prn. . depo injection today continue claritin 10mg po daily Vimovo 1 [...] of control. . Ok to refill phentermine RX for labs provided for fasting lab [...] mesh placement -will evaluate with ultrasound . Well Adult Female - exam completed. Pap and breast exam completed. Pt will be called with results of her testing. She was advised to continue with yearly annual exams. Safe sex practices discussed during office visit today. Call if any abnormal gynecologic issues during the next year, otherwise, RTC yearly or prn. . Weight and blood pressure check
--- OUTSIDE RECORDS SUMMARY | 2019-01-28 06:14 | XMS REPORT | CCD ---
Author Author Em Ortiz MD, [facility] Address [facility] [place] [address] Phone Care Team Providers Care Editorial Cartoonist Name Role Phone PP Unavailable CCM Unavailable Summary Purpose Interface Exchange Insurance Providers Payer name Policy type / Coverage type Covered constitution party ID Effective Begin Date Effective End Date [employer] Commercial Insurance [id number] Unknown Family history Brother Diagnosis Age At Onset Denies: *Denies any medical problems Unknown Mother Diagnosis Age At Onset Diabetes mellitus Type 2 Unknown Father Diagnosis Age At Onset Denies: *Denies any medical problems Unknown Sister Diagnosis Age At Onset Denies: *Denies any medical problems Unknown Social History Social History Element Codes Description Effective Dates Marital status Unknown 09/26/[address]: 337471907 Nonsmoker 09/26/[address]: 006543692 Never drinks alcohol 09/26/2011 Has the patient ever used illegal drugs? 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 [employer] 06/20/2011 Allergies, Adverse Reactions, Alerts Substance Reaction Codes Entered Date Inactivated Date Status * NO KNOWN DRUG ALLERGIES Unknown 06/20/2011 No Inactive Date Active * NO KNOWN FOOD ALLERGIES Unknown 09/26/2011 No Inactive Date Active * NO KNOWN ENVIRONMENTAL ALLERGIES Unknown 06/20/2011 No Inactive Date Active Past Medical History Illness Codes Condition Status Onset Date Resolved Date Epigastric pain ICD-9: 789.06 ICD-10: R10.13 Active [...] Problems Condition Codes Effective Dates Condition Status Epigastric pain ICD-9: 789.06 ICD-10: R10.13 07/01/2018 [...] Fill Instructions amoxicillin 500 mg tablet RxNorm: 921539 1 Tablet(s) PO TID 02/13/2018 02/22/2018 Inactive Alicia-D 24 Hour 180 mg-240 mg tablet,extended release RxNorm: 055283 1 Tablet(s) PO daily as needed 12/16/2017 02/13/2018 Inactive promethazine 25 mg tablet RxNorm: 009583 1 Tablet(s) PO Q6 PRN 08/04/2017 02/12/2018 Inactive promethazine 25 mg tablet RxNorm: 143082 1 Tablet(s) PO Q6 PRN 08/04/2017 08/03/2017 Inactive Valtrex 1 gram tablet RxNorm: 439646 1 Tablet(s) PO daily 05/21/2017 02/12/2018 Inactive Tirosint 13 mcg capsule RxNorm: 588622 TAKE 1 CAPSULE BY MOUTH DAILY 03/10/2017 11/16/2017 Inactive Valtrex 1 gram tablet RxNorm: 303229 1 TABLET(S) PO DAILY 03/05/2017 03/28/2017 Inactive Alicia-D 24 Hour 180 mg-240 mg tablet,extended release RxNorm: 060235 1 Tablet(s) PO daily as needed 07/09/2016 12/15/2017 Inactive Tirosint 13 mcg capsule RxNorm: 094718 Capsule(s) 1 CAPSULE(S) PO DAILY 07/08/2016 01/03/2017 Inactive Tirosint 13 mcg capsule RxNorm: 339236 Capsule(s) 1 CAPSULE(S) PO DAILY 06/26/2016 07/07/2016 Inactive daw1 scopolamine 1.5 mg transdermal patch (1 mg over 3 days) RxNorm: 476751 1 Patch TD Q72H 06/19/2016 02/12/2018 Inactive Tirosint 25 mcg capsule RxNorm: 039692 1 Capsule(s) PO daily 06/19/2016 06/18/2016 Inactive Tirosint 25 mcg capsule RxNorm: 484515 1 Capsule(s) PO daily 06/19/2016 06/25/2016 Inactive meclizine 25 mg tablet RxNorm: 308622 1 Tablet(s) PO TID as needed 06/19/2016 06/25/2016 Inactive Valtrex 1 gram tablet RxNorm: 369456 1 TABLET(S) PO DAILY 06/11/2016 07/04/2016 Inactive Tirosint 13 mcg capsule RxNorm: 891595 1 CAPSULE(S) PO DAILY 03/25/2016 06/19/2016 Inactive daw1 Valtrex 1 gram tablet RxNorm: 204607 1 TABLET(S) PO DAILY 02/23/2015 03/18/2015 Inactive Tirosint 13 mcg capsule RxNorm: 373302 1 Capsule(s) PO daily 02/06/2015 02/05/2015 Inactive Tirosint 13 mcg capsule RxNorm: 969240 1 Capsule(s) PO daily 02/06/2015 03/24/2016 Inactive daw1 Zithromax Z-Emmanuel 250 mg tablet RxNorm: 025743 Tablet(s) PO UD 04/05/2014 10/25/2014 Inactive [SAVINGS FOR UNINSURED PATIENTS -- BIN:[id number], PCN: [id number], Group: [id number], ID# [id number], Process claim through [employer], for questions: . THIS IS NOT INSURANCE.] Valtrex 1 g tablet RxNorm: 529083 Tablet(s) PO TAKE 1 TABLET BY MOUTH DAILY 12/30/2013 05/20/2017 Inactive Synthroid 75 mcg tablet RxNorm: 254565 Tablet(s) PO TAKE 1 TABLET BY MOUTH DAILY 12/30/2013 10/25/2014 Inactive Valtrex 1 gram tablet RxNorm: 351364 1 Tablet(s) PO daily 12/29/2013 01/09/2014 Inactive medroxyprogesterone 150 mg/mL intramuscular syringe RxNorm: 7938370 Milliliter(s) IM 10/22/2013 10/22/2013 Inactive Depo-Provera 150 mg/mL intramuscular suspension RxNorm: 7496034 Milliliter(s) IM bring to clinic for admin. 10/20/2013 10/25/2014 Inactive Valtrex 1 g tablet RxNorm: 917807 1 Tablet(s) PO daily 09/03/2013 09/14/2013 Inactive medroxyprogesterone 150 mg/mL intramuscular syringe RxNorm: 1723579 Milliliter(s) IM 07/21/2013 07/21/2013 Inactive Depo-Provera 150 mg/mL intramuscular suspension RxNorm: 4256250 Milliliter(s) IM bring to clinic for admin. 07/20/2013 10/19/2013 Inactive Synthroid 75 mcg tablet RxNorm: 965646 1 Tablet(s) PO daily 06/23/2013 12/19/2013 Inactive Synthroid 75 mcg tablet RxNorm: 371570 1 Tablet(s) PO daily 05/31/2013 06/22/2013 Inactive Synthroid 75 mcg tablet RxNorm: 825258 1 Tablet(s) PO daily 05/31/2013 05/30/2013 Inactive Depo-Provera 150 mg/mL IM Syringe RxNorm: 7908137 Milliliter(s) IM 04/21/2013 04/21/2013 Inactive Depo-Provera 150 mg/mL intramuscular suspension RxNorm: 2209353 Milliliter(s) IM bring to clinic for admin. 04/12/2013 07/19/2013 Inactive Depo-Provera 150 mg/mL IM Syringe RxNorm: 4923294 Milliliter(s) IM 01/18/2013 01/18/2013 Inactive phentermine 37.5 mg disintegrating tablet RxNorm: 9747762 1 Tablet(s) PO daily 01/08/2013 02/06/2013 Inactive medroxyprogesterone 150 mg/mL IM Susp RxNorm: 3344038 Milliliter(s) IM 10/19/2012 10/19/2012 Inactive Nasonex 50 mcg/actuation [place] RxNorm: 420742 1 [place] NASAL BID 1 spray each nare bid 10/19/2012 02/12/2018 Inactive phentermine 37.5 mg disintegrating tablet RxNorm: 3437830 1 Tablet(s) PO daily 10/19/2012 11/17/2012 Inactive Depo-Provera 150 mg/mL IM Susp RxNorm: 9521356 IM bring to clinic for admin. 10/16/2012 04/11/2013 Inactive Synthroid 50 mcg tablet RxNorm: 778627 1 Tablet(s) PO daily 09/07/2012 05/30/2013 Inactive Synthroid 50 mcg tablet RxNorm: 200434 1 Tablet(s) PO daily 09/07/2012 05/30/2013 Inactive Valtrex 1 g tablet RxNorm: 651410 1 Tablet(s) PO daily 2012 08/31/2012 Inactive Valtrex 1 g tablet RxNorm: 213159 1 Tablet(s) PO daily 2012 08/19/2012 Inactive phentermine 37.5 mg Tab RxNorm: 452860 1 Tablet(s) PO daily 03/02/2012 10/19/2012 Inactive phentermine 37.5 mg Tab RxNorm: 486503 1 Tablet(s) PO daily 01/24/2012 02/22/2012 Inactive phentermine 37.5 mg Tab RxNorm: 016736 1 Tablet(s) PO daily 12/23/2011 01/21/2012 Inactive Nasonex 50 mcg/actuation [place] RxNorm: 928822 1 [place] NASAL BID 1 spray each nare bid 12/19/2011 10/18/2012 Inactive Nasonex 50 mcg/actuation [place] RxNorm: 525181 1 [place] NASAL BID 1 spray each nare bid 12/19/2011 12/18/2011 Inactive Synthroid 50 mcg Tab RxNorm: 446625 Tablet(s) PO 12/10/2011 05/31/2013 Inactive TAKE ONE TABLET BY MOUTH DAILY;Patient requests 90 day supply Omnaris 50 mcg Nasal [place] RxNorm: 756908 2 [place] NASAL daily 2 sprays per nostril daily 12/09/2011 12/18/2011 Inactive Synthroid 50 mcg tablet RxNorm: 935155 1 Tablet(s) PO daily 12/09/2011 09/06/2012 Inactive Synthroid 50 mcg Tab RxNorm: 248078 1 Tablet(s) PO daily 12/09/2011 12/09/2011 Inactive phentermine 37.5 mg Tab RxNorm: 106360 1 Tablet(s) PO daily 11/21/2011 12/20/2011 Inactive Claritin-D 24 Hour 10 mg-240 mg Tab RxNorm: 0806175 1 Tablet(s) PO PRN 09/26/2011 02/12/2018 Inactive Valtrex 1 g Tab RxNorm: 280024 1 Tablet(s) PO daily 08/28/2011 08/30/2011 Inactive Valtrex 1 g Tab RxNorm: 945044 1 Tablet(s) PO daily one daily x 3 days, may continue x 2 more days if the cold sore is not resolved 08/28/2011 09/26/2011 Inactive Kenalog 40 mg/mL Susp for Injection RxNorm: 3844979 1.5 Milliliter(s) Inj 08/23/2011 08/23/2011 Inactive Levaquin 500 mg Tab RxNorm: 681325 1 Tablet(s) PO daily 08/22/2011 09/26/2011 Inactive Synthroid 50 mcg Tab RxNorm: 862265 1 Tablet(s) PO daily 08/07/2011 08/06/2011 Inactive Synthroid 50 mcg tablet RxNorm: 697190 1 Tablet(s) PO daily 08/07/2011 09/07/2012 Inactive Omnaris 50 mcg Nasal [place] RxNorm: 131963 2 [place] NASAL daily 2 sprays per nostril daily 06/20/2011 12/08/2011 Inactive Rocephin 500 mg Solution for Injection RxNorm: 587640 1 Milliliter(s) Inj 06/20/2011 09/26/2011 Inactive Kenalog 40 mg/mL Susp for Injection RxNorm: 9157673 1 Milliliter(s) Inj 06/20/2011 09/26/2011 Inactive cefdinir 300 mg Cap RxNorm: 019000 1 Capsule(s) PO BID 06/20/2011 09/26/2011 Inactive + Iron oral RxNorm: oral No Start Date Active Omnaris 50 mcg Nasal [place] RxNorm: 973862 2 [place] NASAL daily 2 sprays per nostril daily No Start Date 06/19/2011 Inactive Fish Oil 1,000 mg Cap RxNorm: 1 Capsule(s) PO daily No Start Date 02/12/2018 Inactive Depo-Provera 150 mg/mL intramuscular syringe RxNorm: 4371731 1 Milliliter(s) IM q 3 month No Start Date 10/25/2014 Inactive Alicia-D 24 Hour 180 mg-240 mg tablet,extended release RxNorm: 079716 1 Tablet(s) PO daily as needed No Start Date 07/08/2016 Inactive Vitamin B-6 oral RxNorm: 699834 oral No Start Date 04/29/2018 Inactive Claritin-D 24 Hour 10 mg-240 mg Tab RxNorm: 4237971 1 Tablet(s) PO daily No Start Date 09/25/2011 Inactive Synthroid 25 mcg Tab RxNorm: 880696 1 Tablet(s) PO daily No Start Date 09/26/2011 Inactive Zithromax Z-Emmanuel 250 mg tablet RxNorm: 610025 Tablet(s) PO UD No Start Date 04/04/2014 Inactive Depo-Provera 150 mg/mL IM Susp RxNorm: 6853341 IM No Start Date 10/15/2012 Inactive Medication Administered Medication Codes Instructions Start Date Status medroxyprogesterone 150 mg/mL intramuscular syringe RxNorm: 8621727 Milliliter 10/22/2013 No longer Active medroxyprogesterone 150 mg/mL intramuscular syringe RxNorm: 7431304 Milliliter 07/21/2013 No longer Active Depo-Provera 150 mg/mL IM Syringe RxNorm: 3620144 Milliliter 04/21/2013 No longer Active Depo-Provera 150 mg/mL IM Syringe RxNorm: 3717085 Milliliter 01/18/2013 No longer Active medroxyprogesterone 150 mg/mL IM Susp RxNorm: 2240233 Milliliter 10/19/2012 No longer Active Kenalog 40 mg/mL Susp for Injection RxNorm: 4235222 1.5Milliliter 08/23/2011 No longer Active Immunizations Vaccine Codes Date Status Influenza CVX: 141 06/19/2016 completed Influenza CVX: 141 06/26/2011 completed Assessments Condition Codes Effective Dates Epigastric pain ICD-10: R10.13 ICD-9: 789.06 07/01/2018 [...] Visit Reason For Visit Effective Dates Notes abdominal pain 07/01/2018 abdominal pain 04/30/2018 sinus [...] hTSH II 4.61 uIU/mL 06/17/2016 Free T4 Bee663 FREE T4 0.77 ng/dL 06/17/2016 Comp Metabolic Ifv358 NA 135 mEq/L 03/28/2016 Comp Metabolic Ftn590 K 3.9 mEq/L 03/28/2016 Comp Metabolic Bvn786 CL 107 mEq/L 03/28/2016 Comp Metabolic Kmk787 CO2 24.0 mEq/L 03/28/2016 Comp Metabolic Fke091 ANION GAP 8 03/28/2016 Comp Metabolic Sbe164 GLUCOSE 85 mg/dL 03/28/2016 Comp Metabolic Njc109 Creat 0.7 mg/dL 03/28/2016 Comp Metabolic Gpl853 eGFR 98 ml/min/1.73m2 03/28/2016 Comp Metabolic Zqp496 BUN 15 mg/dL 03/28/2016 Comp Metabolic Ise211 B/C Ratio 20.5 Ratio 03/28/2016 Comp Metabolic Juf100 CALCIUM 8.7 mg/dL 03/28/2016 Comp Metabolic Maa166 ALK PHOS 70 U/L 03/28/2016 Comp Metabolic Xyx769 AST(SGOT) 15 U/L 03/28/2016 Comp Metabolic Cnc733 ALT(SGPT) 15 U/L 03/28/2016 Comp Metabolic Fmb379 BILI T 0.7 mg/dL 03/28/2016 Comp Metabolic Knr796 ALBUMIN 3.9 g/dL 03/28/2016 Comp Metabolic Zpa722 TPRO 6.3 g/dL 03/28/2016 Comp Metabolic Swv230 GLOB 2.4 g/dL 03/28/2016 Comp Metabolic Pis676 A/G Ratio 1.6 Ratio 03/28/2016 Comp Metabolic Yiy684 Osmo 270 mOsmo 03/28/2016 Lipid Ord30 CHOL [...] 28.5 pg 03/28/2016 Cbc With Differential Ord2 [place]% 6.6 % 03/28/2016 Cbc With Differential Ord2 [...] 1.40 K/ul 03/28/2016 Cbc With Differential Ord2 [place] ABS# 0.3 K/ul 03/28/2016 Cbc With Differential Ord2 Eos ABS# 0.1 K/ul 03/28/2016 Cbc With Differential Ord2 Baso ABS# 0.0 K/ul 03/28/2016 Tsh Ord6 hTSH II 6.46 uIU/mL 03/28/2016 Free T4 Nvb812 FREE T4 0.74 ng/dL 03/28/2016 Review of Systems System Result Effective Dates Constitutional No recent illness 07/01/2018 Constitutional No [...] bilaterally 10/19/2012 None Full Exam - General 1995 Respiratory respiratory effort/rhythm Overall: no retractions 10/19/2012 None Full Exam - General 1995 Respiratory respiratory effort/rhythm Overall: normal rate 10/19/2012 None Full Exam - General 1995 Cardiovascular extremities Overall: no clubbing 10/19/2012 None [...] accomodation 08/10/2012 None Full Exam - General 1995 Respiratory auscultation Overall: breath sounds clear bilaterally 08/10/2012 None Full Exam - General 1995 Respiratory respiratory effort/rhythm Overall: no retractions 08/10/2012 None Full Exam - General 1995 Respiratory respiratory effort/rhythm Overall: normal rate 08/10/2012 [...] developed 03/16/2012 None Full Exam - General 1995 Constitutional general appearance Overall: in no acute distress 03/16/2012 None Full Exam - General 1994 Respiratory auscultation Overall: breath sounds clear bilaterally 03/16/2012 None Full Exam - General 1995 Respiratory respiratory effort/rhythm Overall: normal rate 03/16/2012 None Full Exam - General 1995 Respiratory respiratory effort/rhythm Overall: no retractions 03/16/2012 [...] discharge 03/16/2012 None Full Exam - General 1995 Chest/Breast breast and axillae palpation Upper inner quadrant: no mass 03/16/2012 None Full Exam - General 1995 Chest/Breast breast and axillae palpation Upper outer quadrant: no mass 03/16/2012 None Full Exam - General 1995 Chest/Breast breast and axillae palpation Lower inner [...] Procedure Codes Date IMMUNIZATION ADMIN CPT- 4: 74352 06/19/2016 IIV4 FLU VACC NO PRESERV ID Formatting Model/CDA Sections, Assigned to/Tawny Torres CT: [id number] CPT-4: 60648Nalkdms 06/19/2016 THER/PROPH/DIAG INJ SC/IM CPT-4: 78316 10/22/2013 THER/PROPH/DIAG INJ SC/IM CPT-4: 50391 07/21/2013 THER/PROPH/DIAG INJ SC/IM CPT-4: 80563 04/21/2013 THER/PROPH/DIAG INJ SC/IM CPT-4: 92580 01/18/2013 THER/PROPH/DIAG INJ SC/IM CPT-4: 16274 10/19/2012 PREV VISIT EST AGE 18-39 CPT-4: 37267 09/26/2011 THER/PROPH/DIAG INJ SC/IM CPT-4: 43802 08/22/2011 TRIAMCINOLONE ACET INJ NOS CPT-4: J3301 08/22/2011 TRIAMCINOLONE ACET INJ NOS CPT-4: J3301 06/20/2011 THER/PROPH/DIAG INJ SC/IM CPT-4: 52765 06/20/2011 ROCEPHIN, PER 250 MG CPT- 4: J0696 06/20/2011 Vital Signs Date Vital 07/01/2018 Blood Pressure 1: 134/68 Code: 8480-6 BMI: 44.5 Code: 81755-1 Heart Rate 1: 97 bpm Height: 5' SpO2: 98% Weight: 228 lbs 04/30/2018 Blood Pressure 1: 110/80 Code: 8480-6 BMI: 44.5 Code: 91514-5 Heart Rate 1: 91 bpm Height: 5' SpO2: 99% Weight: 228 lbs 02/13/2018 Blood Pressure 1: 118/84 Code: 8480-6 BMI: 43.9 Code: 84270-8 Heart Rate 1: 101 bpm Height: 5' SpO2: 98% Temperature: 36.8 (C) / 98.2 (F) Weight: 225 lbs 08/04/2017 Blood Pressure 1: 122/76 Code: 8480-6 BMI: 41.8 Code: 97790-8 Heart Rate 1: 117 bpm Height: 5' SpO2: 96% Temperature: 36.6 (C) / 97.9 (F) Weight: 214 lbs 09/18/2016 Blood Pressure 1: 132/78 Code: 8480-6 BMI: 41.2 Code: 78582-6 Heart Rate 1: 94 bpm Height: 5' SpO2: 98% Weight: 211 lbs 06/19/2016 Blood Pressure 1: 132/86 Code: 8480-6 BMI: 39.1 Code: 70702-1 Heart Rate 1: 78 bpm Height: 5' SpO2: 99% Weight: 200 lbs 04/01/2016 Blood Pressure 1: 120/80 Code: 8480-6 BMI: 38.5 Code: 77175-8 Heart Rate 1: 86 bpm Height: 5' SpO2: 96% Weight: 197 lbs 12/12/2014 Blood Pressure 1: 110/82 Code: 8480-6 BMI: 47.8 Code: 97864-8 Heart Rate 1: 90 bpm Height: 5' Weight: 245 lbs 10/26/2014 Blood Pressure 1: 122/76 Code: 8480-6 BMI: 47.1 Code: 11744-2 Heart Rate 1: 96 bpm Height: 5' Weight: 241 lbs 10/22/2013 Blood Pressure 1: 152/88 Code: 8480-6 Heart Rate 1: 88 bpm Weight: 240 lbs 01/07/2013 Blood Pressure 1: 114/80 Code: 8480-6 Weight: 224 lbs 10/19/2012 Blood Pressure 1: 126/94 Code: 8480-6 BMI: 43.5 Code: 87786-6 Heart Rate 1: 104 bpm Height: 5' Respiratory Rate: 16 bpm Weight: 222 lbs 8 oz 08/10/2012 Blood Pressure 1: 112/84 Code: 8480-6 Heart Rate 1: 84 bpm Weight: 233 lbs 03/16/2012 Blood Pressure 1: 110/72 Code: 8480-6 BMI: 43.0 Code: 99271-3 Heart Rate 1: 88 bpm Height: 5' Respiratory Rate: 18 bpm Weight: 220 lbs 01/24/2012 Blood Pressure 1: 104/80 Code: 8480-6 BMI: 43.2 Code: 90591-2 Height: 5' Weight: 221 lbs 11/21/2011 BMI: 45.7 Code: 25242-6 Height: 5' Weight: 234 lbs 09/26/2011 Blood Pressure 1: 110/68 Code: 8480-6 BMI: 46.8 Code: 08340-6 Heart Rate 1: 90 bpm Height: 5' Respiratory Rate: 16 bpm Weight: 239 lbs 8 oz 08/22/2011 Blood Pressure 1: 128/89 Code: 8480-6 BMI: 46.1 Code: 37169-3 Heart Rate 1: 83 bpm Height: 5' Weight: 236 lbs 06/20/2011 Blood Pressure 1: 120/80 Code: 8480-6 BMI: 46.6 Code: 62145-1 Heart Rate 1: 88 bpm Height: 5' Respiratory Rate: 16 bpm Weight: 238 lbs 8 oz Functional Status No Functional Status data History of Present Illness Symptom Name Status Result Effective Date Notes abdominal pain Location in the periumbilical area [...] (18-39 years) Control IUD 09/26/2011 Mirena, placed [id number] weight gain/obesity Location globally 09/26/2011 pt states that 8 years ago she weighed 135#. weight gain/obesity Weight Status is morbidly obese 09/26/2011 pt states the weight seems to add each year by 10-30 pounds despite exercisingnat the [facility] headache Location diffusely 08/22/2011 None headache [...] Codes Date EST. PATIENT, LEVEL III Diagnosis: Ventral hernia without obstruction or gangrene[ICD10: K43.9] Diagnosis: Epigastric pain[ICD10: R10.13] Mirian Novoa MD, [facility] CPT-4: 77019 07/01/[id number]) 26846 EST. PATIENT, LEVEL III Diagnosis: Slow transit constipation[ICD10: K59.01] Diagnosis: Generalized abdominal pain[ICD10: R10.84] [facility] CPT-4: 68800 04/30/[id number]) 57599 EST. PATIENT, LEVEL III Diagnosis: Cough[ICD10: R05] Diagnosis: Acute recurrent maxillary sinusitis[ICD10: J01.01] [facility] CPT-4: 34157 02/13/2018 [id number]) 77834 EST. PATIENT, LEVEL III Diagnosis: Dehydration[ICD10: E86.0] Diagnosis: Nausea[ICD10: R11.0] Diagnosis: Diarrhea, unspecified[ICD10: R19.7] Em Novoa MD, [facility] CPT-4: 28587 08/04/2017 81959 EST. PATIENT, LEVEL III Diagnosis: Low back pain[ICD10: M54.5] Mirian Novoa MD, [facility] CPT-4: 02722 09/18/2016 09382 EST. PATIENT, LEVEL IV Diagnosis: VACCIN FOR INFLUENZA[ICD10: Z23] Diagnosis: Other specified hypothyroidism[ICD10: E03.8] Mirian Novoa MD, [facility] CPT-4: 84948 06/19/2016 ([id number]) 28510 EST. PATIENT, LEVEL III Diagnosis: Hypothyroidism, unspecified[ICD10: E03.9] Em Novoa MD, [facility] CPT-4: 12104 04/01/2016 ([id number]) 68111 EST. PATIENT, LEVEL III Diagnosis: Missed periods[ICD9: 626.4] Mandy Novoa MD, [facility] CPT-4: 88831 12/12/2014 ([id number]) PREV VISIT EST AGE 18-39 Diagnosis: ROUTINE GYNE EXAM[ICD9: V72.31] Mandy Novoa MD, [facility] CPT-4: 23671 10/26/2014 ([id number]) PREV VISIT EST AGE 18-39 Diagnosis: ROUTINE GYNE EXAM[ICD9: V72.31] Em Novoa MD, [facility] CPT-4: 85358 10/22/2013 ([id number]) Miscellaneous no charge Diagnosis: MORBID OBESITY[ICD9: 278.01] Em Novoa MD, [facility] CPT-4: 07604 01/07/2013 ([id number]) 91768 EST. PATIENT, LEVEL III Diagnosis: Allergic rhinitis[ICD9: 477.9] Diagnosis: Contraceptive surveillance, unspecified[ICD9: V25.40] Diagnosis: MORBID OBESITY[ICD9: 278.01] Mandy Novoa MD, [facility] CPT-4: 92818 10/19/2012 ([id number]) 44016 EST. PATIENT, LEVEL III Diagnosis: Varicose veins of both lower extremities with pain[ICD9: 454.8] Diagnosis: Obesities, morbid[ICD9: 278.01] Mandy Novoa MD, [facility] CPT-4: 51359 08/10/2012 ([id number]) 11069 EST. PATIENT, LEVEL IV Diagnosis: Abdominal pain[ICD9: 789.00] Diagnosis: Breast tenderness in female[ICD9: 611.71] Mandy Novoa MD, [facility] CPT-4: 64651 03/16/2012 Miscellaneous no charge Diagnosis: MORBID OBESITY[ICD9: 278.01] Em Novoa MD, [facility] CPT-4: 92121 01/24/2012 Miscellaneous no charge Diagnosis: MORBID OBESITY[ICD9: 278.01] Em Novoa MD, [facility] CPT-4: 12539 11/21/2011 78784 EST. PATIENT, LEVEL III Diagnosis: ACUTE SINUSITIS[ICD9: 461.9] Diagnosis: HEADACHE[ICD9: 784.0] Em Novoa MD, [facility] CPT-4: 82949 08/22/2011 17152 EST. PATIENT, LEVEL III Diagnosis: ACUTE SINUSITIS[ICD9: 461.9] Diagnosis: Environmental allergies[ICD9: 477.9] Em Novoa MD, [facility] CPT-4: 78061 06/20/2011 Plan of Care Planned Activity Notes Codes Status Date Visit Plan: Abdominal hernia - will repeat US - pt is to consider referral to surgeon - pt is to go to the ER or notify clinic with any changes, questions, or concerns. 07/01/2018 Patient Education: Patient Medication Summary Completed [...] with ultrasound 04/30/2018 Appointment: Em Ortiz WPtel: [address] [place], [place] [phone] [place] (15 min) Moderate 04/30/2018 Patient Education: Patient Medication Summary Completed 04/30/2018 Visit Plan: Sinusitis - Pt has acute infection - pain in face, maxillary region, Pt informed to use decongestant, RX given to patient, sinus rinses also recommended. Call if symptoms do not show improvement. 02/13/2018 Appointment: Em Ortiz WPtel: [phone] [phone] (15 min) Moderate 02/13/2018 Patient Education: Patient Medication Summary Completed 02/13/2018 Patient Education: Patient Medication Summary Completed 09/11/2017 Visit Plan: Cmwbeulsszvbeii-jwplclemzfx-vnqovzb sent for outpatient IVF and anti nausea [...] not improved. 08/04/2017 Appointment: Em Ortiz WPtel: [phone] (15 min) Moderate 08/04/2017 Patient Education: Patient Medication Summary Completed 08/04/2017 Patient Education: Obesity Completed 08/04/2017 Appointment: Mandy Novoa WPtel: [facility] (15 min) Moderate 12/31/2016 Visit Plan: [...] improve. 09/18/2016 Appointment: Mirian Osei WPtel: [phone] [phone] (30 min) Complex 09/18/2016 Patient Education: Patient [...] RX. 06/19/2016 Appointment: Em Ortiz WPtel: [phone] [phone] (30 min) Complex 06/19/2016 Patient Education: [...] control. 04/01/2016 Appointment: Em Ortiz WPtel: [phone] [phone] (30 min) Complex 04/01/2016 Patient Education: Patient [...] triosant 13mcg. 12/12/2014 Appointment: Mandy Novoa WPtel: [facility] Other 12/12/2014 Patient Education: Patient Medication Summary [...] prn. 10/26/2014 Appointment: Mandy Novoa WPtel: [phone] [facility] 10/26/2014 Patient Education: Patient Medication [...] or prn. 10/22/2013 Appointment: Em Ortiz WPtel: [phone] [facility] 10/22/2013 Patient Education: Patient Medication Summary Completed 10/22/2013 Appointment: Mandy Novoa WPtel: [facility] [place] Injection 07/21/2013 Patient Education: Patient Medication Summary Completed 07/21/2013 Appointment: Em Ortiz WPtel: [phone] [place] Injection 07/20/2013 Visit Plan: depo injection today 04/21/2013 Patient Education: Patient Medication Summary Completed 04/21/2013 Appointment: Em Ortiz WPtel: [phone] [phone] [place] Injection 01/18/2013 Patient Education: Patient Medication [...] check. 10/19/2012 Appointment: Mandy Novoa WPtel: [phone] [facility] [place] Follow up 10/19/2012 Patient Education: Patient Medication [...] check. 08/10/2012 Appointment: [facility]el[phone] [facility] Follow up 08/10/2012 Patient Education: Patient Medication [...] ovarian cysts. 03/16/2012 Appointment: Mandy Novoa WPtel: [facility] [place] Other 03/16/2012 Patient Education: Patient Medication Summary Completed 03/16/2012 Appointment: Em Ortiz WPtel: [phone] Lab Draw 03/02/2012 Visit Plan: Weight and blood pressure check 01/24/2012 Appointment: [facility]el[facility] [phone] [phone] Other 01/24/2012 Patient Education: Patient Medication Summary Completed 01/24/2012 Visit Plan: Weight check only 11/21/2011 Appointment: Em Ortiz WPtel: [phone] [phone] Other 11/21/2011 Patient Education: Patient Medication [...] pressure occur. 09/26/2011 Appointment: Mandy Novoa WPtel: [facility]5 [facility] [facility] 09/26/2011 Patient Education: Patient Medication [...] as well. 08/22/2011 Appointment: Em Ortiz WPtel: [phone] Other 08/22/2011 Patient Education: Patient Medication Summary [...] not improve. 06/20/2011 Appointment: Em Ortiz WPtel: [address] [place], [place] [phone] Other 06/20/2011 Patient Education: Patient Medication Summary Completed 06/20/[address] Chris Sage. Abdominal hernia - will repeat US - pt is to consider referral to surgeon - pt is to go to the ER or notify clinic with any changes, questions, or concerns. continue claritin 10mg po daily Vimovo 1 [...] - pt given samples of triosant 13mcg. Ibuprofen - 400mg-800mg three times a day [...] Call if symptoms do not show improvement. NO CHANGE IN THYROID DOSE-TRY TAKING IT [...] prn. . Weight and blood pressure check . Allergies - chronic - recommended pt [...] check labs start probiotic twice daily . [id number]-[id number] sent for outpatient IVF and anti nausea [...] yearly or prn. . depo injection today . Hypothyroidism - pt with chronic hypothyroidism, [...] sea sickness - will send RX. . Pt with abdominal pain- has been [...]
--- OUTSIDE RECORDS SUMMARY | 2019-01-28 06:16 | XMS REPORT | CCD ---
Author Author Em Ortiz MD, [facility] Address [facility] [place] [address] Phone Care Team Providers Care Showplace Manager Name Role Phone PP Unavailable CCM Unavailable Summary Purpose Interface Exchange Insurance Providers Payer name Policy type / Coverage type Covered republican ID Effective Begin Date Effective End Date [employer] Commercial Insurance [id number] Unknown Family history Brother Diagnosis Age At Onset Denies: *Denies any medical problems Unknown Mother Diagnosis Age At Onset Diabetes mellitus Type 2 Unknown Father Diagnosis Age At Onset Denies: *Denies any medical problems Unknown Sister Diagnosis Age At Onset Denies: *Denies any medical problems Unknown Social History Social History Element Codes Description Effective Dates Marital status Unknown 09/26/[address]: 706570759 Nonsmoker 09/26/[address]: 981278902 Never drinks alcohol 09/26/2011 Has the patient ever used illegal drugs? 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 [employer] 06/20/2011 Allergies, Adverse Reactions, Alerts Substance Reaction [...] Fill Instructions amoxicillin 500 mg tablet RxNorm: 224660 1 Tablet(s) PO TID 02/13/2018 02/22/2018 Inactive Alicia-D 24 Hour 180 mg-240 mg tablet,extended release RxNorm: 057197 1 Tablet(s) PO daily as needed 12/16/2017 02/13/2018 Inactive promethazine 25 mg tablet RxNorm: 329535 1 Tablet(s) PO Q6 PRN 08/04/2017 02/12/2018 Inactive promethazine 25 mg tablet RxNorm: 098870 1 Tablet(s) PO Q6 PRN 08/04/2017 08/03/2017 Inactive Valtrex 1 gram tablet RxNorm: 392490 1 Tablet(s) PO daily 05/21/2017 02/12/2018 Inactive Tirosint 13 mcg capsule RxNorm: 002376 TAKE 1 CAPSULE BY MOUTH DAILY 03/10/2017 11/16/2017 Inactive Valtrex 1 gram tablet RxNorm: 903057 1 TABLET(S) PO DAILY 03/05/2017 03/28/2017 Inactive Alicia-D 24 Hour 180 mg-240 mg tablet,extended release RxNorm: 902020 1 Tablet(s) PO daily as needed 07/09/2016 12/15/2017 Inactive Tirosint 13 mcg capsule RxNorm: 650064 Capsule(s) 1 CAPSULE(S) PO DAILY 07/08/2016 01/03/2017 Inactive Tirosint 13 mcg capsule RxNorm: 742666 Capsule(s) 1 CAPSULE(S) PO DAILY 06/26/2016 07/07/2016 Inactive daw1 scopolamine 1.5 mg transdermal patch (1 mg over 3 days) RxNorm: 574229 1 Patch TD Q72H 06/19/2016 02/12/2018 Inactive Tirosint 25 mcg capsule RxNorm: 997012 1 Capsule(s) PO daily 06/19/2016 06/18/2016 Inactive Tirosint 25 mcg capsule RxNorm: 488401 1 Capsule(s) PO daily 06/19/2016 06/25/2016 Inactive meclizine 25 mg tablet RxNorm: 248607 1 Tablet(s) PO TID as needed 06/19/2016 06/25/2016 Inactive Valtrex 1 gram tablet RxNorm: 738648 1 TABLET(S) PO DAILY 06/11/2016 07/04/2016 Inactive Tirosint 13 mcg capsule RxNorm: 567838 1 CAPSULE(S) PO DAILY 03/25/2016 06/19/2016 Inactive daw1 Valtrex 1 gram tablet RxNorm: 435682 1 TABLET(S) PO DAILY 02/23/2015 03/18/2015 Inactive Tirosint 13 mcg capsule RxNorm: 012862 1 Capsule(s) PO daily 02/06/2015 02/05/2015 Inactive Tirosint 13 mcg capsule RxNorm: 990420 1 Capsule(s) PO daily 02/06/2015 03/24/2016 Inactive daw1 Zithromax Z-Emmanuel 250 mg tablet RxNorm: 514678 Tablet(s) PO UD 04/05/2014 10/25/2014 Inactive [SAVINGS FOR UNINSURED PATIENTS -- BIN:[id number], PCN: [id number], Group: [id number], ID# [id number], Process claim through [employer], for questions: . THIS IS NOT INSURANCE.] Valtrex 1 g tablet RxNorm: 020017 Tablet(s) PO TAKE 1 TABLET BY MOUTH DAILY 12/30/2013 05/20/2017 Inactive Synthroid 75 mcg tablet RxNorm: 806254 Tablet(s) PO TAKE 1 TABLET BY MOUTH DAILY 12/30/2013 10/25/2014 Inactive Valtrex 1 gram tablet RxNorm: 719229 1 Tablet(s) PO daily 12/29/2013 01/09/2014 Inactive medroxyprogesterone 150 mg/mL intramuscular syringe RxNorm: 3580012 Milliliter(s) IM 10/22/2013 10/22/2013 Inactive Depo-Provera 150 mg/mL intramuscular suspension RxNorm: 0579162 Milliliter(s) IM bring to clinic for admin. 10/20/2013 10/25/2014 Inactive Valtrex 1 g tablet RxNorm: 713309 1 Tablet(s) PO daily 09/03/2013 09/14/2013 Inactive medroxyprogesterone 150 mg/mL intramuscular syringe RxNorm: 0456594 Milliliter(s) IM 07/21/2013 07/21/2013 Inactive Depo-Provera 150 mg/mL intramuscular suspension RxNorm: 8408668 Milliliter(s) IM bring to clinic for admin. 07/20/2013 10/19/2013 Inactive Synthroid 75 mcg tablet RxNorm: 333503 1 Tablet(s) PO daily 06/23/2013 12/19/2013 Inactive Synthroid 75 mcg tablet RxNorm: 392901 1 Tablet(s) PO daily 05/31/2013 06/22/2013 Inactive Synthroid 75 mcg tablet RxNorm: 419950 1 Tablet(s) PO daily 05/31/2013 05/30/2013 Inactive Depo-Provera 150 mg/mL IM Syringe RxNorm: 0675046 Milliliter(s) IM 04/21/2013 04/21/2013 Inactive Depo-Provera 150 mg/mL intramuscular suspension RxNorm: 2852697 Milliliter(s) IM bring to clinic for admin. 04/12/2013 07/19/2013 Inactive Depo-Provera 150 mg/mL IM Syringe RxNorm: 9619451 Milliliter(s) IM 01/18/2013 01/18/2013 Inactive phentermine 37.5 mg disintegrating tablet RxNorm: 9691730 1 Tablet(s) PO daily 01/08/2013 02/06/2013 Inactive medroxyprogesterone 150 mg/mL IM Susp RxNorm: 0519720 Milliliter(s) IM 10/19/2012 10/19/2012 Inactive Nasonex 50 mcg/actuation Ennice RxNorm: 099630 1 Ennice NASAL BID 1 spray each nare bid 10/19/2012 02/12/2018 Inactive phentermine 37.5 mg disintegrating tablet RxNorm: 7171654 1 Tablet(s) PO daily 10/19/2012 11/17/2012 Inactive Depo-Provera 150 mg/mL IM Susp RxNorm: 4695402 IM bring to clinic for admin. 10/16/2012 04/11/2013 Inactive Synthroid 50 mcg tablet RxNorm: 431341 1 Tablet(s) PO daily 09/07/2012 05/30/2013 Inactive Synthroid 50 mcg tablet RxNorm: 150202 1 Tablet(s) PO daily 09/07/2012 05/30/2013 Inactive Valtrex 1 g tablet RxNorm: 672850 1 Tablet(s) PO daily 2012 08/31/2012 Inactive Valtrex 1 g tablet RxNorm: 153819 1 Tablet(s) PO daily 2012 08/19/2012 Inactive phentermine 37.5 mg Tab RxNorm: 776883 1 Tablet(s) PO daily 03/02/2012 10/19/2012 Inactive phentermine 37.5 mg Tab RxNorm: 694193 1 Tablet(s) PO daily 01/24/2012 02/22/2012 Inactive phentermine 37.5 mg Tab RxNorm: 694383 1 Tablet(s) PO daily 12/23/2011 01/21/2012 Inactive Nasonex 50 mcg/actuation Ennice RxNorm: 316994 1 Ennice NASAL BID 1 spray each nare bid 12/19/2011 10/18/2012 Inactive Nasonex 50 mcg/actuation Ennice RxNorm: 209785 1 Ennice NASAL BID 1 spray each nare bid 12/19/2011 12/18/2011 Inactive Synthroid 50 mcg Tab RxNorm: 112118 Tablet(s) PO 12/10/2011 05/31/2013 Inactive TAKE ONE TABLET BY MOUTH DAILY;Patient requests 90 day supply Omnaris 50 mcg Nasal Ennice RxNorm: 083308 2 Ennice NASAL daily 2 sprays per nostril daily 12/09/2011 12/18/2011 Inactive Synthroid 50 mcg tablet RxNorm: 713705 1 Tablet(s) PO daily 12/09/2011 09/06/2012 Inactive Synthroid 50 mcg Tab RxNorm: 799112 1 Tablet(s) PO daily 12/09/2011 12/09/2011 Inactive phentermine 37.5 mg Tab RxNorm: 251059 1 Tablet(s) PO daily 11/21/2011 12/20/2011 Inactive Claritin-D 24 Hour 10 mg-240 mg Tab RxNorm: 9583395 1 Tablet(s) PO PRN 09/26/2011 02/12/2018 Inactive Valtrex 1 g Tab RxNorm: 668644 1 Tablet(s) PO daily 08/28/2011 08/30/2011 Inactive Valtrex 1 g Tab RxNorm: 132705 1 Tablet(s) PO daily one daily x 3 days, may continue x 2 more days if the cold sore is not resolved 08/28/2011 09/26/2011 Inactive Kenalog 40 mg/mL Susp for Injection RxNorm: 9982312 1.5 Milliliter(s) Inj 08/23/2011 08/23/2011 Inactive Levaquin 500 mg Tab RxNorm: 352609 1 Tablet(s) PO daily 08/22/2011 09/26/2011 Inactive Synthroid 50 mcg Tab RxNorm: 104413 1 Tablet(s) PO daily 08/07/2011 08/06/2011 Inactive Synthroid 50 mcg tablet RxNorm: 021872 1 Tablet(s) PO daily 08/07/2011 09/07/2012 Inactive Omnaris 50 mcg Nasal Ennice RxNorm: 967531 2 Ennice NASAL daily 2 sprays per nostril daily 06/20/2011 12/08/2011 Inactive Rocephin 500 mg Solution for Injection RxNorm: 659819 1 Milliliter(s) Inj 06/20/2011 09/26/2011 Inactive Kenalog 40 mg/mL Susp for Injection RxNorm: 8027392 1 Milliliter(s) Inj 06/20/2011 09/26/2011 Inactive cefdinir 300 mg Cap RxNorm: 915330 1 Capsule(s) PO BID 06/20/2011 09/26/2011 Inactive + Iron oral RxNorm: oral No Start Date Active Omnaris 50 mcg Nasal Ennice RxNorm: 705008 2 Ennice NASAL daily 2 sprays per nostril daily No Start Date 06/19/2011 Inactive Fish Oil 1,000 mg Cap RxNorm: 1 Capsule(s) PO daily No Start Date 02/12/2018 Inactive Depo-Provera 150 mg/mL intramuscular syringe RxNorm: 1045370 1 Milliliter(s) IM q 3 month No Start Date 10/25/2014 Inactive Alicia-D 24 Hour 180 mg-240 mg tablet,extended release RxNorm: 662979 1 Tablet(s) PO daily as needed No Start Date 07/08/2016 Inactive Vitamin B-6 oral RxNorm: 092776 oral No Start Date 04/29/2018 Inactive Claritin-D 24 Hour 10 mg-240 mg Tab RxNorm: 2259944 1 Tablet(s) PO daily No Start Date 09/25/2011 Inactive Synthroid 25 mcg Tab RxNorm: 536753 1 Tablet(s) PO daily No Start Date 09/26/2011 Inactive Zithromax Z-Emmanuel 250 mg tablet RxNorm: 580879 Tablet(s) PO UD No Start Date 04/04/2014 Inactive Depo-Provera 150 mg/mL IM Susp RxNorm: 2917306 IM No Start Date 10/15/2012 Inactive Medication Administered Medication Codes Instructions Start Date Status medroxyprogesterone 150 mg/mL intramuscular syringe RxNorm: 1595583 Milliliter 10/22/2013 No longer Active medroxyprogesterone 150 mg/mL intramuscular syringe RxNorm: 6764729 Milliliter 07/21/2013 No longer Active Depo-Provera 150 mg/mL IM Syringe RxNorm: 3370031 Milliliter 04/21/2013 No longer Active Depo-Provera 150 mg/mL IM Syringe RxNorm: 4710671 Milliliter 01/18/2013 No longer Active medroxyprogesterone 150 mg/mL IM Susp RxNorm: 6641897 Milliliter 10/19/2012 No longer Active Kenalog 40 mg/mL Susp for Injection RxNorm: 1703410 1.5Milliliter 08/23/2011 No longer Active Immunizations Vaccine [...] hTSH II 4.61 uIU/mL 06/17/2016 Free T4 Ufy901 FREE T4 0.77 ng/dL 06/17/2016 Comp Metabolic Dwe063 NA 135 mEq/L 03/28/2016 Comp Metabolic Ipj583 K 3.9 mEq/L 03/28/2016 Comp Metabolic Rgy646 CL 107 mEq/L 03/28/2016 Comp Metabolic Tfd359 CO2 24.0 mEq/L 03/28/2016 Comp Metabolic Jkj625 ANION GAP 8 03/28/2016 Comp Metabolic Lev617 GLUCOSE 85 mg/dL 03/28/2016 Comp Metabolic Gmz828 Creat 0.7 mg/dL 03/28/2016 Comp Metabolic Oiq585 eGFR 98 ml/min/1.73m2 03/28/2016 Comp Metabolic Fqd213 BUN 15 mg/dL 03/28/2016 Comp Metabolic Xui070 B/C Ratio 20.5 Ratio 03/28/2016 Comp Metabolic Yba598 CALCIUM 8.7 mg/dL 03/28/2016 Comp Metabolic Ltj786 ALK PHOS 70 U/L 03/28/2016 Comp Metabolic Zgl450 AST(SGOT) 15 U/L 03/28/2016 Comp Metabolic Tpt119 ALT(SGPT) 15 U/L 03/28/2016 Comp Metabolic Pgg512 BILI T 0.7 mg/dL 03/28/2016 Comp Metabolic Drq443 ALBUMIN 3.9 g/dL 03/28/2016 Comp Metabolic Ija619 TPRO 6.3 g/dL 03/28/2016 Comp Metabolic Ppb811 GLOB 2.4 g/dL 03/28/2016 Comp Metabolic Jla022 A/G Ratio 1.6 Ratio 03/28/2016 Comp Metabolic Vaq283 Osmo 270 mOsmo 03/28/2016 Lipid Ord30 CHOL [...] 28.5 pg 03/28/2016 Cbc With Differential Ord2 [place]% 6.6 % 03/28/2016 Cbc With Differential Ord2 [...] 1.40 K/ul 03/28/2016 Cbc With Differential Ord2 [place] ABS# 0.3 K/ul 03/28/2016 Cbc With Differential Ord2 Eos ABS# 0.1 K/ul 03/28/2016 Cbc With Differential Ord2 Baso ABS# 0.0 K/ul 03/28/2016 Tsh Ord6 hTSH II 6.46 uIU/mL 03/28/2016 Free T4 Tyc121 FREE T4 0.74 ng/dL 03/28/2016 Review of [...] Procedure Codes Date IMMUNIZATION ADMIN CPT- 4: 97568 06/19/2016 IIV4 FLU VACC NO PRESERV ID Formatting Model/CDA Sections, Assigned to/Tawny Torres CT: [id number] CPT-4: 63851Asmmlhc 06/19/2016 THER/PROPH/DIAG INJ SC/IM CPT-4: 32868 10/22/2013 THER/PROPH/DIAG INJ SC/IM CPT-4: 87899 07/21/2013 THER/PROPH/DIAG INJ SC/IM CPT-4: 82858 04/21/2013 THER/PROPH/DIAG INJ SC/IM CPT-4: 30644 01/18/2013 THER/PROPH/DIAG INJ SC/IM CPT-4: 84270 10/19/2012 PREV VISIT EST AGE 18-39 CPT-4: 54294 09/26/2011 THER/PROPH/DIAG INJ SC/IM CPT-4: 02242 08/22/2011 TRIAMCINOLONE ACET INJ NOS CPT-4: J3301 08/22/2011 TRIAMCINOLONE ACET INJ NOS CPT-4: J3301 06/20/2011 THER/PROPH/DIAG INJ SC/IM CPT-4: 06215 06/20/2011 ROCEPHIN, PER 250 MG CPT- 4: J0696 06/20/2011 Vital Signs Date Vital 07/01/2018 Blood Pressure 1: 134/68 Code: 8480-6 BMI: 44.5 Code: 26108-8 Heart Rate 1: 97 bpm Height: 5' SpO2: 98% Weight: 228 lbs 04/30/2018 Blood Pressure 1: 110/80 Code: 8480-6 BMI: 44.5 Code: 14417-6 Heart Rate 1: 91 bpm Height: 5' SpO2: 99% Weight: 228 lbs 02/13/2018 Blood Pressure 1: 118/84 Code: 8480-6 BMI: 43.9 Code: 43257-0 Heart Rate 1: 101 bpm Height: 5' SpO2: 98% Temperature: 36.8 (C) / 98.2 (F) Weight: 225 lbs 08/04/2017 Blood Pressure 1: 122/76 Code: 8480-6 BMI: 41.8 Code: 98664-6 Heart Rate 1: 117 bpm Height: 5' SpO2: 96% Temperature: 36.6 (C) / 97.9 (F) Weight: 214 lbs 09/18/2016 Blood Pressure 1: 132/78 Code: 8480-6 BMI: 41.2 Code: 24040-0 Heart Rate 1: 94 bpm Height: 5' SpO2: 98% Weight: 211 lbs 06/19/2016 Blood Pressure 1: 132/86 Code: 8480-6 BMI: 39.1 Code: 98622-9 Heart Rate 1: 78 bpm Height: 5' SpO2: 99% Weight: 200 lbs 04/01/2016 Blood Pressure 1: 120/80 Code: 8480-6 BMI: 38.5 Code: 86264-3 Heart Rate 1: 86 bpm Height: 5' SpO2: 96% Weight: 197 lbs 12/12/2014 Blood Pressure 1: 110/82 Code: 8480-6 BMI: 47.8 Code: 89243-1 Heart Rate 1: 90 bpm Height: 5' Weight: 245 lbs 10/26/2014 Blood Pressure 1: 122/76 Code: 8480-6 BMI: 47.1 Code: 03036-3 Heart Rate 1: 96 bpm Height: 5' Weight: 241 lbs 10/22/2013 Blood Pressure 1: 152/88 Code: 8480-6 Heart Rate 1: 88 bpm Weight: 240 lbs 01/07/2013 Blood Pressure 1: 114/80 Code: 8480-6 Weight: 224 lbs 10/19/2012 Blood Pressure 1: 126/94 Code: 8480-6 BMI: 43.5 Code: 98122-6 Heart Rate 1: 104 bpm Height: 5' Respiratory Rate: 16 bpm Weight: 222 lbs 8 oz 08/10/2012 Blood Pressure 1: 112/84 Code: 8480-6 Heart Rate 1: 84 bpm Weight: 233 lbs 03/16/2012 Blood Pressure 1: 110/72 Code: 8480-6 BMI: 43.0 Code: 74261-6 Heart Rate 1: 88 bpm Height: 5' Respiratory Rate: 18 bpm Weight: 220 lbs 01/24/2012 Blood Pressure 1: 104/80 Code: 8480-6 BMI: 43.2 Code: 27945-1 Height: 5' Weight: 221 lbs 11/21/2011 BMI: 45.7 Code: 18111-6 Height: 5' Weight: 234 lbs 09/26/2011 Blood Pressure 1: 110/68 Code: 8480-6 BMI: 46.8 Code: 31310-5 Heart Rate 1: 90 bpm Height: 5' Respiratory Rate: 16 bpm Weight: 239 lbs 8 oz 08/22/2011 Blood Pressure 1: 128/89 Code: 8480-6 BMI: 46.1 Code: 69125-1 Heart Rate 1: 83 bpm Height: 5' Weight: 236 lbs 06/20/2011 Blood Pressure 1: 120/80 Code: 8480-6 BMI: 46.6 Code: 33847-1 Heart Rate 1: 88 bpm Height: 5' [...] (18-39 years) Control IUD 09/26/2011 Mirena, placed du6376 weight gain/obesity Location globally 09/26/2011 pt states that 8 years ago she weighed 135#. weight gain/obesity Weight Status is morbidly obese 09/26/2011 pt states the weight seems to add each year by 10-30 pounds despite exercisingnat the [facility] headache Location diffusely 08/22/2011 None [...] Diagnosis: Epigastric pain[ICD10: R10.13] Mirian Novoa MD, [facility] CPT-4: 71679 07/01/2018 [id number]) 05393 EST. PATIENT, LEVEL III Diagnosis: Slow transit constipation[ICD10: K59.01] Diagnosis: Generalized abdominal pain[ICD10: R10.84] [facility] CPT-4: 83470 04/30/2018 [id number]) 98810 EST. PATIENT, LEVEL III Diagnosis: Cough[ICD10: R05] Diagnosis: Acute recurrent maxillary sinusitis[ICD10: J01.01] [facility] CPT-4: 88527 02/13/2018 [id number]) 51135 EST. PATIENT, LEVEL III Diagnosis: Dehydration[ICD10: E86.0] Diagnosis: Nausea[ICD10: R11.0] Diagnosis: Diarrhea, unspecified[ICD10: R19.7] Em Novoa MD, [facility] CPT-4: 44504 08/04/2017 93748 EST. PATIENT, LEVEL III Diagnosis: Low back pain[ICD10: M54.5] Mirian Novoa MD, [facility] CPT-4: 11578 09/18/2016 00044 EST. PATIENT, LEVEL IV Diagnosis: VACCIN FOR INFLUENZA[ICD10: Z23] Diagnosis: Other specified hypothyroidism[ICD10: E03.8] Mirian Novoa MD, [facility] CPT-4: 76863 06/19/2016 ([id number]) 11710 EST. PATIENT, LEVEL III Diagnosis: Hypothyroidism, unspecified[ICD10: E03.9] Em Novoa MD, [facility] CPT-4: 67292 04/01/2016 ([id number]) 33342 EST. PATIENT, LEVEL III Diagnosis: Missed periods[ICD9: 626.4] Mandy Novoa MD, [facility] CPT-4: 01396 12/12/2014 ([id number]) PREV VISIT EST AGE 18-39 Diagnosis: ROUTINE GYNE EXAM[ICD9: V72.31] Mandy Novoa MD, [facility] CPT-4: 57837 10/26/2014 ([id number]) PREV VISIT EST AGE 18-39 Diagnosis: ROUTINE GYNE EXAM[ICD9: V72.31] Em Novoa MD, [facility] CPT-4: 21319 10/22/2013 ([id number]) Miscellaneous no charge Diagnosis: MORBID OBESITY[ICD9: 278.01] Em Novoa MD, [facility] CPT-4: 32239 01/07/2013 ([id number]) 15699 EST. PATIENT, LEVEL III Diagnosis: Allergic rhinitis[ICD9: 477.9] Diagnosis: Contraceptive surveillance, unspecified[ICD9: V25.40] Diagnosis: MORBID OBESITY[ICD9: 278.01] Mandy Novao MD, [facility] CPT-4: 64859 10/19/2012 ([id number]) 01139 EST. PATIENT, LEVEL III Diagnosis: Varicose veins of both lower extremities with pain[ICD9: 454.8] Diagnosis: Obesities, morbid[ICD9: 278.01] Mandy Novoa MD, [facility] CPT-4: 74076 08/10/2012 ([id number]) 34040 EST. PATIENT, LEVEL IV Diagnosis: Abdominal pain[ICD9: 789.00] Diagnosis: Breast tenderness in female[ICD9: 611.71] Mandy Novoa MD, [facility] CPT-4: 58019 03/16/2012 Miscellaneous no charge Diagnosis: MORBID OBESITY[ICD9: 278.01] Em Novoa MD, [facility] CPT-4: 85764 01/24/2012 Miscellaneous no charge Diagnosis: MORBID OBESITY[ICD9: 278.01] Em Novoa MD, [facility] CPT-4: 07481 11/21/2011 66435 EST. PATIENT, LEVEL III Diagnosis: ACUTE SINUSITIS[ICD9: 461.9] Diagnosis: HEADACHE[ICD9: 784.0] Em Novoa MD, [facility] CPT-4: 23987 08/22/2011 44461 EST. PATIENT, LEVEL III Diagnosis: ACUTE SINUSITIS[ICD9: 461.9] Diagnosis: Environmental allergies[ICD9: 477.9] Em Novoa MD, [facility] CPT-4: 71699 06/20/2011 Plan of Care Planned Activity Notes [...] with ultrasound 04/30/2018 Appointment: Em Ortiz WPtel: [address] [place], [place] [phone] [place] (15 min) Moderate 04/30/2018 Patient Education: Patient Medication Summary Completed 04/30/2018 Visit Plan: Sinusitis - Pt has acute infection - pain in face, maxillary region, Pt informed to use decongestant, RX given to patient, sinus rinses also recommended. Call if symptoms do not show improvement. 02/13/2018 Appointment: Em Ortiz WPtel: [phone] [phone] (15 min) Moderate 02/13/2018 Patient Education: Patient Medication Summary Completed 02/13/2018 Patient Education: Patient Medication Summary Completed 09/11/2017 Visit Plan: Zimyyokiulfwwsi-zydvwcsdccs-ywjcpbg sent for outpatient IVF and anti nausea [...] not improved. 08/04/2017 Appointment: Em Ortiz WPtel: [facility]9 [phone] (15 min) Moderate 08/04/2017 Patient Education: Patient Medication Summary Completed 08/04/2017 Patient Education: Obesity Completed 08/04/2017 Appointment: Mandy Novoa WPtel: [facility]3 [facility] (15 min) Moderate 12/31/2016 Visit Plan: Low [...] improve. 09/18/2016 Appointment: Mirian Osei WPtel: [phone] [facility] (30 min) Complex 09/18/2016 Patient Education: Patient [...] RX. 06/19/2016 Appointment: Em Ortiz WPtel: [phone] [phone] (30 min) Complex 06/19/2016 Patient Education: Patient [...] control. 04/01/2016 Appointment: Em Ortiz WPtel: [phone] [phone] (30 min) Complex 04/01/2016 Patient Education: Patient [...] triosant 13mcg. 12/12/2014 Appointment: Mandy Novoa WPtel: [facility]3 [facility] Other 12/12/2014 Patient Education: Patient Medication [...] prn. 10/26/2014 Appointment: Mandy Novoa WPtel: [phone] [facility] 10/26/2014 Patient Education: Patient Medication [...] or prn. 10/22/2013 Appointment: Em Ortiz WPtel: [facility]5 [phone] [facility] 10/22/2013 Patient Education: Patient Medication Summary Completed 10/22/2013 Appointment: [facility]el[facility] [place] Injection 07/21/2013 Patient Education: Patient Medication Summary Completed 07/21/2013 Appointment: Em Ortiz WPtel: [facility]8 [phone] [place] Injection 07/20/2013 Visit Plan: depo injection today 04/21/2013 Patient Education: Patient Medication Summary Completed 04/21/2013 Appointment: Em Ortiz WPtel: [phone] [phone] [place] Injection 01/18/2013 Patient Education: Patient Medication [...] check. 10/19/2012 Appointment: Mandy Novoa WPtel: [phone] [facility] [place] Follow up 10/19/2012 Patient Education: Patient [...] check. 08/10/2012 App[facility]ment: [phone] Follow [facility] 08/10/2012 Patient Education: Patient [...] ovarian cysts. 03/16/2012 Appointment: Mandy Novoa WPtel: [facility] [place] Other 03/16/2012 Patient Education: Patient Medication Summary Completed 03/16/2012 [phone] [facility] 03/02/2012 Visit Plan: Weight and blood pressure check 01/24/2012 [facility]ment[phone] Other 01/24/2012 Patient Education: Patient Medication Summary Completed 01/24/2012 Visit Plan: Weight check only 11/21/2011 Appointment: Em Ortiz WPtel: [phone] [phone] Other 11/21/2011 Patient Education: Patient Medication Summary [...] pressure occur. 09/26/2011 Appointment: Mandy Novoa WPtel: [facility]5 [facility] [facility] 09/26/2011 Patient Education: Patient [...] as well. 08/22/2011 Appointment: Em Ortiz WPtel: [facility]5 [phone] [place] [address] Other 08/22/2011 Patient Education: Patient Medication Summary [...] show improvement. 06/20/2011 Appointment: Em Ortiz WPtel: [address] [place], [place] [phone] Other 06/20/2011 Patient Education: Patient Medication Summary [...] other concern is for bilateral ovarian cysts. Dr. Chris Sage. Abdominal hernia - will [...] Call if symptoms do not show improvement. Ibuprofen - 400mg-800mg three times a day [...] check labs start probiotic twice daily . Guoytlchmqvjtyh-bhegpvxsyec-mvcxein sent for outpatient IVF and anti nausea [...]
--- OUTSIDE RECORDS SUMMARY | 2019-01-28 06:18 | XMS REPORT | CCD ---
Author Author Em Ortiz MD, [facility] Address [facility] [place] [facility] [place] [address] Phone Care Team Providers Care Product Lister Name Role Phone PP Unavailable CCM Unavailable Summary Purpose Interface Exchange Insurance Providers Payer name Policy type / Coverage type Covered libertarian ID Effective Begin Date Effective End Date [employer] Commercial Insurance [id number] Unknown Family history Brother Diagnosis Age At Onset Denies: *Denies any medical problems Unknown Mother Diagnosis Age At Onset Diabetes mellitus Type 2 Unknown Father Diagnosis Age At Onset Denies: *Denies any medical problems Unknown Sister Diagnosis Age At Onset Denies: *Denies any medical problems Unknown Social History Social History Element Codes Description Effective Dates Marital status Unknown 09/26/[address]: 572424506 Nonsmoker 09/26/[address]: 560596894 Never drinks alcohol 09/26/2011 Has the patient ever used illegal drugs? 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 [employer] 06/20/2011 Allergies, Adverse Reactions, Alerts Substance Reaction Codes Entered Date Inactivated Date Status * NO KNOWN DRUG ALLERGIES Unknown 06/20/2011 No Inactive Date Active * NO KNOWN FOOD ALLERGIES Unknown 09/26/2011 No Inactive Date Active * NO KNOWN ENVIRONMENTAL ALLERGIES Unknown 06/20/2011 No Inactive Date Active Past Medical History Illness Codes Condition Status Onset Date Resolved Date Generalized abdominal pain ICD-9: 789.07 ICD-10: R10.84 [...] Problems Condition Codes Effective Dates Condition Status Generalized abdominal pain ICD-9: 789.07 ICD-10: R10.84 [...] Fill Instructions amoxicillin 500 mg tablet RxNorm: 653414 1 Tablet(s) PO TID 02/13/2018 02/22/2018 Inactive Alicia-D 24 Hour 180 mg-240 mg tablet,extended release RxNorm: 116965 1 Tablet(s) PO daily as needed 12/16/2017 02/13/2018 Inactive promethazine 25 mg tablet RxNorm: 205332 1 Tablet(s) PO Q6 PRN 08/04/2017 02/12/2018 Inactive promethazine 25 mg tablet RxNorm: 648515 1 Tablet(s) PO Q6 PRN 08/04/2017 08/03/2017 Inactive Valtrex 1 gram tablet RxNorm: 119980 1 Tablet(s) PO daily 05/21/2017 02/12/2018 Inactive Tirosint 13 mcg capsule RxNorm: 955195 TAKE 1 CAPSULE BY MOUTH DAILY 03/10/2017 11/16/2017 Inactive Valtrex 1 gram tablet RxNorm: 040841 1 TABLET(S) PO DAILY 03/05/2017 03/28/2017 Inactive Alicia-D 24 Hour 180 mg-240 mg tablet,extended release RxNorm: 659703 1 Tablet(s) PO daily as needed 07/09/2016 12/15/2017 Inactive Tirosint 13 mcg capsule RxNorm: 011131 Capsule(s) 1 CAPSULE(S) PO DAILY 07/08/2016 01/03/2017 Inactive Tirosint 13 mcg capsule RxNorm: 023161 Capsule(s) 1 CAPSULE(S) PO DAILY 06/26/2016 07/07/2016 Inactive daw1 scopolamine 1.5 mg transdermal patch (1 mg over 3 days) RxNorm: 358860 1 Patch TD Q72H 06/19/2016 02/12/2018 Inactive Tirosint 25 mcg capsule RxNorm: 375758 1 Capsule(s) PO daily 06/19/2016 06/18/2016 Inactive Tirosint 25 mcg capsule RxNorm: 556131 1 Capsule(s) PO daily 06/19/2016 06/25/2016 Inactive meclizine 25 mg tablet RxNorm: 904136 1 Tablet(s) PO TID as needed 06/19/2016 06/25/2016 Inactive Valtrex 1 gram tablet RxNorm: 027656 1 TABLET(S) PO DAILY 06/11/2016 07/04/2016 Inactive Tirosint 13 mcg capsule RxNorm: 489065 1 CAPSULE(S) PO DAILY 03/25/2016 06/19/2016 Inactive daw1 Valtrex 1 gram tablet RxNorm: 277504 1 TABLET(S) PO DAILY 02/23/2015 03/18/2015 Inactive Tirosint 13 mcg capsule RxNorm: 374970 1 Capsule(s) PO daily 02/06/2015 02/05/2015 Inactive Tirosint 13 mcg capsule RxNorm: 103833 1 Capsule(s) PO daily 02/06/2015 03/24/2016 Inactive daw1 Zithromax Z-Emmanuel 250 mg tablet RxNorm: 942668 Tablet(s) PO UD 04/05/2014 10/25/2014 Inactive [SAVINGS FOR UNINSURED PATIENTS -- BIN:[id number], PCN: [id number], Group: [id number], ID# [id number], Process claim through [email or web address], for questions: . THIS IS NOT INSURANCE.] Valtrex 1 g tablet RxNorm: 339810 Tablet(s) PO TAKE 1 TABLET BY MOUTH DAILY 12/30/2013 05/20/2017 Inactive Synthroid 75 mcg tablet RxNorm: 574835 Tablet(s) PO TAKE 1 TABLET BY MOUTH DAILY 12/30/2013 10/25/2014 Inactive Valtrex 1 gram tablet RxNorm: 246417 1 Tablet(s) PO daily 12/29/2013 01/09/2014 Inactive medroxyprogesterone 150 mg/mL intramuscular syringe RxNorm: 4338235 Milliliter(s) IM 10/22/2013 10/22/2013 Inactive Depo-Provera 150 mg/mL intramuscular suspension RxNorm: 2141655 Milliliter(s) IM bring to clinic for admin. 10/20/2013 10/25/2014 Inactive Valtrex 1 g tablet RxNorm: 932779 1 Tablet(s) PO daily 09/03/2013 09/14/2013 Inactive medroxyprogesterone 150 mg/mL intramuscular syringe RxNorm: 2574874 Milliliter(s) IM 07/21/2013 07/21/2013 Inactive Depo-Provera 150 mg/mL intramuscular suspension RxNorm: 3616025 Milliliter(s) IM bring to clinic for admin. 07/20/2013 10/19/2013 Inactive Synthroid 75 mcg tablet RxNorm: 220013 1 Tablet(s) PO daily 06/23/2013 12/19/2013 Inactive Synthroid 75 mcg tablet RxNorm: 287776 1 Tablet(s) PO daily 05/31/2013 06/22/2013 Inactive Synthroid 75 mcg tablet RxNorm: 888490 1 Tablet(s) PO daily 05/31/2013 05/30/2013 Inactive Depo-Provera 150 mg/mL IM Syringe RxNorm: 2536691 Milliliter(s) IM 04/21/2013 04/21/2013 Inactive Depo-Provera 150 mg/mL intramuscular suspension RxNorm: 1611036 Milliliter(s) IM bring to clinic for admin. 04/12/2013 07/19/2013 Inactive Depo-Provera 150 mg/mL IM Syringe RxNorm: 9556748 Milliliter(s) IM 01/18/2013 01/18/2013 Inactive phentermine 37.5 mg disintegrating tablet RxNorm: 4939571 1 Tablet(s) PO daily 01/08/2013 02/06/2013 Inactive medroxyprogesterone 150 mg/mL IM Susp RxNorm: 0035995 Milliliter(s) IM 10/19/2012 10/19/2012 Inactive Nasonex 50 mcg/actuation Wilmore RxNorm: 092787 1 Wilmore NASAL BID 1 spray each nare bid 10/19/2012 02/12/2018 Inactive phentermine 37.5 mg disintegrating tablet RxNorm: 8759922 1 Tablet(s) PO daily 10/19/2012 11/17/2012 Inactive Depo-Provera 150 mg/mL IM Susp RxNorm: 9782173 IM bring to clinic for admin. 10/16/2012 04/11/2013 Inactive Synthroid 50 mcg tablet RxNorm: 336450 1 Tablet(s) PO daily 09/07/2012 05/30/2013 Inactive Synthroid 50 mcg tablet RxNorm: 009691 1 Tablet(s) PO daily 09/07/2012 05/30/2013 Inactive Valtrex 1 g tablet RxNorm: 989113 1 Tablet(s) PO daily 2012 08/31/2012 Inactive Valtrex 1 g tablet RxNorm: 220755 1 Tablet(s) PO daily 2012 08/19/2012 Inactive phentermine 37.5 mg Tab RxNorm: 873029 1 Tablet(s) PO daily 03/02/2012 10/19/2012 Inactive phentermine 37.5 mg Tab RxNorm: 868155 1 Tablet(s) PO daily 01/24/2012 02/22/2012 Inactive phentermine 37.5 mg Tab RxNorm: 946819 1 Tablet(s) PO daily 12/23/2011 01/21/2012 Inactive Nasonex 50 mcg/actuation Wilmore RxNorm: 501346 1 Wilmore NASAL BID 1 spray each nare bid 12/19/2011 10/18/2012 Inactive Nasonex 50 mcg/actuation [place] RxNorm: 917107 1 Wilmore NASAL BID 1 spray each nare bid 12/19/2011 12/18/2011 Inactive Synthroid 50 mcg Tab RxNorm: 586523 Tablet(s) PO 12/10/2011 05/31/2013 Inactive TAKE ONE TABLET BY MOUTH DAILY;Patient requests 90 day supply Omnaris 50 mcg Nasal Wilmore RxNorm: 784957 2 Wilmore NASAL daily 2 sprays per nostril daily 12/09/2011 12/18/2011 Inactive Synthroid 50 mcg tablet RxNorm: 464806 1 Tablet(s) PO daily 12/09/2011 09/06/2012 Inactive Synthroid 50 mcg Tab RxNorm: 124298 1 Tablet(s) PO daily 12/09/2011 12/09/2011 Inactive phentermine 37.5 mg Tab RxNorm: 417790 1 Tablet(s) PO daily 11/21/2011 12/20/2011 Inactive Claritin-D 24 Hour 10 mg-240 mg Tab RxNorm: 8879425 1 Tablet(s) PO PRN 09/26/2011 02/12/2018 Inactive Valtrex 1 g Tab RxNorm: 818466 1 Tablet(s) PO daily 08/28/2011 08/30/2011 Inactive Valtrex 1 g Tab RxNorm: 202820 1 Tablet(s) PO daily one daily x 3 days, may continue x 2 more days if the cold sore is not resolved 08/28/2011 09/26/2011 Inactive Kenalog 40 mg/mL Susp for Injection RxNorm: 8985619 1.5 Milliliter(s) Inj 08/23/2011 08/23/2011 Inactive Levaquin 500 mg Tab RxNorm: 132270 1 Tablet(s) PO daily 08/22/2011 09/26/2011 Inactive Synthroid 50 mcg Tab RxNorm: 770655 1 Tablet(s) PO daily 08/07/2011 08/06/2011 Inactive Synthroid 50 mcg tablet RxNorm: 146602 1 Tablet(s) PO daily 08/07/2011 09/07/2012 Inactive Omnaris 50 mcg Nasal Wilmore RxNorm: 810394 2 Wilmore NASAL daily 2 sprays per nostril daily 06/20/2011 12/08/2011 Inactive Rocephin 500 mg Solution for Injection RxNorm: 778980 1 Milliliter(s) Inj 06/20/2011 09/26/2011 Inactive Kenalog 40 mg/mL Susp for Injection RxNorm: 6542772 1 Milliliter(s) Inj 06/20/2011 09/26/2011 Inactive cefdinir 300 mg Cap RxNorm: 701029 1 Capsule(s) PO BID 06/20/2011 09/26/2011 Inactive + Iron oral RxNorm: oral No Start Date Active Omnaris 50 mcg Nasal Wilmore RxNorm: 605340 2 Wilmore NASAL daily 2 sprays per nostril daily No Start Date 06/19/2011 Inactive Fish Oil 1,000 mg Cap RxNorm: 1 Capsule(s) PO daily No Start Date 02/12/2018 Inactive Depo-Provera 150 mg/mL intramuscular syringe RxNorm: 1894469 1 Milliliter(s) IM q 3 month No Start Date 10/25/2014 Inactive Alicia-D 24 Hour 180 mg-240 mg tablet,extended release RxNorm: 784221 1 Tablet(s) PO daily as needed No Start Date 07/08/2016 Inactive Vitamin B-6 oral RxNorm: 820174 oral No Start Date 04/29/2018 Inactive Claritin-D 24 Hour 10 mg-240 mg Tab RxNorm: 3528850 1 Tablet(s) PO daily No Start Date 09/25/2011 Inactive Synthroid 25 mcg Tab RxNorm: 710503 1 Tablet(s) PO daily No Start Date 09/26/2011 Inactive Zithromax Z-Emmanuel 250 mg tablet RxNorm: 490873 Tablet(s) PO UD No Start Date 04/04/2014 Inactive Depo-Provera 150 mg/mL IM Susp RxNorm: 3891804 IM No Start Date 10/15/2012 Inactive Medication Administered Medication Codes Instructions Start Date Status medroxyprogesterone 150 mg/mL intramuscular syringe RxNorm: 0036625 Milliliter 10/22/2013 No longer Active medroxyprogesterone 150 mg/mL intramuscular syringe RxNorm: 5824625 Milliliter 07/21/2013 No longer Active Depo-Provera 150 mg/mL IM Syringe RxNorm: 4375249 Milliliter 04/21/2013 No longer Active Depo-Provera 150 mg/mL IM Syringe RxNorm: 6831742 Milliliter 01/18/2013 No longer Active medroxyprogesterone 150 mg/mL IM Susp RxNorm: 7871855 Milliliter 10/19/2012 No longer Active Kenalog 40 mg/mL Susp for Injection RxNorm: 4012082 1.5Milliliter 08/23/2011 No longer Active Immunizations Vaccine Codes Date Status Influenza CVX: 141 06/19/2016 completed Influenza CVX: 141 06/26/2011 completed Assessments Condition Codes Effective Dates Slow transit constipation ICD-10: K59.01 ICD-9: 564.01 [...] For Visit Effective Dates Notes abdominal pain 04/30/2018 sinus pain 02/13/2018 diarrhea [...] hTSH II 4.61 uIU/mL 06/17/2016 Free T4 Zfo918 FREE T4 0.77 ng/dL 06/17/2016 Comp Metabolic Xpe391 NA 135 mEq/L 03/28/2016 Comp Metabolic Wea453 K 3.9 mEq/L 03/28/2016 Comp Metabolic Haw059 CL 107 mEq/L 03/28/2016 Comp Metabolic Lkf018 CO2 24.0 mEq/L 03/28/2016 Comp Metabolic Gdd058 ANION GAP 8 03/28/2016 Comp Metabolic Dix806 GLUCOSE 85 mg/dL 03/28/2016 Comp Metabolic Ulm050 Creat 0.7 mg/dL 03/28/2016 Comp Metabolic Qdx235 eGFR 98 ml/min/1.73m2 03/28/2016 Comp Metabolic Dlv997 BUN 15 mg/dL 03/28/2016 Comp Metabolic Shw740 B/C Ratio 20.5 Ratio 03/28/2016 Comp Metabolic Cxu596 CALCIUM 8.7 mg/dL 03/28/2016 Comp Metabolic Ppv267 ALK PHOS 70 U/L 03/28/2016 Comp Metabolic Ska748 AST(SGOT) 15 U/L 03/28/2016 Comp Metabolic Lyw005 ALT(SGPT) 15 U/L 03/28/2016 Comp Metabolic Hav515 BILI T 0.7 mg/dL 03/28/2016 Comp Metabolic Eja649 ALBUMIN 3.9 g/dL 03/28/2016 Comp Metabolic Tfc815 TPRO 6.3 g/dL 03/28/2016 Comp Metabolic Zql919 GLOB 2.4 g/dL 03/28/2016 Comp Metabolic Ltu831 A/G Ratio 1.6 Ratio 03/28/2016 Comp Metabolic Qng076 Osmo 270 mOsmo 03/28/2016 Lipid Ord30 CHOL [...] 28.5 pg 03/28/2016 Cbc With Differential Ord2 Steele% 6.6 % 03/28/2016 Cbc With Differential Ord2 [...] 1.40 K/ul 03/28/2016 Cbc With Differential Ord2 Steele ABS# 0.3 K/ul 03/28/2016 Cbc With Differential Ord2 Eos ABS# 0.1 K/ul 03/28/2016 Cbc With Differential Ord2 Baso ABS# 0.0 K/ul 03/28/2016 Tsh Ord6 hTSH II 6.46 uIU/mL 03/28/2016 Free T4 Jle363 FREE T4 0.74 ng/dL 03/28/2016 Review of Systems System Result Effective Dates Constitutional No recent illness 04/30/2018 Constitutional No [...] Procedure Codes Date IMMUNIZATION ADMIN CPT- 4: 76254 06/19/2016 IIV4 FLU VACC NO PRESERV ID Formatting Model/CDA Sections, Assigned to/Tawny Torres CT: [id number] CPT-4: 38377Ltdlxmb 06/19/2016 THER/PROPH/DIAG INJ SC/IM CPT-4: 06824 10/22/2013 THER/PROPH/DIAG INJ SC/IM CPT-4: 24431 07/21/2013 THER/PROPH/DIAG INJ SC/IM CPT-4: 25672 04/21/2013 THER/PROPH/DIAG INJ SC/IM CPT-4: 29871 01/18/2013 THER/PROPH/DIAG INJ SC/IM CPT-4: 98570 10/19/2012 PREV VISIT EST AGE 18-39 CPT-4: 14939 09/26/2011 THER/PROPH/DIAG INJ SC/IM CPT-4: 63702 08/22/2011 TRIAMCINOLONE ACET INJ NOS CPT-4: J3301 08/22/2011 TRIAMCINOLONE ACET INJ NOS CPT-4: J3301 06/20/2011 THER/PROPH/DIAG INJ SC/IM CPT-4: 59437 06/20/2011 ROCEPHIN, PER 250 MG CPT- 4: J0696 06/20/2011 Vital Signs Date Vital 04/30/2018 Blood Pressure 1: 110/80 Code: 8480-6 BMI: 44.5 Code: 08794-3 Heart Rate 1: 91 bpm Height: 5' SpO2: 99% Weight: 228 lbs 02/13/2018 Blood Pressure 1: 118/84 Code: 8480-6 BMI: 43.9 Code: 94244-2 Heart Rate 1: 101 bpm Height: 5' SpO2: 98% Temperature: 36.8 (C) / 98.2 (F) Weight: 225 lbs 08/04/2017 Blood Pressure 1: 122/76 Code: 8480-6 BMI: 41.8 Code: 73719-6 Heart Rate 1: 117 bpm Height: 5' SpO2: 96% Temperature: 36.6 (C) / 97.9 (F) Weight: 214 lbs 09/18/2016 Blood Pressure 1: 132/78 Code: 8480-6 BMI: 41.2 Code: 77745-7 Heart Rate 1: 94 bpm Height: 5' SpO2: 98% Weight: 211 lbs 06/19/2016 Blood Pressure 1: 132/86 Code: 8480-6 BMI: 39.1 Code: 92559-2 Heart Rate 1: 78 bpm Height: 5' SpO2: 99% Weight: 200 lbs 04/01/2016 Blood Pressure 1: 120/80 Code: 8480-6 BMI: 38.5 Code: 30765-5 Heart Rate 1: 86 bpm Height: 5' SpO2: 96% Weight: 197 lbs 12/12/2014 Blood Pressure 1: 110/82 Code: 8480-6 BMI: 47.8 Code: 60778-0 Heart Rate 1: 90 bpm Height: 5' Weight: 245 lbs 10/26/2014 Blood Pressure 1: 122/76 Code: 8480-6 BMI: 47.1 Code: 59787-0 Heart Rate 1: 96 bpm Height: 5' Weight: 241 lbs 10/22/2013 Blood Pressure 1: 152/88 Code: 8480-6 Heart Rate 1: 88 bpm Weight: 240 lbs 01/07/2013 Blood Pressure 1: 114/80 Code: 8480-6 Weight: 224 lbs 10/19/2012 Blood Pressure 1: 126/94 Code: 8480-6 BMI: 43.5 Code: 41596-1 Heart Rate 1: 104 bpm Height: 5' Respiratory Rate: 16 bpm Weight: 222 lbs 8 oz 08/10/2012 Blood Pressure 1: 112/84 Code: 8480-6 Heart Rate 1: 84 bpm Weight: 233 lbs 03/16/2012 Blood Pressure 1: 110/72 Code: 8480-6 BMI: 43.0 Code: 45038-1 Heart Rate 1: 88 bpm Height: 5' Respiratory Rate: 18 bpm Weight: 220 lbs 01/24/2012 Blood Pressure 1: 104/80 Code: 8480-6 BMI: 43.2 Code: 83638-1 Height: 5' Weight: 221 lbs 11/21/2011 BMI: 45.7 Code: 36402-2 Height: 5' Weight: 234 lbs 09/26/2011 Blood Pressure 1: 110/68 Code: 8480-6 BMI: 46.8 Code: 64265-8 Heart Rate 1: 90 bpm Height: 5' Respiratory Rate: 16 bpm Weight: 239 lbs 8 oz 08/22/2011 Blood Pressure 1: 128/89 Code: 8480-6 BMI: 46.1 Code: 66498-8 Heart Rate 1: 83 bpm Height: 5' Weight: 236 lbs 06/20/2011 Blood Pressure 1: 120/80 Code: 8480-6 BMI: 46.6 Code: 44106-8 Heart Rate 1: 88 bpm Height: 5' Respiratory Rate: 16 bpm Weight: 238 lbs 8 oz Functional Status No Functional Status data History of Present Illness Symptom Name Status Result Effective Date Notes abdominal pain Location diffusely 04/30/2018 None abdominal [...] (18-39 years) Control IUD 09/26/2011 Mirena, placed [id number] weight gain/obesity Location globally 09/26/2011 pt states that 8 years ago she weighed 135#. weight gain/obesity Weight Status is morbidly obese 09/26/2011 pt states the weight seems to add each year by 10-30 pounds despite exercisingnat the [facility] headache Location diffusely 08/22/2011 None headache Quality [...] data Encounters Encounter Performer Location Codes Date ([id number]) 55944 EST. PATIENT, LEVEL III Diagnosis: Slow transit constipation[ICD10: K59.01] Diagnosis: Generalized abdominal pain[ICD10: R10.84] [facility] CPT-4: 03434 04/30/2018 ([id number]) 98484 EST. PATIENT, LEVEL III Diagnosis: Cough[ICD10: R05] Diagnosis: Acute recurrent maxillary sinusitis[ICD10: J01.01] [facility] CPT-4: 41236 02/13/2018 ([id number]) 66741 EST. PATIENT, LEVEL III Diagnosis: Dehydration[ICD10: E86.0] Diagnosis: Nausea[ICD10: R11.0] Diagnosis: Diarrhea, unspecified[ICD10: R19.7] [facility] CPT-4: 61400 08/04/2017 75250 EST. PATIENT, LEVEL III Diagnosis: Low back pain[ICD10: M54.5] Mirian Novoa MD, [facility] CPT-4: 40151 09/18/2016 17328 EST. PATIENT, LEVEL IV Diagnosis: VACCIN FOR INFLUENZA[ICD10: Z23] Diagnosis: Other specified hypothyroidism[ICD10: E03.8] Mirian Novoa MD, [facility] CPT-4: 15680 06/19/2016 ([id number]) 35352 EST. PATIENT, LEVEL III Diagnosis: Hypothyroidism, unspecified[ICD10: E03.9] Em Novoa MD, [facility] CPT-4: 11191 04/01/2016 ([id number]) 34195 EST. PATIENT, LEVEL III Diagnosis: Missed periods[ICD9: 626.4] [facility] CPT-4: 54264 12/12/2014 ([id number]) PREV VISIT EST AGE 18-39 Diagnosis: ROUTINE GYNE EXAM[ICD9: V72.31] [facility] CPT-4: 62542 10/26/2014 ([id number]) PREV VISIT EST AGE 18-39 Diagnosis: ROUTINE GYNE EXAM[ICD9: V72.31] Em Novoa MD, [facility] CPT-4: 16860 10/22/2013 ([id number]) Miscellaneous no charge Diagnosis: MORBID OBESITY[ICD9: 278.01] Em Novoa MD, [facility] CPT-4: 65486 01/07/2013 ([id number]) 66163 EST. PATIENT, LEVEL III Diagnosis: Allergic rhinitis[ICD9: 477.9] Diagnosis: Contraceptive surveillance, unspecified[ICD9: V25.40] Diagnosis: MORBID OBESITY[ICD9: 278.01] Mandy Novoa MD, [facility] CPT-4: 54324 10/19/2012 ([id number]) 09416 EST. PATIENT, LEVEL III Diagnosis: Varicose veins of both lower extremities with pain[ICD9: 454.8] Diagnosis: Obesities, morbid[ICD9: 278.01] [facility] CPT-4: 00588 08/10/2012 ([id number]) 19103 EST. PATIENT, LEVEL IV Diagnosis: Abdominal pain[ICD9: 789.00] Diagnosis: Breast tenderness in female[ICD9: 611.71] Mandy Novoa MD, [facility] CPT-4: 05080 03/16/2012 Miscellaneous no charge Diagnosis: MORBID OBESITY[ICD9: 278.01] Em Novoa MD, [facility] CPT-4: 50576 01/24/2012 Miscellaneous no charge Diagnosis: MORBID OBESITY[ICD9: 278.01] Em Novoa MD, [facility] CPT-4: 74203 11/21/2011 76568 EST. PATIENT, LEVEL III Diagnosis: ACUTE SINUSITIS[ICD9: 461.9] Diagnosis: HEADACHE[ICD9: 784.0] Em Novoa MD, [facility] CPT-4: 91620 08/22/2011 11802 EST. PATIENT, LEVEL III Diagnosis: ACUTE SINUSITIS[ICD9: 461.9] Diagnosis: Environmental allergies[ICD9: 477.9] Em Novoa MD, [facility] CPT-4: 89236 06/20/2011 Plan of Care Planned Activity Notes Codes Status Date Visit Plan: Constipation - uncontrolled - I [...] mesh placement -will evaluate with ultrasound 04/30/2018 Patient Education: Patient Medication Summary Completed 04/30/2018 Visit Plan: Sinusitis - Pt has acute infection - pain in face, maxillary region, Pt informed to use decongestant, RX given to patient, sinus rinses also recommended. Call if symptoms do not show improvement. 02/13/2018 Appointment: Em Ortiz WPtel: [address] [place], [place] [phone] (15 min) Moderate 02/13/2018 Patient Education: Patient Medication Summary Completed 02/13/2018 Patient Education: Patient Medication Summary Completed 09/11/2017 Visit Plan: Ybksjgcqdekzxnp-ngoiimytzeg-ihbizky sent for outpatient IVF and anti nausea [...] improved. 08/04/2017 Appointment: Em Ortiz WPtel: [phone] [phone] [place] (15 min) Moderate 08/04/2017 Patient Education: Patient Medication Summary Completed 08/04/2017 Patient Education: Obesity Completed 08/04/2017 Appointment: Mandy Nvooa WPtel: [phone] [facility] [place] (15 min) Moderate 12/31/2016 Visit [...] improve. 09/18/2016 Appointment: [facility] [phone] [facility] [place] (30 min) Complex 09/18/2016 Patient [...] RX. 06/19/2016 Appointment: Em Ortiz WPtel: [phone] [phone] [place] (30 min) Complex 06/19/2016 Patient Education: [...] of control. 04/01/2016 Appointment: Em Ortiz WPtel: [facility] [place] [facility] [place] [address] (30 min) Complex 04/01/2016 Patient Education: Patient [...] triosant 13mcg. 12/12/2014 Appointment: Mandy Novoa WPtel: [facility] [place] [facility] [place] [address] Other 12/12/2014 Patient Education: Patient Medication Summary [...] or prn. 10/26/2014 Appointment: Mandy Novoa WPtel: [address] [place] [address] [facility] 10/26/2014 Patient Education: Patient Medication [...] or prn. 10/22/2013 Appointment: Em Ortiz WPtel: [address] [place] [address] [facility] 10/22/2013 Patient Education: Patient Medication Summary Completed 10/22/2013 [facility]ment: [phone] [facility] [place] Injection 07/21/2013 Patient Education: Patient Medication Summary Completed 07/21/2013 Appointment: Angel [facility]el[facility] [phone] [phone] [place] Injection 07/20/2013 Visit Plan: depo injection today 04/21/2013 Patient Education: Patient Medication Summary Completed 04/21/2013 Appointment: Angel Em WPtel[facility] [phone] [phone] [place] Injection 01/18/2013 Patient Education: Patient [...] weight check. 10/19/2012 Appointment: Mandy Novoa WPtel: [address] [place], [place] [phone] Follow up 10/19/2012 Patient Education: Patient Medication [...] check. 08/10/2012 Appointment: Mandy Novoa WPtel: [address] [place], [place] [phone] Follow up 08/10/2012 Patient Education: Patient Medication [...] ovarian cysts. 03/16/2012 Appointment: Mandy Novoa WPtel: [address] [place], [place] [phone] Other 03/16/2012 Patient Education: Patient Medication Summary Completed 03/16/2012 Appointment: Em Ortiz WPtel: [address] [place], [place] [phone] Lab Draw 03/02/2012 Visit Plan: Weight and blood pressure check 01/24/2012 Appointment: Em Ortiz WPtel: [address] [place], [place] [phone] Other 01/24/2012 Patient Education: Patient Medication Summary Completed 01/24/2012 Visit Plan: Weight check only 11/21/2011 Appointment: Em Ortiz WPtel: [address] [place], [place] [phone] Other 11/21/2011 Patient Education: Patient Medication Summary [...] pressure occur. 09/26/2011 Appointment: Mandy Novoa WPtel: [facility] [place] [facility] [place] [phone] [facility] 09/26/2011 Patient Education: Patient Medication [...] as well. 08/22/2011 Appointment: Em Ortiz WPtel: [facility] [place] [facility] [place] [address] Other 08/22/2011 Patient Education: Patient Medication [...] show improvement. 06/20/2011 Appointment: Em Ortiz WPtel: [address] [place] [address] Other 06/20/2011 Patient Education: Patient Medication Summary [...] concern is for bilateral ovarian cysts. . Sinusitis - Pt has acute infection [...] check labs start probiotic twice daily . Xkkkpoywuonwfly-xprmmuoboup-[id number] sent for outpatient IVF and anti nausea [...]
--- OUTSIDE RECORDS SUMMARY | 2019-01-28 06:20 | XMS REPORT | CCD ---
Author Author Em Ortiz MD, [facility] Address [facility] [place] [address] Phone Care Team Providers Care Supervisor [employer] Room Name Role Phone PP Unavailable CCM Unavailable Summary Purpose Interface Exchange Insurance Providers Payer name Policy type / Coverage type Covered alliance party ID Effective Begin Date Effective End Date [employer] Commercial Insurance [id number] Unknown Family history Brother Diagnosis Age At Onset Denies: *Denies any medical problems Unknown Mother Diagnosis Age At Onset Diabetes mellitus Type 2 Unknown Father Diagnosis Age At Onset Denies: *Denies any medical problems Unknown Sister Diagnosis Age At Onset Denies: *Denies any medical problems Unknown Social History Social History Element Codes Description Effective Dates Marital status Unknown 09/26/[address]: 979787485 Nonsmoker 09/26/[address]: 747737898 Never drinks alcohol 09/26/2011 Has the patient ever used illegal drugs? 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 [employer] 06/20/2011 Allergies, Adverse Reactions, Alerts Substance Reaction [...] Fill Instructions amoxicillin 500 mg tablet RxNorm: 571851 1 Tablet(s) PO TID 02/13/2018 02/22/2018 Inactive Alicia-D 24 Hour 180 mg-240 mg tablet,extended release RxNorm: 743683 1 Tablet(s) PO daily as needed 12/16/2017 02/13/2018 Inactive promethazine 25 mg tablet RxNorm: 849585 1 Tablet(s) PO Q6 PRN 08/04/2017 02/12/2018 Inactive promethazine 25 mg tablet RxNorm: 801912 1 Tablet(s) PO Q6 PRN 08/04/2017 08/03/2017 Inactive Valtrex 1 gram tablet RxNorm: 807273 1 Tablet(s) PO daily 05/21/2017 02/12/2018 Inactive Tirosint 13 mcg capsule RxNorm: 402278 TAKE 1 CAPSULE BY MOUTH DAILY 03/10/2017 11/16/2017 Inactive Valtrex 1 gram tablet RxNorm: 665448 1 TABLET(S) PO DAILY 03/05/2017 03/28/2017 Inactive Alicia-D 24 Hour 180 mg-240 mg tablet,extended release RxNorm: 540412 1 Tablet(s) PO daily as needed 07/09/2016 12/15/2017 Inactive Tirosint 13 mcg capsule RxNorm: 531695 Capsule(s) 1 CAPSULE(S) PO DAILY 07/08/2016 01/03/2017 Inactive Tirosint 13 mcg capsule RxNorm: 414719 Capsule(s) 1 CAPSULE(S) PO DAILY 06/26/2016 07/07/2016 Inactive daw1 scopolamine 1.5 mg transdermal patch (1 mg over 3 days) RxNorm: 888714 1 Patch TD Q72H 06/19/2016 02/12/2018 Inactive Tirosint 25 mcg capsule RxNorm: 841801 1 Capsule(s) PO daily 06/19/2016 06/18/2016 Inactive Tirosint 25 mcg capsule RxNorm: 952412 1 Capsule(s) PO daily 06/19/2016 06/25/2016 Inactive meclizine 25 mg tablet RxNorm: 995592 1 Tablet(s) PO TID as needed 06/19/2016 06/25/2016 Inactive Valtrex 1 gram tablet RxNorm: 988016 1 TABLET(S) PO DAILY 06/11/2016 07/04/2016 Inactive Tirosint 13 mcg capsule RxNorm: 930348 1 CAPSULE(S) PO DAILY 03/25/2016 06/19/2016 Inactive daw1 Valtrex 1 gram tablet RxNorm: 490872 1 TABLET(S) PO DAILY 02/23/2015 03/18/2015 Inactive Tirosint 13 mcg capsule RxNorm: 820465 1 Capsule(s) PO daily 02/06/2015 02/05/2015 Inactive Tirosint 13 mcg capsule RxNorm: 177906 1 Capsule(s) PO daily 02/06/2015 03/24/2016 Inactive daw1 Zithromax Z-Emmanuel 250 mg tablet RxNorm: 704289 Tablet(s) PO UD 04/05/2014 10/25/2014 Inactive [SAVINGS FOR UNINSURED PATIENTS -- BIN:[id number], PCN: [id number], Group: [id number], ID# [id number], Process claim through ClassBad[employer], for questions: . THIS IS NOT INSURANCE.] Valtrex 1 g tablet RxNorm: 028555 Tablet(s) PO TAKE 1 TABLET BY MOUTH DAILY 12/30/2013 05/20/2017 Inactive Synthroid 75 mcg tablet RxNorm: 181387 Tablet(s) PO TAKE 1 TABLET BY MOUTH DAILY 12/30/2013 10/25/2014 Inactive Valtrex 1 gram tablet RxNorm: 555036 1 Tablet(s) PO daily 12/29/2013 01/09/2014 Inactive medroxyprogesterone 150 mg/mL intramuscular syringe RxNorm: 3348448 Milliliter(s) IM 10/22/2013 10/22/2013 Inactive Depo-Provera 150 mg/mL intramuscular suspension RxNorm: 0358256 Milliliter(s) IM bring to clinic for admin. 10/20/2013 10/25/2014 Inactive Valtrex 1 g tablet RxNorm: 708270 1 Tablet(s) PO daily 09/03/2013 09/14/2013 Inactive medroxyprogesterone 150 mg/mL intramuscular syringe RxNorm: 7246013 Milliliter(s) IM 07/21/2013 07/21/2013 Inactive Depo-Provera 150 mg/mL intramuscular suspension RxNorm: 9256906 Milliliter(s) IM bring to clinic for admin. 07/20/2013 10/19/2013 Inactive Synthroid 75 mcg tablet RxNorm: 032671 1 Tablet(s) PO daily 06/23/2013 12/19/2013 Inactive Synthroid 75 mcg tablet RxNorm: 405931 1 Tablet(s) PO daily 05/31/2013 06/22/2013 Inactive Synthroid 75 mcg tablet RxNorm: 931231 1 Tablet(s) PO daily 05/31/2013 05/30/2013 Inactive Depo-Provera 150 mg/mL IM Syringe RxNorm: 0481692 Milliliter(s) IM 04/21/2013 04/21/2013 Inactive Depo-Provera 150 mg/mL intramuscular suspension RxNorm: 9346490 Milliliter(s) IM bring to clinic for admin. 04/12/2013 07/19/2013 Inactive Depo-Provera 150 mg/mL IM Syringe RxNorm: 1415042 Milliliter(s) IM 01/18/2013 01/18/2013 Inactive phentermine 37.5 mg disintegrating tablet RxNorm: 7392236 1 Tablet(s) PO daily 01/08/2013 02/06/2013 Inactive medroxyprogesterone 150 mg/mL IM Susp RxNorm: 9118203 Milliliter(s) IM 10/19/2012 10/19/2012 Inactive Nasonex 50 mcg/actuation [place] RxNorm: 877017 1 [place] NASAL BID 1 spray each nare bid 10/19/2012 02/12/2018 Inactive phentermine 37.5 mg disintegrating tablet RxNorm: 9306541 1 Tablet(s) PO daily 10/19/2012 11/17/2012 Inactive Depo-Provera 150 mg/mL IM Susp RxNorm: 4386311 IM bring to clinic for admin. 10/16/2012 04/11/2013 Inactive Synthroid 50 mcg tablet RxNorm: 812071 1 Tablet(s) PO daily 09/07/2012 05/30/2013 Inactive Synthroid 50 mcg tablet RxNorm: 477674 1 Tablet(s) PO daily 09/07/2012 05/30/2013 Inactive Valtrex 1 g tablet RxNorm: 850079 1 Tablet(s) PO daily 2012 08/31/2012 Inactive Valtrex 1 g tablet RxNorm: 685114 1 Tablet(s) PO daily 2012 08/19/2012 Inactive phentermine 37.5 mg Tab RxNorm: 952969 1 Tablet(s) PO daily 03/02/2012 10/19/2012 Inactive phentermine 37.5 mg Tab RxNorm: 083362 1 Tablet(s) PO daily 01/24/2012 02/22/2012 Inactive phentermine 37.5 mg Tab RxNorm: 044000 1 Tablet(s) PO daily 12/23/2011 01/21/2012 Inactive Nasonex 50 mcg/actuation [place] RxNorm: 173274 1 [place] NASAL BID 1 spray each nare bid 12/19/2011 10/18/2012 Inactive Nasonex 50 mcg/actuation [place] RxNorm: 437904 1 [place] NASAL BID 1 spray each nare bid 12/19/2011 12/18/2011 Inactive Synthroid 50 mcg Tab RxNorm: 427355 Tablet(s) PO 12/10/2011 05/31/2013 Inactive TAKE ONE TABLET BY MOUTH DAILY;Patient requests 90 day supply Omnaris 50 mcg Nasal [place] RxNorm: 358761 2 [place] NASAL daily 2 sprays per nostril daily 12/09/2011 12/18/2011 Inactive Synthroid 50 mcg tablet RxNorm: 715086 1 Tablet(s) PO daily 12/09/2011 09/06/2012 Inactive Synthroid 50 mcg Tab RxNorm: 731470 1 Tablet(s) PO daily 12/09/2011 12/09/2011 Inactive phentermine 37.5 mg Tab RxNorm: 095505 1 Tablet(s) PO daily 11/21/2011 12/20/2011 Inactive Claritin-D 24 Hour 10 mg-240 mg Tab RxNorm: 4254344 1 Tablet(s) PO PRN 09/26/2011 02/12/2018 Inactive Valtrex 1 g Tab RxNorm: 188916 1 Tablet(s) PO daily 08/28/2011 08/30/2011 Inactive Valtrex 1 g Tab RxNorm: 254065 1 Tablet(s) PO daily one daily x 3 days, may continue x 2 more days if the cold sore is not resolved 08/28/2011 09/26/2011 Inactive Kenalog 40 mg/mL Susp for Injection RxNorm: 9953606 1.5 Milliliter(s) Inj 08/23/2011 08/23/2011 Inactive Levaquin 500 mg Tab RxNorm: 861954 1 Tablet(s) PO daily 08/22/2011 09/26/2011 Inactive Synthroid 50 mcg Tab RxNorm: 019325 1 Tablet(s) PO daily 08/07/2011 08/06/2011 Inactive Synthroid 50 mcg tablet RxNorm: 251578 1 Tablet(s) PO daily 08/07/2011 09/07/2012 Inactive Omnaris 50 mcg Nasal [place] RxNorm: 552886 2 [place] NASAL daily 2 sprays per nostril daily 06/20/2011 12/08/2011 Inactive Rocephin 500 mg Solution for Injection RxNorm: 681798 1 Milliliter(s) Inj 06/20/2011 09/26/2011 Inactive Kenalog 40 mg/mL Susp for Injection RxNorm: 8642735 1 Milliliter(s) Inj 06/20/2011 09/26/2011 Inactive cefdinir 300 mg Cap RxNorm: 138757 1 Capsule(s) PO BID 06/20/2011 09/26/2011 Inactive + Iron oral RxNorm: oral No Start Date Active Omnaris 50 mcg Nasal [place] RxNorm: 902482 2 [place] NASAL daily 2 sprays per nostril daily No Start Date 06/19/2011 Inactive Fish Oil 1,000 mg Cap RxNorm: 1 Capsule(s) PO daily No Start Date 02/12/2018 Inactive Depo-Provera 150 mg/mL intramuscular syringe RxNorm: 3798707 1 Milliliter(s) IM q 3 month No Start Date 10/25/2014 Inactive Alicia-D 24 Hour 180 mg-240 mg tablet,extended release RxNorm: 327232 1 Tablet(s) PO daily as needed No Start Date 07/08/2016 Inactive Vitamin B-6 oral RxNorm: 335806 oral No Start Date 04/29/2018 Inactive Claritin-D 24 Hour 10 mg-240 mg Tab RxNorm: 6810994 1 Tablet(s) PO daily No Start Date 09/25/2011 Inactive Synthroid 25 mcg Tab RxNorm: 590516 1 Tablet(s) PO daily No Start Date 09/26/2011 Inactive Zithromax Z-Emmanuel 250 mg tablet RxNorm: 950046 Tablet(s) PO UD No Start Date 04/04/2014 Inactive Depo-Provera 150 mg/mL IM Susp RxNorm: 3076361 IM No Start Date 10/15/2012 Inactive Medication Administered Medication Codes Instructions Start Date Status medroxyprogesterone 150 mg/mL intramuscular syringe RxNorm: 3253419 Milliliter 10/22/2013 No longer Active medroxyprogesterone 150 mg/mL intramuscular syringe RxNorm: 4905104 Milliliter 07/21/2013 No longer Active Depo-Provera 150 mg/mL IM Syringe RxNorm: 4970391 Milliliter 04/21/2013 No longer Active Depo-Provera 150 mg/mL IM Syringe RxNorm: 6241766 Milliliter 01/18/2013 No longer Active medroxyprogesterone 150 mg/mL IM Susp RxNorm: 0234687 Milliliter 10/19/2012 No longer Active Kenalog 40 mg/mL Susp for Injection RxNorm: 1263056 1.5Milliliter 08/23/2011 No longer Active Immunizations Vaccine [...] hTSH II 4.61 uIU/mL 06/17/2016 Free T4 Fta926 FREE T4 0.77 ng/dL 06/17/2016 Comp Metabolic Yda950 NA 135 mEq/L 03/28/2016 Comp Metabolic Itr621 K 3.9 mEq/L 03/28/2016 Comp Metabolic Bic049 CL 107 mEq/L 03/28/2016 Comp Metabolic Bwl654 CO2 24.0 mEq/L 03/28/2016 Comp Metabolic Hal574 ANION GAP 8 03/28/2016 Comp Metabolic Mkg490 GLUCOSE 85 mg/dL 03/28/2016 Comp Metabolic Xpq663 Creat 0.7 mg/dL 03/28/2016 Comp Metabolic Tjj929 eGFR 98 ml/min/1.73m2 03/28/2016 Comp Metabolic Ali046 BUN 15 mg/dL 03/28/2016 Comp Metabolic Bcw530 B/C Ratio 20.5 Ratio 03/28/2016 Comp Metabolic Wjs160 CALCIUM 8.7 mg/dL 03/28/2016 Comp Metabolic Npk780 ALK PHOS 70 U/L 03/28/2016 Comp Metabolic Puk138 AST(SGOT) 15 U/L 03/28/2016 Comp Metabolic Iyv654 ALT(SGPT) 15 U/L 03/28/2016 Comp Metabolic Air366 BILI T 0.7 mg/dL 03/28/2016 Comp Metabolic Cbt919 ALBUMIN 3.9 g/dL 03/28/2016 Comp Metabolic Bhq712 TPRO 6.3 g/dL 03/28/2016 Comp Metabolic Bas034 GLOB 2.4 g/dL 03/28/2016 Comp Metabolic Ceb445 A/G Ratio 1.6 Ratio 03/28/2016 Comp Metabolic Nnn579 Osmo 270 mOsmo 03/28/2016 Lipid Ord30 CHOL [...] 28.5 pg 03/28/2016 Cbc With Differential Ord2 [place]% 6.6 % 03/28/2016 Cbc With Differential Ord2 [...] 1.40 K/ul 03/28/2016 Cbc With Differential Ord2 [place] ABS# 0.3 K/ul 03/28/2016 Cbc With Differential Ord2 Eos ABS# 0.1 K/ul 03/28/2016 Cbc With Differential Ord2 Baso ABS# 0.0 K/ul 03/28/2016 Tsh Ord6 hTSH II 6.46 uIU/mL 03/28/2016 Free T4 Vco068 FREE T4 0.74 ng/dL 03/28/2016 Review of [...] Procedure Codes Date IMMUNIZATION ADMIN CPT- 4: 85212 06/19/2016 IIV4 FLU VACC NO PRESERV ID Formatting Model/CDA Sections, Assigned to/Tawny Torres CT: [id number] CPT-4: 87706Lrnliot 06/19/2016 THER/PROPH/DIAG INJ SC/IM CPT-4: 97181 10/22/2013 THER/PROPH/DIAG INJ SC/IM CPT-4: 03282 07/21/2013 THER/PROPH/DIAG INJ SC/IM CPT-4: 66783 04/21/2013 THER/PROPH/DIAG INJ SC/IM CPT-4: 92547 01/18/2013 THER/PROPH/DIAG INJ SC/IM CPT-4: 87052 10/19/2012 PREV VISIT EST AGE 18-39 CPT-4: 58533 09/26/2011 THER/PROPH/DIAG INJ SC/IM CPT-4: 54143 08/22/2011 TRIAMCINOLONE ACET INJ NOS CPT-4: J3301 08/22/2011 TRIAMCINOLONE ACET INJ NOS CPT-4: J3301 06/20/2011 THER/PROPH/DIAG INJ SC/IM CPT-4: 84689 06/20/2011 ROCEPHIN, PER 250 MG CPT- 4: J0696 06/20/2011 Vital Signs Date Vital 04/30/2018 Blood Pressure 1: 110/80 Code: 8480-6 BMI: 44.5 Code: 73795-9 Heart Rate 1: 91 bpm Height: 5' SpO2: 99% Weight: 228 lbs 02/13/2018 Blood Pressure 1: 118/84 Code: 8480-6 BMI: 43.9 Code: 63096-7 Heart Rate 1: 101 bpm Height: 5' SpO2: 98% Temperature: 36.8 (C) / 98.2 (F) Weight: 225 lbs 08/04/2017 Blood Pressure 1: 122/76 Code: 8480-6 BMI: 41.8 Code: 83809-4 Heart Rate 1: 117 bpm Height: 5' SpO2: 96% Temperature: 36.6 (C) / 97.9 (F) Weight: 214 lbs 09/18/2016 Blood Pressure 1: 132/78 Code: 8480-6 BMI: 41.2 Code: 29250-1 Heart Rate 1: 94 bpm Height: 5' SpO2: 98% Weight: 211 lbs 06/19/2016 Blood Pressure 1: 132/86 Code: 8480-6 BMI: 39.1 Code: 19932-7 Heart Rate 1: 78 bpm Height: 5' SpO2: 99% Weight: 200 lbs 04/01/2016 Blood Pressure 1: 120/80 Code: 8480-6 BMI: 38.5 Code: 45164-8 Heart Rate 1: 86 bpm Height: 5' SpO2: 96% Weight: 197 lbs 12/12/2014 Blood Pressure 1: 110/82 Code: 8480-6 BMI: 47.8 Code: 79877-2 Heart Rate 1: 90 bpm Height: 5' Weight: 245 lbs 10/26/2014 Blood Pressure 1: 122/76 Code: 8480-6 BMI: 47.1 Code: 37835-8 Heart Rate 1: 96 bpm Height: 5' Weight: 241 lbs 10/22/2013 Blood Pressure 1: 152/88 Code: 8480-6 Heart Rate 1: 88 bpm Weight: 240 lbs 01/07/2013 Blood Pressure 1: 114/80 Code: 8480-6 Weight: 224 lbs 10/19/2012 Blood Pressure 1: 126/94 Code: 8480-6 BMI: 43.5 Code: 99255-4 Heart Rate 1: 104 bpm Height: 5' Respiratory Rate: 16 bpm Weight: 222 lbs 8 oz 08/10/2012 Blood Pressure 1: 112/84 Code: 8480-6 Heart Rate 1: 84 bpm Weight: 233 lbs 03/16/2012 Blood Pressure 1: 110/72 Code: 8480-6 BMI: 43.0 Code: 14874-9 Heart Rate 1: 88 bpm Height: 5' Respiratory Rate: 18 bpm Weight: 220 lbs 01/24/2012 Blood Pressure 1: 104/80 Code: 8480-6 BMI: 43.2 Code: 01523-5 Height: 5' Weight: 221 lbs 11/21/2011 BMI: 45.7 Code: 27278-4 Height: 5' Weight: 234 lbs 09/26/2011 Blood Pressure 1: 110/68 Code: 8480-6 BMI: 46.8 Code: 17975-2 Heart Rate 1: 90 bpm Height: 5' Respiratory Rate: 16 bpm Weight: 239 lbs 8 oz 08/22/2011 Blood Pressure 1: 128/89 Code: 8480-6 BMI: 46.1 Code: 89987-8 Heart Rate 1: 83 bpm Height: 5' Weight: 236 lbs 06/20/2011 Blood Pressure 1: 120/80 Code: 8480-6 BMI: 46.6 Code: 11669-1 Heart Rate 1: 88 bpm Height: 5' [...] (18-39 years) Control IUD 09/26/2011 Mirena, placed wk0778 weight gain/obesity Location globally 09/26/2011 pt states that 8 years ago she weighed 135#. weight gain/obesity Weight Status is morbidly obese 09/26/2011 pt states the weight seems to add each year by 10-30 pounds despite exercisingnat the [facility] headache Location diffusely 08/22/2011 None headache [...] data Encounters Encounter Performer Location Codes Date ([id number]) 86873 EST. PATIENT, LEVEL III Diagnosis: Slow transit constipation[ICD10: K59.01] Diagnosis: Generalized abdominal pain[ICD10: R10.84] [facility] CPT-4: 79103 04/30/2018 ([id number]) 96747 EST. PATIENT, LEVEL III Diagnosis: Cough[ICD10: R05] Diagnosis: Acute recurrent maxillary sinusitis[ICD10: J01.01] [facility] CPT-4: 31153 02/13/2018 ([id number]) 51429 EST. PATIENT, LEVEL III Diagnosis: Dehydration[ICD10: E86.0] Diagnosis: Nausea[ICD10: R11.0] Diagnosis: Diarrhea, unspecified[ICD10: R19.7] [facility] CPT-4: 47402 08/04/2017 91817 EST. PATIENT, LEVEL III Diagnosis: Low back pain[ICD10: M54.5] Mirian Novoa MD, [facility] CPT-4: 68587 09/18/2016 69065 EST. PATIENT, LEVEL IV Diagnosis: VACCIN FOR INFLUENZA[ICD10: Z23] Diagnosis: Other specified hypothyroidism[ICD10: E03.8] Mirian Novoa MD, [facility] CPT-4: 44608 06/19/2016 ([id number]) 44527 EST. PATIENT, LEVEL III Diagnosis: Hypothyroidism, unspecified[ICD10: E03.9] Em Novoa MD, [facility] CPT-4: 45145 04/01/2016 ([id number]) 44774 EST. PATIENT, LEVEL III Diagnosis: Missed periods[ICD9: 626.4] [facility] CPT-4: 10009 12/12/2014 ([id number]) PREV VISIT EST AGE 18-39 Diagnosis: ROUTINE GYNE EXAM[ICD9: V72.31] [facility] CPT-4: 94542 10/26/2014 ([id number]) PREV VISIT EST AGE 18-39 Diagnosis: ROUTINE GYNE EXAM[ICD9: V72.31] Em Novoa MD, [facility] CPT-4: 92616 10/22/2013 ([id number]) Miscellaneous no charge Diagnosis: MORBID OBESITY[ICD9: 278.01] Em Novoa MD, [facility] CPT-4: 00652 01/07/2013 ([id number]) 68544 EST. PATIENT, LEVEL III Diagnosis: Allergic rhinitis[ICD9: 477.9] Diagnosis: Contraceptive surveillance, unspecified[ICD9: V25.40] Diagnosis: MORBID OBESITY[ICD9: 278.01] Mandy Novoa MD, [facility] CPT-4: 32131 10/19/2012 ([id number]) 02636 EST. PATIENT, LEVEL III Diagnosis: Varicose veins of both lower extremities with pain[ICD9: 454.8] Diagnosis: Obesities, morbid[ICD9: 278.01] [facility] CPT-4: 77131 08/10/2012 ([id number]) 20130 EST. PATIENT, LEVEL IV Diagnosis: Abdominal pain[ICD9: 789.00] Diagnosis: Breast tenderness in female[ICD9: 611.71] Mandy Novoa MD, [facility] CPT-4: 35385 03/16/2012 Miscellaneous no charge Diagnosis: MORBID OBESITY[ICD9: 278.01] Em Novoa MD, [facility] CPT-4: 51238 01/24/2012 Miscellaneous no charge Diagnosis: MORBID OBESITY[ICD9: 278.01] Em Novoa MD, [facility] CPT-4: 89424 11/21/2011 [id number] EST. PATIENT, LEVEL III Diagnosis: ACUTE SINUSITIS[ICD9: 461.9] Diagnosis: HEADACHE[ICD9: 784.0] Em Novoa MD, [facility] CPT-4: 48045 08/22/2011 78501 EST. PATIENT, LEVEL III Diagnosis: ACUTE SINUSITIS[ICD9: 461.9] Diagnosis: Environmental allergies[ICD9: 477.9] Em Novoa MD, [facility] CPT-4: 33765 06/20/2011 Plan of Care Planned Activity Notes [...] show improvement. 02/13/2018 Appointment: Em Ortiz WPtel: [address] [place], [place] [phone] (15 min) Moderate 02/13/2018 Patient Education: Patient Medication Summary Completed 02/13/2018 Patient Education: Patient Medication Summary Completed 09/11/2017 Visit Plan: Davewrxfnrkmxno-dwntewbbghy-ymwmirq sent for outpatient IVF and anti nausea [...] improved. 08/04/2017 Appointment: Em Ortiz WPtel: [phone] [phone] [place] (15 min) Moderate 08/04/2017 Patient Education: Patient Medication Summary Completed 08/04/2017 Patient Education: Obesity Completed 08/04/2017 Appointment: Mandy Novoa WPtel: [phone] [facility] [place] (15 min) Moderate 12/31/2016 Visit Plan: [...] improve. 09/18/2016 [phone] [place] (30 min) Complex 09/18/2016 Patient [...] RX. 06/19/2016 Appointment: Em Ortiz WPtel: [phone] [phone] [place] (30 min) Complex 06/19/2016 Patient Education: [...] control. 04/01/2016 Appointment: Em Ortiz WPtel: [facility] (30 min) Complex 04/01/2016 Patient Education: [...] 13mcg. 12/12/2014 Appointment: Mandy Novoa WPtel: [facility] Other 12/12/2014 Patient Education: Patient Medication [...] or prn. 10/26/2014 Appointment: Mandy Novoa WPtel: [address] [place] [address] [facility] 10/26/2014 Patient Education: Patient Medication [...] or prn. 10/22/2013 Appointment: Em Ortiz WPtel: [address] [place] [address] [facility] 10/22/2013 Patient Education: Patient Medication Summary Completed 10/22/2013 [facility]ment[phone] [place] Injection 07/21/2013 Patient Education: Patient Medication Summary Completed 07/21/2013 [facility]ment[phone] [phone] [place] Injection 07/20/2013 Visit Plan: depo injection today 04/21/2013 Patient Education: Patient Medication Summary Completed 04/21/2013 [facility]ment[facility] [phone] [phone] [place] Injection 01/18/2013 Patient Education: Patient [...] weight check. 10/19/2012 Appointment: Mandy Novoa WPtel: [address] [place], [place] [phone] Follow up 10/19/2012 Patient Education: Patient Medication [...] weight check. 08/10/2012 Appointment: Mandy Novoa WPtel: [address] [place], [place] [phone] Follow up 08/10/2012 Patient Education: Patient Medication [...] ovarian cysts. 03/16/2012 Appointment: Mandy Novoa WPtel: [address] [place], [place] [phone] Other 03/16/2012 Patient Education: Patient Medication Summary Completed 03/16/2012 Appointment: Em Ortiz WPtel: [address] [place], [place] [phone] Lab Draw 03/02/2012 Visit Plan: Weight and blood pressure check 01/24/2012 Appointment: Em Ortiz WPtel: [address] [place], [place] [phone] Other 01/24/2012 Patient Education: Patient Medication Summary Completed 01/24/2012 Visit Plan: Weight check only 11/21/2011 Appointment: Em Ortiz WPtel: [address] [place], [place] [phone] Other 11/21/2011 Patient Education: Patient Medication Summary [...] occur. 09/26/2011 Appointment: Mandy Novoa WPtel: [facility] [place] [phone] [facility] 09/26/2011 Patient Education: Patient Medication [...] well. 08/22/2011 Appointment: Em Ortiz WPtel: [facility] Other 08/22/2011 Patient Education: Patient Medication [...] show improvement. 06/20/2011 Appointment: Em Ortiz WPtel: [address] [place] [address] Other 06/20/2011 Patient Education: Patient Medication Summary [...] check labs start probiotic twice daily . Ldnjsuutafnkovg-lcfikrmzwya-iitttsu sent for outpatient IVF and anti nausea [...]
--- OUTSIDE RECORDS SUMMARY | 2019-01-28 06:21 | XMS REPORT | Continuity of Care Document ---
Author Organization Unknown Address Unknown Allergies Active Description Code Type Severity Reaction Onset Reported/Identified Relationship to Patient Clinical Status Yes No Known Drug Allergies [id number] Drug Allergy Unknown N/A 01/25/2019 Medications There is no data. 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 06/10/2015 MACARENA MARI MD Ot R07.9 CHEST PAIN, UNSPECIFIED 08/30/2015 DANNY PA DO Ot E66.01 MORBID (SEVERE) OBESITY DUE TO EXCESS CA 08/30/2015 DANNY PA DO Ot O33.9 MATERNAL CARE FOR DISPROPORTION, UNSPECI 08/30/2015 DANNY PA DO Ot O48.0 POST-TERM 08/30/2015 DANNY PA DO Ot O76 ABNLT IN HEART RATE AND RHYTHM COM 08/30/2015 DANNY PA DO Ot O77.0 LABOR AND DELIVERY COMPLICATED BY MECONI 08/30/2015 DANNY PA DO Ot O99.214 OBESITY COMPLICATING CHILDBIRTH 08/30/2015 DANNY PA DO Ot O99.283 ENDO, NUTRITIONAL AND METAB DISEASES COM 08/30/2015 DANNY PA DO Ot Z37.0 SINGLE LIVE 08/30/2015 DANNY PA DO Ot Z3A.41 41 WEEKS GESTATION OF 10/25/2015 Ot 719.46 10/25/2015 Ot 724.2 10/25/2015 Ot 724.2 10/25/2015 Ot 620.2 10/25/2015 Ot 620.2 10/25/2015 Ot 620.2 10/25/2015 Ot 729.5 10/25/2015 Ot E000.8 10/25/2015 Ot E849.6 10/25/2015 Ot E885.9 10/26/2015 MEL AIKEN MD, Ot K42.9 UMBILICAL HERNIA WITHOUT OBSTRUCTION OR 10/26/2015 MEL AIKEN MD, Ot K80.10 CALCULUS OF GALLBLADDER W CHRONIC CHOLEC 11/01/2015 Ot 719.46 11/01/2015 Ot 724.2 11/01/2015 Ot 724.2 11/01/2015 Ot 620.2 11/01/2015 Ot 620.2 11/01/2015 Ot 620.2 11/01/2015 Ot 729.5 11/01/2015 Ot E000.8 11/01/2015 Ot E849.6 11/01/2015 Ot E885.9 11/01/2015 MEL AIKEN MD, Ot K80.10 11/01/2015 MEL AIKEN MD, Ot Z01.812 11/01/2015 MEL AIKEN MD, Ot Z11.2 01/19/2016 MEL AIKEN MD, Ot K42.9 UMBILICAL HERNIA WITHOUT OBSTRUCTION OR 01/19/2016 MEL AIKEN MD, Ot Z01.812 ENCOUNTER FOR PREPROCEDURAL LABORATORY E 01/19/2016 MEL AIKEN MD, Ot Z11.2 ENCOUNTER FOR SCREENING FOR OTHER BACTER 01/22/2016 MEL AIKEN MD, Ot K42.9 UMBILICAL HERNIA WITHOUT OBSTRUCTION OR 01/22/2016 MEL AIKEN MD, Ot Z01.812 ENCOUNTER FOR PREPROCEDURAL LABORATORY E 01/22/2016 MEL AIKEN MD, Ot Z11.2 ENCOUNTER FOR SCREENING FOR OTHER BACTER 01/25/2016 KIDO MD, TAKAAKI Ot K42.9 UMBILICAL HERNIA WITHOUT OBSTRUCTION OR 01/26/2016 MEL AIKEN MD, Ot K42.9 UMBILICAL HERNIA WITHOUT OBSTRUCTION OR 09/18/2016 Ot 620.2 OVARIAN CYST NEC/NOS 09/18/2016 Ot 620.2 OVARIAN CYST NEC/NOS 09/18/2016 Ot 620.2 OVARIAN CYST NEC/NOS 09/18/2016 Ot 729.5 PAIN IN LIMB 09/18/2016 Ot E000.8 OTHER EXTERNAL CAUSE STATUS 09/18/2016 Ot E849.6 ACCIDENT IN PUBLIC BLDG 09/18/2016 Ot E885.9 FALL FROM SLIPPING, TRIPPING, OR STUMBLI 09/18/2016 MEL AIKEN MD Ot K80.10 CALCULUS OF GALLBLADDER W CHRONIC CHOLEC 09/18/2016 MEL AIKEN MD, Ot Z01.812 ENCOUNTER FOR PREPROCEDURAL LABORATORY E 09/18/2016 MEL AIKEN MD, Ot Z11.2 ENCOUNTER FOR SCREENING FOR OTHER BACTER 09/18/2016 MEL AIKEN MD Ot R05 COUGH 09/18/2016 MEL AIKEN MD Ot Z98.89 OTHER SPECIFIED POSTPROCEDURAL STATES 09/19/2016 EDGAR DIEZ APRN Ot M54.5 LOW BACK PAIN 09/19/2016 EDGAR DIEZ APRN Ot S39.92XA UNSPECIFIED INJURY OF LOWER BACK, INITIA 09/19/2016 EDGAR DIEZ APRN Ot W19.XXXA UNSPECIFIED FALL, INITIAL ENCOUNTER 09/19/2016 EDGAR DIEZ APRN Ot Y99.8 OTHER EXTERNAL CAUSE STATUS 10/16/2016 EDGAR DIEZ APRN Ot M54.5 LOW BACK PAIN 10/16/2016 EDGAR DIEZ HEMATOLOGY NURSE EDUCATOR Ot S39.92XA UNSPECIFIED INJURY OF LOWER BACK, INITIA 10/16/2016 EDGAR DIEZ APRN Ot W19.XXXA UNSPECIFIED FALL, INITIAL ENCOUNTER 10/16/2016 EDGAR DIEZ APRN Ot Y99.8 OTHER EXTERNAL CAUSE STATUS 05/18/2017 JEMIMA TURNER MD Ot E03.9 HYPOTHYROIDISM, UNSPECIFIED 05/18/2017 JEMIMA TURNER MD Ot K21.9 GASTRO-ESOPHAGEAL REFLUX DISEASE WITHOUT 05/18/2017 JEMIMA TURNER MD Ot S42.291A OT DISP FX OF UPPER END OF RIGHT HUMERU 05/18/2017 PEER JEMIMA MORGAN Ot S93.402A SPRAIN OF UNSPECIFIED LIGAMENT OF LEFT A 05/18/2017 PEER JEMIMA MORGAN Ot S93.692A OTHER SPRAIN OF LEFT FOOT, INITIAL ENCOU 05/18/2017 PEER JEMIMA MORGAN Ot W11.XXXA FALL ON AND FROM LADDER, INITIAL ENCOUNT 06/25/2017 PEER JEMIMA MORGAN Ot E03.9 HYPOTHYROIDISM, UNSPECIFIED 06/25/2017 PEER JEMIMA MORGAN Ot K21.9 GASTRO-ESOPHAGEAL REFLUX DISEASE WITHOUT 06/25/2017 PEER JEMIMA MORGAN Ot S42.291A OTH DISP FX OF UPPER END OF RIGHT HUMERU 06/25/2017 PEER JEMIMA MORGAN Ot S93.402A SPRAIN OF UNSPECIFIED LIGAMENT OF LEFT A 06/25/2017 PEER JEMIMA MORGAN Ot S93.692A OTHER SPRAIN OF LEFT FOOT, INITIAL ENCOU 06/25/2017 PEER JEMIMA MORGAN Ot W11.XXXA FALL ON AND FROM LADDER, INITIAL ENCOUNT 08/05/2017 PAULINO NIELSON INTEGRITY ASSESSOR Ot E86.0 DEHYDRATION 08/05/2017 PAULINO NIELSON INTEGRITY ASSESSOR Ot R11.2 NAUSEA WITH VOMITING, UNSPECIFIED 08/05/2017 PAULINO NIELSON INTEGRITY ASSESSOR Ot R19.7 DIARRHEA, UNSPECIFIED 08/10/2017 PAULINO NIELSON INTEGRITY ASSESSOR Ot E86.0 DEHYDRATION 08/10/2017 PAULINO NIELSONP Ot R11.2 NAUSEA WITH VOMITING, UNSPECIFIED 08/10/2017 PAULINO NIELSON INTEGRITY ASSESSOR Ot R19.7 DIARRHEA, UNSPECIFIED 09/15/2017 PAULINO NIELSON INTEGRITY ASSESSOR Ot E86.0 DEHYDRATION 09/15/2017 PAULINO NIELSON INTEGRITY ASSESSOR Ot R11.2 NAUSEA WITH VOMITING, UNSPECIFIED 09/15/2017 PAULINO NIELSON INTEGRITY ASSESSOR Ot R19.7 DIARRHEA, UNSPECIFIED 05/06/2018 PAULINO NIELSON INTEGRITY ASSESSOR Ot K43.9 VENTRAL HERNIA WITHOUT OBSTRUCTION OR GA 05/06/2018 PAULINO NIELSON INTEGRITY ASSESSOR Ot 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 05/06/2018 PAULINO NIELSON INTEGRITY ASSESSOR Ot Z3A.18 18 WEEKS GESTATION OF 05/06/2018 PAULINO NIELSON INTEGRITY ASSESSOR Ot Z90.49 ACQUIRED ABSENCE OF OTHER SPECIFIED PART 05/06/2018 PAULINO NIELSON INTEGRITY ASSESSOR Ot Z98.890 OTHER SPECIFIED POSTPROCEDURAL STATES 05/06/2018 PAULINO NIELSON INTEGRITY ASSESSOR Ot K43.9 VENTRAL HERNIA WITHOUT OBSTRUCTION OR GA 05/06/2018 PAULINO NIELSON INTEGRITY ASSESSOR Ot 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 05/06/2018 PAULINO NIELSON INTEGRITY ASSESSOR Ot Z3A.18 18 WEEKS GESTATION OF 05/06/2018 PAULINO NIELSON INTEGRITY ASSESSOR Ot Z90.49 ACQUIRED ABSENCE OF OTHER SPECIFIED PART 05/06/2018 PAULINO NIELSON INTEGRITY ASSESSOR Ot Z98.890 OTHER SPECIFIED POSTPROCEDURAL STATES 05/15/2018 FENECH DO, DANNY S Ot Z34.02 ENCNTR FOR SUPRVSN OF NORMAL FIRST PREG, 05/15/2018 FENECH DO, DANNY S Ot Z3A.20 20 WEEKS GESTATION OF 07/06/2018 EDGAR DIEZ HEMATOLOGY NURSE EDUCATOR Ot K43.9 VENTRAL HERNIA WITHOUT OBSTRUCTION OR GA 07/06/2018 EDGAR DIEZ HEMATOLOGY NURSE EDUCATOR Ot O26.892 OTH RELATED CONDITIONS, SECOND 07/06/2018 EDGAR DIEZ HEMATOLOGY NURSE EDUCATOR Ot Z3A.27 27 WEEKS GESTATION OF 07/28/2018 FENECH DO, DANNY S Ot Z34.02 ENCNTR FOR SUPRVSN OF NORMAL FIRST PREG, 07/28/2018 FENECH DO, DANNY S Ot Z3A.20 20 WEEKS GESTATION OF 09/02/2018 FENECH DO, DANNY S Ot O36.8130 DECREASED MOVEMENTS, THIRD TRIMEST 09/02/2018 FENECH DO, DANNY S Ot Z3A.36 36 WEEKS GESTATION OF 09/03/2018 FENECH DO, DANNY S Ot O36.8130 DECREASED MOVEMENTS, THIRD TRIMEST 09/03/2018 FENECH DO, DANNY S Ot Z3A.36 36 WEEKS GESTATION OF 09/07/2018 ATTILA MORGAN, MEL Ot K80.10 CALCULUS OF GALLBLADDER W CHRONIC CHOLEC 09/07/2018 MEL AIKEN MD Ot Z01.812 ENCOUNTER FOR PREPROCEDURAL LABORATORY E 09/07/2018 MEL AIKEN MD Ot Z11.2 ENCOUNTER FOR SCREENING FOR OTHER BACTER 09/07/2018 MEL AIKEN MD Ot R05 COUGH 09/07/2018 MEL AIKEN MD Ot Z98.89 OTHER SPECIFIED POSTPROCEDURAL STATES 09/07/2018 EDGAR DIEZ APRN Ot M54.5 LOW BACK PAIN 09/07/2018 EDGAR DIEZ HEMATOLOGY NURSE EDUCATOR Ot S39.92XA UNSPECIFIED INJURY OF LOWER BACK, INITIA 09/07/2018 EDGAR DIEZ HEMATOLOGY NURSE EDUCATOR Ot W19.XXXA UNSPECIFIED FALL, INITIAL ENCOUNTER 09/07/2018 EDGAR DIEZ APRN Ot Y99.8 OTHER EXTERNAL CAUSE STATUS 09/07/2018 PAULINO NIELSONP Ot E86.0 DEHYDRATION 09/07/2018 PAULINO NIELSON INTEGRITY ASSESSOR Ot R11.2 NAUSEA WITH VOMITING, UNSPECIFIED 09/07/2018 PAULINO NIELSON INTEGRITY ASSESSOR Ot R19.7 DIARRHEA, UNSPECIFIED 09/07/2018 FENECH DO, DANNY S Ot Z34.02 ENCNTR FOR SUPRVSN OF NORMAL FIRST PREG, 09/07/2018 FENECH DO, DANNY S Ot Z3A.20 20 WEEKS GESTATION OF 09/07/2018 PAULINO NIELSON INTEGRITY ASSESSOR Ot K43.9 VENTRAL HERNIA WITHOUT OBSTRUCTION OR GA 09/07/2018 PAULINO NIELSON INTEGRITY ASSESSOR Ot 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 09/07/2018 PAULINO NIELSON INTEGRITY ASSESSOR Ot Z3A.18 18 WEEKS GESTATION OF 09/07/2018 PAULINO NIELSON INTEGRITY ASSESSOR Ot Z90.49 ACQUIRED ABSENCE OF OTHER SPECIFIED PART 09/07/2018 PAULINO NIELSON INTEGRITY ASSESSOR Ot Z98.890 OTHER SPECIFIED POSTPROCEDURAL STATES 09/07/2018 EDGAR DIEZ APRN Ot K43.9 VENTRAL HERNIA WITHOUT OBSTRUCTION OR GA 09/07/2018 EDGAR DIEZ APRN Ot O26.892 OTH RELATED CONDITIONS, SECOND 09/07/2018 EDGAR DIEZ APRN Ot Z3A.27 27 WEEKS GESTATION OF 09/09/2018 FENECH DO, DANNY S Ot E03.9 HYPOTHYROIDISM, UNSPECIFIED 09/09/2018 FENECH DO, DANNY S Ot E66.01 MORBID (SEVERE) OBESITY DUE TO EXCESS CA 09/09/2018 DANNY PA DO Ot O34.211 MATERN CARE FOR LOW TRANSVERSE SCAR FROM 09/09/2018 DANNY PA DO, Ot O41.03X0 OLIGOHYDRAMNIOS, THIRD TRIMESTER, NOT AP 09/09/2018 DANNY PA DO, Ot O69.81X0 LABOR AND DEL COMP BY CORD AROUND NECK, 09/09/2018 DANNY PA DO Ot O99.213 OBESITY COMPLICATING , THIRD TR 09/09/2018 DANNY PA DO Ot O99.283 ENDO, NUTRITIONAL AND METAB DISEASES COM 09/09/2018 DANNY PA DO Ot Z37.0 SINGLE LIVE 09/09/2018 DANNY PA DO, Ot Z3A.37 37 WEEKS GESTATION OF 09/09/2018 DANNY PA DO, Ot Z80.41 FAMILY HISTORY OF MALIGNANT NEOPLASM OF 09/09/2018 MEL AIKEN MD Ot K80.10 CALCULUS OF GALLBLADDER W CHRONIC CHOLEC 09/09/2018 MEL AIKEN MD Ot Z01.812 ENCOUNTER FOR PREPROCEDURAL LABORATORY E 09/09/2018 MEL AIKEN MD Ot Z11.2 ENCOUNTER FOR SCREENING FOR OTHER BACTER 09/09/2018 MEL AIKEN MD Ot R05 COUGH 09/09/2018 MEL AIKEN MD Ot Z98.89 OTHER SPECIFIED POSTPROCEDURAL STATES 09/09/2018 EDGAR DIEZ APRN Ot M54.5 LOW BACK PAIN 09/09/2018 EDGAR DIEZ APRN Ot S39.92XA UNSPECIFIED INJURY OF LOWER BACK, INITIA 09/09/2018 EDGAR DIEZ APRN Ot W19.XXXA UNSPECIFIED FALL, INITIAL ENCOUNTER 09/09/2018 EDGAR DIEZ APRN Ot Y99.8 OTHER EXTERNAL CAUSE STATUS 09/09/2018 PAULINO NIELSON Ot E86.0 DEHYDRATION 09/09/2018 PAULINO NIELSONP Ot R11.2 NAUSEA WITH VOMITING, UNSPECIFIED 09/09/2018 PAULINO NIELSONP Ot R19.7 DIARRHEA, UNSPECIFIED 09/09/2018 DANNY PA DO Ot Z34.02 ENCNTR FOR SUPRVSN OF NORMAL FIRST PREG, 09/09/2018 FENECH DO, DANNY S Ot Z3A.20 20 WEEKS GESTATION OF 09/09/2018 PAULINO NIELSON Ot K43.9 VENTRAL HERNIA WITHOUT OBSTRUCTION OR GA 09/09/2018 PAULINO NIELSON Ot 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 09/09/2018 PUALINO NIELSONP Ot Z3A.18 18 WEEKS GESTATION OF 09/09/2018 PAULINO NIELSON Ot Z90.49 ACQUIRED ABSENCE OF OTHER SPECIFIED PART 09/09/2018 PAULINO NILESON Ot Z98.890 OTHER SPECIFIED POSTPROCEDURAL STATES 09/09/2018 EDGAR DIEZ APRN Ot K43.9 VENTRAL HERNIA WITHOUT OBSTRUCTION OR GA 09/09/2018 EDGAR DIEZ APRN Ot O26.892 OT RELATED CONDITIONS, SECOND 09/09/2018 EDGAR DIEZ APRN Ot Z3A.27 27 WEEKS GESTATION OF 01/25/2019 JERAMIE CAPPS DOTT Elio Ot Z01.818 ENCOUNTER FOR OTHER PREPROCEDURAL EXAMIN Procedures Code Description Performed By Performed On [id number] INTRODUCE OTH THERAP SUBST IN MOUTH/PHAR 08/27/2015 [id number] EXTRACTION OF POC, LOW CERVICAL, OPEN AP 08/28/2015 [id number] INTRODUCE OF ADHESION BARRIER INTO FEM R 08/28/2015 [id number] RESECTION OF BILATERAL FALLOPIAN TUBES, 09/07/2018 [id number] EXTRACTION OF PRODUCTS OF CONCEPTION, LO 09/07/2018 Results Test Result Range Complete blood count (CBC) with automated white blood cell (WBC) differential - 05/17/17 20:12 Blood leukocytes automated count (number/volume) 12.5 10*3/uL 4.3-11.0 Blood erythrocytes automated count (number/volume) 4.97 10*6/uL 4.35-5.85 Venous blood hemoglobin measurement (mass/volume) 13.8 g/dL 11.5-16.0 Blood hematocrit (volume fraction) 41 % 35-52 Automated erythrocyte mean corpuscular volume 82 [foz_us] 80-99 Automated erythrocyte mean corpuscular hemoglobin (mass per erythrocyte) 28 pg 25-34 Automated erythrocyte mean corpuscular hemoglobin concentration measurement (mass/volume) 34 g/dL 32-36 Automated erythrocyte distribution width ratio 13.4 % 10.0- 14.5 Automated blood platelet count (count/volume) 267 10*3/uL 130-400 Automated blood platelet mean volume measurement 9.0 [foz_us] 7.4-10.4 Automated blood neutrophils/100 leukocytes 90 % 42-75 Automated blood lymphocytes/100 leukocytes 7 % 12-44 Blood monocytes/100 leukocytes 3 % 0-12 Automated blood eosinophils/100 leukocytes 0 % 0-10 Automated blood basophils/100 leukocytes 0 % 0-10 Blood neutrophils automated count (number/volume) 11.2 10*3 1.8-7.8 Blood lymphocytes automated count (number/volume) 0.9 10*3 1.0-4.0 Blood monocytes automated count (number/volume) 0.4 10*3 0.0- 1.0 Automated eosinophil count 0.0 10*3/uL 0.0-0.3 Automated blood basophil count (count/volume) 0.0 10*3/uL 0.0-0.1 Serum or plasma choriogonadotropin ( test) detection - 05/17/17 20:12 Serum or plasma choriogonadotropin ( test) detection NEGATIVE NEGATIVE Comprehensive metabolic panel - 05/17/17 20:12 Serum or plasma sodium measurement (moles/volume) 137 mmol/L 135-145 Serum or plasma potassium measurement (moles/volume) 4.1 mmol/L 3.6-5.0 Serum or plasma chloride measurement (moles/volume) 107 mmol/L 98-107 Carbon dioxide 20 mmol/L 21-32 Serum or plasma anion gap determination (moles/volume) 10 mmol/L 5-14 Serum or plasma urea nitrogen measurement (mass/volume) 21 mg/dL 7-18 Serum or plasma creatinine measurement (mass/volume) 0.81 mg/dL 0.60-1.30 Serum or plasma urea nitrogen/creatinine mass ratio 26 NRG Serum or plasma creatinine measurement with calculation of estimated glomerular filtration rate > NRG Serum or plasma glucose measurement (mass/volume) 159 mg/dL 70-105 Serum or plasma calcium measurement (mass/volume) 9.1 mg/dL 8.5-10.1 Serum or plasma total bilirubin measurement (mass/volume) 0.6 mg/dL 0.1-1.0 Serum or plasma alkaline phosphatase measurement (enzymatic activity/volume) 79 U/L 40-136 Serum or plasma aspartate aminotransferase measurement (enzymatic activity/volume) 70 U/L 5-34 Serum or plasma alanine aminotransferase measurement (enzymatic activity/volume) 40 U/L 0-55 Serum or plasma protein measurement (mass/volume) 7.0 g/dL 6.4-8.2 Serum or plasma albumin measurement (mass/volume) 3.9 g/dL 3.2-4.5 Methicillin resistant Staphylococcus aureus (MRSA) screening culture - 05/17/17 21:35 Methicillin resistant Staphylococcus aureus (MRSA) screening culture NEG NRG Automated blood complete blood count (hemogram) panel - 08/04/17 10:30 Blood leukocytes automated count (number/volume) 5.3 10*3/uL 4.3-11.0 Blood erythrocytes automated count (number/volume) 5.49 10*6/uL 4.35-5.85 Venous blood hemoglobin measurement (mass/volume) 15.5 g/dL 11.5-16.0 Blood hematocrit (volume fraction) 45 % 35-52 Automated erythrocyte mean corpuscular volume 81 [foz_us] 80-99 Automated erythrocyte mean corpuscular hemoglobin (mass per erythrocyte) 28 pg 25-34 Automated erythrocyte mean corpuscular hemoglobin concentration measurement (mass/volume) 35 g/dL 32-36 Automated erythrocyte distribution width ratio 13.5 % 10.0- 14.5 Automated blood platelet count (count/volume) 251 10*3/uL 130-400 Automated blood platelet mean volume measurement 9.1 [foz_us] 7.4-10.4 Comprehensive metabolic panel - 08/04/17 10:30 Serum or plasma sodium measurement (moles/volume) 136 mmol/L 135-145 Serum or plasma potassium measurement (moles/volume) 3.6 mmol/L 3.6-5.0 Serum or plasma chloride measurement (moles/volume) 109 mmol/L 98-107 Carbon dioxide 19 mmol/L 21-32 Serum or plasma anion gap determination (moles/volume) 8 mmol/L 5-14 Serum or plasma urea nitrogen measurement (mass/volume) 22 mg/dL 7-18 Serum or plasma creatinine measurement (mass/volume) 0.81 mg/dL 0.60-1.30 Serum or plasma urea nitrogen/creatinine mass ratio 27 NRG Serum or plasma creatinine measurement with calculation of estimated glomerular filtration rate > NRG Serum or plasma glucose measurement (mass/volume) 99 mg/dL 70-105 Serum or plasma calcium measurement (mass/volume) 8.5 mg/dL 8.5-10.1 Serum or plasma total bilirubin measurement (mass/volume) 0.6 mg/dL 0.1-1.0 Serum or plasma alkaline phosphatase measurement (enzymatic activity/volume) 78 U/L 40-136 Serum or plasma aspartate aminotransferase measurement (enzymatic activity/volume) 21 U/L 5-34 Serum or plasma alanine aminotransferase measurement (enzymatic activity/volume) 19 U/L 0-55 Serum or plasma protein measurement (mass/volume) 7.4 g/dL 6.4-8.2 Serum or plasma albumin measurement (mass/volume) 3.9 g/dL 3.2-4.5 Serum or plasma choriogonadotropin ( test) detection - 08/04/17 10:30 Serum or plasma choriogonadotropin ( test) detection NEGATIVE NEGATIVE Methicillin resistant Staphylococcus aureus (MRSA) screening culture - 09/07/18 00:00 Methicillin resistant Staphylococcus aureus (MRSA) screening culture NEG NRG Complete blood count (CBC) with automated white blood cell (WBC) differential - 09/07/18 13:30 Blood leukocytes automated count (number/volume) 7.4 10*3/uL 4.3-11.0 Blood erythrocytes automated count (number/volume) 4.07 10*6/uL 4.35-5.85 Venous blood hemoglobin measurement (mass/volume) 11.4 g/dL 11.5-16.0 Blood hematocrit (volume fraction) 34 % 35-52 Automated erythrocyte mean corpuscular volume 84 [foz_us] 80-99 Automated erythrocyte mean corpuscular hemoglobin (mass per erythrocyte) 28 pg 25-34 Automated erythrocyte mean corpuscular hemoglobin concentration measurement (mass/volume) 34 g/dL 32-36 Automated erythrocyte distribution width ratio 14.1 % 10.0- 14.5 Automated blood platelet count (count/volume) 215 10*3/uL 130-400 Automated blood platelet mean volume measurement 9.9 [foz_us] 7.4-10.4 Automated blood neutrophils/100 leukocytes 81 % 42-75 Automated blood lymphocytes/100 leukocytes 13 % 12-44 Blood monocytes/100 leukocytes 4 % 0-12 Automated blood eosinophils/100 leukocytes 2 % 0-10 Automated blood basophils/100 leukocytes 0 % 0-10 Blood neutrophils automated count (number/volume) 5.9 10*3 1.8-7.8 Blood lymphocytes automated count (number/volume) 1.0 10*3 1.0-4.0 Blood monocytes automated count (number/volume) 0.3 10*3 0.0- 1.0 Automated eosinophil count 0.2 10*3/uL 0.0-0.3 Automated blood basophil count (count/volume) 0.0 10*3/uL 0.0-0.1 Blood type T Indirect antibody screen panel - 09/07/18 13:30 ABO+Rh group AP NRG Transfusion band number [id number] NRG Blood group antibody screen NEGATIVE NR Complete blood count (CBC) with automated white blood cell (WBC) differential - 09/08/18 05:25 Blood leukocytes automated count (number/volume) 9.3 10*3/uL 4.3-11.0 Blood erythrocytes automated count (number/volume) 3.95 10*6/uL 4.35-5.85 Venous blood hemoglobin measurement (mass/volume) 11.1 g/dL 11.5-16.0 Blood hematocrit (volume fraction) 34 % 35-52 Automated erythrocyte mean corpuscular volume 85 [foz_us] 80-99 Automated erythrocyte mean corpuscular hemoglobin (mass per erythrocyte) 28 pg 25-34 Automated erythrocyte mean corpuscular hemoglobin concentration measurement (mass/volume) 33 g/dL 32-36 Automated erythrocyte distribution width ratio 13.8 % 10.0- 14.5 Automated blood platelet count (count/volume) 201 10*3/uL 130-400 Automated blood platelet mean volume measurement 9.8 [foz_us] 7.4-10.4 Automated blood neutrophils/100 leukocytes 84 % 42-75 Automated blood lymphocytes/100 leukocytes 10 % 12-44 Blood monocytes/100 leukocytes 5 % 0-12 Automated blood eosinophils/100 leukocytes 0 % 0-10 Automated blood basophils/100 leukocytes 0 % 0-10 Blood neutrophils automated count (number/volume) 7.8 10*3 1.8-7.8 Blood lymphocytes automated count (number/volume) 0.9 10*3 1.0-4.0 Blood monocytes automated count (number/volume) 0.5 10*3 0.0- 1.0 Automated eosinophil count 0.0 10*3/uL 0.0-0.3 Automated blood basophil count (count/volume) 0.0 10*3/uL 0.0-0.1 Encounters ACCT No. Visit Date/Time Discharge Status Pt. Type Provider Facility Loc./Unit Complaint [id number] 01/25/2019 06:44:00 01/25/2019 09:56:00 DIS Outpatient ELHAM CAPPS DO [facility] PREOP RECURRENT INCISIONAL HERNIA [id number] 09/07/2018 10:51:00 09/09/2018 10:25:00 DIS Inpatient DANNY PA DO [facility] LDRP OLIGOHYDRAMNIOS; PREVIOUS SECTION [id number] 09/02/2018 10:32:00 09/02/2018 12:30:00 DIS Outpatient DANNY PA DO [facility] WSo DECREASED MOVEMENT [id number] 07/01/2018 09:43:00 07/01/2018 23:59:59 CLS Outpatient EDGAR DIEZ APRN [facility] RAD HERNIA, ABD PAIN [id number] 05/14/2018 15:46:00 05/14/2018 23:59:59 CLS Outpatient DANNY PA DO [facility] RAD Z33.1 [id number] 05/05/2018 06:48:00 05/05/2018 23:59:59 CLS Outpatient PAULINO NIELSON [facility] RAD ABDOMINAL PAIN,HX HERNIA WITH MESH, 18 WK [id number] 08/04/2017 09:47:00 08/04/2017 23:59:59 CLS Outpatient PAULINO NIELSON [facility] DEHYDRTION,N/V/D [id number] 05/17/2017 19:40:00 05/18/2017 11:50:00 DIS Outpatient PEER JEMIMA MORGAN [facility] FRACTURE/DISLOCATION RT SHOULDER [id number] 09/18/2016 09:32:00 09/18/2016 23:59:59 CLS Outpatient EDGAR DIEZ APRN [facility] RAD LOW BACK PAIN, FALL [id number] 01/25/2016 07:27:00 01/25/2016 13:32:00 DIS Outpatient MEL AIKEN MD [facility] RECURRENT UMBILINAL HERNIA [id number] 01/19/2016 08:54:00 01/19/2016 09:44:00 DIS Outpatient MEL AIKEN MD [facility] PREOP RECURRENT UMBILINAL HERNIA [id number] 11/01/2015 13:17:00 11/01/2015 23:59:59 CLS Outpatient MEL AIKEN MD [facility] RAD COUGH [id number] 10/26/2015 09:27:00 10/26/2015 15:50:00 DIS Outpatient MEL AIKEN MD [facility] DYSKNESIA [id number] 10/25/2015 08:28:00 10/25/2015 23:59:59 CLS Outpatient MEL AIKEN MD [facility] PREOP DYSKNESIA [id number] 08/27/2015 19:01:00 08/30/2015 11:30:00 DIS Inpatient DANNY PA DO S [facility] LDRP INDUCTION [id number] 06/10/2015 08:24:00 06/10/2015 15:05:00 DIS Emergency MACARENA MARI MD [facility] ER CHEST PAIN [id number] 06/08/2015 09:16:00 06/08/2015 11:20:00 DIS Outpatient AYAZ ZARATE MD [facility] EPIGASTRIC PAIN [id number] 01/28/2019 08:00:00 PEN Preadmit ELHAM CAPPS DO [facility] RECURRENT INCISIONAL HERNIA [id number] 08/11/2012 12:02:00 Document Registration [id number] 06/09/2012 15:43:00 Document Registration [id number] 05/27/2012 15:22:00 Document Registration [id number] 03/16/2012 10:27:00 Document Registration [id number] 11/16/2010 14:33:00 Document Registration [id number] 11/09/2010 10:07:00 Document Registration [id number] 05/21/2017 08:40:56 05/21/2017 23:59:59 [facility] Outpatient
[2019-01-28 06:49] LABS: BASOPHILS % (AUTO) 0 % (0-10); EOSINOPHILS # (AUTO) 0.1 10^3/uL (0.0-0.3); EOSINOPHILS % (AUTO) 2 % (0-10); HEMATOCRIT 37 % (35-52); HEMOGLOBIN 12.6 G/DL (11.5-16.0); LYMPHOCYTES % (AUTO) 26 % (12-44); MEAN CORPUSCULAR HEMOGLOBIN 27 PG (25-34); MEAN CORPUSCULAR HGB CONC 34 G/DL (32-36); MEAN CORPUSCULAR VOLUME 81 FL (80-99); MEAN PLATELET VOLUME 8.8 FL (7.4-10.4); MONOCYTES # (AUTO) 0.3 X 10^3 (0.0-1.0); MONOCYTES % (AUTO) 8 % (0-12); NEUTROPHILS # (AUTO) 2.5 X 10^3 (1.8-7.8); NEUTROPHILS % (AUTO) 64 % (42-75); PLATELET COUNT 241 10^3/uL (130-400); RED CELL DISTRIBUTION WIDTH 13.6 % (10.0-14.5)
[2019-01-28] MEDS ORDERED: ceFAZolin 2 GM/50 ML NS 50 ML ONE (06:52)
[2019-01-28] MEDS ORDERED: FAMOTIDINE 20MG/2ML IV (PEPCID) ONE (06:55)
[2019-01-28] MEDS ORDERED: ONDANSETRON 4 MG/2 ML (SDV) Z0FRAN ONE ×3 (06:55→10:37)
[2019-01-28] MEDS ORDERED: MIDAZOLAM 2 MG/2 ML (VERSED) VIAL ONE ×2 (06:55→07:03)
[2019-01-28] MEDS ORDERED: MIDAZOLAM 2 MG/2 ML (VERSED) VIAL IV ONE (07:00)
[2019-01-28] MEDS ORDERED: FAMOTIDINE 20MG/2ML IV (PEPCID) IV ONE (07:00)
[2019-01-28] MEDS ORDERED: ONDANSETRON 4 MG/2 ML (SDV) Z0FRAN IV ONE (07:00)
[2019-01-28] MEDS ORDERED: LIDOCAINE PF 2% 5 ML (XYLOCAINE) VIAL ONE (07:03)
[2019-01-28] MEDS ORDERED: ROCURONIUM 10 MG/ML 5 ML SYRINGE IV ONE (07:03)
[2019-01-28] MEDS ORDERED: proPOfol 200 MG/20 ML (DIPRIVAN) VIAL IV ONE (07:03)
[2019-01-28] MEDS ORDERED: SEVOFLURANE (ULTANE) 15 ML INHAL SOLN ONE ×5 (07:03→09:49)
[2019-01-28] MEDS ORDERED: fentaNYL INJECTION 100 MCG/2 ML AMP ONE (07:03)
[2019-01-28] MEDS ORDERED: CATHETER FLUSH 10 ML SYR IV PRN (07:15)
[2019-01-28] MEDS ORDERED: ceFAZolin 2 GM/50 ML NS 50 ML IV ONE (07:15)
[2019-01-28] MEDS ORDERED: BUP/EPI 0.5% 1:200,000 (SENSORCAINE) 30 ML VIAL ONE (07:19)
[2019-01-28] MEDS ORDERED: LIDOCAINE 1% INJ 20 ML 20 ML VIAL ONE (07:19)
[2019-01-28] MEDS: LACTATED RINGERS 1,000 ML IV PRN ×2 (07:19→08:40)
[2019-01-28] MEDS ORDERED: DEXAMETHASONE 10 MG/ML (DECADRON) 1 ML VIAL ONE (09:11)
--- NOTE | 2019-01-28 09:45 | Progress Note-Post Operative ---
Post-Operative Progess Note Surgeon (s)/Mechanical Adjuster (s) Surgeon ELHAM CAPPS DO Mechanical Adjuster: Dr. Sage Pre-Operative Diagnosis RECURRENT INCISIONAL HERNIA Post-Operative Diagnosis recurrent incarcerated incisional hernia repair Procedure & Operative Findings Date of Procedure 01/28/19 Procedure Performed/Findings lap recurrent incarcerated incisional hernia repair Anesthesia Type gen Estimated Blood Loss Estimated blood loss (mL): min Specimens/Packing Specimens Removed mesh ELHAM CAPPS DO January 28, 2019 09:45
--- NOTE | 2019-01-28 09:47 | Discharge Inst-Simple/Standard ---
Discharge Inst-Standard Discharge Medications New, Converted or Re-Newed RX: RX on Chart Patient Instructions/Follow Up Plan of Care/Instructions/FU: 2-3 weeks Kiesha Activity as Tolerated: No Discharge Diet: Regular Diet Other Inst to Patient Follow up Appt: Make appointment for 2-3 weeks. Instructions: No lifting greater than 10 pounds. No strenuous activity. May shower in 24 hours, no tub bath or soaking. Use incentive spirometer at home as directed. No Smoking Skin/Wound Care: You have special glue over incisions it will fall off on its own. Symptoms to Report: Appetite Changes, Extremity Discoloration, Numbness/Tingling, Swelling Increased, Bleeding Excessive, Eyesight Changes, Pain Increased, Urine Color Change, Constipation(Persistent), Fever over 101 degree F, Pain/Pressure in c hest, Urinating Difficulty, Cough Up/Vomit Blood, Heart Beat Irreg/Pounding, Pain/Pressure in jaw, Vaginal Bleeding Increase, Cramps in feet or legs, Lightheadedness, Pain/Pressure in shoulder, Diarrhea(Persistent), Memory Changes Suddenly, Questions/Concerns, Weight gain consecutive days, Dizziness/Fainting, Nausea/Vomiting, Shortness of Breath, Weight gain over 2 pounds If questions or concerns contact your physician Or seek help at emergency department. ELHAM CAPPS DO January 28, 2019 09:47
[2019-01-28] MEDS ORDERED: ACHD5005 PO (09:51)
[2019-01-28] MEDS ORDERED: DOCU-143 PO (09:51)
[2019-01-28] MEDS ORDERED: HYDROcodone/APAP 5 MG/325 MG (LORTAB) TAB PO PRN (10:00)
[2019-01-28] MEDS ORDERED: morphine INJ 10 MG/ML 1ML (SYR OR VIAL) ONE (10:02)
[2019-01-28] MEDS ORDERED: HYDROmorphone 2 MG/ML VIAL (DILAUDID) IV ONE (10:15)
[2019-01-28] MEDS ORDERED: morphine INJ 10 MG/ML 1ML (SYR OR VIAL) IVP ONE (10:15)
[2019-01-28] MEDS: ONDANSETRON 4 MG/2 ML (SDV) Z0FRAN IVP PRN ×2 (10:43→11:15)
[2019-01-28] MEDS: HYDROmorphone 2 MG/ML VIAL (DILAUDID) ONE ×2 (12:03→12:08)
--- NOTE | 2019-01-28 13:00 | OPERATIVE REPORT ---
DATE OF SERVICE: 01/28/2019 PREOPERATIVE DIAGNOSIS: Recurrent incisional hernia. POSTOPERATIVE DIAGNOSIS: Recurrent incarcerated incisional hernia repair. PROCEDURE: Laparoscopic incarcerated incisional hernia repair and removal of partial mesh. SURGEON: Elham Pop DO SURGICAL TRAINING SPECIALIST: Dr. Sage, assisted in retraction, dissection and closure. ANESTHESIA: General. ESTIMATED BLOOD LOSS: Minimal. COMPLICATIONS: None. INDICATIONS: The patient is a 33-year-old female with history of multiple hernia repairs. She has recurrent incisional hernia. She understands risks and benefits of procedure and wished to proceed with procedure. Consent was signed on the chart. DESCRIPTION OF PROCEDURE: The patient was taken to the operating suite, prepped and draped in sterile fashion. Timeout was performed. Isidoro technique was used to enter the abdomen and left upper quadrant. Balloon trocar was inserted and pneumoperitoneum was achieved. Under direct visualization of the laparoscope, a 5 mm trocar was placed in the right lower quadrant and one in the left lower quadrant. The hernia defect was visualized demonstrating incarcerated fat. This was taken down with traction and blunt dissection. This demonstrated that the hernia defect is at the lateral edge of the previously placed mesh with the mesh curling up circumferentially around the defect and on the left lateral aspect. scissors were then used to remove the rolled portions of the mesh. Cautery scissors were then used to dissect down the falciform and also the fat pad inferiorly. Once adequate area was prepared for the new mesh, the Alexander-Muna was used with 0 Prolene to close the defect in a [id number] fashion. A 6-inch Echo Ventralight mesh was inserted in the abdomen and grasped through a stab incision with a Alexander-Muna. The balloon was insufflated and circumferentially SecureStrap Tacker was used to place tacks. The balloon was then removed and the inner crown was then placed with adequate coverage and the pressure was decreased during this time. At this time, the abdomen was then desufflated. The trocars were removed. The fascial defect was then closed with a 0 Vicryl in a [id number] fashion and the subcutaneous tissues were then reapproximated using 4-0 Monocryl in subcuticular fashion. The abdomen was then washed and dried and Skin Affix was placed over the incisions. The patient tolerated the procedure well without any complications. She was taken to the recovery room in stable condition. Job ID: [id number] DocumentID: [id number] Dictated Date: 01/28/2019 09:56:50 Gun Tester Date: 01/28/2019 12:59:12 Dictated By: ELHAM POP DO
--- NOTE | 2019-01-28 16:32 | Anesthesia-General Post-Op ---
General Patient Condition Mental Status/LOC: Same as Preop Cardiovascular: Satisfactory Nausea/Vomiting: Absent Respiratory: Satisfactory Pain: Controlled Complications: Absent Post Op Complications Complications None Follow Up Care/Instructions Patient Instructions None needed. Anesthesia/Patient Condition Patient Condition Patient is doing well, no complaints, stable vital signs, no apparent adverse anesthesia problems. DIAMANTE GARLAND DO January 28, 2019 16:32
== END 2019-01-28 13:10 | disposition home or self-care (01) ==
LOC: SDC 05:55
PROVIDERS: ATTEND Surgery
DX: K43.0 Incisional hernia with obstruction, without gangrene (principal); K21.9 Gastro-esophageal reflux disease without esophagitis; E66.01 Morbid (severe) obesity due to excess calories; Z68.41 Body mass index [BMI] 40.0-44.9, adult; Z79.899 Other long term (current) drug therapy
CPT/HCPCS: 36415; 84703; 85025; 87081; 94664

== ENCOUNTER → 2020-02-23 | Outpatient (CLI) | payer BC ==
[~2020-02-23] MED LIST changes: +DOCU-143 PO; +OMEP40CA27 PO; -OMEP40CA36 PO
== END ==
LOC: LAB 10:00
PROVIDERS: ATTEND Nurse Practitioner Family
DX: Z87.09 Personal history of other diseases of the respiratory system (principal); Z20.828 Contact with and (suspected) exposure to other viral communicable diseases
CPT/HCPCS: 36415; 86769

== ENCOUNTER → 2021-12-14 | Outpatient (CLI) | payer BC ==
[~2021-12-14] MED LIST changes: +ALPR.25T PO; -ALPR0.254 PO; -AMIT10TA6 PO; +AMT10T PO; -OMEP40CA27 PO; +OMEP40CA6 PO
--- NOTE | 2021-12-14 10:59 | Diagnostic Imaging Report ---
INDICATION: Low back pain with right sciatica. TECHNIQUE: AP view of the lumbar spine is obtained. Lateral images were obtained in the neutral, flexed and extended positions. COMPARISON: Comparison is made to study of 09/18/2016. FINDINGS: There has been development of mild left convexity curvature of the lumbar spine. Otherwise, lumbar lordosis is normal. Vertebral body heights and disc spaces are maintained. There is sclerosis about the L4-L5 and L5-S1 facet joints. There is no evidence of fracture. No abnormal motion is seen with flexion and extension. IMPRESSION: Development of mild left convexity curvature of the lumbar spine and lower lumbar degenerative facet arthropathy. Otherwise, no acute abnormality is seen. Dictated by: Dictated on workstation # [id number]
== END ==
LOC: RAD 09:38
PROVIDERS: ATTEND Family Medicine
DX: M47.816 Spondylosis without myelopathy or radiculopathy, lumbar region (principal); M43.8X6 Other specified deforming dorsopathies, lumbar region
CPT/HCPCS: 72100

== ENCOUNTER → 2023-04-08 | Outpatient (CLI) | payer BC ==
--- NOTE | 2023-04-08 16:15 | Diagnostic Imaging Report ---
PROCEDURE: Pelvic comp/transvaginal sonogram. TECHNIQUE: Complete transabdominal and transvaginal pelvic ultrasound was performed. In addition, limited pelvic Doppler was performed. INDICATION: Irregular menses. FINDINGS: The uterus measures 11.4 x 4.7 x 4.7 cm. The endometrium is 6 mm in thickness. There is a cervical nabothian cyst present. No definite myometrial mass is identified. The right and left ovaries could not be visualized due to overlying bowel gas. No adnexal mass or free fluid is seen. No abnormal vascularity is seen with limited pelvic Doppler. IMPRESSION: Nonvisualized ovaries due to overlying bowel gas. The study is otherwise unremarkable. Dictated by: Dictated on workstation # [id number]
== END ==
LOC: RAD 14:24
PROVIDERS: ATTEND Nurse Practitioner Family
DX: N92.6 Irregular menstruation, unspecified (principal)
CPT/HCPCS: 76830; 76856

== ENCOUNTER 2023-05-20 05:27 | Outpatient (CLI) | payer BC ==
[~2023-05-20] VITALS: Ht 152.4 cm; Wt 109.1 kg
[~2023-05-20 05:27] MED LIST changes: +FAMO-356 PO; -FAMO20TA3 PO
[2023-05-20] MEDS ORDERED: PANT20TA18 PO (08:11)
== END 2023-05-20 12:59 | disposition home or self-care (01) ==
LOC: PREOP 05:27
PROVIDERS: ATTEND Obstetrics & Gynecology
DX: Z01.818 Encounter for other preprocedural examination (principal)